=== PATIENT | male | born 1950 | race Caucasian/White ===

== ENCOUNTER → 2016-07-27 | Outpatient (CLI) | payer MEDICARE, OTHER ==
[~2016-07-27] MED LIST: ALLO300T74 PO; AMLO10TA57 PO; ASPI325T PO; CYAN500T2 PO; DOXY100T2 PO; FEXO-118 PO; HYDR-4072 PO; INSU100C11 SQ; INSU100V27 SQ; LABE100T19 PO; LEVO200T10 PO; OXYC1TAB8 PO; SERT-88 PO; VALS1TAB81 PO; [UNRECOGNIZED DRUG - CODE] PO
== END ==
LOC: NWCC 13:35
PROVIDERS: ATTEND Internal Medicine
DX: I87.2 Venous insufficiency (chronic) (peripheral) (principal); L97.812 Non-pressure chronic ulcer of other part of right lower leg with fat layer exposed; R60.0 Localized edema; B95.62 Methicillin resistant Staphylococcus aureus infection as the cause of diseases classified elsewhere
CPT/HCPCS: 11042; A6209; G0463

== ENCOUNTER → 2016-08-03 | Outpatient (CLI) | payer MEDICARE, OTHER | LOC: NWCC 13:38 | PROVIDERS: ATTEND Internal Medicine | DX: I87.2 Venous insufficiency (chronic) (peripheral) (principal); L97.812 Non-pressure chronic ulcer of other part of right lower leg with fat layer exposed; R60.0 Localized edema | CPT/HCPCS: 29581; A6209; G0463 ==

== ENCOUNTER → 2016-08-10 | Outpatient (CLI) | payer MEDICARE, OTHER ==
[~2016-08-10] MED LIST changes: +CALMOSEPTINE OINTMENT 3.5 G PACKET TOP ONE
== END ==
LOC: NWCC 13:30
PROVIDERS: ATTEND Internal Medicine
DX: I87.2 Venous insufficiency (chronic) (peripheral) (principal); L97.812 Non-pressure chronic ulcer of other part of right lower leg with fat layer exposed; R60.0 Localized edema; Z89.612 Acquired absence of left leg above knee; B95.62 Methicillin resistant Staphylococcus aureus infection as the cause of diseases classified elsewhere
CPT/HCPCS: 11042; 29581; 97597; A9270

== ENCOUNTER → 2016-08-17 | Outpatient (CLI) | payer MEDICARE, OTHER ==
[~2016-08-17] MED LIST changes: -CALMOSEPTINE OINTMENT 3.5 G PACKET TOP ONE
== END ==
LOC: NWCC 13:01
PROVIDERS: ATTEND Internal Medicine
DX: I87.2 Venous insufficiency (chronic) (peripheral) (principal); L97.812 Non-pressure chronic ulcer of other part of right lower leg with fat layer exposed; R60.0 Localized edema; L97.819 Non-pressure chronic ulcer of other part of right lower leg with unspecified severity; B95.62 Methicillin resistant Staphylococcus aureus infection as the cause of diseases classified elsewhere
CPT/HCPCS: 29581; A6209; G0463

== ENCOUNTER → 2016-08-24 | Outpatient (CLI) | payer MEDICARE, OTHER ==
[~2016-08-24] MED LIST changes: +CALMOSEPTINE OINTMENT 3.5 G PACKET TOP ONE; +SALINE FLUSH 10ml SYRINGE IVF ONE
== END ==
LOC: NWCC 13:49
PROVIDERS: ATTEND Internal Medicine
DX: I87.2 Venous insufficiency (chronic) (peripheral) (principal); L97.812 Non-pressure chronic ulcer of other part of right lower leg with fat layer exposed; R60.0 Localized edema; S81.001A Unspecified open wound, right knee, initial encounter; S81.801A Unspecified open wound, right lower leg, initial encounter
CPT/HCPCS: 11042; 29581; A6021; A6210; A9270; G0463

== ENCOUNTER → 2016-08-31 | Outpatient (CLI) | payer MEDICARE, OTHER ==
[~2016-08-31] MED LIST changes: +ASCO250T5 PO; -CALMOSEPTINE OINTMENT 3.5 G PACKET TOP ONE; +CIPR-280 PO; +CLIN300C86 PO; +CLOT15CR5 TOP; +CYCL-375 PO; +HYDR-347 PO; +HYDR-4246 PO; +IBUP-1724 PO; +INSU100I3 SQ; +IRON18TA PO; +LOSA100T44 PO; -SALINE FLUSH 10ml SYRINGE IVF ONE; +SILVER NITRATE APPLICATOR TOP ONE; +TRAM50TA4 PO
== END ==
LOC: NWCC 13:59
PROVIDERS: ATTEND Internal Medicine
DX: I87.2 Venous insufficiency (chronic) (peripheral) (principal); L97.812 Non-pressure chronic ulcer of other part of right lower leg with fat layer exposed; R60.0 Localized edema; S81.801A Unspecified open wound, right lower leg, initial encounter; S81.001A Unspecified open wound, right knee, initial encounter
CPT/HCPCS: 17250; 29581; A6021; G0463

== ENCOUNTER → 2016-09-07 | Outpatient (CLI) | payer MEDICARE, OTHER ==
[~2016-09-07] MED LIST changes: -SILVER NITRATE APPLICATOR TOP ONE
== END ==
LOC: NWCC 13:40
PROVIDERS: ATTEND Internal Medicine
DX: I87.2 Venous insufficiency (chronic) (peripheral) (principal); L97.812 Non-pressure chronic ulcer of other part of right lower leg with fat layer exposed; S81.001A Unspecified open wound, right knee, initial encounter; R60.0 Localized edema; M62.838 Other muscle spasm
CPT/HCPCS: 11042; 29581; A6021; G0463

== ENCOUNTER 2016-09-09 14:49 | Emergency (ER) | payer MEDICARE, OTHER ==
[~2016-09-09] VITALS: Ht 190.5 cm; Wt 137.7 kg
[2016-09-09 14:49] VITALS: Ht 190.5 cm; Wt 137.7 kg
[~2016-09-09 14:49] MED LIST changes: -ASCO250T5 PO; -CIPR-280 PO; -CLIN300C86 PO; -CLOT15CR5 TOP; -CYCL-375 PO; -HYDR-347 PO; -HYDR-4246 PO; -IBUP-1724 PO; -INSU100I3 SQ; -IRON18TA PO; -LOSA100T44 PO; -TRAM50TA4 PO
--- OUTSIDE RECORDS SUMMARY | 2016-09-09 14:57 | XMS REPORT | Continuity of Care Document ---
Author Author [facility] Organization [facility] Address Unknown Phone Unavailable Support Name Relationship Address Phone ANN-MARIEJOSEFINA GIOVANA Caregiver [address] [place] [address] Unavailable VIKAS PORTILLO MD Caregiver [address] [place] [address] [place] [address] Unavailable KIA LIPSCOMB Next Of Kin [address] [place], [place] [id number] Insurance Providers Guarantor Sherri Lipscomb Address [address] [address] Email DENIED/ NO PORTAL Payer Medicare Policy Number [id number] Subscriber's Name Sherri Lipscomb Relationship 18 Self Effective Date 11 Payer [employer] Medicare Supplement Policy Number [id number] Subscriber's Name Sherri Lipscomb Relationship 18 Self Group Number [id number] Advance Directives Directive Response Recorded Date/Time Advanced Directives Type None 06/06/16 1:05pm Chief Complaint and Reason for Visit Chief Complaint Lower Extremity Pain Reason for Visit Cellulitis [id number] Problems Active Problems Medical Problem Onset Date Status Chronic shoulder pain Unknown Acute Hyperglycemia Unknown Acute Past Problems Medical Problem Onset Date Cellulitis Unknown Hx MRSA infection Unknown Medications Current Home Medications Medication Dose Units Route Directions Days Qty Instructions Start Date Allopurinol 300 Mg Tablet 1 Tab Oral Twice A Day 12/11/09 Amlodipine Besylate (Norvasc) 10 Mg Tablet 1 Tab Oral Daily 12/11 Aspirin 325 Mg Tablet 1 Tab Oral Daily 12/11/14 Cyanocobalamin (Vitamin B-12) (Vitamin B-12) 500 Mcg Tablet 1 Tab Oral Daily 12/11/14 Doxycycline Hyclate 100 Mg Tablet 1 Tab Oral Twice Daily With Meals 14 Days 28 Tablet 06/06/16 Fexofenadine Hcl 180 Mg Tablet 1 Tab Oral Twice A Day 12/11/14 Hydrocodone/Acetaminophen (Hydrocodon-Acetaminoph 7.5-325) 1 Each Tablet 1 Tab Oral Four Times Daily 07/16/15 Insulin Glargine (Lantus) 100 U/Ml Cartridge 55 U Sub-Q Bedtime 12/11/09 Insulin Lispro (Humalog) 100 U/Ml Vial 12-15 Unit Sub-Q Three Times A Day 12/11/09 Labetalol Hcl 100 Mg Tablet 1 Tab Oral Twice A Day 12/11/09 Levothyroxine Sodium (Levoxyl) 200 Mcg Tablet 1 Tab Oral 4 Times A Week 1 TAB ON MON-12/11/09 Levothyroxine Sodium 200 Mcg Tablet 2 Tab Oral 3 Times A Week TAKE 2 TAB MON-Mon12/11/14 Oxycodone Hcl/Acetaminophen (Percocet 5-325 Mg Tablet) 1 Each Tablet 1 Tab Oral Every 4-6 Hours as needed for Pain 15 Tablet 12/11/14 Sertraline Hcl (Zoloft) 100 Mg Tablet 1 Tab Oral Twice A Day 13/03 Valsartan/Hydrochlorothiazide (Valsartan-Hctz 320-25 Mg Tab) 1 Each Tablet 1 Tab Oral Daily 12/11/14 Past Home Medications Medication Directions Ordered Status Allopurinol 300 Mg Tablet, 300 Mg Oral 11/29/08 Discontinued Aspirin 325 Mg Tablet, 325 Mg Oral Daily 12/11/09 Discontinued Cephalexin Monohydrate (Cephalexin) 500 Mg Capsule, 500 Mg Oral Twice A Day 12/11/09 Discontinued Fexofenadine Hcl 60 Mg Tablet, 60 Mg Oral Twice A Day 12/11/09 Discontinued Furosemide 40 Mg Tablet, 40 Mg Oral Daily 12/11/09 Discontinued Ibuprofen 200 Mg Capsule, 200 Mg Oral Tid/Prn 12/11/09 Discontinued Pravastatin Sodium 40 Mg Tablet, 40 Mg Oral Bedtime 12/11/09 Discontinued Rosiglitazone Maleate (Avandia) 8 Mg Tablet, 8 Mg Oral 11/29/08 Discontinued Valsartan/Hydrochlorothiazide (Diovan Hct 320/25 Mg Tab) 1 Tab Tablet, 1 Tab Oral Daily 12/11/09 Discontinued Social History Social History Problem Response Recorded Date/Time Onset Date Status Hx Substance Use No 06/06/2016 3:58pm Not Applicable Not Applicable Hx Alcohol Use Y RECOVERING ALCOHOLIC 06/06/2016 3:58pm Not Applicable Not Applicable Tobacco Usage none 12/11/2014 10:54pm Not Applicable Not Applicable Query Response Start Date Stop Date Smoking Status Former smoker Hospital Discharge Instructions No hospital discharge instructions. Plan of Care Discharge Date 06/06/16 4:37pm Disposition 01 DISCHARGED HOME, SELF-CARE Condition at Discharge Stable Instructions/Education Provided Cellulitis Prescriptions See Medication Section Referrals GIOVANA LEAL Address: [address] [place] [address] Additional Instructions/Education Stop clindamycin. Start doxycycline 100 mg twice daily for 14 days. Continue ciprofloxacin as previously ordered. Follow with wound care center as scheduled Monday with Dr. New. Discussed with Dr. New additional prescription for doxycycline as needed for length of time desired. Take your already prescribed [place] for pain as needed. Follow treatment plan. Care Plan and Goals Physician Care Plan Problem: Cellulitis Goal: Follow up with wound care as scheduled for Monday of this week Instructions: Take medications and follow care plan as discussed/written Functional Status No functional status results. Allergies, Adverse Reactions, Alerts Allergen Type Severity Reaction Status Last Updated Iodinated Contrast Media - IV Dye Allergy Unknown Active 06/06/16 Sulfa (Sulfonamide Antibiotics) Allergy Unknown Active 06/06/16 Immunizations Query Response on File Recorded Date/Time Hx Influenza Vaccination Y fall 201012/11/14 8:55pm Hx Pneumococcal Vaccination Y within the last 10 years 12/11/14 8:55pm Hx Tetanus, Diptheria, Pertussis NO BROKEN SKIN 12/11/14 8:55pm Hx Influenza Vaccination Y fall 201012/11/14 8:55pm Hx Tetanus, Diptheria, Pertussis NO BROKEN SKIN 12/11/14 8:55pm Influenza Vaccine Hx 201506/06/16 3:59pm Vital Signs Acute Vital Signs Vital Response Date/Time Temperature (Fahrenheit) 99.1 deg F (96.8 - 99.1) 06/06/2016 1:05pm Temperature (Calculated Celsius) 37.57864 degrees C (36.0 - 37.3) 06/06/2016 1:05pm Pulse Rate (adult) 78 bpm (60 - 100) 06/06/2016 5:46pm Respiratory Rate 16 breaths/min (10 - 20) 06/06/2016 5:46pm O2 Sat by Pulse Oximetry 95 % (90 - 100) 06/06/2016 5:46pm Blood Pressure 128/58 mm Hg 06/06/2016 5:46pm Height (Feet) 6 feet 06/06/2016 1:05pm Height (Inches) 0 inches 06/06/2016 1:05pm Weight (Kilograms) 0 kg 06/06/2016 1:05pm Body Mass Index (BMI) 0.0 06/06/2016 1:05pm Results Laboratory Results Test Name Result Units Flags Reference Collection Date/Time Result Date/ Time Comments White Blood Count 3.5 T/MM3 L 4.5-11.0 06/06/2016 2:05pm 06/06/2016 2: 41pm Red Blood Count 2.65 M/MM3 L 4.50-5.90 06/06/2016 2:05pm 06/06/2016 2: 41pm Hemoglobin 9.2 GM/DL L 13.5-17.5 06/06/2016 2:05pm 06/06/2016 2:41pm Hematocrit 27.5 % L 41-53 06/06/2016 2:05pm 06/06/2016 2:41pm Mean Corpuscular Volume 103.8 UM3 H 80-100 06/06/2016 2:05pm 06/06/2016 2:41pm Mean Corpuscular Hemoglobin 34.7 UUG H 26-34 06/06/2016 2:05pm 2016 2:41pm Mean Corpuscular Hemoglobin Concent 33.5 GM/DL 31-37 06/06/2016 2:05pm 06/06/2016 2:41pm RDW Standard Deviation 52.4 FL H 36.9-50.2 06/06/2016 2:05pm 06/06/2016 2:41pm Platelet Count 57 T/MM3 L 130-400 06/06/2016 2:05pm 06/06/2016 2:41pm Mean Platelet Volume 9.8 UM3 9.4-12.4 06/06/2016 2:05pm 06/06/2016 2: 41pm Neutrophils (%) (Auto) 73.3 % H 33-66 06/06/2016 2:05pm 06/06/2016 2: 41pm Lymphocytes (%) (Auto) 15.1 % L 23-45 06/06/2016 2:05pm 06/06/2016 2: 41pm Monocytes (%) (Auto) 8.5 % 0-9.0 06/06/2016 2:05pm 06/06/2016 2:41pm Eosinophils (%) (Auto) 2.8 % 0-4 06/06/2016 2:05pm 06/06/2016 2:41pm Basophils (%) (Auto) 0.3 % 0-2 06/06/2016 2:05pm 06/06/2016 2:41pm Immature Granulocyte % (Auto) 0.0 % 0.0-0.5 06/06/2016 2:05pm 2016 2:41pm Absolute Neutrophils (auto) 2.6 T/MM3 1.8-7.7 06/06/2016 2:05pm 2016 2:41pm Absolute Lymphocytes (auto) 0.5 T/MM3 L 1-4.8 06/06/2016 2:05pm 2016 2:41pm Absolute Monocytes (auto) 0.3 T/MM3 0-0.8 06/06/2016 2:05pm 06/06/2016 2:41pm Absolute Eosinophils (auto) 0.1 T/MM3 0-0.5 06/06/2016 2:05pm 2016 2:41pm Absolute Basophils (auto) 0.0 T/MM3 0-0.2 06/06/2016 2:05pm 06/06/2016 2:41pm Absolute Immature Granulocyte (auto 0.00 T/MM3 0.00-0.03 06/06/2016 2: 05pm 06/06/2016 2:41pm Icterus Index < 2 0-7 06/06/2016 2:05pm 06/06/2016 2:35pm Chemistry Specimen Hemolysis < 15 0-25 06/06/2016 2:05pm 06/06/2016 2 :35pm 0-25: Specimen Exhibited No Hemolysis. Turbidity < 20 0-20 06/06/2016 2:05pm 06/06/2016 2:35pm Sodium Level 136 MEQ/L 134-144 06/06/2016 2:05pm 06/06/2016 2:35pm Potassium Level 4.7 MEQ/L 3.6-5 06/06/2016 2:05pm 06/06/2016 2:35pm Chloride Level 108 MEQ/L H 98-107 06/06/2016 2:05pm 06/06/2016 2:35pm Carbon Dioxide Level 20 MEQ/L L 22-30 06/06/2016 2:05pm 06/06/2016 2: 35pm Anion Gap 8 MEQ/L 5-15 06/06/2016 2:05pm 06/06/2016 2:35pm Blood Urea Nitrogen 31.0 MG/DL H 9-20 06/06/2016 2:05pm 06/06/2016 2: 35pm Creatinine 1.2 MG/DL 0.8-1.5 06/06/2016 2:05pm 06/06/2016 2:35pm BUN/Creatinine Ratio 26 RATIO 6-26 06/06/2016 2:05pm 06/06/2016 2:35pm Glomerular Filtration Rate Calc 61 06/06/2016 2:05pm 06/06/2016 2: 35pm Glucose Level 149 MG/DL H 75-110 06/06/2016 2:05pm 06/06/2016 2:35pm Calculated Osmolality 272 MOSM/KG 261-280 06/06/2016 2:05pm 06/06/2016 2:35pm Calcium Level 9.8 MG/DL 8.4-10.2 06/06/2016 2:05pm 06/06/2016 2:35pm Total Bilirubin 1.20 MG/DL 0.20-1.30 06/06/2016 2:05pm 06/06/2016 2: 35pm Alkaline Phosphatase 162 U/L H 38-126 06/06/2016 2:05pm 06/06/2016 2: 35pm Total Protein 7.0 G/DL 6.3-8.2 06/06/2016 2:05pm 06/06/2016 2:35pm Albumin 3.1 G/DL L 3.5-5.0 06/06/2016 2:06/06/2016 2:35pm Globulin 3.9 G/DL H 2.4-3.6 06/06/2016 2:05pm 06/06/2016 2:35pm Albumin/Globulin Ratio 0.8 RATIO L 1.1-2.2 06/06/2016 2:05pm 06/06/2016 2:35pm Aspartate Amino Transf (AST/SGOT) 51 U/L 17-59 06/06/2016 2:05pm 2016 2:35pm Alanine Aminotransferase (ALT/SGPT) 37 U/L 21-72 06/06/2016 2:05pm 01/2017 2:35pm Plasma Lactate 0.8 MMOL/L 0.6-2.2 06/06/2016 2:05pm 06/06/2016 2:36pm Procalcitonin 0.44 NG/ML 06/06/2016 2:05pm 06/06/2016 2:44pm PCT </= 0.5 ng/mL - sepsis not likely; PCT >0.5 and </=2 ng/mL - sepsis possible; PCT >2 ng/mL - sepsis likely; PCT >/=10 ng/mL - systemic inflammatory response - sepsis or septic shock highly indicated. Microbiology Results Procedure Source Organism/Result Collection Date/Time Result Date/Time Result Status WOUND CULTURE DEEP TISS-AER/AN Knee, Non-Surgical Site, Right S. AUREUS, METH -RESISTANT 05/11/2016 12:19pm 05/15/2016 9:37am Final ENTEROCOC FAECALIS - (GROUP D) 05/11/2016 12:19pm 05/15/2016 9:37am Final Blood Culture Peripheral/Iv Start CULTURE INITIATED - RESULTS PENDING 06/06 2:05pm 06/06/2016 2:42pm Preliminary Procedures Procedure Status Date Provider(s) Leticia subq tissue 20 sq cm/< Completed 05/04/16 246881"BORDER, EACH DRESSING" Completed 05/04/16 [id number] ITEM OR SERVICE Completed 05/04/16 E&M LEVEL - FACILITY Completed 05/04/16 Encounters Encounter Location Arrival/Admit Date Discharge/Depart Date Attending Provider Departed Emergency Room [facility] 06/06/16 1:03pm 06/06/16 4: 37pm VIKAS PORTILLO MD [facility] 05/25/16 1:34pm JUAN NEW MD [facility] 05/11/16 11:02am JUAN NEW MD [facility] 05/04/16 9:35am JUAN NEW MD Recent Diagnosis
--- NOTE | 2016-09-09 15:18 | ERPDOC ---
Departure Disposition Decision Date: Sep 09, 2016 Disposition Decision Time: 17:25 (NAIDA VASQUEZ APRN) Disposition: 01 DISCHARGED HOME, SELF-CARE Impression Impression (NAIDA VASQUEZ APRN) Impression: Primary Impression: Right hip pain Additional Impression: Fall Encounter type: initial encounter Qualified Codes: W19.XXXA - Unspecified fall, initial encounter Severity: Moderate (NAIDA VASQUEZ APRN) Condition: Stable Seen By: Mid-level only (NAIDA VASQUEZ APRN) Referrals: GIOVANA LEAL (Family) Problems/Meds/Labs Reviewed?: Yes Medications reviewed and manag: Yes (NAIDA VASQUEZ APRN) Additional Instructions: Your x-rays today did not show a fracture. IRU and home health will call you for evaluation as discussed with Mila. You may take [place] 7.5mg every 6 hours as needed for pain. You may take cyclobenzaprine 10mg every 8 hours as needed for muscle spasms. Follow with your PCP for re-evaluation next week. Follow up care ordered?: Yes Mental Status: Alert, Oriented (NAIDA VASQUEZ APRN) Scripts Hydrocodone/Acetaminophen ([place] 7.5-325 Tablet) 7.5-325 Tablet 1 TAB PO Q6HPRN for PAIN, #20 TAB Prov: NAIDA VASQUEZ APRN 09/09/16 Cyclobenzaprine HCl (Cyclobenzaprine HCl) 10 Mg Tablet 1 TAB PO TID for MUSCLE PAIN, #30 TAB Prov: NAIDA VASQUEZ APRN 09/09/16 HPI - Lower Extremity General Chief Complaint: Lower Extremity Pain Stated Complaint: HIP PAIN X 1 WEEK Time Seen by Provider: 15:17 Source: patient (NAIDA VASQUEZ APRN) Time Seen by Provider: 15:17 (ANNMARIE STRINGER DO) HPI - Lower Extremity Initial Comments 66-year-old male presents to ER with complaint of right lateral hip pain. Patient states that he has had increasing right lateral hip pain over past few weeks. Has an appointment with Dr. Brown property specialist in Monday when transferring from his wheelchair to bed he fell on his buttock. Fall has exacerbated his lateral right hip pain. Patient says he is still able to transfer but his spouse must now help him. Patient has had no change in his normal ROM since fall, however it is more painful. Patient reports his pain has improved since he took his prescribed [place] before coming to ED. Pain/Severity Scale: Now: 2/10 (when still), Worst: 8/10 (with movement) Pain/Injury Location: right hip Method of Injury: fell Quality: aching (NAIDA VASQUEZ APRN) Allergies: Coded Allergies: Iodinated Contrast Media - Oral and (Verified Allergy, Unknown, 09/09/16) Sulfa (Sulfonamide Antibiotics) (Verified Allergy, Unknown, 09/09/16) Past History Past Medical History Metabolic: diabetes, hypercholesterolemia, hypertension, hypothyroidism Cardiac: DENIES: angina Respiratory: DENIES: COPD, asthma GI: DENIES: ulcers Male: DENIES: renal insufficiency Neurological: DENIES: seizures Musculoskeletal: osteoarthritis Integumentary: other Psychological: alcohol abuse, depression (NAIDA VASQUEZ APRN) Surgical History General: tonsils Reproductive/: other (vasectomy) Joint: hip, knee, other (left AKA) (NAIDA VASQUEZ APRN) Family History Family PMH: FOUND: other (noncontributory) (NAIDA VASQUEZ APRN) Vaccines Hx Influenza Vaccination: Yes (FALL 2010) Hx Pneumococcal Vaccination: Yes (within the last 10 years) (NAIDA VASQUEZ APRN) Social History Sexuality: female partner (NAIDA VASQUEZ APRN) Review of Systems Constitutional Constitutional: DENIES: chills, dizziness, fever (NAIDA VASQUEZ APRN) Eyes General: DENIES: erythema, exudate Lids/Accessories: DENIES: erythema, swelling (NAIDA VASQUEZ APRN) ENMT Ears: DENIES: pain Sinuses: DENIES: congestion, rhinorrhea Mouth/Throat: DENIES: sore throat (NAIDA VASQUEZ APRN) Cardiovascular Cardiac: DENIES: chest pain, murmur Rhythm/Rate: DENIES: palpitations (NAIDA VSAQUEZ APRN) Pulmonary Respiratory: DENIES: cough, dyspnea (NAIDA VASQUEZ APRN) GI Upper Abdomen: DENIES: nausea, pain, vomiting Lower Abdomen: DENIES: diarrhea, pain (NAIDA VASQUEZ APRN) General: DENIES: dysuria, pain (NAIDA VASQUEZ GRE[employer] END DEPARTMENT SUPERVISOR) Musculoskeletal General: joint pain, see HPI, tenderness (NAIDA VASQUEZ GRE[employer] DEPARTMENT SUPERVISOR) Integumentary Skin: DENIES: color change, itching, rash (ALEX VASQUEZS A [employer] DEPARTMENT SUPERVISOR) Neurological General: DENIES: ataxia, change in strength, numbness, weakness (ALEX VASQUEZS A GRE[employer] DEPARTMENT SUPERVISOR) Psychiatric Psychiatric: DENIES: anxiety, depression, nervousness (ALEX VASQUEZS A [employer] DEPARTMENT SUPERVISOR) Physical Exam General General Nourishment: well nourished, well developed, adult, obese General Body Habitus: well groomed (ALEX VASQUEZS Jan GRE[employer] DEPARTMENT SUPERVISOR) Vitals and Pain First Documented Vital Signs Date Time Temp Pulse Resp B/P Pulse Ox O2 Delivery O2 Flow Rate FiO2 09/09/16 14:49 97.7 62 16 136/61 98 Room Air (ANNMARIE STRINGER DO) Vitals and Pain Weight: Kilograms: 137.700 Height (feet): 6 Height (inches): 3.00 Triage Pain Scale: (ALEX VASQUEZS Jan NGUYENN) Eyes (brief) Eyes Brief: found: EOMI (ALEX VASQUEZS A GRE[employer] END DEPARTMENT SUPERVISOR) ENMT (brief) ENMT Brief: NOT FOUND: nasal exudate, nasal swelling (ALEX VASQUEZS A GRE[employer] DEPARTMENT SUPERVISOR) Neck (brief) Neck: FOUND: trachea midline (ALEX VASQUEZS A GRE[employer] DEPARTMENT SUPERVISOR) Respiratory (brief) Respiratory: FOUND: clear all wick, equal bilaterally, symmetrical (ALEX VASQUEZS A GRE[employer] DEPARTMENT SUPERVISOR) Cardiovascular (brief) Cardiac: FOUND: regular rate, regular rhythm (ALEX VASQUEZS A GRE[employer] DEPARTMENT SUPERVISOR) Musculoskeletal Joint #1: Side: Right Joint: hip Joint Findings: FOUND: ROM limited (due to pain), pain (mild TTP over lateral hip), NOT FOUND: deformity, discoloration, instability, swelling Comments Right foot is externally rotated which patient says has been that way since his right hip replacement 3 years ago. Joint #2: Side: Right Joint: knee Joint Findings: FOUND: no abnormalities (ALEX VASQUEZS A GRE[employer] END DEPARTMENT SUPERVISOR) Integumentary (brief) Integumentary Brief: FOUND: dry, pink, warm (ALEX VASQUEZS A GRE[employer] DEPARTMENT SUPERVISOR) Neurologic Mental Status: FOUND: alert, oriented Cranial Nerves: FOUND: extraocular movements, forehead movement, hearing, vision, NOT FOUND: facial asymmetry Sensation: FOUND: soft touch intact x4 ext (ALEX VASQUEZS A GRE[employer] DEPARTMENT SUPERVISOR) Psychiatric (brief) Psychiatric Brief: FOUND: alert, normal affect, oriented (VASQUEZ,NAIDA A GREEN [employer] DEPARTMENT SUPERVISOR ) Differential Diagnoses Considering: Contusion, Fracture, Sprain, Strain (NAIDA VASQUEZ APRN) Progress Results/Orders Orders Procedure Category Date Status Time Pelvis W/2 View Rt Hip RAD 09/09/16 Resulted (ANNMARIE STRINGER DO) Progress Progress I discussed x-ray results with patient and his . Patient states he is ready to go home, however patient's states that patient is in too much pain at home for him to care for himself. I discussed having Mila pediatric social worker to come to ED and discuss options. Patient will go home and patient will have home health and IRU evaluation. Patient and his verbalize understanding of treatment plan, follow up and return precautions. Patient request refills on [place] and cyclobenzaprine. (NAIDA VASQUEZ APRN) Xray Xray : Xray: Hip R (No acute fracture ) Interpretation: Reviewed Written Report (NAIDA VASQUEZ APRN) NAIDA VASQUEZ APRN Sep 09, 2016 15:18 ANNMARIE STRINGER DO Sep 12, 2016 22:42
--- NOTE | 2016-09-09 15:20 | NUR ---
PROVIDER Charli VASQUEZ CELLULAR TOWER CLIMBER IN TO SEE PATIENT.
[2016-09-09] MEDS ORDERED: CLIN300C86 PO (15:25)
[2016-09-09] MEDS ORDERED: CIPR-280 PO (15:25)
[2016-09-09] MEDS ORDERED: TRAM50TA4 PO (15:25)
[2016-09-09] MEDS ORDERED: INSU100I3 SQ (15:27)
[2016-09-09] MEDS ORDERED: LOSA100T44 PO (15:27)
[2016-09-09] MEDS ORDERED: CLOT15CR5 TOP (15:27)
[2016-09-09] MEDS ORDERED: IBUP-1724 PO (15:29)
[2016-09-09] MEDS ORDERED: ASCO250T5 PO (15:29)
[2016-09-09] MEDS ORDERED: IRON18TA PO (15:29)
[2016-09-09] MEDS ORDERED: LEVO200T10 PO (15:30)
--- NOTE | 2016-09-09 15:35 | NUR ---
TO XRAY PER CART.
--- NOTE | 2016-09-09 15:50 | NUR ---
BACK FROM XRAY
--- NOTE | 2016-09-09 16:04 | DI ---
Indication: ITS.REASON: pain over lateral hip PROCEDURE: PELVIS W/2 VIEW RT HIP: Encounter: Initial Comparison: Pelvis radiograph dated November 23, 2010 Findings: Bilateral hip replacements. No acute fracture or dislocation seen. Extensive heterotopic ossification surrounding the right hip joint. Degenerative change in the lower lumbar spine. Mild bony demineralization. Impression: No acute fracture. .
--- NOTE | 2016-09-09 16:10 | NUR ---
PROVIDER Charli VASQUEZ PACKAGE WINDER IN TO SEE PATIENT.
--- NOTE | 2016-09-09 17:28 | NUR ---
CM THIS WORKER MET WITH PT AND IN ROOM. INTRODUCED SELF AND ROLE OF CASE MANAGEMENT. COMMUNITY RESOURCES REVIEWED. PT AND IN AGREEMENT WITH HOME HEALTH SERVICES THEY HAVE USED [facility] IN THE PAST. THIS WORKER PROVIDED ADDITIONAL RESOURCES FOR DME AND IRU. AND PT THANKFUL AN IN AGREEMENT WITH CURRENT PLAN. PT WILL PLAN TO DISMISS TO HOME WITH [facility]. THIS WORKER PROVIDED CONTACT INFORMATION FOR THIS WORKER AND ENCOURAGED PT AND TO CONTACT THIS WORKER WITH ADDITIONAL NEEDS. Addendum: 09/09/16 at 1730 by JONATHON ANDERSON Amended: Links added.
[2016-09-09] MEDS ORDERED: CYCL-375 PO ×2 (17:35→17:45)
[2016-09-09] MEDS ORDERED: HYDR-347 PO (17:37)
[2016-09-09] MEDS ORDERED: HYDR-4246 PO (17:45)
--- NOTE | 2016-09-09 17:46 | NUR ---
HOME HEALTH ORDERS ORDERS FAXED TO [facility]. SPOKE TO LYNNE FROM [facility] TO NOTIFY OF NEED FOR OPENING OF SERVICES ON 09/10/16.
[2016-09-09 18:10] VITALS: BP 125/62; PULSE 65; RESP 16; TEMP 97.7; O2SAT 99
--- NOTE | 2016-09-09 18:10 | NUR ---
DISMISSAL PATIENT TRANSFERRED TO PERSONAL W/C PER FULL LIFT. PATIENT IS WHEELED OUT TO PO, A WHEELCHAIR ACCESSIBLE VAN.
== END 2016-09-09 18:10 | disposition home or self-care (01) ==
LOC: ED 15:25
DX: M25.551 Pain in right hip (principal); W18.39XA Other fall on same level, initial encounter; Y93.89 Activity, other specified; Y92.9 Unspecified place or not applicable; Y99.8 Other external cause status

== ENCOUNTER 2017-09-03 18:07 | Inpatient (IN) ==
[2017-09-03] MEDS ORDERED: NS 1,000 ML IV ONE (18:18)
[2017-09-03] MEDS ORDERED: NALOXONE 0.4 MG/ML INJECTION IVP ONE (18:24)
--- NOTE | 2017-09-03 18:26 | Emergency Department Report ---
Altered Mental Status HPI - General Chief Complaint: Weakness Stated Complaint: Unresponsive Time Seen by Provider: 09/03/17 18:13 Source: EMS, RN notes reviewed, old records reviewed Mode of arrival: EMS Limitations: altered mental status - History of Present Illness HPI narrative: 67yo man is presented to the ER by EMS for evaluation of AMS. Pt was found at home today (by spouse?) with AMS. This has happened previously, usually in conjunction with a low BG. Today, his BG was found to be 45mg/dL. Typically, after being given glucose, pt recovers. Today, however, he did not recover, so EMS was contacted to transport pt for further evaluation. Pt arrives by EMS breathing, but with SaO2 dipping into the high 80s (86-88%) on RA. Pt is maintaining his own airway without s/s of respiratory distress. Pt is somnolent (GCS 13). MD complaint: altered mental status Onset (ago): unknown Timing confirmed by: spouse Severity: similar to previous episodes Consistency of symptoms: constant Context: history of similar presentation, diabetes Treatments prior to arrival: glucose, IV fluid - Related Data Home Medications Medication Instructions Recorded Confirmed Cipro (ciprofloxacin) 500 mg tablet 500 mg PO BID tab 02/02/17 09/03/17 Lantus Solostar (insulin glargine) 38 unit SQ HS ml 02/02/17 09/03/17 100 unit/mL (3 mL) PEN Neurontin (gabapentin) 100 mg 100 mg PO BID 02/02/17 09/03/17 capsule aspirin 81 mg tablet,delayed 81 mg PO DAILY tab 02/02/17 09/03/17 release Allopurinol [Zyloprim] 300 mg PO DAILY 06/04/17 09/03/17 Amlodipine [Norvasc] 10 mg PO DAILY 06/04/17 09/03/17 Cholecalciferol (Vitamin D3) 2,000 unit PO DAILY 06/04/17 09/03/17 [Vitamin D3] Clindamycin [Cleocin] 300 mg PO BID 06/04/17 09/03/17 Cyclobenzaprine [Flexeril] 10 mg PO TID PRN 06/04/17 09/03/17 Dextrose [Glucose Gel] 4 oz BC PRN 06/04/17 09/03/17 Docusate Sodium 100 mg PO BID PRN 06/04/17 09/03/17 Fexofenadine [Yuridia] 180 mg PO DAILY PRN 06/04/17 09/03/17 Labetalol [Normodyne] 100 mg PO BID 06/04/17 09/03/17 Loperamide HCl [Imodium A-D] 2 mg PO Q4H PRN 06/04/17 09/03/17 Losartan [Cozaar] 100 mg PO DAILY 06/04/17 09/03/17 Ondansetron HCl 4 mg PO Q6H PRN 06/04/17 09/03/17 Sertraline [Zoloft] 100 mg PO BID 06/04/17 09/03/17 Protonix (Pantoprazole)40 mg 40 mg PO DAILY 07/11/17 09/03/17 tablet,delayed release Novolog FlexPen (insulin aspart) 17 unit SQ TIDWM ml 08/21/17 09/03/17 100 unit/mL PEN levothyroxine 50 mcg tablet 50 mcg PO DAILY 08/23/17 09/03/17 Hydrocodone/APAP 7.5/325 [[place] 1 tab PO Q6H PRN 09/03/17 09/03/17 7.5/325] Tramadol [Ultram] 50 mg PO TID PRN 09/03/17 09/03/17 Previous Rx's Medication Instructions Recorded levothyroxine 200 mcg tablet 200 mcg PO DAILY tab 08/23/17 Allergies Allergy/AdvReac Type Severity Reaction Status Date / Time Iodinated Contrast- Oral and Allergy Unknown Verified 09/03/17 18:31 IV Dye Sulfa (Sulfonamide Allergy Unknown Verified 09/03/17 18:31 Antibiotics) Review of Systems Limitations: ROS unobtainable due to patient's medical condition [facility] Patient Stated Medical History Hypertension Yes Other Cardiology Yes: venous insufficency Bronchitis Yes Other Respiratory Yes: allergies Diabetes Mellitus Type 2 Yes Hx Kidney Stones Yes Other Hematologic Yes: bruise easily Cellulitis Yes MRSA Yes Sepsis Yes Depression Yes Clinic Medical History (Last Updated 08/24/17 @ 08:05 by Kevin Le MD) Hyperparathyroidism, primary (Acute Medical ~08/24/17) Diabetes mellitus type 2, uncontrolled, without complications (Chronic Medical ~ 1994) Fair control without severe hypoglycemia. Diabetic peripheral neuropathy associated with type 2 diabetes mellitus ( Chronic Medical) Unable to fully assess today. Postablative hypothyroidism (Chronic Medical ~2003) Clinically and chemically euthyroid. Hypertension (Chronic Medical) Good control. Kidney stone (Acute Medical) Medical History Updates: Gout. HTN. CAD. PVD. Diabetic neuropathy. Gastroparesis. Allergic rhinitis. IDDM. Hypothyroid (s/p JET). GERD. Depression. KIZZY. Morbid obesity Surgical History: Left BKA Family History: Family History (Last Reviewed 08/23/17 @ 09:53 by Kevin Le MD) Brother Diabetes Sister Diabetes Mother Thyroid disease - Social History Smoking status: Never smoker Substance use type: does not use Alcohol intake frequency: does not drink Housing: assisted living facility Household members: spouse Current occupational status: disabled Physical Exam - Limitations Limitations: altered mental status - General General appearance: in no apparent distress, lethargic, obese - Head Head exam: atraumatic, normocephalic, normal inspection - Eye Eye exam: Present: normal appearance, PERRL, EOMI. Absent: scleral icterus - ENT ENT exam: Present: normal exam, normal oropharynx, mucous membranes moist, normal external ear exam - Neck Neck exam: Present: normal inspection, full ROM - Chest Chest inspection: Present: normal inspection, symmetric chest wall rise. Absent : tenderness, rash - Respiratory Respiratory exam: Present: normal lung sounds bilaterally. Absent: respiratory distress, wheezes, stridor, prolonged expiratory phase, crackles - Cardiovascular Cardiovascular exam: Present: regular rate, normal rhythm, normal heart sounds. Absent: rubs, gallop, clicks - Abdominal Exam Abdominal exam: Present: soft, normal bowel sounds. Absent: distention, tenderness, guarding, rebound, rigidity - Extremities Exam Extremities exam: Present: normal capillary refill, pedal edema (3+ edema to calf on right; left BKA). Absent: normal inspection - Skin Skin exam: Present: warm, dry, intact - Expanded Neurological Exam Coma scale eye opening: to voice Coma scale motor response: obeys commands Coma scale verbal response: confused Coma scale total: 13 - Psychiatric Psychiatric exam: Present: flat affect Course - Consultations Consultation #1: Karthik Telemed: Will admit to CCU for eval and further treatment of hypercalcemia , DM, anemia, and A/CRF. Time: 19:53 Altered Mental Status - MDM Narrative Medical decision making narrative: Pt with hypercalcemia, acute/chronic RF, acute/chronic anemia, and poorly controlled DM. Contacted hospitalist, who will place pt in CCU for acute treatment and further eval. - Differential Diagnosis Likely: alcoholic intoxication, altered mental status, delirium, dementia, hypoglycemia, hyponatremia, subarachnoid hemorrhage, sepsis (Opiate overdose) - Medical Records Attestation: I reviewed the patient's medical records. - Lab Data Attestation: I reviewed the patient's lab results. Result diagrams: 09/03/17 18:41 09/03/17 18:41 - Radiology Data Attestation: I reviewed the patient's radiology results. CXR: Diffuse intraparenchymal infiltrates throughout lung wick. CT Head: IMPRESSION: 1. There are senescent changes of the brain as described above. No evidence for large acute ischemic infarction or acute intracranial injury. 2. Paranasal sinusitis including acute left maxillary sinusitis. - EKG Data EKG #1 EKG attestation: Yes: I reviewed and interpreted this EKG. EKG shows normal: axis Rate: bradycardia Rhythm: other (Supraventricular) Mcclellan/QRS: IVCD Interpretation: unchanged when compared to prior tracing (date) (28 OCT 2016), nonspecific ST-T wave changes Disposition Clinical Impression: Hypoglycemia, Hypercalcemia, Anemia, Chronic renal failure Obesity Qualifiers: Obesity type: due to excess calories Obesity classification: adult class 2 ( BMI 35 - 39.9) Serious obesity comorbidity presence: with serious comorbidity Body mass index: BMI 38.0-38.9 Qualified Code(s): E66.01 - Morbid (severe) obesity due to excess calories; Z68.38 - Body mass index (BMI) 38.0-38.9, adult Disposition: 02 To [facility] [place] Acute Care Print Language: Yoruba Condition: Improved Prescriptions: No Action Docusate Sodium 100 mg PO BID PRN PRN Reason: Constipation Loperamide HCl [Imodium A-D] 2 mg PO Q4H PRN PRN Reason: Diarrhea Cyclobenzaprine [Flexeril] 10 mg PO TID PRN PRN Reason: Muscle Spasm Clindamycin [Cleocin] 300 mg PO BID Labetalol [Normodyne] 100 mg PO BID Cholecalciferol (Vitamin D3) [Vitamin D3] 2,000 unit PO DAILY Amlodipine [Norvasc] 10 mg PO DAILY Allopurinol [Zyloprim] 300 mg PO DAILY Losartan [Cozaar] 100 mg PO DAILY Dextrose [Glucose Gel] 4 oz BC PRN Hydrocodone/APAP 7.5/325 [[place] 7.5/325] 1 tab PO Q6H PRN PRN Reason: Pain Tramadol [Ultram] 50 mg PO TID PRN PRN Reason: Pain Ondansetron HCl 4 mg PO Q6H PRN PRN Reason: Nausea Fexofenadine [Yuridia] 180 mg PO DAILY PRN PRN Reason: Allergy Symptoms Sertraline [Zoloft] 100 mg PO BID Neurontin (gabapentin) 100 mg capsule 100 mg PO BID aspirin 81 mg tablet,delayed release 81 mg PO DAILY tab Cipro (ciprofloxacin) 500 mg tablet 500 mg PO BID tab levothyroxine 50 mcg tablet 50 mcg PO DAILY Lantus Solostar (insulin glargine) 100 unit/mL (3 mL) PEN 38 unit SQ HS ml Protonix (Pantoprazole)40 mg tablet,delayed release 40 mg PO DAILY Novolog FlexPen (insulin aspart) 100 unit/mL PEN 17 unit SQ TIDWM ml levothyroxine 200 mcg tablet 200 mcg PO DAILY tab Referrals: Vonda Carias MD [Primary Care Provider] - Time of Disposition: 20:11 - Seen By: physician
[2017-09-03] MEDS ORDERED: CALCITONIN 400 UNIT/2 ML INJECTION SQ ONE (19:51)
[2017-09-03] MEDS ORDERED: MORPHINE SULFATE 2mg INJ IVP PRN (20:33)
[2017-09-03] MEDS ORDERED: FUROSEMIDE 40 MG/4 ML INJECTION IVP ONE (20:33)
[2017-09-03] MEDS ORDERED: ONDANSETRON 4 MG/2 ML INJECTION IVP PRN (20:33)
[2017-09-03] MEDS ORDERED: METOCLOPRAMIDE 10mg/2ml INJECTION IVP PRN (20:33)
--- NOTE | 2017-09-03 21:26 | History & Physical Report ---
History of Present Illness Date: 09/04/17 Chief complaint: none, EMS transfer from SNF for altered mental status HPI: Please note that the patient was seen via telemedicine with nursing assistance on 09/03/2017 Mr. Gonzales is a 67yo man with h/o T2D, essential HTN, KIZZY, class 2 obesity, PAD s/p L BKA, and CKD3 presenting from [place] with altered mentation. Patient's is at the bedside and confirms more confused for a couple of days but obtunded at SNF with glucose 45 given dextrose and then additional by EMS with 1 L NS in route. Per ED staff GCS13 on arrival with patient still slow to answer questions, but more oriented. Patient denies pain, nausea, sob. Patient not on O2 per with SpO2 86% on ED arrival as well. Med change B12 started 1.5 weeks ago by endo with heme/onc also seeing the patient for progressive anemia and started on ?epo. No recent need for blood transfusion. No Abd pain or stool changes. Review of Systems ROS unobtainable: due to mental status All systems PM: 10-point ROS was reviewed, no additional remarkable complaints except Past Medical History Medical History: Medical History (Last Updated 08/24/17 @ 08:05 by Kevin Le MD) Hyperparathyroidism, primary (Acute) Onset Date: ~08/24/17 Diabetes mellitus type 2, uncontrolled, without complications (Chronic) Onset Date: ~1994 Fair control without severe hypoglycemia. Diabetic peripheral neuropathy associated with type 2 diabetes mellitus (Chronic ) Unable to fully assess today. Postablative hypothyroidism (Chronic) Onset Date: ~2003 Clinically and chemically euthyroid. Hypertension (Chronic) Good control. Kidney stone (Acute) Medical History Updates: Gout. HTN. CAD. PVD. Diabetic neuropathy. Gastroparesis. Allergic rhinitis. IDDM. Hypothyroid (s/p JET). GERD. Depression. KIZZY. Morbid obesity Surgical History: Left BKA Family History: Family History (Last Reviewed 08/23/17 @ 09:53 by Kevin Le MD) Brother Diabetes Sister Diabetes Mother Thyroid disease Family History Updates: as prior with no early cad, much T2D Family History: Unable to Obtain (altered mentation, see prior) - Social History Smoking status: Never smoker Substance use type: does not use Alcohol intake frequency: does not drink Housing: [facility]cf Medications Home Medications Medication Instructions Recorded Confirmed Type Cipro (ciprofloxacin) 500 mg tablet 500 mg PO BID tab 02/02/17 09/03/17 History Lantus Solostar (insulin glargine) 38 unit SQ HS ml 02/02/17 09/03/17 History 100 unit/mL (3 mL) PEN Neurontin (gabapentin) 100 mg 100 mg PO BID 02/02/17 09/03/17 History capsule aspirin 81 mg tablet,delayed 81 mg PO DAILY tab 02/02/17 09/03/17 History release Allopurinol [Zyloprim] 300 mg PO DAILY 06/04/17 09/03/17 History Amlodipine [Norvasc] 10 mg PO DAILY 06/04/17 09/03/17 History Cholecalciferol (Vitamin D3) 2,000 unit PO DAILY 06/04/17 09/03/17 History [Vitamin D3] Clindamycin [Cleocin] 300 mg PO BID 06/04/17 09/03/17 History Cyclobenzaprine [Flexeril] 10 mg PO TID PRN 06/04/17 09/03/17 History Dextrose [Glucose Gel] 4 oz BC PRN 06/04/17 09/03/17 History Docusate Sodium 100 mg PO BID PRN 06/04/17 09/03/17 History Fexofenadine [Yuridia] 180 mg PO DAILY PRN 06/04/17 09/03/17 History Labetalol [Normodyne] 100 mg PO BID 06/04/17 09/03/17 History Loperamide HCl [Imodium A-D] 2 mg PO Q4H PRN 06/04/17 09/03/17 History Losartan [Cozaar] 100 mg PO DAILY 06/04/17 09/03/17 History Ondansetron HCl 4 mg PO Q6H PRN 06/04/17 09/03/17 History Sertraline [Zoloft] 100 mg PO BID 06/04/17 09/03/17 History Protonix (Pantoprazole)40 mg 40 mg PO DAILY 07/11/17 09/03/17 History tablet,delayed release Novolog FlexPen (insulin aspart) 17 unit SQ TIDWM ml 08/21/17 09/03/17 History 100 unit/mL PEN levothyroxine 200 mcg tablet 200 mcg PO DAILY tab 08/23/17 09/03/17 Rx levothyroxine 50 mcg tablet 50 mcg PO DAILY 08/23/17 09/03/17 History Hydrocodone/APAP 7.5/325 [[place] 1 tab PO Q6H PRN 09/03/17 09/03/17 History 7.5/325] Tramadol [Ultram] 50 mg PO TID PRN 09/03/17 09/03/17 History Allergies Allergy/AdvReac Type Severity Reaction Status Date / Time Iodinated Contrast- Oral and Allergy Unknown Verified 09/03/17 18:31 IV Dye Sulfa (Sulfonamide Allergy Unknown Verified 09/03/17 18:31 Antibiotics) Exam Vital Signs: Temperature 96.7 F L 09/03/17 18:10 Pulse Rate 65 09/03/17 20:39 Respiratory Rate 20 09/03/17 20:39 Blood Pressure 118/74 09/03/17 20:39 Pulse Oximetry 100 09/03/17 20:39 Telemetry Rhythm: Sinus Rhythm - Constitutional Present: no acute distress - Routine HEENT Exam Head: Present: normocephalic, atraumatic Eye: Present: EOMI - Routine Respiratory Exam Absent: accessory muscle use Comments: poor effort with no wheezing or rales - Routine Cardiovascular Exam Present: RRR, no murmur - Routine Abdominal Exam Present: soft, normoactive bowel sounds, non tender - Routine Extremities Exam Absent: cyanosis - Routine Skin Exam Comments: buttock pressure ulcer per nurse - Routine Neurological Exam not fully alert, slow to answer questions. Is now oriented but slow per . No lateralizing signs Results - Labs CBC & Chem 7: 09/04/17 04:46 09/04/17 04:46 Assessment and Plan (1) Metabolic encephalopathy Current visit: Yes Status: Acute (2) Hypoxia Current visit: Yes Status: Acute (3) DM2 (diabetes mellitus, type 2) Current visit: Yes Status: Acute (4) Pancytopenia Current visit: Yes Status: Acute (5) Hypoglycemia Current visit: Yes Status: Acute (6) Hypercalcemia Problem details: Need to further assess. Current visit: Yes Status: Acute (7) Hypertension Problem details: Good control. Current visit: No Status: Chronic (8) Obesity (BMI 30-39.9) Current visit: No Status: Acute Assessment and Plan: 1. Acute metabolic encephalopathy due to hypercalcemia, hypoglycemia, HERNAN, hypoxia, other. See below with med minimalization. 2. Hypercalcemia likely due to 3. NS for 2 L then lasix and recheck. Tele with EKG no Qt change, thus must be acute on chronic with 4. 3. Pancytopenia--will need heme/onc consult and likely BMBx with ? myelofibrosis or other. Basic labs. 4. HERNAN with prerenal. IVF and recheck, monitor for GI bleed and continue PPI. 5. DM2 with insulin potentiated with 4. Hold and check CBGs 6. Essential HTN--hold losartan and amlodipine for now, continue lopressor 7. Class 2 obesity BMI 38 8. PAD s/p L BKA 9. Hypothyroidism--continue therapy 10. Pressure ulcer and ?tinea. Wound care and nystatin. 11. Hypoxia likely poor effort/debility, monitor. 12. KIZZY on CPAP DVT Prophylaxis: SCD's - Physician Narrative Narrative: Date: 09/03/17 Time: 2121 Hospital Course Summary Disclaimer: The visit summary below is not to be considered part of the above Progress Note. Hospital Course: 09/04/2017-9:25 AM-Dr. Lezama I have reviewed the H&P above and agree. Please see my additions below. Chief complaint is confusion History of present illness: The patient is a pleasant 67-year-old male who is in a [facility] for almost 1 year. He has a left [id number] amputation and has history of right knee fusion after removal of an infected joint. He is nonambulatory. He has a history of uncontrolled diabetes with resultant peripheral vascular disease, chronic, and also has peripheral polyneuropathy. He was recently found to have hypercalcemia with a calcium level of 13.2 on 08/23/2017 and a PTH of 300. The Patient was transferred by EMS to [facility] last evening. His glucose was noted to be 45 and was given dextrose by EMS. The patient had been eating and drinking poorly for a couple of days and has been more confused for a couple of days. On lab work here at [facility] his glucose was 152, BUN 59, creatinine 2.5. White count 2.5. Hemoglobin 6.6. Platelets 38. Calcium was 14.3. Lactate was 1.0. The patient was admitted for acute kidney injury, dehydration, hypoglycemia and hypercalcemia. He was given IV fluids overnight and this morning BUN is 59 and creatinine is 2.6. He has had good urine output at 2.4 L. Calcium has improved slightly to 13.3. Glucose is 225. The patient's is here and helps with history. She is DPOA. She states the patient is still confused but not as bad as yesterday. He has had some tactile hallucinations today. She states that he did not eat all day Monday or Monday. She has noticed that he's had some mild memory decline for the past 6 months but has been more confused since around August 15. Past medical history: Peripheral polyneuropathy with difficulty moving arms and legs. Osteoarthritis with bilateral shoulder pain. Chronic buttock wounds and diaper dermatitis for which she goes to the wound care clinic Type 2 diabetes for which she sees Dr. Le. Recent diagnosis of primary hyperparathyroidism for which she sees Dr. Le Post ablative hypothyroidism Hypertension Gout History of kidney stone requiring surgical removal Coronary artery disease Peripheral vascular disease Gastroparesis Allergic rhinitis Depression Obstructive sleep apnea for which he is on CPAP Morbid obesity History of joint infections for which the patient is chronically on Cipro and clindamycin with Dr. Gomez Pancytopenia for which the patient sees Dr. Mishra-he recently has started injections which sound like erythropoietin Past surgical history: Left BKA. Multiple surgeries on the right leg with history of right knee joint infection. Right knee is now fused. Bilateral total hip arthroplasty. Surgical removal of a kidney stone Comprehensive review of systems cannot be obtained because the patient is confused. Family history significant for diabetes Allergies and medications are reviewed Social history: The patient is a nonsmoker and nondrinker. He has been living in a ch[facility] for the past 1 year. His his DPOA. He is a full code per his . Physical exam: Afebrile, heart rate 68, blood pressure 130/60, O2 sat 99% on room air. GEN-alert, moderately confused, appears chronically ill, very weak HEENT-pupils are equal round and reactive, sclerae are anicteric, oropharynx is dry NECK-supple CV-regular rate and rhythm, 2/6 systolic murmur CHEST-clear to auscultation bilaterally ABD-soft, obese, nontender, nondistended with positive bowel sounds -Justin in place with good urine output EXT-left BKA, right leg is fused at the knee NEURO-bilateral upper extremity weakness, left more so than right. This is chronic. Cranial nerves II through XII grossly intact SKIN-warm and dry, thin with easy bruising. Reportedly has chronic buttock wounds for which she goes to wound care Laboratory Currently white count 4.1, hemoglobin 10.1 post 1 unit transfusion, platelets 65 , neutrophils 83 BUN this morning 59, creatinine 2.6, glucose 225, calcium 13.3, lactate was normal at 1.0 and on repeat 1.3. TSH 5.75 Iron studies essentially normal Impression Encephalopathy with hallucinations likely secondary to hypercalcemia Hypercalcemia secondary to hyperparathyroidism with PTH of 300-calcium has improved slightly with normal saline Hypoglycemia-resolved. Likely secondary to use of insulin with poor by mouth intake Acute kidney injury-likely in part secondary to dehydration. Urine output is good with IV fluids. Type 2 diabetes mellitus on insulin Pancytopenia Anemia requiring transfusion of 1 unit of blood with hemoglobin improved from 6.6-10.1 Thrombocytopenia With platelets of 38 improving to 65 Chronic joint infection for which the patient is on Cipro and clindamycin Chronic buttock wounds Hypothyroidism Possible supraventricular bradycardia, and on sinus rhythm Obstructive sleep apnea. Patient uses CPAP Obesity Hypertension-pressure medications currently on hold Peripheral polyneuropathy Plan Admit to CCU for close monitoring as an inpatient. Continue normal saline. Dr. Le was consulted regarding hypercalcemia. He will see the patient a little later today. He does recommend surgical consultation for possible parathyroidectomy. Regarding acute kidney injury will continue IV fluids, check renal sonogram, check urine sodium and creatinine and hold losartan Re: Pancytopenia, will recheck CBC. Regarding chronic wound infections, will continue clindamycin and Cipro. Will ask pharmacy to adjust Cipro for renal function. Continue on telemetry for possible arrhythmias Recheck CBC and basic metabolic profile today and again tomorrow. The patient is full code per his who his DPOA. Greater than 1 hour of critical care time spent seeing and evaluating the patient, determining care plan, talking with his /DPOA, and discussing with consultants.
[2017-09-03] MEDS ORDERED: FALL RISK - PHARMACY CONSULT MC ONE (21:43)
[2017-09-03] MEDS ORDERED: CEFTRIAXONE 1 G in NS 100 ML IV ONE (21:54)
[2017-09-04] MEDS: NS FLUSH BAG 500ml IV PRN ×2 (00:28→01:50)
[2017-09-04] MEDS ORDERED: NS FLUSH BAG 500ml IV PRN (01:49)
[2017-09-04] MEDS: NS 1,000 ML IV SCH ×3 (04:25→18:09)
[2017-09-04] MEDS: LEVOTHYROXINE 200 MCG TABLET PO SCH (06:31)
[2017-09-04] MEDS: PANTOPRAZOLE 40 MG TABLET PO SCH (06:31)
--- NOTE | 2017-09-04 07:25 | XRay Report ---
Indication: AMS PROCEDURE: XR chest 1V: Encounter: Initial Comparison: None Findings: Increased interstitial markings bilaterally with hazy airspace opacities. No definite effusion or pneumothorax. Cardiac silhouette is mildly enlarged. Mediastinal contours are normal. Pulmonary vascularity is indistinct. Impression: Diffuse interstitial prominence could represent pulmonary edema or atypical/viral pneumonia. .
--- NOTE | 2017-09-04 07:26 | CT Scan Report ---
Indication: AMS PROCEDURE: CT head/brain wo con: Encounter: Initial Comparison: None Technique: Axial CT images through the head were performed without contrast. Iterative Reconstruction dose reducing technique was utilized. FINDINGS: The ventricles are of normal size, shape, and contour for the patient's age. There are scattered areas of low attenuation in the white matter which most likely represent changes from chronic microvascular ischemia. The brainstem, cerebellum, and cerebral hemispheres otherwise have a normal morphology and CT attenuation. There is no evidence of midline displacement. No hemorrhage, signs of acute territorial stroke, mass effect, mass lesions, or edema is evident. The visualized portions of the skull base, midface, and calvarium demonstrate no abnormality. Opacification of the left maxillary sinus with bubbly secretions. The tympanic and mastoid cavities appear normal. IMPRESSION: No acute intracranial abnormality or hemorrhage. Acute left maxillary sinusitis. There is a preliminary report by [employer] [facility] radiologic. .
[2017-09-04] MEDS: SERTRALINE 100 MG TABLET PO SCH ×2 (09:07→20:18)
[2017-09-04] MEDS: LABETALOL 100 MG TABLET PO SCH ×2 (09:08→20:19)
[2017-09-04] MEDS ORDERED: RENAL DOSING - PHARMACY CONSULT MC ONE (09:14)
--- NOTE | 2017-09-04 10:19 | Pharmacy Consult- Renal Dosing ---
Fabiana Romero-Renal Dosing - Laboratory Information 09/04/17 04:46 BUN 59.0 H* Creatinine 2.6 H - Consult Information RENAL DOSING: Today's S Cr = 2.6 mg/dL. Calculated Cr Cl = 40 ml/min. 1) Allopurinol 100 mg p.o. daily - Renal impairment (Cr Cl 10 to 20 mL/min): 200 mg orally daily (FDA dosage) Renal impairment (Cr Cl 3 to 10 mL/min): Do not exceed 100 mg orally daily (FDA dosage) Dose okay. 2) Cipro 500 mg p.o. BID. - renal impairment (Cr Cl 30 to 50 mL/min): oral suspension; 250 to 500 mg every 12 hours. Cipro dosing is okay. 3) Clindamycin 300 mg p.o. twice a day. renal impairment, adult: minimal or no alteration in dosage is required. 4) Labetalol 100 mg p.o. twice a day. Renal impairment: Adjustment not required for any degree of renal failure. Geriatric: Initial, 100 mg orally twice daily; maintenance, 100 to 200 mg twice daily. Labetalol dosing okay. 5) Levothyroxine 200 mcg p.o. daily. Levothyroxine is not adjusted for renal function. 6) Metoclopramide 5 mg ivp every 6 hours as needed. Renal impairment (Cr Cl 60 mL/min or less) in diabetic gastroparesis: 5 mg orally 30 minutes before each meal and at bedtime; MAX, 20 mg/day (oral tablet). Dosing for metoclopramide is okay for p.o. ir i.v. 7) Morphine 1-2 mg ivp q2h as needed for pain. Renal impairment: Start with lower initial doses and titrate slowly. Dose okay. 8) Pantoprazole 40 mg tablet po daily. renal impairment; no adjustments needed. 9) Sertraline 100 mg p.p. daily. Renal impairment: No adjustment necessary. In reviewing meds as currently ordered, the dosing and frequencies are currently okay. Thanks for the Consult for Renal Dosing, Jigar Alvarado, Pharmacist.
[2017-09-04] MEDS ORDERED: DEXTROSE 50% SYRINGE 50ml (1 AMP) IVP PRN (10:21)
--- NOTE | 2017-09-04 10:47 | Ultrasound Report ---
Indication: acute kidney injury PROCEDURE: US renal BI: Encounter: Initial Comparison: None Technique: Grayscale and color Doppler sonographic imaging of both kidneys was performed. FINDINGS: Exam was technically challenging due to patient body habitus and poor acoustic windows. Both kidneys are present with normal cortical thickness and echogenicity. No gross renal masses or hydronephrosis. Possible left renal stones. The right kidney measures 12.1 cm in length, and the left kidney measures 10 cm in length. Benign-appearing 2.7 cm inferior pole right renal cyst. Incidental note is made of splenomegaly with the spleen measuring 18.9 cm in length. IMPRESSION: 1. No hydronephrosis. 2. Possible left nephrolithiasis. 3. Splenomegaly. .
[2017-09-04] MEDS: INSULIN ASPART 100unit/ml INJECTION SQ PRN ×2 (10:56→14:11)
--- NOTE | 2017-09-04 11:50 | General Surgery Consult Note ---
Consult date: 09/05/17 Attending Physician: Patti Lezama MD Reason for consult: other (primary hyperparathyroidism) [facility] Patient Stated Medical History Clinic Medical History (Last Updated 08/24/17 @ 08:05 by Kevin Le MD) Hyperparathyroidism, primary (Acute Medical ~08/24/17) Dr Le CAD PVD Non-Alcoholic Cirrhosis of liver Diabetes mellitus type 2, uncontrolled, without complications (Chronic Medical ~ 1994) Fair control without severe hypoglycemia. Diabetic peripheral neuropathy associated with type 2 diabetes mellitus ( Chronic Medical) Dr. Larose (neurologist in [place]) Dx Severe Polyneuropathy Postablative hypothyroidism (Chronic Medical ~2003) Clinically and chemically euthyroid. Hypertension (Chronic Medical) Good control. 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 Vences) Chronic pressure ulcers/wounds Obesity Depression Sleep Apnea History of MRSA Venous Insufficiency History of Sepsis Gout Renal insufficiency Surgical History: -Normal colonoscopy age 52. -Left total knee replacement 2004. -Left BKA 2010. -Right total knee replacement 2005. -Right knee revisions x2. -Right knee explantation of joint in insertion of krzysztof (right knee is permantly straight). -Bilateral Hip replacements. -Radio-ablation of thyroid 2003. - Open removal of large kidney stone 1994 (he was not a candidate for lithotripsy) Family History: Brother Diabetes Sister Diabetes Mother age 83 Heart Failure Father age 83 pneumonia - Social History Smoking status: Never smoker Substance use type: does not use Alcohol intake frequency: does not drink Housing: prison ([facility] for about 1 year) Household members: spouse Current occupational status: disabled Current residence: Assisted Social history: Dr. Carias is PCP Medications Home Medications Medication Instructions Recorded Confirmed Type Cipro (ciprofloxacin) 500 mg tablet 500 mg PO BID tab 02/02/17 09/03/17 History Lantus Solostar (insulin glargine) 38 unit SQ HS ml 02/02/17 09/03/17 History 100 unit/mL (3 mL) PEN Neurontin (gabapentin) 100 mg 100 mg PO BID 02/02/17 09/03/17 History capsule aspirin 81 mg tablet,delayed 81 mg PO DAILY tab 02/02/17 09/03/17 History release Allopurinol [Zyloprim] 300 mg PO DAILY 06/04/17 09/03/17 History Amlodipine [Norvasc] 10 mg PO DAILY 06/04/17 09/03/17 History Cholecalciferol (Vitamin D3) 2,000 unit PO DAILY 06/04/17 09/03/17 History [Vitamin D3] Clindamycin [Cleocin] 300 mg PO BID 06/04/17 09/03/17 History Cyclobenzaprine [Flexeril] 10 mg PO TID PRN 06/04/17 09/03/17 History Dextrose [Glucose Gel] 4 oz BC PRN 06/04/17 09/03/17 History Docusate Sodium 100 mg PO BID PRN 06/04/17 09/03/17 History Fexofenadine [Yuridia] 180 mg PO DAILY PRN 06/04/17 09/03/17 History Labetalol [Normodyne] 100 mg PO BID 06/04/17 09/03/17 History Loperamide HCl [Imodium A-D] 2 mg PO Q4H PRN 06/04/17 09/03/17 History Losartan [Cozaar] 100 mg PO DAILY 06/04/17 09/03/17 History Ondansetron HCl 4 mg PO Q6H PRN 06/04/17 09/03/17 History Sertraline [Zoloft] 100 mg PO BID 06/04/17 09/03/17 History Protonix (Pantoprazole)40 mg 40 mg PO DAILY 07/11/17 09/03/17 History tablet,delayed release Novolog FlexPen (insulin aspart) 17 unit SQ TIDWM ml 08/21/17 09/03/17 History 100 unit/mL PEN levothyroxine 200 mcg tablet 200 mcg PO DAILY tab 08/23/17 09/03/17 Rx levothyroxine 50 mcg tablet 50 mcg PO DAILY 08/23/17 09/03/17 History Hydrocodone/APAP 7.5/325 [[place] 1 tab PO Q6H PRN 09/03/17 09/03/17 History 7.5/325] Tramadol [Ultram] 50 mg PO TID PRN 09/03/17 09/03/17 History Allergies Allergy/AdvReac Type Severity Reaction Status Date / Time Iodinated Contrast- Oral and Allergy Unknown Verified 09/03/17 18:31 IV Dye Sulfa (Sulfonamide Allergy Unknown Verified 09/03/17 18:31 Antibiotics) Review of Systems 10-point ROS: negative except for HPI and the following: - Eyes/Ears/Nose/Throat Eyes: Present: vision problems (glasses and states vision is getting worse) Ear Nose Throat: Present: hearing problems (he state hard of hearing, but has not noticed any indication of difficulty hearing) - Respiratory Respiratory: Present: sleep apnea, use of CPAP - Gastrointestinal Gastrointestinal: Present: blood in stools (X1 in May 2017) - Genitourinary Additional comments: Incontinence, wears protective garments - Musculoskeletal Musculoskeletal: Present: joint pain - Neurological Neurological: Present: muscle weakness, numbness (poly-neuropathy), other ( slurred speach for the lat 3-5 days, confusion) - Psychiatric Psychiatric: Present: depression - Endocrine Endocrine: Present: diabetes, thyroid problems - Vital Signs Last Vital Signs Temp 98.3 F 09/04/17 08:00 Pulse 72 09/04/17 10:05 Resp 16 09/04/17 10:05 BP 130/60 09/04/17 08:00 Pulse Ox 100 09/04/17 10:05 - Laboratory Result Diagrams: 09/05/17 04:53 09/05/17 04:53 General Surgery Results - Results Labs: 09/04/17 10:05 09/04/17 10:05 Hospital Course Summary Disclaimer: The visit summary below is not to be considered part of the above Progress Note. Hospital Course: 09/04/2017-9:25 AM-Dr. Lezama I have reviewed the H&P above and agree. Please see my additions below. Chief complaint is confusion History of present illness: The patient is a pleasant 67-year-old male who is in a prison for almost 1 year. He has a left [id number] amputation and has history of right knee fusion after removal of an infected joint. He is nonambulatory. He has a history of uncontrolled diabetes with resultant peripheral vascular disease, chronic, and also has peripheral polyneuropathy. He was recently found to have hypercalcemia with a calcium level of 13.2 on 08/23/2017 and a PTH of 300. The Patient was transferred by EMS to [facility] last evening. His glucose was noted to be 45 and was given dextrose by EMS. The patient had been eating and drinking poorly for a couple of days and has been more confused for a couple of days. On lab work here at [facility] his glucose was 152, BUN 59, creatinine 2.5. White count 2.5. Hemoglobin 6.6. Platelets 38. Calcium was 14.3. Lactate was 1.0. The patient was admitted for acute kidney injury, dehydration, hypoglycemia and hypercalcemia. He was given IV fluids overnight and this morning BUN is 59 and creatinine is 2.6. He has had good urine output at 2.4 L. Calcium has improved slightly to 13.3. Glucose is 225. The patient's is here and helps with history. She is DPOA. She states the patient is still confused but not as bad as yesterday. He has had some tactile hallucinations today. She states that he did not eat all day Monday or Monday. She has noticed that he's had some mild memory decline for the past 6 months but has been more confused since around August 15. Past medical history: Peripheral polyneuropathy with difficulty moving arms and legs. Osteoarthritis with bilateral shoulder pain. Chronic buttock wounds and diaper dermatitis for which she goes to the wound care clinic Type 2 diabetes for which she sees Dr. Le. Recent diagnosis of primary hyperparathyroidism for which she sees Dr. Le Post ablative hypothyroidism Hypertension Gout History of kidney stone requiring surgical removal Coronary artery disease Peripheral vascular disease Gastroparesis Allergic rhinitis Depression Obstructive sleep apnea for which he is on CPAP Morbid obesity History of joint infections for which the patient is chronically on Cipro and clindamycin with Dr. Gomez Pancytopenia for which the patient sees Dr. Mishra-he recently has started injections which sound like erythropoietin Past surgical history: Left BKA. Multiple surgeries on the right leg with history of right knee joint infection. Right knee is now fused. Bilateral total hip arthroplasty. Surgical removal of a kidney stone Comprehensive review of systems cannot be obtained because the patient is confused. Family history significant for diabetes Allergies and medications are reviewed Social history: The patient is a nonsmoker and nondrinker. He has been living in a prison for the past 1 year. His his DPOA. He is a full code per his . Physical exam: Afebrile, heart rate 68, blood pressure 130/60, O2 sat 99% on room air. GEN-alert, moderately confused, appears chronically ill, very weak HEENT-pupils are equal round and reactive, sclerae are anicteric, oropharynx is dry NECK-supple CV-regular rate and rhythm, 2/6 systolic murmur CHEST-clear to auscultation bilaterally ABD-soft, obese, nontender, nondistended with positive bowel sounds -Justin in place with good urine output EXT-left BKA, right leg is fused at the knee NEURO-bilateral upper extremity weakness, left more so than right. This is chronic. Cranial nerves II through XII grossly intact SKIN-warm and dry, thin with easy bruising. Reportedly has chronic buttock wounds for which she goes to wound care Laboratory Currently white count 4.1, hemoglobin 10.1 post 1 unit transfusion, platelets 65 , neutrophils 83 BUN this morning 59, creatinine 2.6, glucose 225, calcium 13.3, lactate was normal at 1.0 and on repeat 1.3. TSH 5.75 Iron studies essentially normal Impression Encephalopathy with hallucinations likely secondary to hypercalcemia Hypercalcemia secondary to hyperparathyroidism with PTH of 300-calcium has improved slightly with normal saline Hypoglycemia-resolved. Likely secondary to use of insulin with poor by mouth intake Acute kidney injury-likely in part secondary to dehydration. Urine output is good with IV fluids. Type 2 diabetes mellitus on insulin Pancytopenia Anemia requiring transfusion of 1 unit of blood with hemoglobin improved from 6.6-10.1 Thrombocytopenia With platelets of 38 improving to 65 Chronic joint infection for which the patient is on Cipro and clindamycin Chronic buttock wounds Hypothyroidism Possible supraventricular bradycardia, and on sinus rhythm Obstructive sleep apnea. Patient uses CPAP Obesity Hypertension-pressure medications currently on hold Peripheral polyneuropathy Plan Admit to CCU for close monitoring as an inpatient. Continue normal saline. Dr. Le was consulted regarding hypercalcemia. He will see the patient a little later today. He does recommend surgical consultation for possible parathyroidectomy. Regarding acute kidney injury will continue IV fluids, check renal sonogram, check urine sodium and creatinine and hold losartan Re: Pancytopenia, will recheck CBC. Regarding chronic wound infections, will continue clindamycin and Cipro. Will ask pharmacy to adjust Cipro for renal function. Continue on telemetry for possible arrhythmias Recheck CBC and basic metabolic profile today and again tomorrow. The patient is full code per his who his DPOA. Greater than 1 hour of critical care time spent seeing and evaluating the patient, determining care plan, talking with his /DPOA, and discussing with consultants.
[2017-09-04] MEDS ORDERED: NS IV ONE (12:37)
[2017-09-04] MEDS ORDERED: PAMIDRONATE IV ONE (12:37)
--- NOTE | 2017-09-04 13:49 | Wound Care Progress Note ---
Wound Center Progress Note: Pt seen by wound clinic RN, pt is known to the clinic. At this time Pt is noted to have some Moisture associated contact dermitises in this gluteal clave, under his pannis and under scrotum. At this time all areas cleaned with cleanser and then Advanced 3 M protectant applied. After that is dried, Nystatin powder applied to scrotum area, and to bottom Barrier cream. Discussed with RN that Advanced 3 M protectant can be applied Q 3 days.
--- NOTE | 2017-09-04 16:09 | Ultrasound Report ---
EXAM: US thyroid HISTORY: hypercalcemia, probable parathyroid adenoma TECHNIQUE: Grayscale and color images of the thyroid gland was performed. COMPARISON: None FINDINGS: The right thyroid lobe measures 1.0 x 1.4 x 3.6 cm and the left thyroid lobe measures 1.0 x 0.8 x 2.2 cm. The isthmus measures 0.2 cm. A 1.5 x 1.8 x 2.1 cm exophytic hypoechoic nodule is present adjacent to the lower pole of the right thyroid lobe with no significant internal flow. The nodule is solid, hypoechoic, taller than wide, and demonstrates smooth margins. TI-RADS 4 IMPRESSION: Exophytic hypoechoic solid nodule adjacent to the lower pole of the right thyroid lobe which made on the basis of a exophytic thyroid nodule or parathyroid adenoma. A nuclear medicine parathyroid scan may be obtained for further evaluation. .
[2017-09-04 16:28] VITALS: BMI 34.3
--- NOTE | 2017-09-04 17:42 | Consultation ---
DATE OF SERVICE 09/05/3027 FINDINGS Mr. Gonzales is a 67-year-old gentleman whom I was asked to see today as a result of a hypercalcemic crisis secondary to primary hyperparathyroidism. The patient has multiple medical comorbidities. The majority of the information was obtained from the patient's chart as well as from his who was present. The patient's informs me that the patient does [facility] She informs me that his overall health has been declining over the last several months. She informs me that his mentation has significantly become worse over the course of the last week or more. The patient was recently seen in our emergency room facility as a result of changes within his mentation. Laboratory evaluation revealed a markedly elevated calcium. The patient was subsequently admitted for further care. Patient this afternoon was resting in the ICU bed. He was able at times to answer with one-word answers. The patient was not alert or oriented to person , place or time. The patient has seen Endocrinology recently as a result of his diabetes mellitus. He was in the process of undergoing evaluation for his primary hyperparathyroidism. In fact, the patient was found to have an elevated PTH and calcium level and had an apparent upcoming office visit with me in the future. PAST MEDICAL HISTORY, PAST SURGICAL HISTORY, MEDICATIONS, ALLERGIES, SOCIAL HISTORY, FAMILY HISTORY, REVIEW OF SYSTEMS Performed by my nurse practitioner, Kevin Mayes APRN. I did spend a fair amount of time reviewing the patient's chart electronically and have addressed his significant associated medical comorbidities which include cirrhosis of the liver. informs me that the etiology for his cirrhosis is that of a "fatty liver." informs me that the patient does not have a prior history for alcohol use. The patient also has a past medical history for diabetes mellitus, post ablative hypothyroidism, hypertension, nephrolithiasis, and recent discovery of primary hyperparathyroidism. PHYSICAL EXAMINATION GENERAL: Patient is a 67-year-old gentleman who does appear older than his stated age. The patient was confused this afternoon. He informs me that there were "things falling off the wall." At times he was able to answer questions although I do not feel that he was fully understanding questions when presented to him. VITAL SIGNS: Temperature 98.1, pulse 63, respirations 29, blood pressure 123/59 , SAO2 100% on room air. HEENT: Normocephalic. Pupils are equally round and react to accommodation. NECK: Supple. I was unable to appreciate any evidence for a palpable nodule within the anatomic location of the thyroid. I was unable to appreciate any evidence for cervical adenopathy. CHEST: Clear to auscultation bilaterally. HEART: Regular rate and rhythm. Normal S1 and S2 without gallops, murmurs or clicks. ABDOMEN: Palpation of the abdomen reveals it to be soft and nontender. I do not appreciate any evidence for hepatosplenomegaly nor abnormal masses. EXTREMITIES: Patient does have a prior left [id number] amputation. His left AKA stump was without visible abnormalities. Right lower extremity had a component of some pretibial edema. Skin was quite hemosiderin-laden, consistent with that of chronic insufficiency. NEURO: Cranial nerves II-XII grossly intact. Patient is without focal motor or sensory deficits. LABORATORY/RADIOGRAPHIC EVALUATION As stated above, I did review the patient's chart electronically. I was able to review his ambulatory records and found that recently he was found to have a calcium on an outpatient basis of 13.2. In conjunction with his elevated calcium of 13.2 his parathyroid hormone was markedly elevated at 300. I reviewed lab work upon admission and his hemoglobin was 6.6. The patient did receive one unit of blood and his hemoglobin is now 10.4. He does have a component of pancytopenia with a white count of 2.5 on admission and a platelet count of 38,000. Today his white count is 4.2 and platelet count is slightly improved at 59,000. The patient had a BMP today and his creatinine is elevated at 58.0. Creatinine is elevated at 2.6. Glucose was 219. Calcium was 14.3 upon admission. It is decreased today at 13.1. I did order a thyroid sonogram today after seeing the patient. This has already been completed and report reveals an exophytic hypoechoic solid nodule adjacent to the lower pole of the right thyroid lobe which could be exophytic thyroid nodule or that of a parathyroid adenoma. I have obtained a sestamibi scan which is pending at time of dictation. I have reviewed renal ultrasound performed on 09/04/2017 that revealed possible left nephrolithiasis as well as a component of splenomegaly, most likely a result of his known history for cirrhosis secondary to hepatic steatosis. I reviewed CT scan of head that was obtained secondary to his mental changes on . No acute intracranial abnormality or hemorrhage was noted. I have reviewed admission orders and care provided since his admission. ASSESSMENT 67-year-old gentleman with multiple medical comorbidities who presents with hypercalcemic crisis secondary to primary hyperparathyroidism. PLAN I agree with current care of this patient. His hypercalcemia has been managed medically with salt diuresis, use of calcitonin, and administration of bisphosphonate/Pamidronate. I would recommend that we continue to optimize the patient from a medical standpoint. As stated above, I have already ordered a sestamibi scan and a thyroid ultrasound in an attempt to localize his parathyroid adenoma. Once the patient has been optimized from a medical standpoint I would recommend that we proceed with neck exploration and excision of parathyroid adenoma. This afternoon I did spend some time with the patient' s discussing primary hyperparathyroidism, calcium homeostasis as an entity with the patient's . I informed the patient's that I would recommend that once he has been stabilized from a medical standpoint that we would then proceed with neck exploration and excision of parathyroid adenoma. I did discuss with the what this procedure would entail and its associated risks which included but were not inclusive of bleeding, infection, as well as potential injury to adjacent structures, especially the recurrent laryngeal nerve. Will also need to obtain PT and INR prior to surgery. I would like to see his platelet count above 60,000 before proceeding with surgery. Hopefully over the next couple of days his BUN and creatinine/acute kidney injury will improve. Will continue to follow along in the patient's care and hopefully on of this week, if the patient is medically stable, proceed with surgical intervention as stated above. MICHELLE
[2017-09-04] MEDS: 1/2 NS 1,000 ML IV SCH (19:50)
[2017-09-04] MEDS: CIPROFLOXACIN 500 MG TABLET PO SCH (20:18)
[2017-09-04] MEDS: CLINDAMYCIN 300 MG CAPSULE PO SCH (20:19)
[2017-09-05] MEDS: 1/2 NS 1,000 ML IV SCH ×5 (00:48→21:58)
[2017-09-05] MEDS: CIPROFLOXACIN 500 MG TABLET PO SCH ×2 (05:57→20:06)
[2017-09-05] MEDS: PANTOPRAZOLE 40 MG TABLET PO SCH (05:57)
[2017-09-05] MEDS: LEVOTHYROXINE 200 MCG TABLET PO SCH (05:57)
[2017-09-05] MEDS ORDERED: SALINE FLUSH 10ml SYRINGE ONE (07:47)
--- NOTE | 2017-09-05 08:14 | General Surgery Progress Note ---
Subjective Narrative: I visited mostly with the this morning. She states Gurdeep is now at least asking where he isn't how he got here. On questioning Gurdeep he answers slowly and still seems quite confused. On questioning him specifically about abdominal pain, headache, back pain he does not have much of a verbal response. Nuclear medicine arrived for transport to get the sestamibi scan. - Vital Signs Last Vital Signs Temp 98.2 F 09/04/17 19:00 Pulse 63 09/05/17 06:00 Resp 18 09/05/17 06:00 BP 136/60 09/05/17 06:00 Pulse Ox 98 09/05/17 06:00 - Laboratory Result Diagrams: 09/05/17 04:53 09/05/17 04:53 Laboratory Tests 09/03/17 09/04/17 09/05/17 18:41 04:46 04:53 Calcium 14.3 H* 13.3 H* Total Bilirubin 0.70 AST 39 ALT 19 Alkaline Phosphatase 100 Albumin 2.9 L PTH Intact Pending Laboratory Tests 09/04/17 09/05/17 04:46 04:53 Calcium 13.3 H* 12.1 H - Radiology Thyroid ultrasound FINDINGS: The right thyroid lobe measures 1.0 x 1.4 x 3.6 cm and the left thyroid lobe measures 1.0 x 0.8 x 2.2 cm. The isthmus measures 0.2 cm. A 1.5 x 1.8 x 2.1 cm exophytic hypoechoic nodule is present adjacent to the lower pole of the right thyroid lobe with no significant internal flow. The nodule is solid, hypoechoic, taller than wide, and demonstrates smooth margins. TI-RADS 4 IMPRESSION: Exophytic hypoechoic solid nodule adjacent to the lower pole of the right thyroid lobe which made on the basis of a exophytic thyroid nodule or parathyroid adenoma. A nuclear medicine parathyroid scan may be obtained for further evaluation. NM Parathyroid pending - Abnormal Exam General: confused Cardiovascular: pedal edema (right leg) Abdominal: obese Skin: Excoriated area noted on right buttock and groin crease. Wound clinic has been consulted and is managing this as well as other integumentary concerns. 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 (5) Diabetic peripheral neuropathy associated with type 2 diabetes mellitus Current Visit: No Status: Chronic Problem details: Unable to fully assess today. (6) Postablative hypothyroidism Current Visit: No Status: Chronic Problem details: Clinically and chemically euthyroid. Plan: Hypercalcemia is drifting down slowly, 12.1 today. Mentation only minimally better. PTH pending. thyroid sono indicates a large mass right lower pole. Sestamibi scan pending. Time has been reserved in the OR for Neck exploration parathyroidectomy for , although till this date is more certain I will wait to place orders for consent and NPO after midnight, etc. Hospital Course Summary Disclaimer: The visit summary below is not to be considered part of the above Progress Note. Hospital Course: 09/04/2017-9:25 AM-Dr. Lezama I have reviewed the H&P above and agree. Please see my additions below. Chief complaint is confusion History of present illness: The patient is a pleasant 67-year-old male who is in a [place] [facility] for almost 1 year. He has a left [id number] amputation and has history of right knee fusion after removal of an infected joint. He is nonambulatory. He has a history of uncontrolled diabetes with resultant peripheral vascular disease, chronic, and also has peripheral polyneuropathy. He was recently found to have hypercalcemia with a calcium level of 13.2 on 08/23/2017 and a PTH of 300. The Patient was transferred by EMS to [facility] last evening. His glucose was noted to be 45 and was given dextrose by EMS. The patient had been eating and drinking poorly for a couple of days and has been more confused for a couple of days. On lab work here at [facility] his glucose was 152, BUN 59, creatinine 2.5. White count 2.5. Hemoglobin 6.6. Platelets 38. Calcium was 14.3. Lactate was 1.0. The patient was admitted for acute kidney injury, dehydration, hypoglycemia and hypercalcemia. He was given IV fluids overnight and this morning BUN is 59 and creatinine is 2.6. He has had good urine output at 2.4 L. Calcium has improved slightly to 13.3. Glucose is 225. The patient's is here and helps with history. She is DPOA. She states the patient is still confused but not as bad as yesterday. He has had some tactile hallucinations today. She states that he did not eat all day Monday or Monday. She has noticed that he's had some mild memory decline for the past 6 months but has been more confused since around August 15. Past medical history: Peripheral polyneuropathy with difficulty moving arms and legs. Osteoarthritis with bilateral shoulder pain. Chronic buttock wounds and diaper dermatitis for which she goes to the wound care clinic Type 2 diabetes for which she sees Dr. Le. Recent diagnosis of primary hyperparathyroidism for which she sees Dr. Le Post ablative hypothyroidism Hypertension Gout History of kidney stone requiring surgical removal Coronary artery disease Peripheral vascular disease Gastroparesis Allergic rhinitis Depression Obstructive sleep apnea for which he is on CPAP Morbid obesity History of joint infections for which the patient is chronically on Cipro and clindamycin with Dr. Gomez Pancytopenia for which the patient sees Dr. Mishra-he recently has started injections which sound like erythropoietin Past surgical history: Left BKA. Multiple surgeries on the right leg with history of right knee joint infection. Right knee is now fused. Bilateral total hip arthroplasty. Surgical removal of a kidney stone Comprehensive review of systems cannot be obtained because the patient is confused. Family history significant for diabetes Allergies and medications are reviewed Social history: The patient is a nonsmoker and nondrinker. He has been living in a [place] [facility] [place] for the past 1 year. His his DPOA. He is a full code per his . Physical exam: Afebrile, heart rate 68, blood pressure 130/60, O2 sat 99% on room air. GEN-alert, moderately confused, appears chronically ill, very weak HEENT-pupils are equal round and reactive, sclerae are anicteric, oropharynx is dry NECK-supple CV-regular rate and rhythm, 2/6 systolic murmur CHEST-clear to auscultation bilaterally ABD-soft, obese, nontender, nondistended with positive bowel sounds -Justin in place with good urine output EXT-left BKA, right leg is fused at the knee NEURO-bilateral upper extremity weakness, left more so than right. This is chronic. Cranial nerves II through XII grossly intact SKIN-warm and dry, thin with easy bruising. Reportedly has chronic buttock wounds for which she goes to wound care Laboratory Currently white count 4.1, hemoglobin 10.1 post 1 unit transfusion, platelets 65 , neutrophils 83 BUN this morning 59, creatinine 2.6, glucose 225, calcium 13.3, lactate was normal at 1.0 and on repeat 1.3. TSH 5.75 Iron studies essentially normal Impression Encephalopathy with hallucinations likely secondary to hypercalcemia Hypercalcemia secondary to hyperparathyroidism with PTH of 300-calcium has improved slightly with normal saline Hypoglycemia-resolved. Likely secondary to use of insulin with poor by mouth intake Acute kidney injury-likely in part secondary to dehydration. Urine output is good with IV fluids. Type 2 diabetes mellitus on insulin Pancytopenia Anemia requiring transfusion of 1 unit of blood with hemoglobin improved from 6.6-10.1 Thrombocytopenia With platelets of 38 improving to 65 Chronic joint infection for which the patient is on Cipro and clindamycin Chronic buttock wounds Hypothyroidism Possible supraventricular bradycardia, and on sinus rhythm Obstructive sleep apnea. Patient uses CPAP Obesity Hypertension-pressure medications currently on hold Peripheral polyneuropathy Plan Admit to CCU for close monitoring as an inpatient. Continue normal saline. Dr. Le was consulted regarding hypercalcemia. He will see the patient a little later today. He does recommend surgical consultation for possible parathyroidectomy. Regarding acute kidney injury will continue IV fluids, check renal sonogram, check urine sodium and creatinine and hold losartan Re: Pancytopenia, will recheck CBC. Regarding chronic wound infections, will continue clindamycin and Cipro. Will ask pharmacy to adjust Cipro for renal function. Continue on telemetry for possible arrhythmias Recheck CBC and basic metabolic profile today and again tomorrow. The patient is full code per his who his DPOA. Greater than 1 hour of critical care time spent seeing and evaluating the patient, determining care plan, talking with his /DPOA, and discussing with consultants.
--- NOTE | 2017-09-05 08:28 | Endocrinology Progress Note ---
Subjective Principal diagnosis: Hypercalcemia Interval history: Still in confused mental state. Being wheeled out of CCU for parathyroid Sestamibi scan. No appetite yet. No complaints. Exam Vital signs: Temperature 98.2 F 09/04/17 19:00 Pulse Rate 63 09/05/17 08:11 Respiratory Rate 26 H 09/05/17 08:11 Blood Pressure 118/57 09/05/17 08:11 Pulse Oximetry 100 09/05/17 08:11 Inpatient Medications: Generic Name Dose Route Start Last Admin Trade Name Freq PRN Reason Stop Dose Admin Allopurinol 100 mg 09/05/17 09:00 Zyloprim PO DAILY DIDIER Ciprofloxacin 500 mg 09/04/17 21:00 09/05/17 05:57 Cipro 500 Mg PO 500 mg BID/E DIDIER Administration Clindamycin HCl 300 mg 09/04/17 21:00 09/04/17 20:19 Cleocin PO 300 mg BID DIDIER Administration Dextrose 20 ml 09/04/17 10:21 D50%W IVP PRN PRN Hypoglycemia Sodium Chloride 1,000 mls @ 200 mls/hr 09/04/17 19:45 09/05/17 07:00 1/2 Normal Saline IV 200 mls/hr .Q5H DIDIER Infusion Insulin Aspart 2 - 8 unit 09/04/17 10:21 09/04/17 14:11 Novolog SQ 2 unit SS PRN Administration Hyperglycemia Protocol Labetalol HCl 100 mg 09/04/17 09:00 09/04/17 20:19 Normodyne PO 100 mg BID DIDIER Administration Levothyroxine Sodium 200 mcg 09/04/17 06:30 09/05/17 05:57 Synthroid PO 200 mcg ACB DIDIER Administration Metoclopramide HCl 5 mg 09/03/17 20:33 Reglan IVP Q6H PRN Morphine Sulfate 1 - 2 mg 09/03/17 20:33 Morphine Sulfate Inj IVP Q2H PRN Pain Nystatin 1 applic 09/04/17 09:00 09/04/17 20:20 Mycostatin TP 1 applic TID DIDIER Administration Pantoprazole Sodium 40 mg 09/04/17 06:30 09/05/17 05:57 Protonix Tab PO 40 mg ACB DIDIER Administration Sertraline HCl 100 mg 09/04/17 09:00 09/04/17 20:18 Zoloft PO 100 mg BID DIDIER Administration Sodium Chloride 10 - 80 ml 09/03/17 18:18 Iv Flush IVF PRN PRN Flushing Sodium Chloride 500 ml 09/04/17 00:27 09/04/17 01:50 Normal Saline IV 500 ml PRN PRN Administration Discontinued Medications Generic Name Dose Route Start Last Admin Trade Name Freq PRN Reason Stop Dose Admin Calcitonin Cartwright 500 unit 09/03/17 19:51 09/03/17 20:18 Miacalcin SQ 09/03/17 19:52 500 unit O ONE Administration Furosemide 40 mg 09/03/17 20:33 09/04/17 00:35 Lasix 40 Mg/4 Ml IVP 09/03/17 20:34 40 mg O ONE Administration Sodium Chloride 1,000 mls @ 1,000 mls/hr 09/03/17 18:18 09/03/17 19:30 Normal Saline IV 09/03/17 19:17 Infused .Q1H ONE Infusion Sodium Chloride 1,000 mls @ 100 mls/hr 09/03/17 20:33 09/04/17 19:50 Normal Saline IV Infused .Q10H DIDIER Infusion 150 mls/hr Ceftriaxone Sodium 1 g/ Sodium 100 mls @ 200 mls/hr 09/03/17 21:54 09/04/17 01:20 Chloride IV 09/03/17 22:23 Infused O ONE Infusion Pamidronate Disodium 30 mg/ 260 mls @ 62.5 mls/hr 09/04/17 12:37 09/04/17 18: 00 Sodium Chloride IV 09/04/17 16:46 Infused O ONE Infusion Miscellaneous Medication 1 each 09/04/17 09:14 09/04/17 19:53 Pharmacy Consult - Renal Dosing 09/04/17 09:15 1 each O ONE Administration Naloxone HCl 0.4 mg 09/03/17 18:24 09/03/17 18:31 Narcan IVP 09/03/17 18:25 0.4 mg O ONE Administration Ondansetron HCl 4 mg 09/03/17 20:33 Zofran IVP Q6H PRN Nausea &/or vomiting Pharmacy Consult 1 each 09/03/17 21:43 Pharmacy Consult - Fall Risk 09/03/17 21:44 ONE TIME ONE - Constitutional no acute distress, well nourished, well developed - Routine HEENT Exam Head: Present: normocephalic, atraumatic - Routine Neck Exam Absent: thyromegaly - Routine Respiratory Exam Absent: dyspnea - Routine Cardiovascular Exam Present: RRR - Routine Abdominal Exam Present: soft, normoactive bowel sounds - Routine Extremities Exam Present: amputation (left BKA). Absent: cyanosis - Routine Skin Exam Present: dry, warm - Routine Neurological Exam Present: alert, moving all extremities. Absent: oriented X3 - Routine Psychiatric Exam Absent: normal thought process, good insight - Additional findings Additional findings: Laboratory Tests 09/03/17 09/05/17 09/05/17 18:41 04:53 04:53 WBC 2.9 L Hgb 9.6 L Hct 27.6 L Plt Count 51 L BUN 54.0 H* Creatinine 2.3 H D Glucose 167 H Calcium 12.1 H TSH 5.75 H - Urinary Catheter Management Urethral Cath placed during this visit: yes Insertion date: 09/03/17 Insertion time: 19:00 Assessment and Plan (1) Hypercalcemia Problem details: Need to further assess. Current visit: Yes Status: Acute Improving after pamidronate. Calcium now down to 12.1 and should improve further. May not need any more pamidronate. (2) Metabolic encephalopathy Current visit: Yes Status: Acute Not much change noticeable. (3) Primary hyperparathyroidism Current visit: Yes Status: Acute Evaluation for surgery in progress. (4) Diabetes mellitus type 2, uncontrolled, without complications Problem details: Fair control without severe hypoglycemia. Current visit: No Status: Chronic Loosely controlled. Continue current Rx. (5) Hypertension Problem details: Good control. Current visit: No Status: Chronic (6) detention current use of insulin Current visit: No Status: Chronic (7) Postablative hypothyroidism Problem details: Clinically and chemically euthyroid. Current visit: No Status: Chronic Need to verify prior dose of Synthroid and continue same.
--- NOTE | 2017-09-05 10:59 | Consultation ---
DATE OF CONSULT 09/04/2017 REASON FOR CONSULTATION Hypercalcemia. HISTORY Mr. Gonzales is a 67-year-old gentleman followed in my outpatient endocrine clinic for type 2 diabetes mellitus who recently developed hypercalcemia and on further investigation was found to have primary hyperparathyroidism. He was due to be seen back to plan management later this month but developed altered mental status at the [facility] where [facility]. He had become increasingly confused for a couple of days but then became obtunded. He was found to have a glucose level of 45 and was given dextrose. He received a liter of normal saline by EMS en route to the hospital. Upon arrival, he was still slow to answer questions but a little more oriented. He was started on additional saline and was found to have a serum calcium level of 14.3 with PTH of 300. His TSH was 5.75 (due to hypothyroidism following I-131 ablation). He had been taking insulin for his diabetes in the form of 38 units of Lantus q.h.s. and 17 units of NovoLog t.i.d. with meals. He was also on 250 mcg q.a.m. of Synthroid for his hypothyroidism. ALLERGIES SULFA and IODINATED CONTRAST. PAST MEDICAL HISTORY Remarkable for: 1. Type 2 diabetes mellitus. 2. Hypothyroidism. 3. Nephrolithiasis (urate stones?) 4. Hip fracture and subsequent arthroplasty. 5. Right leg surgery for krzysztof placement. 6. Anemia. 7. Hypertension. 8. Diabetic neuropathy. 9. Cardiovascular disease. 10. Status post left BKA. FAMILY HISTORY Remarkable for diabetes and thyroid disease. SOCIAL HISTORY The patient does not smoke nor drink alcohol. REVIEW OF SYSTEMS Otherwise noncontributory. PHYSICAL EXAMINATION VITAL SIGNS: Afebrile. Blood pressure 128/59, pulse 63, respirations 24. GENERAL: Well-developed, overweight male who is confused and only able to answer some questions, with meaningless answers to others. HEENT: Atraumatic, normocephalic. NECK: Without thyromegaly. LUNGS: Clear. HEART: Regular rate and rhythm. ABDOMEN: Normal bowel sounds. Soft and nontender. EXTREMITIES: Without cyanosis. There is slight right pedal edema. LABORATORY Labs remarkable for BUN 59, creatinine 2.6, calcium 13.1 at the time of my exam. ASSESSMENT 1. Hypercalcemia, previously determined to be due to primary hyperparathyroidism. 2. Metabolic encephalopathy secondary to severe hypercalcemia. He will need to be treated with pamidronate cautiously, owing to his questionable fluid status. It is noted that even though he has been receiving substantial IV fluids, he is actually in negative fluid balance with about 400 mL negative since the time of admission owing to high urine output. 3. Primary hyperparathyroidism. This will need to be treated surgically. 4. Post ablative hypothyroidism. 5. Type 2 diabetes mellitus, mildly out of control but doing remarkably well given that he is receiving much less insulin than he usually requires. RECOMMENDATIONS 1. Will give 30 mg of IV pamidronate now and continue the fluids at an increased IV rate. I have discussed this already with Dr. Lezama. 2. Continue Synthroid at home dose. 3. Continue current management of diabetes and titrate insulin as needed. 4. Surgical consultation with Dr. Gregory who has previously treated this patient, is advised. MICHELLE
--- NOTE | 2017-09-05 11:23 | Pharmacy Consult- Renal Dosing ---
Fabiana Romero-Renal Dosing - Laboratory Information 09/04/17 09/04/17 09/04/17 04:46 10:05 18:56 BUN 59.0 H* 58.0 H* 55.0 H* Creatinine 2.6 H 2.6 H 2.6 H 09/05/17 04:53 BUN 54.0 H* Creatinine 2.3 H D - Consult Information RENAL DOSING: Today's S Cr = 2.3 mg/dL. Calculated Cr Cl = 44 mL/min. Recommend continuing the medications as currently ordered. 1) Allopurinol 100 mg p.o. daily - Renal impairment (Cr Cl 10 to 20 mL/min): 200 mg orally daily (FDA dosage) Renal impairment (Cr Cl 3 to 10 mL/min): Do not exceed 100 mg orally daily (FDA dosage) Dose okay. 2) Cipro 500 mg p.o. BID. - renal impairment (Cr Cl 30 to 50 mL/min): oral suspension; 250 to 500 mg every 12 hours. Cipro dosing is okay. 3) Clindamycin 300 mg p.o. twice a day. renal impairment, adult: minimal or no alteration in dosage is required. 4) Labetalol 100 mg p.o. twice a day. Renal impairment: Adjustment not required for any degree of renal failure. Geriatric: Initial, 100 mg orally twice daily; maintenance, 100 to 200 mg twice daily. Labetalol dosing okay. 5) Levothyroxine 200 mcg p.o. daily. Levothyroxine is not adjusted for renal function. 6) Metoclopramide 5 mg ivp every 6 hours as needed. Renal impairment (Cr Cl 60 mL/min or less) in diabetic gastroparesis: 5 mg orally 30 minutes before each meal and at bedtime; MAX, 20 mg/day (oral tablet). Dosing for metoclopramide is okay for p.o. ir i.v. 7) Morphine 1-2 mg ivp q2h as needed for pain. Renal impairment: Start with lower initial doses and titrate slowly. Dose okay. 8) Pantoprazole 40 mg tablet po daily. renal impairment; no adjustments needed. 9) Sertraline 100 mg p.p. daily. Renal impairment: No adjustment necessary. In reviewing meds as currently ordered, the dosing and frequencies are currently okay. Thanks for the Consult for Renal Dosing, Jigar Alvarado, Pharmacist.
[2017-09-05] MEDS: ALLOPURINOL 100 MG TABLET PO SCH (12:09)
[2017-09-05] MEDS: SERTRALINE 100 MG TABLET PO SCH ×2 (12:10→20:06)
[2017-09-05] MEDS: LABETALOL 100 MG TABLET PO SCH ×2 (12:10→20:06)
[2017-09-05] MEDS: CLINDAMYCIN 300 MG CAPSULE PO SCH ×2 (12:10→20:06)
--- NOTE | 2017-09-05 15:05 | Nuclear Medicine Report ---
Indication: primary hyperparathyroidism PROCEDURE: NM parathyroid: Encounter: Initial Comparison: None. TECHNIQUE: The patient was administered 20.5 mCi of Tc 99 M sestamibi. The patient was then imaged at 20 minutes and 2 hours as well as three 4 hours. The SPECT was unable to be performed and the patient was somewhat combative which limited the study. FINDINGS: There is no definite detectable activity in the thyroid gland with normal salivary glands on the initial examination. The thyroid activity washes out is typically expected by 2 and 4 hours without a definite residual focal area of increased uptake to suggest a parathyroid adenoma. However, there is a focal area of retained contrast in the right lower thyroid region which suggests parathyroid adenoma. IMPRESSION: Persistent focus of asymmetric and increased activity in the region of the right lower thyroid suggesting parathyroid adenoma. Minimal if any thyroid activity. .
[2017-09-05] MEDS: INSULIN ASPART 100unit/ml INJECTION SQ PRN ×2 (15:08→20:07)
--- NOTE | 2017-09-05 16:56 | Progress Note ---
- Date 09/05/17 Subjective: Gurdeep was seen with his at bedside. He was groggy and speech was mumbled but he was able to provide some history. He indicated the pain in his mouth was better than yesterday. Reported some dyspnea earlier today that has improved and ongoing nausea. Patient does not recall when his last bowel movement was although one was reported yesterday. His reports patient is worn out after spending the morning in radiology; he ate lunch without difficulty and she is not aware of other concerns today. She feels like he's a little more alert today but not yet at baseline. Objective Vital signs: Temperature 97.7 F 09/05/17 12:24 Pulse Rate 65 09/05/17 16:00 Respiratory Rate 23 09/05/17 14:45 Blood Pressure 135/62 09/05/17 14:44 Pulse Oximetry 100 09/05/17 14:45 I/O 3923/3252 NAD, drowsy-falls asleep intermittently, mumbled speech with hoarse voice Conjunctiva clear, sclera anicteric, dry oral membranes Respirations nonlabored, decreased airflow throughout, anterior breath sounds clear Regular rhythm, S1-S2 Abdomen soft, obese, nontender, bowel sounds present but diminished Trace edema right lower extremity, skin on the right extremity is hyperpigmented and warm; left [id number] No movement LUE, increased motor tone RUE Rhythm: Normal Sinus Rhythm Height/Weight/BMI: Height 1.91 m Weight 117.4 kg Body Mass Index 34.3 Results - Labs CBC & Chem 7: 09/05/17 04:53 09/05/17 04:53 Labs: S63 B4 L26 M1 E5 Baso1 Reticulocytes-0.9% Calcium 12.1 with albumin 2.9, PTH 386 Urine sodium 96, urine creatinine 25.8, FeNa 6.7% Microbiology Results: Blood cultures negative after 1 day - Imaging and Cardiology parathyroid scan Status: image reviewed by me (focal uptake in the right lower neck consistent with parathyroid adenoma) Assessment and Plan (1) Metabolic encephalopathy Current visit: Yes Status: Acute (2) Hypercalcemia Problem details: Need to further assess. Current visit: Yes Status: Acute (3) Hypoglycemia Current visit: Yes Status: Acute Assessment and Plan: Encephalopathy with hallucinations Hypercalcemia secondary to hyperparathyroidism Parathyroid adenoma Hypoglycemia-resolved Acute kidney injury-FeNa 6.7% Type 2 diabetes mellitus on insulin Pancytopenia Anemia-1 unit of blood with hemoglobin improved from 6.6-->10.1 Thrombocytopenia Chronic joint infection, suppressive Cipro and clindamycin Chronic buttock wounds Hypothyroidism, post-ablative Possible supraventricular bradycardia, in sinus rhythm Obstructive sleep apnea-CPAP Obesity Hypertension-BP medications currently on hold Peripheral polyneuropathy Cirrhosis Plan: Calcium improving following pamidronate yesterday, continue IV fluids. Scan consistent with single parathyroid adenoma. Surgery tentatively scheduled for later in the week. reports minor improvement in mental status continue to monitor. Blood sugars stable overnight-no recurrent hypoglycemia. Renal function minimally improved, continue hydration; medications adjusted for renal function earlier today by Pharm.D. No reported hypotension. Fractional excretion suggests intrinsic renal dysfunction. Hemoglobin/platelet count stable today; white count 2.9. Pancytopenia chronic. Supplemental history provided by nursing and patient's . DVT Prophylaxis: SCD's Resuscitation Status: Full Code - Physician Narrative Narrative: Date: 09/05/17 Time: 1637 Hospital Course Summary Disclaimer: The visit summary below is not to be considered part of the above Progress Note. Hospital Course: 09/04/17 Admit to CCU for close monitoring as an inpatient. Continue normal saline. Dr. Le was consulted regarding hypercalcemia. He will see the patient a little later today. He does recommend surgical consultation for possible parathyroidectomy. Regarding acute kidney injury will continue IV fluids, check renal sonogram, check urine sodium and creatinine and hold losartan Re: Pancytopenia, will recheck CBC. Regarding chronic wound infections, will continue clindamycin and Cipro. Will ask pharmacy to adjust Cipro for renal function. Continue on telemetry for possible arrhythmias Recheck CBC and basic metabolic profile today and again tomorrow. The patient is full code per his who his DPOA. 09/05/17 Calcium improving following pamidronate yesterday, continue IV fluids. Scan consistent with single parathyroid adenoma. Surgery tentatively scheduled for later in the week. reports minor improvement in mental status continue to monitor. Blood sugars stable overnight-no recurrent hypoglycemia. Renal function minimally improved, continue hydration; medications adjusted for renal function earlier today by Pharm.D. No reported hypotension. Fractional excretion suggests intrinsic renal dysfunction. Hemoglobin/platelet count stable today; white count 2.9. Pancytopenia chronic.
--- NOTE | 2017-09-05 19:38 | Progress Note ---
DATE OF SERVICE 09/05/2017 FINDINGS Mr. Gonzales was seen this evening on rounds. He is significantly improved from yesterday. He was more alert and oriented. PHYSICAL EXAM VITAL SIGNS: Afebrile. Normotensive. Last recorded vitals include temperature 97.7, pulse 67, respirations 26, blood pressure 160/73, SAO2 100% on room air. HEENT: Normocephalic. Pupils are equally round and react to accommodation. NECK: Supple. I still was unable to appreciate any obvious palpable abnormality within the neck/anatomic location of the thyroid. CHEST: Clear to auscultation bilaterally. HEART: Regular rate and rhythm. Normal S1 and S2 without gallops, murmurs or clicks. LABORATORY/RADIOGRAPHIC EVALUATION The patient had a CBC today and he remains to have a component of pancytopenia. White count 2.9. Hemoglobin 9.6. Platelet count remains low at 51,000. BMP was obtained today. His creatinine is improving at 2.3. BUN is slightly improved at 54. Calcium is improved at 12.1. PTH was obtained and found to be elevated at 386. The patient did have a parathyroid scan today which did localize an area of increased activity in the region of the right lower thyroid suggesting that of a parathyroid adenoma. ASSESSMENT 67-year-old gentleman with multiple medical comorbidities who presented with marked hypercalcemia with associated mental changes/encephalopathy. Patient improving with current medical management. PLAN It would be my recommendation that on we proceed with neck exploration and excision of parathyroid adenoma. Tomorrow will go ahead and obtain ProTime and INR for further evaluation given his known history for cirrhosis. We will also plan on transfusing plateletpheresis pack upon initiation of surgery on , given his thrombocytopenia. The above plan was discussed with the patient and his this evening. They understood and agreed. MICHELLE
[2017-09-06] MEDS: 1/2 NS 1,000 ML IV SCH ×5 (02:05→23:20)
[2017-09-06] MEDS: PANTOPRAZOLE 40 MG TABLET PO SCH (05:50)
[2017-09-06] MEDS: LEVOTHYROXINE 50 MCG TABLET PO SCH (05:50)
[2017-09-06] MEDS: LEVOTHYROXINE 200 MCG TABLET PO SCH (05:51)
[2017-09-06] MEDS: CIPROFLOXACIN 500 MG TABLET PO SCH ×2 (05:51→20:35)
--- NOTE | 2017-09-06 07:48 | General Surgery Progress Note ---
Subjective Narrative: He is definitely more alert this morning, speech not slurred. He is able to carry on a conversation, although quite confused and disoriented, stating he went for a nice ride with his yesterday and moved tables for a wedding. He had no idea where he is currently. He denied pain when questioned. - Vital Signs Last Vital Signs Temp 97.7 F 09/05/17 12:24 Pulse 72 09/06/17 06:00 Resp 22 09/06/17 06:00 BP 151/68 H 09/06/17 06:00 Pulse Ox 100 09/06/17 06:00 - Laboratory Result Diagrams: 09/06/17 05:46 09/06/17 05:46 Laboratory Tests 09/04/17 09/05/17 09/06/17 18:56 04:53 05:46 INR APTT Calcium 12.8 H 12.1 H 12.3 H PTH Intact 386.0 H 09/06/17 09/06/17 05:46 05:46 INR 1.28 H APTT Pending Calcium PTH Intact - Radiology Sestamibi scan IMPRESSION: Persistent focus of asymmetric and increased activity in the region of the right lower thyroid suggesting parathyroid adenoma. Minimal if any thyroid activity. - Abnormal Exam General: confused Abdominal: obese - Normal Exam General: awake, alert Cardiovascular: regular rhythm, regular rate Respiratory: no labored breathing Abdominal: BS normo active x4, soft, non-tender Assessment and Plan (1) Primary hyperparathyroidism Current Visit: Yes Status: Acute (2) Metabolic encephalopathy Current Visit: Yes Status: Acute (3) Obesity (BMI 30-39.9) Current Visit: No Status: Chronic (4) Diabetes mellitus type 2, uncontrolled, without complications Current Visit: No Status: Chronic Qualifiers: Diabetes mellitus mcc insulin use: with mcc use Qualified Code( s): E11.65 - Type 2 diabetes mellitus with hyperglycemia; Z79.4 - [facility] ( current) use of insulin Problem details: Fair control without severe hypoglycemia. (5) Diabetic peripheral neuropathy associated with type 2 diabetes mellitus Current Visit: No Status: Chronic Problem details: Unable to fully assess today. (6) Postablative hypothyroidism Current Visit: No Status: Chronic Problem details: Clinically and chemically euthyroid. (7) Cirrhosis of liver Current Visit: Yes Status: Acute Plan: Patient more alert and speech clear today although thought process is very disjointed and disoriented. PTT INR today due to cirrhosis, INR 1.23 and PTT is pending. 2 units of platelets of been ordered to "on-call to the OR" for tomorrow, anticipate this to be sometime around noon. Consent for neck exploration parathyroidectomy placed. He has a midline in the right wrist and we will check this again on to be sure we can draw from it, as we will need to draw a rapid PTH during surgery. Nothing by mouth after midnight [facility] Hospital Course Summary Disclaimer: The visit summary below is not to be considered part of the above Progress Note. Hospital Course: 09/04/17 Admit to CCU for close monitoring as an inpatient. Continue normal saline. Dr. Le was consulted regarding hypercalcemia. He will see the patient a little later today. He does recommend surgical consultation for possible parathyroidectomy. Regarding acute kidney injury will continue IV fluids, check renal sonogram, check urine sodium and creatinine and hold losartan Re: Pancytopenia, will recheck CBC. Regarding chronic wound infections, will continue clindamycin and Cipro. Will ask pharmacy to adjust Cipro for renal function. Continue on telemetry for possible arrhythmias Recheck CBC and basic metabolic profile today and again tomorrow. The patient is full code per his who his DPOA. 09/05/17 Calcium improving following pamidronate yesterday, continue IV fluids. Scan consistent with single parathyroid adenoma. Surgery tentatively scheduled for later in the week. reports minor improvement in mental status continue to monitor. Blood sugars stable overnight-no recurrent hypoglycemia. Renal function minimally improved, continue hydration; medications adjusted for renal function earlier today by Pharm.D. No reported hypotension. Fractional excretion suggests intrinsic renal dysfunction. Hemoglobin/platelet count stable today; white count 2.9. Pancytopenia chronic.
--- NOTE | 2017-09-06 07:50 | Endocrinology Progress Note ---
Subjective Principal diagnosis: Hypercalcemia Interval history: More alert and oriented this morning. Knows he is in the hospital in [place]. Eating well. Complains of pain at old venipuncture sites. Exam Vital signs: Temperature 97.7 F 09/05/17 12:24 Pulse Rate 72 09/06/17 06:00 Respiratory Rate 22 09/06/17 06:00 Blood Pressure 151/68 H 09/06/17 06:00 Pulse Oximetry 100 09/06/17 06:00 Inpatient Medications: Generic Name Dose Route Start Last Admin Trade Name Freq PRN Reason Stop Dose Admin Allopurinol 100 mg 09/05/17 09:00 09/05/17 12:09 Zyloprim PO Not Given DAILY DIDIER Ciprofloxacin 500 mg 09/04/17 21:00 09/06/17 05:51 Cipro 500 Mg PO 500 mg BID/E DIDIER Administration Clindamycin HCl 300 mg 09/04/17 21:00 09/05/17 20:06 Cleocin PO 300 mg BID DIDIER Administration Dextrose 20 ml 09/04/17 10:21 D50%W IVP PRN PRN Hypoglycemia Sodium Chloride 1,000 mls @ 200 mls/hr 09/04/17 19:45 09/06/17 07:12 1/2 Normal Saline IV 200 mls/hr .Q5H DIDIER Administration Insulin Aspart 2 - 8 unit 09/04/17 10:21 09/05/17 20:07 Novolog SQ 2 unit SS PRN Administration Hyperglycemia Protocol Labetalol HCl 100 mg 09/04/17 09:00 09/05/17 20:06 Normodyne PO 100 mg BID DIDIER Administration Levothyroxine Sodium 200 mcg 09/04/17 06:30 09/06/17 05:51 Synthroid PO 200 mcg ACB DIDIER Administration Levothyroxine Sodium 50 mcg 09/06/17 06:30 09/06/17 05:50 Synthroid PO 50 mcg ACB DIDIER Administration Metoclopramide HCl 5 mg 09/03/17 20:33 Reglan IVP Q6H PRN Morphine Sulfate 1 - 2 mg 09/03/17 20:33 Morphine Sulfate Inj IVP Q2H PRN Pain Nystatin 1 applic 09/04/17 09:00 09/05/17 20:07 Mycostatin TP 1 applic TID DIDIER Administration Pantoprazole Sodium 40 mg 09/04/17 06:30 09/06/17 05:50 Protonix Tab PO 40 mg ACB DIDIER Administration Sertraline HCl 100 mg 09/04/17 09:00 09/05/17 20:06 Zoloft PO 100 mg BID DIDIER Administration Sodium Chloride 10 - 80 ml 09/03/17 18:18 Iv Flush IVF PRN PRN [place] Sodium Chloride 500 ml 09/04/17 00:27 09/04/17 01:50 Normal Saline IV 500 ml PRN PRN Administration Discontinued Medications Generic Name Dose Route Start Last Admin Trade Name Freq PRN Reason Stop Dose Admin Calcitonin [place] 500 unit 09/03/17 19:51 09/03/17 20:18 Miacalcin SQ 09/03/17 19:52 500 unit O ONE Administration Furosemide 40 mg 09/03/17 20:33 09/04/17 00:35 Lasix 40 Mg/4 Ml IVP 09/03/17 20:34 40 mg O ONE Administration Sodium Chloride 1,000 mls @ 1,000 mls/hr 09/03/17 18:18 09/03/17 19:30 Normal Saline IV 09/03/17 19:17 Infused .Q1H ONE Infusion Sodium Chloride 1,000 mls @ 100 mls/hr 09/03/17 20:33 09/04/17 19:50 Normal Saline IV Infused .Q10H DIDIER Infusion 150 mls/hr Ceftriaxone Sodium 1 g/ Sodium 100 mls @ 200 mls/hr 09/03/17 21:54 09/04/17 01:20 Chloride IV 09/03/17 22:23 Infused O ONE Infusion Pamidronate Disodium 30 mg/ 260 mls @ 62.5 mls/hr 09/04/17 12:37 09/04/17 18: 00 Sodium Chloride IV 09/04/17 16:46 Infused O ONE Infusion Miscellaneous Medication 1 each 09/04/17 09:14 09/04/17 19:53 Pharmacy Consult - Renal Dosing 09/04/17 09:15 1 each O ONE Administration Naloxone HCl 0.4 mg 09/03/17 18:24 09/03/17 18:31 Narcan IVP 09/03/17 18:25 0.4 mg O ONE Administration Ondansetron HCl 4 mg 09/03/17 20:33 Zofran IVP Q6H PRN Nausea &/or vomiting Pharmacy Consult 1 each 09/03/17 21:43 Pharmacy Consult - Fall Risk 09/03/17 21:44 ONE TIME ONE - Constitutional no acute distress - Routine HEENT Exam Head: Present: normocephalic, atraumatic Eye: Present: EOMI, PERRL ENT: Present: mucous membranes moist - Routine Neck Exam Absent: thyromegaly - Routine Respiratory Exam Absent: dyspnea - Routine Cardiovascular Exam Present: RRR - Routine Abdominal Exam Present: soft, normoactive bowel sounds - Routine Extremities Exam Present: amputation (left BKA). Absent: cyanosis, edema - Routine Skin Exam Present: dry, warm - Routine Neurological Exam Present: alert, altered mental status (mild) - Routine Psychiatric Exam Absent: normal thought process (still not thinking entirely clearly) - Additional findings Additional findings: Laboratory Tests 09/05/17 09/06/17 09/06/17 04:53 05:46 05:46 WBC 2.3 L Hgb 9.5 L Hct 27.6 L Plt Count 50 L BUN 41.0 H Creatinine 2.0 H D Glucometer Calcium 12.3 H PTH Intact 386.0 H 09/06/17 05:55 WBC Hgb Hct Plt Count BUN Creatinine Glucometer 147 Calcium PTH Intact - Urinary Catheter Management Urethral Cath placed during this visit: yes Insertion date: 09/03/17 Insertion time: 19:00 Assessment and Plan (1) Hypercalcemia Problem details: Need to further assess. Current visit: Yes Status: Acute Little worse today. Will not be able to repeat dose of pamidronate, as I have just been informed by Pharmacy there is none available due to a nationwide shortage. Zoledronic acid is an alternative, but requires a GFR of >35 and his is only 34. With a little more hydration this should become possible. Continue IV hydration. (2) Metabolic encephalopathy Current visit: Yes Status: Acute Improved, nearly at baseline. (3) Primary hyperparathyroidism Current visit: Yes Status: Acute Awaiting right inferior parathyroidectomy. (4) Diabetes mellitus type 2, uncontrolled, without complications Problem details: Fair control without severe hypoglycemia. Current visit: No Status: Chronic Continue current regimen. (5) Hypertension Problem details: Fair control. Current visit: No Status: Chronic (6) custodial current use of insulin Current visit: No Status: Chronic (7) Postablative hypothyroidism Problem details: Clinically and chemically euthyroid. Current visit: No Status: Chronic Now back up to 250 mcg Synthroid daily.
[2017-09-06] MEDS ORDERED: PAMIDRONATE IV ONE (08:00)
[2017-09-06] MEDS ORDERED: NS IV ONE (08:00)
[2017-09-06] MEDS: SERTRALINE 100 MG TABLET PO SCH ×2 (08:38→20:34)
[2017-09-06] MEDS: ALLOPURINOL 100 MG TABLET PO SCH (08:38)
[2017-09-06] MEDS: CLINDAMYCIN 300 MG CAPSULE PO SCH ×2 (08:38→20:35)
[2017-09-06] MEDS: LABETALOL 100 MG TABLET PO SCH ×2 (08:38→20:34)
[2017-09-06] MEDS: INSULIN ASPART 100unit/ml INJECTION SQ PRN ×2 (11:05→20:56)
--- NOTE | 2017-09-06 11:22 | Pharmacy Consult- Renal Dosing ---
[facility] Consul-Renal Dosing - Laboratory Information 09/04/17 09/04/17 09/04/17 04:46 10:05 18:56 BUN 59.0 H* 58.0 H* 55.0 H* Creatinine 2.6 H 2.6 H 2.6 H 09/05/17 09/06/17 04:53 05:46 BUN 54.0 H* 41.0 H Creatinine 2.3 H D 2.0 H D - Consult Information RENAL DOSING: Today's S Cr = 2.0 mg/dL. Calculated Cr Cl = 53 mL/min. Recommend continuing the medications as currently ordered. 1) Allopurinol 100 mg p.o. daily - Renal impairment (Cr Cl 10 to 20 mL/min): 200 mg orally daily (FDA dosage) Renal impairment (Cr Cl 3 to 10 mL/min): Do not exceed 100 mg orally daily (FDA dosage) Dose okay. 2) Cipro 500 mg p.o. BID. - renal impairment (Cr Cl 30 to 50 mL/min): oral suspension; 250 to 500 mg every 12 hours. Cipro dosing is okay. 3) Clindamycin 300 mg p.o. twice a day. renal impairment, adult: minimal or no alteration in dosage is required. 4) Labetalol 100 mg p.o. twice a day. Renal impairment: Adjustment not required for any degree of renal failure. Geriatric: Initial, 100 mg orally twice daily; maintenance, 100 to 200 mg twice daily. Labetalol dosing okay. 5) Levothyroxine 200 mcg p.o. daily. Levothyroxine is not adjusted for renal function. 6) Metoclopramide 5 mg ivp every 6 hours as needed. Renal impairment (Cr Cl 60 mL/min or less) in diabetic gastroparesis: 5 mg orally 30 minutes before each meal and at bedtime; MAX, 20 mg/day (oral tablet). Dosing for metoclopramide is okay for p.o. ir i.v. 7) Morphine 1-2 mg ivp q2h as needed for pain. Renal impairment: Start with lower initial doses and titrate slowly. Dose okay. 8) Pantoprazole 40 mg tablet po daily. renal impairment; no adjustments needed. 9) Sertraline 100 mg p.p. daily. Renal impairment: No adjustment necessary. In reviewing medications as currently ordered, the dosing and frequencies are currently okay. Thanks for the Consult for Renal Dosing, Jigar Alvarado, Pharmacist.
[2017-09-06] MEDS: CYCLOBENZAPRINE 10 MG TABLET PO PRN (15:45)
[2017-09-06] MEDS: TRAMADOL 50 MG TABLET PO PRN (15:45)
--- NOTE | 2017-09-06 15:52 | Progress Note ---
- Date 09/06/17 Subjective: Mr. Gonzales reports he is tired. He has not slept well in several days and has no appetite. He describes minor nausea and constipation. Last reported bowel movement was 3 days ago. He denies dyspnea or cough and is having no chest pain or palpitations. He is having discomfort on his back and bottom which he attributes to sores present prior to admission. Typically he would take Flexeril and tramadol or [place] at home to help with pain control. Objective Vital signs: Temperature 97.5 F 09/06/17 11:00 Pulse Rate 65 09/06/17 15:00 Respiratory Rate 23 09/06/17 15:00 Blood Pressure 161/108 H 09/06/17 14:00 Pulse Oximetry 98 -RA 09/06/17 15:00 I/O 4627/3050 NAD, awake, slow verbal responses Oriented to [employer], date uncertain, unsure why hospitalized although eventually referred to pneumonia Conjugate gaze, conjunctiva clear, sclera anicteric, oral membranes moist and clear Respirations nonlabored, decreased airflow throughout, breath sounds clear Regular rhythm, distant heart tones Abdomen soft, obese, nontender, bowel sounds present/diminished +1 edema RLE Midline catheter left upper extremity-insertion site clean and dry Rhythm: Normal Sinus Rhythm Height/Weight/BMI: Height 1.91 m Weight 128.3 kg Body Mass Index 34.3 Results - Labs CBC & Chem 7: 09/06/17 05:46 09/06/17 05:46 Labs: INR 1.28 Calcium 12.3, magnesium 1.8, phosphorus 3.1, albumin 2.9 Assessment and Plan (1) Metabolic encephalopathy Current visit: Yes Status: Acute (2) Hypercalcemia Problem details: Hyperparathyroidism/solitary parathyroid adenoma Current visit: Yes Status: Acute (3) Hypoglycemia Current visit: Yes Status: Acute Assessment and Plan: Encephalopathy with hallucinations Hypercalcemia secondary to hyperparathyroidism Parathyroid adenoma Hypoglycemia-resolved Acute kidney injury-FeNa 6.7% Type 2 diabetes mellitus on insulin Pancytopenia Anemia-1 unit of blood with hemoglobin improved from 6.6-->10.1 Thrombocytopenia Chronic joint infection, suppressive Cipro and clindamycin Chronic buttock wounds Hypothyroidism, post-ablative Possible supraventricular bradycardia, in sinus rhythm Obstructive sleep apnea-CPAP Obesity Hypertension-BP medications currently on hold Peripheral polyneuropathy Cirrhosis Generalized pain Insomnia Plan: Calcium improved/stable following pamidronate 4/9, continue IV fluids. Scan consistent with single parathyroid adenoma. Surgery tentatively scheduled for tomorrow-discussed with Dr. Gregory. Also discussed plans with Dr. Le, if GFR permits will receive a single dose of Zoledronic acid later today to further improve calcium preoperatively. reports minor improvement in mental status continue to monitor. Blood sugars stable today ranging from 147-155. Renal function slowly improving with creatinine 2.0 today-well above baseline of 1.2-1.4 and baseline GFR of about 60, continue hydration. Pancytopenia chronic; anticipate platelet packs with surgery to minimize risk of neck hematoma. Home pain medications resumed. Low-dose Seroquel added for sleep. Supplemental history provided by nursing and patient's . Stable to transfer out of ICU today. Telemetry reviewed-sinus rhythm. - Physician Narrative Narrative: Date: 09/06/17 Time: 1540 Hospital Course Summary Disclaimer: The visit summary below is not to be considered part of the above Progress Note. Hospital Course: 09/04/17 Admit to CCU for close monitoring as an inpatient. Continue normal saline. Dr. Le was consulted regarding hypercalcemia. He will see the patient a little later today. He does recommend surgical consultation for possible parathyroidectomy. Regarding acute kidney injury will continue IV fluids, check renal sonogram, check urine sodium and creatinine and hold losartan Re: Pancytopenia, will recheck CBC. Regarding chronic wound infections, will continue clindamycin and Cipro. Will ask pharmacy to adjust Cipro for renal function. Continue on telemetry for possible arrhythmias Recheck CBC and basic metabolic profile today and again tomorrow. The patient is full code per his who his DPOA. 09/05/17 Calcium improving following pamidronate yesterday, continue IV fluids. Scan consistent with single parathyroid adenoma. Surgery tentatively scheduled for later in the week. reports minor improvement in mental status continue to monitor. Blood sugars stable overnight-no recurrent hypoglycemia. Renal function minimally improved, continue hydration; medications adjusted for renal function earlier today by Pharm.D. No reported hypotension. Fractional excretion suggests intrinsic renal dysfunction. Hemoglobin/platelet count stable today; white count 2.9. Pancytopenia chronic. 09/06/17 Calcium improved/stable following pamidronate 09/04, continue IV fluids. Scan consistent with single parathyroid adenoma. Surgery tentatively scheduled for tomorrow-discussed with Dr. Gregory. Also discussed plans with Dr. Le, if GFR permits will receive a single dose of Zoledronic acid later today to further improve calcium preoperatively. reports minor improvement in mental status continue to monitor. Blood sugars stable today ranging from 147-155. Renal function slowly improving with creatinine 2.0 today-well above baseline of 1.2-1.4 and baseline GFR of about 60, continue hydration. Chronic pancytopenia (due to cirrhosis/chronic inflammation); anticipate platelet packs with surgery to minimize risk of neck hematoma. Home pain medications resumed. Low-dose Seroquel added for sleep. Supplemental history provided by nursing and patient's . Stable to transfer out of ICU today.
[2017-09-06] MEDS: POLYETHYL GLYCOL 3350 17gm PACKET PO SCH (17:47)
--- NOTE | 2017-09-06 18:54 | Progress Note ---
DATE OF SERVICE 09/06/2017 FINDINGS Gurdeep was more confused this evening than yesterday. He was unable to tell me where he was at this evening. He denied any pain or discomfort. is at bedside this evening. EXAM VITAL SIGNS: Afebrile, normotensive. Current vitals include temperature 97.5, pulse 65, respirations 23, blood pressure 161/108, SAO2 98% on room air. HEENT: Normocephalic. Pupils are equally round and react to light and accommodation. CHEST: Clear to auscultation bilaterally. HEART: Regular rate and rhythm. Normal S1 and S2 without gallops, murmurs or clicks. LABORATORY/RADIOGRAPHIC EVALUATION The patient had a CBC today and his platelet count remains low at 50,000. Remains to be pancytopenic with a white count of 2.3. Hemoglobin 9.5. BMP was obtained today and his creatinine continues to improve at 1.9. BUN is improved to 40.0. Given his history for cirrhosis of the liver, INR was obtained today. INR was only minimally elevated at 1.28. PTT was normal at 27.5. ASSESSMENT 67-year-old gentleman with multiple medical comorbidities who presented with marked hypercalcemia secondary primary hyperparathyroidism. PLAN Will plan on proceeding with surgical intervention in regards to his hypercalcemia/primary hyperparathyroidism tomorrow. Platelets have been ordered today and will be given web application developer to the OR and upon making incision. 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 He did answer additional questions this evening presented by his . Patient and understand and agree with the proposed plan at this time. MICHELLE
[2017-09-06] MEDS: SENNA + DOCUSATE TABLET PO SCH (20:34)
[2017-09-06] MEDS: QUETIAPINE 25 MG TABLET PO SCH (20:34)
[2017-09-07] MEDS: 1/2 NS 1,000 ML IV SCH ×2 (04:30→09:53)
[2017-09-07] MEDS: LEVOTHYROXINE 200 MCG TABLET PO SCH (05:57)
[2017-09-07] MEDS: LEVOTHYROXINE 50 MCG TABLET PO SCH (05:57)
[2017-09-07] MEDS: PANTOPRAZOLE 40 MG TABLET PO SCH ×2 (05:58→06:22)
[2017-09-07] MEDS: CIPROFLOXACIN 500 MG TABLET PO SCH ×3 (06:00→20:38)
--- NOTE | 2017-09-07 07:47 | Endocrinology Progress Note ---
Subjective Principal diagnosis: Hypercalcemia Interval history: He is alert but less oriented this morning. Nurse reports he was better oriented a little while ago; he drifts in and out. NPO for surgery Exam Vital signs: Temperature 99.0 F 09/07/17 03:45 Pulse Rate 68 09/07/17 03:45 Respiratory Rate 16 09/07/17 03:45 Blood Pressure 128/66 09/07/17 03:45 Pulse Oximetry 100 09/07/17 03:45 Inpatient Medications: Generic Name Dose Route Start Last Admin Trade Name Freq PRN Reason Stop Dose Admin Hydrocodone Bitart/Acetaminophen 1 tab 09/06/17 14:48 [place] 7.5/325 PO Q6H PRN Pain Allopurinol 100 mg 09/05/17 09:00 09/06/17 08:38 Zyloprim PO 100 mg DAILY DIDIER Administration Ciprofloxacin 500 mg 09/04/17 21:00 09/07/17 06:22 Cipro 500 Mg PO 500 mg BID/E DIDIER Administration Clindamycin HCl 300 mg 09/04/17 21:00 09/06/17 20:35 Cleocin PO 300 mg BID DIDIER Administration Cyclobenzaprine HCl 10 mg 09/06/17 14:48 09/06/17 15:45 Flexeril PO 10 mg TID PRN Administration Muscle spasm Dextrose 20 ml 09/04/17 10:21 D50%W IVP PRN PRN Hypoglycemia Sodium Chloride 1,000 mls @ 200 mls/hr 09/04/17 19:45 09/07/17 04:30 1/2 Normal Saline IV 200 mls/hr .Q5H DIDIER Administration Insulin Aspart 2 - 8 unit 09/04/17 10:21 09/06/17 20:56 Novolog SQ 3 unit SS PRN Administration Hyperglycemia Protocol Labetalol HCl 100 mg 09/04/17 09:00 09/06/17 20:34 Normodyne PO 100 mg BID DIDIER Administration Levothyroxine Sodium 200 mcg 09/04/17 06:30 09/07/17 05:57 Synthroid PO Not Given ACB DIDIER Levothyroxine Sodium 50 mcg 09/06/17 06:30 09/07/17 05:57 Synthroid PO Not Given ACB DIDIER Metoclopramide HCl 5 mg 09/03/17 20:33 Reglan IVP Q6H PRN Morphine Sulfate 1 - 2 mg 09/03/17 20:33 Morphine Sulfate Inj IVP Q2H PRN Pain Nystatin 1 applic 09/04/17 09:00 09/06/17 20:35 Mycostatin TP 1 applic TID DIDIER Administration Pantoprazole Sodium 40 mg 09/04/17 06:30 09/07/17 06:22 Protonix Tab PO 40 mg ACB DIDIER Administration Polyethylene Glycol 17 gm 09/06/17 16:00 09/06/17 17:47 Miralax PO Not Given DAILY DIDIER Quetiapine Fumarate 25 mg 09/06/17 21:00 09/06/17 20:34 Seroquel PO 25 mg HS DIDIER Administration Senna/Docusate Sodium 2 tab 09/06/17 21:00 09/06/17 20:34 Senna Plus Tablet PO 2 tab BID DIDIER Administration Sertraline HCl 100 mg 09/04/17 09:00 09/06/17 20:34 Zoloft PO 100 mg BID DIDIER Administration Sodium Chloride 10 - 80 ml 09/03/17 18:18 Iv Flush IVF PRN PRN [place] Sodium Chloride 500 ml 09/04/17 00:27 09/04/17 01:50 Normal Saline IV 500 ml PRN PRN Administration Tramadol HCl 50 mg 09/06/17 14:49 09/06/17 15:45 Ultram PO 50 mg TID PRN Administration Pain Discontinued Medications Generic Name Dose Route Start Last Admin Trade Name Freq PRN Reason Stop Dose Admin Calcitonin [place] 500 unit 09/03/17 19:51 09/03/17 20:18 Miacalcin SQ 09/03/17 19:52 500 unit O ONE Administration Furosemide 40 mg 09/03/17 20:33 09/04/17 00:35 Lasix 40 Mg/4 Ml IVP 09/03/17 20:34 40 mg O ONE Administration Sodium Chloride 1,000 mls @ 1,000 mls/hr 09/03/17 18:18 09/03/17 19:30 Normal Saline IV 09/03/17 19:17 Infused .Q1H ONE Infusion Sodium Chloride 1,000 mls @ 100 mls/hr 09/03/17 20:33 09/04/17 19:50 Normal Saline IV Infused .Q10H DIDIER Infusion 150 mls/hr Ceftriaxone Sodium 1 g/ Sodium 100 mls @ 200 mls/hr 09/03/17 21:54 04/09/18 01:20 Chloride IV 09/03/17 22:23 Infused O ONE Infusion Pamidronate Disodium 30 mg/ 260 mls @ 62.5 mls/hr 09/04/17 12:37 09/04/17 18: 00 Sodium Chloride IV 09/04/17 16:46 Infused O ONE Infusion Miscellaneous Medication 1 each 09/04/17 09:14 09/04/17 19:53 Pharmacy Consult - Renal Dosing 09/04/17 09:15 1 each O ONE Administration Naloxone HCl 0.4 mg 09/03/17 18:24 09/03/17 18:31 Narcan IVP 09/03/17 18:25 0.4 mg O ONE Administration Ondansetron HCl 4 mg 09/03/17 20:33 Zofran IVP Q6H PRN Nausea &/or vomiting Pharmacy Consult 1 each 09/03/17 21:43 Pharmacy Consult - Fall Risk 09/03/17 21:44 ONE TIME ONE - Constitutional no acute distress - Routine HEENT Exam Head: Present: normocephalic, atraumatic Eye: Present: EOMI, PERRL ENT: Present: mucous membranes moist - Routine Neck Exam Absent: thyromegaly - Routine Respiratory Exam Absent: dyspnea - Routine Cardiovascular Exam Present: RRR - Routine Abdominal Exam Present: soft, normoactive bowel sounds - Routine Extremities Exam Present: amputation (left BKA). Absent: cyanosis, edema - Routine Neurological Exam Present: alert, altered mental status. Absent: oriented X3 - Routine Psychiatric Exam Absent: normal thought process - Additional findings Additional findings: Laboratory Tests 09/07/17 03:55 BUN 36.0 H Creatinine 1.9 H Glucose 95 Calcium 11.6 H - Urinary Catheter Management Urethral Cath placed during this visit: yes Insertion date: 09/03/17 Insertion time: 19:00 Assessment and Plan (1) Hypercalcemia Problem details: Hyperparathyroidism/solitary parathyroid adenoma Current visit: Yes Status: Acute Continues to improve slowly after initial dose of pamidronate. Should resolve after parathyroid adenoma is removed today. (2) Metabolic encephalopathy Current visit: Yes Status: Acute Still present, off and on. (3) Primary hyperparathyroidism Current visit: Yes Status: Acute Right inferior parathyroidectomy planned for today. (4) Diabetes mellitus type 2, uncontrolled, without complications Problem details: Fair control without severe hypoglycemia. Current visit: No Status: Chronic Good control. (5) Hypertension Problem details: Good control, improved. 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 Current visit: No Status: Chronic Continue current Synthroid.
[2017-09-07] MEDS: ALLOPURINOL 100 MG TABLET PO SCH (08:22)
[2017-09-07] MEDS: POLYETHYL GLYCOL 3350 17gm PACKET PO SCH (08:23)
[2017-09-07] MEDS: SERTRALINE 100 MG TABLET PO SCH ×2 (08:23→20:38)
[2017-09-07] MEDS: SENNA + DOCUSATE TABLET PO SCH ×2 (08:23→20:38)
[2017-09-07] MEDS: LABETALOL 100 MG TABLET PO SCH ×2 (08:34→20:38)
[2017-09-07] MEDS: CLINDAMYCIN 300 MG CAPSULE PO SCH ×2 (08:34→20:38)
[2017-09-07] MEDS: SALINE FLUSH 10ml SYRINGE IVF PRN (08:35)
--- NOTE | 2017-09-07 10:43 | Progress Note ---
- Date 09/07/17 Subjective: F/U: encephalopathy, hypercalcemia secondary to hyperparathyroidism and parathyroid adenoma. Gurdeep is seen this morning in conjunction with Dr. Saldaña. He is resting in bed with his at the bedside. He appears very drowsy and has difficulty maintaining focus and staying awake. His speech is difficult to understand limiting exam. He is alert to person and recalls that he is in [place] but is unable to remain alert enough to identify that he is at the hospital. Due to his previous insomnia, he was given Seroquel last night which may explain some of his increased somnolence. He is scheduled to undergo parathyroidectomy today , 09/07/17, with Dr. Gregory. In anticipation of surgery, he remains NPO. Labs revealed slight improvement in hypercalcemia (decreased from 14.3 to 11.6) . Mild hypokalemia noted today (K 3.5) with adjustments made to IV fluids. Pancytopenia persists with WBC decreased to 1.8, Hemoglobin 8.7 and platelets 48. Surgery anticipates giving platelets during surgery today. Renal function remains stable with SCr 1.9 (baseline 1.2-1.4). He has been seen by Dr. Le ([facility]) and was given pamidronate 30mg on 09/06/17. Vital signs stable. Objective Vital signs: Temperature 97.6 F 09/07/17 08:10 Pulse Rate 69 09/07/17 08:10 Respiratory Rate 20 09/07/17 08:10 Blood Pressure 156/64 H 09/07/17 08:10 Pulse Oximetry 98 09/07/17 08:10 Rhythm: Normal Sinus Rhythm Height/Weight/BMI: Height 6 ft 3 in Weight 282 lb 3.067 oz Body Mass Index 34.3 Comments: Patient resting in bed with at the bedside; increased somnolence with difficulty focusing and speech difficult to understand; quickly drifts back to sleep. - Constitutional Present: no acute distress, well nourished, well developed, obese, cooperative - Routine HEENT Exam Head: Present: normocephalic, atraumatic Eye: Present: PERRL. Absent: conjunctival icterus ENT: Present: mucous membranes dry, oropharynx clear - Routine Respiratory Exam Present: decreased breath sounds. Absent: accessory muscle use, dyspnea, wheezes - Routine Cardiovascular Exam Present: RRR, S1, S2 - Routine Abdominal Exam Present: soft, non tender Comments: Hypoactive bowel sounds. - Routine Exam Comments: Justin catheter present and actively draining yellow urine. - Routine Extremities Exam Present: edema, pulses intact Comments: Darkening, bluish discoloration to right lower extremity - chronic. Left above the knee amputation. - Routine Back/Spine/Pelvis Exam Comments: Unable to assess due to patients increased somnolence. - Routine Skin Exam Present: dry, warm Comments: Low grade temperature this morning (99.0). - Routine Neurological Exam Present: altered mental status, hearing grossly intact Patient orientated to self and recalled he was in [place], but unable to maintain alertness long enough to determine he was at the hospital; decreased ability to focus; increased somnolence; speech difficult to understand and unintelligible at times. - Routine Psychiatric Exam Present: cooperative Comments: Somnolent. Results - Labs CBC & Chem 7: 09/07/17 03:55 09/07/17 03:55 Assessment and Plan (1) Hypercalcemia Problem details: Hyperparathyroidism/solitary parathyroid adenoma Current visit: Yes Status: Acute (2) Metabolic encephalopathy Current visit: Yes Status: Acute (3) Hypoglycemia Current visit: Yes Status: Resolved Assessment and Plan: Encephalopathy with hallucinations Hypercalcemia secondary to hyperparathyroidism Parathyroid adenoma Hypoglycemia-resolved Acute kidney injury-FeNa 6.7% Type 2 diabetes mellitus on insulin Pancytopenia Anemia-1 unit of blood with hemoglobin improved from 6.6-->10.1 Thrombocytopenia Chronic joint infection, suppressive Cipro and clindamycin Chronic buttock wounds Hypothyroidism, post-ablative Possible supraventricular bradycardia, in sinus rhythm Obstructive sleep apnea-CPAP Obesity Hypertension-BP medications currently on hold Peripheral polyneuropathy Cirrhosis Generalized pain Insomnia Plan - 09/07/17 Patient moved to medical floor on 09/06/17. Calcium improved/stable (decreased from 14.3 on 09/03/17 to 11.6 today, 09/07/17). Parathyroidectomy scheduled for today with Dr. Gregory. Maintain NPO status due to anticipated surgery. Will continue IVF and add KCl 20 mEQ to IVF given hypokalemia. Weight trending up. Decrease rate to 150cc/hr and continue to monitor closely for signs of fluid overload. Dr. Le continues to follow patient. Appreciate his time and expertise. Discussed giving Zoledronic acid on 09/06/17, but decided against it. Anticipates improvement in calcium following surgery. Increased somnolence today - suspect secondary to receiving Seroquel 25mg at bedtime last night to assist with insomnia. Continue to monitor mental status closely. Blood sugars stable and trending up since admission (range 147-233). Continue to monitor closely. Renal function slowly improving with creatinine 1.9 today-well above baseline of 1.2-1.4 and baseline GFR of about 60. Continue hydration and continue to monitor. Pancytopenia chronic - anticipate platelet packs with surgery to minimize risk of neck hematoma. WBC 1.8, Hgb 8.7, Plt 48. Supplemental history provided by nursing and patient's . Telemetry reviewed-sinus rhythm. Will recheck labs in AM to monitor blood counts, electrolytes and renal function. Monitor serial calcium levels post operatively. DVT Prophylaxis: SCD's Resuscitation Status: Full Code - Time spent with patient Time with patient PN: 30 minutes - Physician Narrative Physician: Darlene Saldaña MD Narrative: Date: 09/07/17 Time: 1340 I have independently evaluated and examined this patient. I reviewed the chart, the patient's history, and the JUMBO OPERATOR/PA's documented findings as above. We discussed and formulated the assessment and plan as above with additions as below: Gurdeep was seen this morning with his at the bedside. He was drowsy but denied nausea, dyspnea, chest pain/palpitations but reports ongoing back pain. Respirations were nonlabored and airflow was better today than prior days, anterior/lateral breath sounds are clear. Somnolence slightly worse today; confusion persists. Counts reviewed with the patient's ; no change in renal function, calcium minimally improved from yesterday. For parathyroidectomy today. Continue supportive care. ANC less than 1000-neutropenic precautions initiated. Hospital Course Summary Disclaimer: The visit summary below is not to be considered part of the above Progress Note. Hospital Course: 09/04/17 Admit to CCU for close monitoring as an inpatient. Continue normal saline. Dr. Le was consulted regarding hypercalcemia. He will see the patient a little later today. He does recommend surgical consultation for possible parathyroidectomy. Regarding acute kidney injury will continue IV fluids, check renal sonogram, check urine sodium and creatinine and hold losartan Re: Pancytopenia, will recheck CBC. Regarding chronic wound infections, will continue clindamycin and Cipro. Will ask pharmacy to adjust Cipro for renal function. Continue on telemetry for possible arrhythmias Recheck CBC and basic metabolic profile today and again tomorrow. The patient is full code per his who his DPOA. 09/05/17 Calcium improving following pamidronate yesterday, continue IV fluids. Scan consistent with single parathyroid adenoma. Surgery tentatively scheduled for later in the week. reports minor improvement in mental status continue to monitor. Blood sugars stable overnight-no recurrent hypoglycemia. Renal function minimally improved, continue hydration; medications adjusted for renal function earlier today by Pharm.D. No reported hypotension. Fractional excretion suggests intrinsic renal dysfunction. Hemoglobin/platelet count stable today; white count 2.9. Pancytopenia chronic. 09/06/17 Calcium improved/stable following pamidronate 09/04, continue IV fluids. Scan consistent with single parathyroid adenoma. Surgery tentatively scheduled for tomorrow-discussed with Dr. Gregory. Also discussed plans with Dr. Le, if GFR permits will receive a single dose of Zoledronic acid later today to further improve calcium preoperatively. reports minor improvement in mental status continue to monitor. Blood sugars stable today ranging from 147-155. Renal function slowly improving with creatinine 2.0 today-well above baseline of 1.2-1.4 and baseline GFR of about 60, continue hydration. Chronic pancytopenia (due to cirrhosis/chronic inflammation); anticipate platelet packs with surgery to minimize risk of neck hematoma. Home pain medications resumed. Low-dose Seroquel added for sleep. Supplemental history provided by nursing and patient's . Stable to transfer out of ICU today. Plan - 09/07/17 Patient moved to medical floor on 09/06/17. Calcium improved/stable (decreased from 14.3 on 09/03/17 to 11.6 today, 09/07/17). Parathyroidectomy scheduled for today with Dr. Gregory. Maintain NPO status due to anticipated surgery. Will continue IVF and add KCl 20 mEQ to IVF given hypokalemia. Weight trending up. Decrease rate to 150cc/hr and continue to monitor closely for signs of fluid overload. Dr. Le continues to follow patient. Appreciate his time and expertise. Discussed giving Zoledronic acid on 09/06/17, but decided against it. Anticipates improvement in calcium following surgery. Increased somnolence today - suspect secondary to receiving Seroquel 25mg at bedtime last night to assist with insomnia. Continue to monitor mental status closely. Blood sugars stable and trending up since admission (range 147-233). Continue to monitor closely. Renal function slowly improving with creatinine 1.9 today-well above baseline of 1.2-1.4 and baseline GFR of about 60. Continue hydration and continue to monitor. Pancytopenia chronic - anticipate platelet packs with surgery to minimize risk of neck hematoma. WBC 1.8, Hgb 8.7, Plt 48. Supplemental history provided by nursing and patient's . Telemetry reviewed-sinus rhythm. Will recheck labs in AM to monitor blood counts, electrolytes and renal function. Monitor serial calcium levels post operatively.
[2017-09-07] MEDS ORDERED: 1/2 NS IV SCH (11:05)
[2017-09-07] MEDS ORDERED: POTASSIUM CHLORIDE IV SCH (11:05)
--- NOTE | 2017-09-07 11:08 | General Surgery Progress Note ---
Subjective Narrative: I saw Gurdeep earlier this morning, he was in bed, speech more slurred than yesterday's visit. Not tracking with questions or the conversation. When asked if he knew what we sere going to do today, he indicated "Thanksgiving." Denied pain. present, she had no new information. - Vital Signs Last Vital Signs Temp 97.6 F 09/07/17 08:10 Pulse 69 09/07/17 08:10 Resp 20 09/07/17 08:10 BP 156/64 H 09/07/17 08:10 Pulse Ox 98 09/07/17 08:10 - Laboratory Result Diagrams: 09/07/17 03:55 09/07/17 03:55 Laboratory Tests 09/05/17 09/06/17 09/06/17 04:53 05:46 16:20 Calcium 12.1 H 12.3 H 11.8 H PTH Intact 386.0 H 09/07/17 03:55 Calcium 11.6 H PTH Intact - Abnormal Exam General: confused - Normal Exam General: awake (but drowsy) Respiratory: no labored breathing Abdominal: soft, non-tender Assessment and Plan (1) Primary hyperparathyroidism Current Visit: Yes Status: Acute (2) Metabolic encephalopathy Current Visit: Yes Status: Acute (3) Obesity (BMI 30-39.9) Current Visit: No Status: Chronic (4) Diabetes mellitus type 2, uncontrolled, without complications Current Visit: No Status: Chronic Qualifiers: Diabetes mellitus prison insulin use: with prison use Qualified Code( s): E11.65 - Type 2 diabetes mellitus with hyperglycemia; Z79.4 - emt intermediate ( current) use of insulin Problem details: Fair control without severe hypoglycemia. (5) Diabetic peripheral neuropathy associated with type 2 diabetes mellitus Current Visit: No Status: Chronic Problem details: Unable to fully assess today. (6) Postablative hypothyroidism Current Visit: No Status: Chronic Problem details: Clinically and chemically euthyroid. (7) Cirrhosis of liver Current Visit: Yes Status: Acute Plan: plan neck exploration with parathyroidectomy today. Called blood bank this morning for final arrangements for Platelets. Platelets still only 48, 1 unit platelets ordered to be given as we go back for surgery. Floor nurse and pre-opaware. New midline has been placed left upper arm, this should be easy access for rapid PTH during surgery. Hospital Course Summary Disclaimer: The visit summary below is not to be considered part of the above Progress Note. Hospital Course: 09/04/17 Admit to CCU for close monitoring as an inpatient. Continue normal saline. Dr. Le was consulted regarding hypercalcemia. He will see the patient a little later today. He does recommend surgical consultation for possible parathyroidectomy. Regarding acute kidney injury will continue IV fluids, check renal sonogram, check urine sodium and creatinine and hold losartan Re: Pancytopenia, will recheck CBC. Regarding chronic wound infections, will continue clindamycin and Cipro. Will ask pharmacy to adjust Cipro for renal function. Continue on telemetry for possible arrhythmias Recheck CBC and basic metabolic profile today and again tomorrow. The patient is full code per his who his DPOA. 09/05/17 Calcium improving following pamidronate yesterday, continue IV fluids. Scan consistent with single parathyroid adenoma. Surgery tentatively scheduled for later in the week. reports minor improvement in mental status continue to monitor. Blood sugars stable overnight-no recurrent hypoglycemia. Renal function minimally improved, continue hydration; medications adjusted for renal function earlier today by Pharm.D. No reported hypotension. Fractional excretion suggests intrinsic renal dysfunction. Hemoglobin/platelet count stable today; white count 2.9. Pancytopenia chronic. 09/06/17 Calcium improved/stable following pamidronate 09/04, continue IV fluids. Scan consistent with single parathyroid adenoma. Surgery tentatively scheduled for tomorrow-discussed with Dr. Gregory. Also discussed plans with Dr. Le, if GFR permits will receive a single dose of Zoledronic acid later today to further improve calcium preoperatively. reports minor improvement in mental status continue to monitor. Blood sugars stable today ranging from 147-155. Renal function slowly improving with creatinine 2.0 today-well above baseline of 1.2-1.4 and baseline GFR of about 60, continue hydration. Chronic pancytopenia (due to cirrhosis/chronic inflammation); anticipate platelet packs with surgery to minimize risk of neck hematoma. Home pain medications resumed. Low-dose Seroquel added for sleep. Supplemental history provided by nursing and patient's . Stable to transfer out of ICU today. Plan - 09/07/17 Patient moved to medical floor on 09/06/17. Calcium improved/stable (decreased from 14.3 on 09/03/17 to 11.6 today, 09/07/17). Parathyroidectomy scheduled for today with Dr. Gregory. Maintain NPO status due to anticipated surgery. Will continue IVF and add KCl 20 mEQ to IVF given hypokalemia. Weight trending up. Decrease rate to 150cc/hr and continue to monitor closely for signs of fluid overload. Dr. Le continues to follow patient. Appreciate his time and expertise. Discussed giving Zoledronic acid on 09/06/17, but decided against it. Anticipates improvement in calcium following surgery. Increased somnolence today - suspect secondary to receiving Seroquel 25mg at bedtime last night to assist with insomnia. Continue to monitor mental status closely. Blood sugars stable and trending up since admission (range 147-233). Continue to monitor closely. Renal function slowly improving with creatinine 1.9 today-well above baseline of 1.2-1.4 and baseline GFR of about 60. Continue hydration and continue to monitor. Pancytopenia chronic - anticipate platelet packs with surgery to minimize risk of neck hematoma. WBC 1.8, Hgb 8.7, Plt 48. Supplemental history provided by nursing and patient's . Telemetry reviewed-sinus rhythm. Will recheck labs in AM to monitor blood counts, electrolytes and renal function. Monitor serial calcium levels post operatively.
[2017-09-07] MEDS: NS 1,000 ML IV SCH ×2 (12:06→14:53)
[2017-09-07] MEDS: NS FLUSH BAG 500ml IV PRN (12:23)
[2017-09-07] MEDS ORDERED: BUPIVACAINE 0.25%/EPI 1:200,000 30ml SDV ONE (12:32)
[2017-09-07] MEDS ORDERED: PROPOFOL 20 ML ONE ×2 (12:51)
[2017-09-07] MEDS ORDERED: SUCCINYLCHOLINE 20mg/mL 10mL INJECTION ONE (12:53)
[2017-09-07] MEDS ORDERED: KETAMINE 500 MG/10 ML INJECTION ONE (12:59)
--- NOTE | 2017-09-07 13:22 | Anesthesia Preoperative Report ---
Anesthesia Preoperative Record - Date and Time Date: 09/07/17 Preoperative Diagnosis: Metabolic encephalopathy/hypercalcemia NPO Since Date: 09/06/17 NPO Since Time: 23:00 Allergies/Adverse Reactions: Allergies Allergy/AdvReac Type Severity Reaction Status Date / Time Iodinated Contrast- Oral and Allergy Unknown Verified 09/03/17 18:31 IV Dye Sulfa (Sulfonamide Allergy Unknown Verified 09/03/17 18:31 Antibiotics) - Vital Signs Vital Signs: Temperature 98.1 F 09/07/17 12:10 Pulse Rate 65 09/07/17 12:10 Respiratory Rate 15 09/07/17 12:10 Blood Pressure 135/66 09/07/17 12:10 Pulse Oximetry 100 09/07/17 12:10 Height and Weight: Height 6 ft 3 in Weight 128 kg Body Mass Index 34.3 - Medications Inpatient Medications: Current Medications Hydrocodone Bitart/Acetaminophen ([place] 7.5/325) 1 tab PO Q6H PRN PRN Reason: Pain Allopurinol (Zyloprim) 100 mg PO DAILY [facility] Last Admin: 09/07/17 08:22 Dose: Not Given Ciprofloxacin (Cipro 500 Mg) 500 mg PO BID/E [facility] Last Admin: 09/07/17 06:22 Dose: 500 mg Clindamycin HCl (Cleocin) 300 mg PO BID [facility] Last Admin: 09/07/17 08:34 Dose: 300 mg Cyclobenzaprine HCl (Flexeril) 10 mg PO TID PRN PRN Reason: Muscle spasm Last Admin: 09/06/17 15:45 Dose: 10 mg Dextrose (D50%W) 20 ml IVP PRN PRN PRN Reason: Hypoglycemia Sodium Chloride (Normal Saline) 1,000 mls @ 50 mls/hr IV .Q20H [facility] Last Admin: 09/07/17 12:06 Dose: 50 mls/hr Potassium Chloride 20 meq/ (Sodium Chloride) 1,010 mls @ 150 mls/hr IV .Q6H44M [facility] Insulin Aspart (Novolog) 2 - 8 unit SQ SS PRN; Protocol PRN Reason: Hyperglycemia Last Admin: 09/06/17 20:56 Dose: 3 unit Labetalol HCl (Normodyne) 100 mg PO BID [facility] Last Admin: 09/07/17 08:34 Dose: 100 mg Levothyroxine Sodium (Synthroid) 200 mcg PO ACB [facility] Last Admin: 09/07/17 05:57 Dose: Not Given Levothyroxine Sodium (Synthroid) 50 mcg PO B [facility] Last Admin: 09/07/17 05:57 Dose: Not Given Metoclopramide HCl (Reglan) 5 mg IVP Q6H PRN Morphine Sulfate (Morphine Sulfate Inj) 1 - 2 mg IVP Q2H PRN PRN Reason: Pain Nystatin (Mycostatin) 1 applic TP TID [facility] Last Admin: 09/07/17 08:34 Dose: 1 applic Pantoprazole Sodium (Protonix Tab) 40 mg PO ACB [facility] Last Admin: 09/07/17 06:22 Dose: 40 mg Polyethylene Glycol (Miralax) 17 gm PO DAILY [facility] Last Admin: 09/07/17 08:23 Dose: Not Given Quetiapine Fumarate (Seroquel) 25 mg PO [facility] Last Admin: 09/06/17 20:34 Dose: 25 mg Senna/Docusate Sodium (Senna Plus Tablet) 2 tab PO BID [facility] Last Admin: 09/07/17 08:23 Dose: Not Given Sertraline HCl (Zoloft) 100 mg PO BID [facility] Last Admin: 09/07/17 08:23 Dose: Not Given Sodium Chloride (Iv Flush) 10 - 80 ml IVF PRN PRN PRN Reason: Flushing Last Admin: 09/07/17 08:35 Dose: 30 ml Sodium Chloride (Normal Saline) 500 ml IV PRN PRN Last Admin: 09/07/17 12:23 Dose: 500 ml Tramadol HCl (Ultram) 50 mg PO TID PRN PRN Reason: Pain Last Admin: 09/06/17 15:45 Dose: 50 mg Home Medications: Home Medications Medication Instructions Recorded Confirmed Type Cipro (ciprofloxacin) 500 mg tablet 500 mg PO BID tab 02/02/17 09/03/17 History Lantus Solostar (insulin glargine) 38 unit SQ HS ml 02/02/17 09/03/17 History 100 unit/mL (3 mL) PEN Neurontin (gabapentin) 100 mg 100 mg PO BID 02/02/17 09/03/17 History capsule aspirin 81 mg tablet,delayed 81 mg PO DAILY tab 02/02/17 09/03/17 History release Allopurinol [Zyloprim] 300 mg PO DAILY 06/04/17 09/03/17 History Amlodipine [Norvasc] 10 mg PO DAILY 06/04/17 09/03/17 History Cholecalciferol (Vitamin D3) 2,000 unit PO DAILY 06/04/17 09/03/17 History [Vitamin D3] Clindamycin [Cleocin] 300 mg PO BID 06/04/17 09/03/17 History Cyclobenzaprine [Flexeril] 10 mg PO TID PRN 06/04/17 09/03/17 History Dextrose [Glucose Gel] 4 oz BC PRN 06/04/17 09/03/17 History Docusate Sodium 100 mg PO BID PRN 06/04/17 09/03/17 History Fexofenadine [Yuridia] 180 mg PO DAILY PRN 06/04/17 09/03/17 History Labetalol [Normodyne] 100 mg PO BID 06/04/17 09/03/17 History Loperamide HCl [Imodium A-D] 2 mg PO Q4H PRN 06/04/17 09/03/17 History Losartan [Cozaar] 100 mg PO DAILY 06/04/17 09/03/17 History Ondansetron HCl 4 mg PO Q6H PRN 06/04/17 09/03/17 History Sertraline [Zoloft] 100 mg PO BID 06/04/17 09/03/17 History Protonix (Pantoprazole)40 mg 40 mg PO DAILY 07/11/17 09/03/17 History tablet,delayed release Novolog FlexPen (insulin aspart) 17 unit SQ TIDWM ml 08/21/17 09/03/17 History 100 unit/mL PEN levothyroxine 200 mcg tablet 200 mcg PO DAILY tab 08/23/17 09/03/17 Rx levothyroxine 50 mcg tablet 50 mcg PO DAILY 08/23/17 09/03/17 History Hydrocodone/APAP 7.5/325 [[place] 1 tab PO Q6H PRN 09/03/17 09/03/17 History 7.5/325] Tramadol [Ultram] 50 mg PO TID PRN 09/03/17 09/03/17 History Is Patient on Beta Bruno?: Yes - Medical History Respiratory: Reports: Bronchitis, Sleep Apnea, Other (allergies) Cardiovascular: Reports: Hypertension, Other (venous insufficency) Neuro/Musculoskeletal: Reports: Depression, Muscle Weakness, Other (confusion) Renal/Endocrine: Reports: Diabetes Mellitus Type 2 Other History: DENIES: Anesthesia Reactions - Surgical History Cardiac Surgeries/Treatments: DENIES: Pacemaker Endocrine Surgery/Treatments: Reports: Thyroidectomy Musculoskeletal Surgery/Tx: Reports: Other (L [place] amputation) Reproductive Surgery/Treatment: DENIES: Mastectomy Anesthesia Reactions: None Hx Family Anesthesia Reaction: No History of Motion Sickness: No - Social History Smoking Status: Never smoker Hx Chewing Tobacco Use: No Second Hand Exposure: No Substance Use Type: does not use Alcohol Intake Frequency: does not drink - Pertinent Findings Laboratory: CBC and BMP 09/07/17 03:55 09/07/17 03:55 BMP 09/06/17 09/07/17 16:20 03:55 Sodium 136 137 Potassium 3.8 3.5 L Chloride 111 H 110 H Carbon Dioxide 16 L 19 L BUN 40.0 H 36.0 H Creatinine 1.9 H 1.9 H Glucose 144 H 95 Calcium 11.8 H 11.6 H Liver Function 09/07/17 Range/Units 03:55 Albumin 2.5 L (3.5-5.0) g/dL EKG: Sinus Rhythm, First Degree AV Block - Physical Exam Respiratory Exam: Present: bilateral breath sounds equal (slightly coarse) Cardiovascular Exam: Present: regular rate and rhythm - Airway Assessment Mallampati Score: II TMD: 3 Fingerbreadths Neck Extension: good - ASA ASA Score: 4 - Plan Anesthesia: General Inhalation Gases - Discussion Discussion: Discussed risks/options/alternatives of anesthesia and questions answered. Patient consents. Nursing pain assessment noted. Present for Discussion: spouse Attestation Statement: Prior to the delivery of any anesthetic medication, I examined the patient, developed the plan, obtained the patient's consent and discussed the risk and benefits of the procedure with the patient/guardian. - Additional Information Seen by Anesthesia: Yes
[2017-09-07] MEDS ORDERED: FentaNYL 250 MCG/5 ML INJECTION ONE (13:34)
[2017-09-07] MEDS ORDERED: BUPIVACAINE 0.25%/EPI 1:200,000 30ml SDV ID ONE (14:54)
[2017-09-07] MEDS ORDERED: THROMBIN 5000 UNIT OPSITE ONE (14:56)
--- NOTE | 2017-09-07 15:25 | General Surgery Procedure Note ---
Date of Procedure: 09/07/17 Surgeon: Bri Shingle Shearing Machine Operator: Kevin Mayes APRN Postoperative Diagnosis: Primary hyperparathyroidism Procedure: Neck exploration with parathyroidectomy Estimated Blood Loss: See Anesthesia Record.
[2017-09-07] MEDS: MORPHINE SULFATE 10 MG/ML VIAL IVP PRN ×3 (15:39→16:08)
[2017-09-07] MEDS ORDERED: ONDANSETRON 4 MG/2 ML INJECTION IVP PRN (16:20)
[2017-09-07] MEDS: 1/2 NS with KCL 20mEq 1,000 ML IV SCH ×2 (16:41→22:52)
[2017-09-07] MEDS: QUETIAPINE 25 MG TABLET PO SCH (20:38)
[2017-09-07] MEDS: HYDROCODONE/APAP 7.5 MG/325 MG TABLET PO PRN (22:55)
[2017-09-08] MEDS: LEVOTHYROXINE 50 MCG TABLET PO SCH (05:31)
[2017-09-08] MEDS: 1/2 NS with KCL 20mEq 1,000 ML IV SCH ×3 (05:31→19:12)
[2017-09-08] MEDS: LEVOTHYROXINE 200 MCG TABLET PO SCH (05:31)
[2017-09-08] MEDS: PANTOPRAZOLE 40 MG TABLET PO SCH (05:31)
[2017-09-08] MEDS: CIPROFLOXACIN 500 MG TABLET PO SCH ×2 (05:33→21:03)
[2017-09-08] MEDS: TRAMADOL 50 MG TABLET PO PRN (06:03)
--- NOTE | 2017-09-08 07:50 | General Surgery Progress Note ---
Subjective Narrative: He is quite confused again this morning, adverse stating his birthdate was 1949 and then changing to 1950, states he is not sure where he is. He knows is First Name but did not know his Last Name without prompting. Denies pain. States he would like some breakfast, he is back on a consistent carb diet. - Vital Signs Last Vital Signs Temp 96.7 F L 09/08/17 07:33 Pulse 68 09/08/17 07:33 Resp 16 09/08/17 07:33 BP 143/64 H 09/08/17 07:33 Pulse Ox 100 09/08/17 07:33 - Laboratory Result Diagrams: 09/08/17 04:18 09/08/17 04:18 Laboratory Tests 09/06/17 09/07/17 09/07/17 16:20 03:55 14:40 Calcium 11.8 H 11.6 H 11.0 H 09/07/17 09/07/17 09/08/17 15:33 21:45 04:18 Calcium 11.0 H 10.7 H 10.6 H - Abnormal Exam General: confused Cardiovascular: pedal edema (right leg, unchanged) Abdominal: obese Skin: Unchanged skin tears, the hemosiderin laden and bruised skin. - Normal Exam General: awake, alert (although confused) Neck: other (incision intact with Dermabond glue. Ecchymosis noted along the incision as well as inferior on thr right one fourth under the incision. LULU drain was serosanguineous fluid) Cardiovascular: regular rate Respiratory: no labored breathing Abdominal: soft, non-tender Assessment and Plan (1) Primary hyperparathyroidism Current Visit: Yes Status: Acute (2) Metabolic encephalopathy Current Visit: Yes Status: Acute (3) Obesity (BMI 30-39.9) Current Visit: No Status: Chronic (4) Diabetes mellitus type 2, uncontrolled, without complications Current Visit: No Status: Chronic Qualifiers: Diabetes mellitus shelter insulin use: with termite treater helper use Qualified Code( s): E11.65 - Type 2 diabetes mellitus with hyperglycemia; Z79.4 - ad terminal makeup operator ( current) use of insulin Problem details: Fair control without severe hypoglycemia. (5) Diabetic peripheral neuropathy associated with type 2 diabetes mellitus Current Visit: No Status: Chronic Problem details: Unable to fully assess today. (6) Postablative hypothyroidism Current Visit: No Status: Chronic Problem details: Clinically and chemically euthyroid. (7) Cirrhosis of liver Current Visit: Yes Status: Acute Plan: Serum calciums are slowly drifting down as would expect. Still quite confused. Ecchymosis/bruising of the neck will eventually resolved, LULU drainage serosanguineous. Continue to monitor calcium levels. Continue medical management of other comorbidities. Hospital Course Summary Disclaimer: The visit summary below is not to be considered part of the above Progress Note. Hospital Course: 09/04/17 Admit to CCU for close monitoring as an inpatient. Continue normal saline. Dr. Le was consulted regarding hypercalcemia. He will see the patient a little later today. He does recommend surgical consultation for possible parathyroidectomy. Regarding acute kidney injury will continue IV fluids, check renal sonogram, check urine sodium and creatinine and hold losartan Re: Pancytopenia, will recheck CBC. Regarding chronic wound infections, will continue clindamycin and Cipro. Will ask pharmacy to adjust Cipro for renal function. Continue on telemetry for possible arrhythmias Recheck CBC and basic metabolic profile today and again tomorrow. The patient is full code per his who his DPOA. 09/05/17 Calcium improving following pamidronate yesterday, continue IV fluids. Scan consistent with single parathyroid adenoma. Surgery tentatively scheduled for later in the week. reports minor improvement in mental status continue to monitor. Blood sugars stable overnight-no recurrent hypoglycemia. Renal function minimally improved, continue hydration; medications adjusted for renal function earlier today by Pharm.D. No reported hypotension. Fractional excretion suggests intrinsic renal dysfunction. Hemoglobin/platelet count stable today; white count 2.9. Pancytopenia chronic. 09/06/17 Calcium improved/stable following pamidronate 09/04, continue IV fluids. Scan consistent with single parathyroid adenoma. Surgery tentatively scheduled for tomorrow-discussed with Dr. Gregory. Also discussed plans with Dr. Le, if GFR permits will receive a single dose of Zoledronic acid later today to further improve calcium preoperatively. reports minor improvement in mental status continue to monitor. Blood sugars stable today ranging from 147-155. Renal function slowly improving with creatinine 2.0 today-well above baseline of 1.2-1.4 and baseline GFR of about 60, continue hydration. Chronic pancytopenia (due to cirrhosis/chronic inflammation); anticipate platelet packs with surgery to minimize risk of neck hematoma. Home pain medications resumed. Low-dose Seroquel added for sleep. Supplemental history provided by nursing and patient's . Stable to transfer out of ICU today. Plan - 09/07/17 Patient moved to medical floor on 09/06/17. Calcium improved/stable (decreased from 14.3 on 09/03/17 to 11.6 today, 09/07/17). Parathyroidectomy scheduled for today with Dr. Gregory. Maintain NPO status due to anticipated surgery. Will continue IVF and add KCl 20 mEQ to IVF given hypokalemia. Weight trending up. Decrease rate to 150cc/hr and continue to monitor closely for signs of fluid overload. Dr. Le continues to follow patient. Appreciate his time and expertise. Discussed giving Zoledronic acid on 09/06/17, but decided against it. Anticipates improvement in calcium following surgery. Increased somnolence today - suspect secondary to receiving Seroquel 25mg at bedtime last night to assist with insomnia. Continue to monitor mental status closely. Blood sugars stable and trending up since admission (range 147-233). Continue to monitor closely. Renal function slowly improving with creatinine 1.9 today-well above baseline of 1.2-1.4 and baseline GFR of about 60. Continue hydration and continue to monitor. Pancytopenia chronic - anticipate platelet packs with surgery to minimize risk of neck hematoma. WBC 1.8, Hgb 8.7, Plt 48. Supplemental history provided by nursing and patient's . Telemetry reviewed-sinus rhythm. Will recheck labs in AM to monitor blood counts, electrolytes and renal function. Monitor serial calcium levels post operatively.
--- NOTE | 2017-09-08 07:51 | Endocrinology Progress Note ---
Subjective Principal diagnosis: Hypercalcemia Interval history: He is alert but still disoriented this morning. Had parathyroidectomy yesterday without complication. PTH fell dramatically postoperatively, and calcium dropped further although it is still elevated. Voices desire to go home. Exam Vital signs: Temperature 96.7 F L 09/08/17 07:33 Pulse Rate 68 09/08/17 07:33 Respiratory Rate 16 09/08/17 07:33 Blood Pressure 143/64 H 09/08/17 07:33 Pulse Oximetry 100 09/08/17 07:33 Inpatient Medications: Generic Name Dose Route Start Last Admin Trade Name Freq PRN Reason Stop Dose Admin Hydrocodone Bitart/Acetaminophen 1 tab 09/06/17 14:48 09/07/17 22:55 [place] 7.5/325 PO 1 tab Q6H PRN Administration Pain Allopurinol 100 mg 09/05/17 09:00 09/07/17 08:22 Zyloprim PO Not Given DAILY DIDIER Ciprofloxacin 500 mg 09/04/17 21:00 09/08/17 05:33 Cipro 500 Mg PO 500 mg BID/E DIDIER Administration Clindamycin HCl 300 mg 09/04/17 21:00 09/07/17 20:38 Cleocin PO 300 mg BID DIDIER Administration Cyclobenzaprine HCl 10 mg 09/06/17 14:48 09/06/17 15:45 Flexeril PO 10 mg TID PRN Administration Muscle spasm Dextrose 20 ml 09/04/17 10:21 D50%W IVP PRN PRN Hypoglycemia Potassium Chloride/Sodium Chloride 1,000 mls @ 150 mls/hr 09/07/17 16:45 05:31 1/2 Ns With Kcl 20meq Premix IV 150 mls/hr .Q6H40M [facility]IER Administration Insulin Aspart 2 - 8 unit 09/04/17 10:21 09/06/17 20:56 Novolog SQ 3 unit SS PRN Administration Hyperglycemia Protocol Labetalol HCl 100 mg 09/04/17 09:00 09/07/17 20:38 Normodyne PO 100 mg BID DIDIER Administration Levothyroxine Sodium 200 mcg 09/04/17 06:30 09/08/17 05:31 Synthroid PO 200 mcg ACB DIDIER Administration Levothyroxine Sodium 50 mcg 09/06/17 06:30 09/08/17 05:31 Synthroid PO 50 mcg ACB DIDIER Administration Metoclopramide HCl 5 mg 09/03/17 20:33 Reglan IVP Q6H PRN Nystatin 1 applic 09/04/17 09:00 09/07/17 20:39 Mycostatin TP 1 applic TID [facility]IER Administration Ondansetron HCl 4 mg 09/07/17 16:20 Zofran IVP Q6H PRN Nausea &/or vomiting Pantoprazole Sodium 40 mg 09/04/17 06:30 09/08/17 05:31 Protonix Tab PO 40 mg ACB DIDIER Administration Polyethylene Glycol 17 gm 09/06/17 16:00 09/07/17 08:23 Miralax PO Not Given DAILY [facility] Quetiapine Fumarate 25 mg 09/06/17 21:00 09/07/17 20:38 Seroquel PO 25 mg HS DIDIER Administration Senna/Docusate Sodium 2 tab 09/06/17 21:00 09/07/17 20:38 Senna Plus Tablet PO 2 tab BID [facility] Administration Sertraline HCl 100 mg 09/04/17 09:00 09/07/17 20:38 Zoloft PO 100 mg BID DIDIER Administration Sodium Chloride 10 - 80 ml 09/03/17 18:18 09/07/17 08:35 Iv Flush IVF 30 ml PRN PRN Administration [place] Sodium Chloride 500 ml 09/04/17 00:27 09/07/17 12:23 Normal Saline IV 500 ml PRN PRN Administration Tramadol HCl 50 mg 09/06/17 14:49 09/08/17 06:03 Ultram PO 50 mg TID PRN Administration Pain Discontinued Medications Generic Name Dose Route Start Last Admin Trade Name Freq PRN Reason Stop Dose Admin Bupivacaine HCl/Epinephrine Bitart 30 ml 09/07/17 14:54 09/07/17 14:55 Marcaine/Epi 0.25%/1:200,000 ID 09/07/17 14:55 4 ml O ONE Administration Calcitonin [place] 500 unit 09/03/17 19:51 09/03/17 20:18 Miacalcin SQ 09/03/17 19:52 500 unit O ONE Administration Furosemide 40 mg 09/03/17 20:33 09/04/17 00:35 Lasix 40 Mg/4 Ml IVP 09/03/17 20:34 40 mg O ONE Administration Sodium Chloride 1,000 mls @ 1,000 mls/hr 09/03/17 18:18 09/03/17 19:30 Normal Saline IV 09/03/17 19:17 Infused .Q1H ONE Infusion Sodium Chloride 1,000 mls @ 100 mls/hr 09/03/17 20:33 09/04/17 19:50 Normal Saline IV Infused .Q10H DIDIER Infusion 150 mls/hr Ceftriaxone Sodium 1 g/ Sodium 100 mls @ 200 mls/hr 09/03/17 21:54 09/04/17 01:20 Chloride IV 09/03/17 22:23 Infused O ONE Infusion Pamidronate Disodium 30 mg/ 260 mls @ 62.5 mls/hr 09/04/17 12:37 09/04/17 18: 00 Sodium Chloride IV 09/04/17 16:46 Infused O ONE Infusion Sodium Chloride 1,000 mls @ 200 mls/hr 09/04/17 19:45 09/07/17 11:18 1/2 Normal Saline IV Infused .Q5H DIDIER Infusion Sodium Chloride 1,000 mls @ 50 mls/hr 09/07/17 11:30 09/07/17 16:26 Normal Saline IV Infused .Q20H DIDIER Infusion Potassium Chloride 20 meq/ 1,010 mls @ 150 mls/hr 09/07/17 11:05 09/07/17 16: 40 Sodium Chloride IV Not Given .Q6H44M [facility] Miscellaneous Medication 1 each 09/04/17 09:14 09/04/17 19:53 Pharmacy Consult - Renal Dosing 09/04/17 09:15 1 each O ONE Administration Morphine Sulfate 1 - 2 mg 09/03/17 20:33 Morphine Sulfate Inj IVP Q2H PRN Pain Morphine Sulfate 0 mg 09/07/17 15:35 09/07/17 16:08 Morphine Sulfate Vial IVP 2 mg Q10M PRN Administration Naloxone HCl 0.4 mg 09/03/17 18:24 09/03/17 18:31 Narcan IVP 09/03/17 18:25 0.4 mg O ONE Administration Ondansetron HCl 4 mg 09/03/17 20:33 Zofran IVP Q6H PRN Nausea &/or vomiting Pharmacy Consult 1 each 09/03/17 21:43 Pharmacy Consult - Fall Risk 09/03/17 21:44 ONE TIME ONE Thrombin 5,000 unit 09/07/17 14:56 09/07/17 14:56 Thrombin-Jmi OPSITE 09/07/17 14:57 5,000 unit O ONE Administration - Constitutional no acute distress - Routine HEENT Exam Head: Present: normocephalic, atraumatic Eye: Present: EOMI, PERRL ENT: Present: mucous membranes moist - Routine Neck Exam Comments: Clean neck incision without swelling; drain in place. - Routine Respiratory Exam Absent: dyspnea - Routine Cardiovascular Exam Present: RRR. Absent: murmur - Routine Abdominal Exam Present: soft, normoactive bowel sounds. Absent: tenderness - Routine Extremities Exam Present: amputation Comments: left BKA - Routine Skin Exam Present: dry, warm - Routine Neurological Exam Present: alert. Absent: oriented X3 - Routine Psychiatric Exam Present: normal affect. Absent: normal thought process - Additional findings Additional findings: Laboratory Tests 09/07/17 09/08/17 14:40 04:18 BUN 33.0 H Creatinine 1.9 H Glucose 89 Calcium 10.6 H PTH Intact 37.9 L - Urinary Catheter Management Urethral Cath placed during this visit: yes Insertion date: 09/03/17 Insertion time: 19:00 2-way Urethral Cath placed during this visit: no Assessment and Plan (1) Hypercalcemia Problem details: Hyperparathyroidism/solitary parathyroid adenoma Current visit: Yes Status: Acute Continues to improve. No longer at critical level. Expect it to normalize within another 24 hours. Continue to follow and recheck 1 week postoperatively to ensure it does not drop too low from "hungry bone syndrome." (2) Metabolic encephalopathy Current visit: Yes Status: Acute Still disoriented, but fully alert. (3) Primary hyperparathyroidism Current visit: Yes Status: Resolved PTH is now appropriately low for his elevated calcium level. (4) Diabetes mellitus type 2, uncontrolled, without complications Problem details: Controlled. Current visit: Yes Status: Chronic Normal FBS today. Follow sugars qid. (5) Hypertension Problem details: Controlled. Current visit: No Status: Chronic Fair control. No changes needed. (6) assisted current use of insulin Current visit: No Status: Chronic (7) Postablative hypothyroidism Problem details: Clinically and chemically euthyroid. Current visit: No Status: Chronic Stable on Synthroid. No changes needed.
[2017-09-08] MEDS ORDERED: PROPOFOL 500 MG/50 ML VIAL ONE (08:46)
[2017-09-08] MEDS: POLYETHYL GLYCOL 3350 17gm PACKET PO SCH (09:35)
[2017-09-08] MEDS: CLINDAMYCIN 300 MG CAPSULE PO SCH ×2 (09:37→21:03)
[2017-09-08] MEDS: SERTRALINE 100 MG TABLET PO SCH ×2 (09:37→21:03)
[2017-09-08] MEDS: ALLOPURINOL 100 MG TABLET PO SCH (09:37)
[2017-09-08] MEDS: LABETALOL 100 MG TABLET PO SCH ×2 (09:38→21:03)
[2017-09-08] MEDS: SENNA + DOCUSATE TABLET PO SCH ×2 (09:39→21:03)
[2017-09-08] MEDS: HYDROCODONE/APAP 7.5 MG/325 MG TABLET PO PRN (09:40)
--- NOTE | 2017-09-08 11:37 | Operative Note ---
DATE OF SERVICE 09/07/2017 SURGEON Alphonso Gregory MD [employer]ION ENGINEER Kevin Mayes APRN PREOPERATIVE DIAGNOSIS Symptomatic primary hyperparathyroidism. POSTOPERATIVE DIAGNOSIS Symptomatic primary hyperparathyroidism. PROCEDURE Neck exploration with excision of right inferior parathyroid adenoma. ANESTHESIA General endotracheal BRIEF HISTORY/INDICATIONS Mr. Gonzales is a 67-year-old gentleman who recently had presented to our facility as a result of increasing confusion. The patient had been recently diagnosed with primary hyperparathyroidism and apparently had an appointment to see me in the near future. While in the emergency room, he was found to have a markedly elevated calcium level of 14.3. The patient was subsequently admitted to our facility for further care. He does have numerous associated medical comorbidities. He did undergo salt diuresis in conjunction with administration of bisphosphonates to decrease his calcium level. The patient did have a component of acute kidney injury upon admission with a creatinine of 2.5 and a BUN of 59.0. Today his renal function has improved and his creatinine is 1.8 and BUN is 35.0. Calcium has improved to 11.0. Parathyroid hormone level has been obtained since admission and was found to be markedly elevated at 386. The patient did undergo a sestamibi scan as well as a thyroid ultrasound that revealed probable right inferior parathyroid adenoma. It was recommended to the patient that he undergo surgical intervention as a result of the above indications. For completeness please refer to notes included in the patient's chart. DESCRIPTION OF PROCEDURE After informed consent was obtained, patient was brought to the operative suite , placed on the table in a supine fashion. The neck was then prepped and draped in sterile fashion. Formal time-out was then completed. Initially a 4 cm incision was made about one fingerbreadth above the clavicle along the natural lines of Langerhans. Dissection was then carried down to the deep subcuticular tissues and through the underlying platysma. Subplatysmal flap was then created in a cephalad fashion up to the cricoid cartilage. Subplatysmal flap was then created caudally down to the sternal notch. Strap muscles were then opened along the midline location. Attention was then focused first to the area of concern involving the right inferior parathyroid anatomic location. Patient had underwent prior ablation of his thyroid with radioactive iodine. The thyroid therefore, was quite small and was perhaps only on the order of about 2 cm in dimension. There were a few small nodules on the order of about 5-8 mm upon the surface of the inferior lobe of the right thyroid. Attention was focused to just beneath the thyroid adjacent to the trachea. No evidence for a parathyroid adenoma was identified at this location. Attention was then focused more posteriorly into the tracheoesophageal groove region. One could then see deep within the incision what appeared to be that of a parathyroid adenoma. Given the deeper nature of the apparent location of the adenoma, the incision was extended out laterally to the right an additional 2 cm. Better visualization was now able to be accomplished. To further mobilize the right thyroid lobe, the medial thyroidal vein was sequentially divided between right angle clamps and ligated with 3-0 Vicryl ties. This did allow the thyroid itself to be rotated further medially. One could then see the parathyroid adenoma deep posterior to the trachea and along the esophagus itself. Parathyroid adenoma was grasped and retracted anteriorly and the loose areolar tissue around the parathyroid adenoma was dissected away with right angle clamp and peanut dissector. As the tissue surrounding the capsule was being divided and the parathyroid adenoma was being lifted anteriorly, a small rent was created within the capsule of the parathyroid adenoma. This would be considered to be inherent to the procedure. A small portion of the parathyroid tissue was then expressed from this small opening. This was then submitted for pathologic evaluation. Next, the remaining parathyroid adenoma was then completely dissected away from the surrounding tissues and submitted for pathologic evaluation. During the process of dissection, one could see the recurrent laryngeal nerve just cephalad to the parathyroid adenoma as it coursed up to and into the trachea. Recurrent laryngeal nerve was preserved in its entirety. Next, prior areas of dissection were inspected. There was one small area of bleeding near the location where the nerve coursed up into the trachea. Thrombinized Gelfoam was placed at this location and several minutes were allowed to elapse. Pathology then returned to the operative suite stating that the tissue submitted was that of parathyroid tissue. The parathyroid adenoma weighed 2.3 grams. Approximately 10 minutes were allowed to elapse and a parathyroid hormone was then redrawn. Thrombinized Gelfoam was then removed. Prior areas of dissection were now inspected and found to be completely hemostatic in nature. Small Yao drain was allowed to exit inferiorly and to the left of the cervical incision. Drain was then placed within the area of dissection to the right of the trachea. Strap muscles were then closed in a running fashion with 3-0 Vicryl. Platysma was then closed in a running fashion with 3-0 Vicryl. Skin itself was then closed in a running subcuticular fashion withy 4-0 Monocryl. Dermabond was then placed overlying the incision. Drain was secured to the left lateral neck with 2-0 Prolene. The PTH level then returned at 37.9 indicating surgical cure of his primary hyperparathyroidism. Patient is in the process of awakening from his anesthetic and will be sent back to the recovery room once deemed in stable condition. Additionally, it should be noted that Kevin Mayes APRN, was present throughout the entire case and played a pivotal role in providing assistance and exposure during the course of the procedure. MICHELLE
--- NOTE | 2017-09-08 15:31 | Progress Note ---
- Date 09/08/17 Subjective: Mr. Gonzales reports no dyspnea or nausea today. He is having some sore throat following surgery and discomfort in his neck. He was able to tell me he was in a hospital but thinks he is in [place]. His appetite is poor; he denied having fever. Patient's was not present at the time of my evaluation. Nursing reported no concerns. Objective Vital signs: Temperature 97.1 F 09/08/17 12:23 Pulse Rate 67 09/08/17 12:23 Respiratory Rate 12 09/08/17 15:15 Blood Pressure 140/57 H 09/08/17 12:23 Pulse Oximetry 100 -RA 09/08/17 15:15 NAD, drowsy Minor bruising right aspect of neck but no evidence of hematoma Conjugate gaze, dry oral membranes Respirations nonlabored, fair airflow, anterior lung wick clear Regular rhythm, diminished heart tones Abdomen soft, obese, nontender, diminished bowel sounds +1-2 RLE edema; hyperpigmentation below the knee on the right leg and some hyperpigmentation on the forearms; moderate bruising on the upper extremities Rhythm: Normal Sinus Rhythm Height/Weight/BMI: Height 1.91 m Weight 131.8 kg Body Mass Index 34.3 Results - Labs CBC & Chem 7: 09/08/17 04:18 09/08/17 04:18 Labs: Calcium 10.6 early this morning-10.1 mid-morning Postop PTH 37.9 Assessment and Plan (1) Hypercalcemia Problem details: Hyperparathyroidism/solitary parathyroid adenoma Current visit: Yes Status: Acute (2) Metabolic encephalopathy Current visit: Yes Status: Acute (3) Hypoglycemia Current visit: Yes Status: Resolved Assessment and Plan: Encephalopathy with hallucinations Hypercalcemia secondary to hyperparathyroidism Parathyroid adenoma-s/p parathyroidectomy 09/07/17 Hypoglycemia-resolved Acute kidney injury-FeNa 6.7% Metabolic acidosis Type 2 diabetes mellitus on insulin Pancytopenia Anemia-1 unit of blood with hemoglobin improved from 6.6-->10.1 Thrombocytopenia Chronic joint infection, suppressive Cipro and clindamycin Chronic buttock wounds Hypothyroidism, post-ablative Possible supraventricular bradycardia, in sinus rhythm Obstructive sleep apnea-CPAP Obesity Hypertension-BP medications currently on hold Peripheral polyneuropathy Cirrhosis Generalized pain Insomnia Plan Calcium continues to improve progressively; PTH down immediately after surgery. Limited oral intake, continue IV fluids pending improvement. Weight trending up. He was dehydrated on admission, minor edema present right lower extremity; not hypoxic. Continue to monitor Dr. Le continues to follow patient for diabetes and hyperparathyroidism. Blood glucose is stable. Sleep improved with Seroquel the past 2 nights, speech mumbled but was prior to initiation of medication. We'll readdress with when available anticipate discontinuing medication in the next day or 2. Renal function slowly improving with creatinine 1.9 remains above baseline of 1.2-1.4 and baseline GFR of about 60. Chronic pancytopenia, counts stable- 1 unit of platelets and packed cells with surgery yesterday. ANC just above 1000 today. Telemetry reviewed by myself-sinus rhythm. DVT Prophylaxis: SCD's GI Prophylaxis: Protonix Resuscitation Status: Full Code - Physician Narrative Narrative: Date: 09/08/17 Time: 1527 Hospital Course Summary Disclaimer: The visit summary below is not to be considered part of the above Progress Note. Hospital Course: 09/04/17 Admit to CCU for close monitoring as an inpatient. Continue normal saline. Dr. Le was consulted regarding hypercalcemia. He will see the patient a little later today. He does recommend surgical consultation for possible parathyroidectomy. Regarding acute kidney injury will continue IV fluids, check renal sonogram, check urine sodium and creatinine and hold losartan Re: Pancytopenia, will recheck CBC. Regarding chronic wound infections, will continue clindamycin and Cipro. Will ask pharmacy to adjust Cipro for renal function. Continue on telemetry for possible arrhythmias Recheck CBC and basic metabolic profile today and again tomorrow. The patient is full code per his who his DPOA. 09/05/17 Calcium improving following pamidronate yesterday, continue IV fluids. Scan consistent with single parathyroid adenoma. Surgery tentatively scheduled for later in the week. reports minor improvement in mental status continue to monitor. Blood sugars stable overnight-no recurrent hypoglycemia. Renal function minimally improved, continue hydration; medications adjusted for renal function earlier today by Pharm.D. No reported hypotension. Fractional excretion suggests intrinsic renal dysfunction. Hemoglobin/platelet count stable today; white count 2.9. Pancytopenia chronic. 09/06/17 Calcium improved/stable following pamidronate 09/04, continue IV fluids. Scan consistent with single parathyroid adenoma. Surgery tentatively scheduled for tomorrow-discussed with Dr. Gregory. Also discussed plans with Dr. Le, if GFR permits will receive a single dose of Zoledronic acid later today to further improve calcium preoperatively. reports minor improvement in mental status continue to monitor. Blood sugars stable today ranging from 147-155. Renal function slowly improving with creatinine 2.0 today-well above baseline of 1.2-1.4 and baseline GFR of about 60, continue hydration. Chronic pancytopenia (due to cirrhosis/chronic inflammation); anticipate platelet packs with surgery to minimize risk of neck hematoma. Home pain medications resumed. Low-dose Seroquel added for sleep. Supplemental history provided by nursing and patient's . Stable to transfer out of ICU today. 09/07/17 Patient moved to medical floor on 09/06/17. Calcium improved/stable (decreased from 14.3 on 09/03/17 to 11.6 today, 09/07/17). Parathyroidectomy scheduled for today with Dr. Gregory. Maintain NPO status due to anticipated surgery. Will continue IVF and add KCl 20 mEQ to IVF given hypokalemia. Weight trending up. Decrease rate to 150cc/hr and continue to monitor closely for signs of fluid overload. Dr. Le continues to follow patient. Appreciate his time and expertise. Discussed giving Zoledronic acid on 09/06/17, but decided against it. Anticipates improvement in calcium following surgery. Increased somnolence today - suspect secondary to receiving Seroquel 25mg at bedtime last night to assist with insomnia. Continue to monitor mental status closely. Blood sugars stable and trending up since admission (range 147-233). Continue to monitor closely. Renal function slowly improving with creatinine 1.9 today-well above baseline of 1.2-1.4 and baseline GFR of about 60. Continue hydration and continue to monitor. Pancytopenia chronic - anticipate platelet packs with surgery to minimize risk of neck hematoma. WBC 1.8, Hgb 8.7, Plt 48. Supplemental history provided by nursing and patient's . Telemetry reviewed-sinus rhythm. Will recheck labs in AM to monitor blood counts, electrolytes and renal function. Monitor serial calcium levels post operatively. 09/08/17 Calcium continues to improve progressively; PTH down immediately after surgery. Limited oral intake, continue IV fluids pending improvement. Weight trending up. He was dehydrated on admission, minor edema present right lower extremity; not hypoxic. Continue to monitor Dr. Le continues to follow patient for diabetes and hyperparathyroidism. Blood glucose is stable. Sleep improved with Seroquel the past 2 nights, speech mumbled but was prior to initiation of medication. We'll readdress with when available anticipate discontinuing medication in the next day or 2. Renal function slowly improving with creatinine 1.9 remains above baseline of 1.2-1.4 and baseline GFR of about 60. Chronic pancytopenia, count stable- 1 unit of platelets and packed cells with surgery yesterday.
--- NOTE | 2017-09-08 17:51 | Progress Note ---
DATE OF SERVICE 09/08/2017 FINDINGS Mr. Gonzales was seen this evening on rounds. He was without complaints. Voice is strong. EXAM VITAL SIGNS: Afebrile, normotensive. Please refer to EMR. NECK: Surgical incision is clean, dry and intact. Minimal output within LULU drain. LULU drain was discontinued without difficulty. LABORATORY/RADIOGRAPHIC EVALUATION Calcium levels have been fairly stable postoperatively and have drifted down to normal limits. Last calcium this evening was 9.8. ASSESSMENT 67-year-old gentleman status post neck exploration with excision of right inferior parathyroid adenoma. Patient doing well from surgical standpoint. PLAN Continue to monitor calcium levels. Once stable from a medical standpoint the patient can be discharged to home. I do see that Endocrinology is planning on seeing the patient and rechecking calcium level next week. I will also plan on seeing the patient next week in the office postoperatively for recheck at that time. MICHELLE
[2017-09-08] MEDS: INSULIN ASPART 100unit/ml INJECTION SQ PRN (21:02)
[2017-09-09] MEDS: 1/2 NS with KCL 20mEq 1,000 ML IV SCH ×2 (01:35→09:58)
[2017-09-09] MEDS: PANTOPRAZOLE 40 MG TABLET PO SCH (05:54)
[2017-09-09] MEDS: LEVOTHYROXINE 50 MCG TABLET PO SCH (05:54)
[2017-09-09] MEDS: CIPROFLOXACIN 500 MG TABLET PO SCH ×2 (05:54→20:35)
[2017-09-09] MEDS: LEVOTHYROXINE 200 MCG TABLET PO SCH (05:54)
[2017-09-09] MEDS: SERTRALINE 100 MG TABLET PO SCH ×2 (09:01→20:35)
[2017-09-09] MEDS: LABETALOL 100 MG TABLET PO SCH ×2 (09:01→20:59)
[2017-09-09] MEDS: POLYETHYL GLYCOL 3350 17gm PACKET PO SCH (09:02)
[2017-09-09] MEDS: SENNA + DOCUSATE TABLET PO SCH ×2 (09:02→21:02)
[2017-09-09] MEDS: ALLOPURINOL 100 MG TABLET PO SCH (09:02)
[2017-09-09] MEDS: CLINDAMYCIN 300 MG CAPSULE PO SCH ×2 (09:02→20:59)
[2017-09-09] MEDS: SODIUM BICARBONATE 50 MEQ in 1/2 NS 1,000 ML IV SCH ×2 (09:36→23:41)
[2017-09-09] MEDS: INSULIN ASPART 100unit/ml INJECTION SQ PRN ×2 (12:12→20:14)
--- NOTE | 2017-09-09 12:40 | Progress Note ---
DATE OF VISIT 09/09/2017 REASON FOR VISIT Covering surgical care for Dr. Gregory. SUBJECTIVE Gurdeep is doing very well but complains of some confusion this morning. He had no significant complaints. OBJECTIVE VITAL SIGNS: Afebrile with stable vitals on room air. NECK: His neck incision shows no evidence of infection or hematoma. The bandage over his drain exit site shows no bleeding. LABORATORY DATA Calcium is stable at 9.4 this morning. IMPRESSION Status post parathyroidectomy on 09/07/2017 for a parathyroid adenoma with hypercalcemia - doing well from a surgical standpoint with normalization of his calcium. PLAN Continue current care per the medical team. Dismiss when stable from a medical standpoint. MICHELLE
--- NOTE | 2017-09-09 13:37 | Progress Note ---
- Date 09/09/17 Subjective: Patient seen resting in bed. He reports he is frustrated he is still here. He is difficult for me to understand, but I think he is frustrated that he isn't feeling better. Says he is still having problems such as trouble sleeping and other problems which he doesn't identify. His is not present at time of visit. Nurse reports no concerns. States he has only been oriented to self. He knows he had surgery. He tells me he lives in [place]. Objective Vital signs: Temperature 96.2 F L 09/09/17 12:03 Pulse Rate 69 09/09/17 12:03 Respiratory Rate 18 09/09/17 12:03 Blood Pressure 132/67 09/09/17 12:03 Pulse Oximetry 100 09/09/17 12:03 Rhythm: Normal Sinus Rhythm Height/Weight/BMI: Height 1.91 m Weight 129.4 kg Body Mass Index 34.3 - Constitutional Present: no acute distress, well nourished, well developed - Routine HEENT Exam Head: Present: normocephalic, atraumatic Comments: neck with healing surgical incision. No sign of infection. - Routine Respiratory Exam Present: CTA bilaterally (anteriorly). Absent: wheezes - Routine Cardiovascular Exam Present: RRR, no murmur - Routine Abdominal Exam Present: soft, tenderness (mild - diffuse. Pt grimaces when palpating abdomen, but doesn't answer when asked if he is having pain or where the pain is.), non distended - Routine Extremities Exam Present: edema, normal capillary refill Comments: LAKA. R lower leg with pigmentation changes. - Routine Skin Exam Present: dry, warm - Routine Neurological Exam Present: alert, altered mental status. Absent: oriented X3, normal speech has periodic jerking type movements of the arms and head and facial grimacing - Routine Lymphatic Exam Lymphatic: Absent: adenopathy - Routine Psychiatric Exam Present: cooperative Results - Labs CBC & Chem 7: 09/08/17 04:18 09/09/17 03:53 Assessment and Plan (1) Hypercalcemia Problem details: Hyperparathyroidism/solitary parathyroid adenoma Current visit: Yes Status: Acute (2) Hypoglycemia Current visit: Yes Status: Resolved (3) Metabolic encephalopathy Current visit: Yes Status: Acute Assessment and Plan: Encephalopathy with hallucinations Hypercalcemia secondary to hyperparathyroidism Parathyroid adenoma-s/p parathyroidectomy 09/07/17 Hypoglycemia-resolved Acute kidney injury-FeNa 6.7% Metabolic acidosis Type 2 diabetes mellitus on insulin Chronic Pancytopenia Anemia-1 unit of blood with hemoglobin improved from 6.6-->10.1 Thrombocytopenia Chronic joint infection, suppressive Cipro and clindamycin Chronic buttock wounds Hypothyroidism, post-ablative Possible supraventricular bradycardia, in sinus rhythm Obstructive sleep apnea-CPAP Obesity Hypertension-BP medications currently on hold Peripheral polyneuropathy Cirrhosis Generalized pain Insomnia Plan Calcium has stabilized at 9.4 yesterday and today. Continue to monitor. Fluids switched from NS to 1/2NS with sodium bicarb. Dr. Le continues to follow patient for diabetes and hyperparathyroidism. Blood glucose is stable. (developer relations manager for Dr. Gregory) evaluated pt today. No changes. Renal function plateaued with creatinine 1.9 yesterday and today. Remains above baseline of 1.2-1.4 and baseline GFR of about 60. Resume home levothyroxine and gabapentin. BP's stable - amlodipine and Cozaar remain on hold. DVT Prophylaxis: SCD's GI Prophylaxis: Protonix Resuscitation Status: Full Code - Physician Narrative Physician: Darlene Saldaña MD Narrative: Date: 09/09/17 Time: 1510 I have independently evaluated and examined this patient. I reviewed the chart, the patient's history, and the AUTOMOTIVE AIRCONDITIONING MECHANIC/PA's documented findings as above. We discussed and formulated the assessment and plan as above with additions as below: Mr. Gonzales complained of spasms in his arms when seen in addition to nausea but denied dyspnea, constipation, or palpitations. Poor oral intake reported by nursing Patient appeared uncomfortable with persistent confusion; abdomen is benign, flexion contracture at the elbow left upper extremity which can be partially reduced with gentle pressure. Calcium 9.4, bicarbonate 16 IV fluids changed as noted with discontinuation of potassium supplementation and addition of low-volume bicarbonate for metabolic acidosis. Creatinine remains elevated with minimal change number operator the past 4 days; FeNa c/w ATN-may have prolonged recovery or this may represent new baseline. Discussed with nursing, dose of Flexeril to be given for muscle spasms. Discussed with Dr. Fried. Hospital Course Summary Disclaimer: The visit summary below is not to be considered part of the above Progress Note. Hospital Course: 09/04/17 Admit to CCU for close monitoring as an inpatient. Continue normal saline. Dr. Le was consulted regarding hypercalcemia. He will see the patient a little later today. He does recommend surgical consultation for possible parathyroidectomy. Regarding acute kidney injury will continue IV fluids, check renal sonogram, check urine sodium and creatinine and hold losartan Re: Pancytopenia, will recheck CBC. Regarding chronic wound infections, will continue clindamycin and Cipro. Will ask pharmacy to adjust Cipro for renal function. Continue on telemetry for possible arrhythmias Recheck CBC and basic metabolic profile today and again tomorrow. The patient is full code per his who his DPOA. 09/05/17 Calcium improving following pamidronate yesterday, continue IV fluids. Scan consistent with single parathyroid adenoma. Surgery tentatively scheduled for later in the week. reports minor improvement in mental status continue to monitor. Blood sugars stable overnight-no recurrent hypoglycemia. Renal function minimally improved, continue hydration; medications adjusted for renal function earlier today by Pharm.D. No reported hypotension. Fractional excretion suggests intrinsic renal dysfunction. Hemoglobin/platelet count stable today; white count 2.9. Pancytopenia chronic. 09/06/17 Calcium improved/stable following pamidronate 09/04, continue IV fluids. Scan consistent with single parathyroid adenoma. Surgery tentatively scheduled for tomorrow-discussed with Dr. Gregory. Also discussed plans with Dr. Le, if GFR permits will receive a single dose of Zoledronic acid later today to further improve calcium preoperatively. reports minor improvement in mental status continue to monitor. Blood sugars stable today ranging from 147-155. Renal function slowly improving with creatinine 2.0 today-well above baseline of 1.2-1.4 and baseline GFR of about 60, continue hydration. Chronic pancytopenia (due to cirrhosis/chronic inflammation); anticipate platelet packs with surgery to minimize risk of neck hematoma. Home pain medications resumed. Low-dose Seroquel added for sleep. Supplemental history provided by nursing and patient's . Stable to transfer out of ICU today. 09/07/17 Patient moved to medical floor on 09/06/17. Calcium improved/stable (decreased from 14.3 on 09/03/17 to 11.6 today, 09/07/17). Parathyroidectomy scheduled for today with Dr. Gregory. Maintain NPO status due to anticipated surgery. Will continue IVF and add KCl 20 mEQ to IVF given hypokalemia. Weight trending up. Decrease rate to 150cc/hr and continue to monitor closely for signs of fluid overload. Dr. Le continues to follow patient. Appreciate his time and expertise. Discussed giving Zoledronic acid on 09/06/17, but decided against it. Anticipates improvement in calcium following surgery. Increased somnolence today - suspect secondary to receiving Seroquel 25mg at bedtime last night to assist with insomnia. Continue to monitor mental status closely. Blood sugars stable and trending up since admission (range 147-233). Continue to monitor closely. Renal function slowly improving with creatinine 1.9 today-well above baseline of 1.2-1.4 and baseline GFR of about 60. Continue hydration and continue to monitor. Pancytopenia chronic - anticipate platelet packs with surgery to minimize risk of neck hematoma. WBC 1.8, Hgb 8.7, Plt 48. Supplemental history provided by nursing and patient's . Telemetry reviewed-sinus rhythm. Will recheck labs in AM to monitor blood counts, electrolytes and renal function. Monitor serial calcium levels post operatively. 09/08/17 Calcium continues to improve progressively; PTH down immediately after surgery. Limited oral intake, continue IV fluids pending improvement. Weight trending up. He was dehydrated on admission, minor edema present right lower extremity; not hypoxic. Continue to monitor Dr. Le continues to follow patient for diabetes and hyperparathyroidism. Blood glucose is stable. Sleep improved with Seroquel the past 2 nights, speech mumbled but was prior to initiation of medication. We'll readdress with when available anticipate discontinuing medication in the next day or 2. Renal function slowly improving with creatinine 1.9 remains above baseline of 1.2-1.4 and baseline GFR of about 60. Chronic pancytopenia, count stable- 1 unit of platelets and packed cells with surgery yesterday. 09/09/17 Calcium has stabilized at 9.4 yesterday and today. Continue to monitor. Fluids switched from NS to 1/2NS with sodium bicarb. Dr. Le continues to follow patient for diabetes and hyperparathyroidism. Blood glucose is stable. (developer relations manager for Dr. Gregory) evaluated pt today. No changes. Renal function plateaued with creatinine 1.9 yesterday and today. Remains above baseline of 1.2-1.4 and baseline GFR of about 60. Resume home levothyroxine and gabapentin. BP's stable - amlodipine and Cozaar remain on hold.
[2017-09-09] MEDS: CYCLOBENZAPRINE 10 MG TABLET PO PRN ×2 (15:34→20:34)
[2017-09-09] MEDS: GABAPENTIN 100 MG CAPSULE PO SCH (21:02)
[2017-09-09] MEDS: SALINE FLUSH 10ml SYRINGE IVF PRN (21:07)
[2017-09-09] MEDS: TRAMADOL 50 MG TABLET PO PRN (21:12)
[2017-09-10] MEDS: TRAMADOL 50 MG TABLET PO PRN (02:14)
[2017-09-10] MEDS: LEVOTHYROXINE 50 MCG TABLET PO SCH (06:10)
[2017-09-10] MEDS: LEVOTHYROXINE 200 MCG TABLET PO SCH (06:10)
[2017-09-10] MEDS: CIPROFLOXACIN 500 MG TABLET PO SCH (06:11)
[2017-09-10] MEDS: CYCLOBENZAPRINE 10 MG TABLET PO PRN ×2 (06:11→11:48)
[2017-09-10] MEDS: PANTOPRAZOLE 40 MG TABLET PO SCH (06:11)
[2017-09-10] MEDS ORDERED: LEVOTHYROXINE 50 MCG TABLET PO SCH (06:30)
[2017-09-10] MEDS: POLYETHYL GLYCOL 3350 17gm PACKET PO SCH (09:17)
[2017-09-10] MEDS: LABETALOL 100 MG TABLET PO SCH ×2 (09:18→21:01)
[2017-09-10] MEDS: SENNA + DOCUSATE TABLET PO SCH ×2 (09:18→21:01)
[2017-09-10] MEDS: ALLOPURINOL 100 MG TABLET PO SCH (09:18)
[2017-09-10] MEDS: SERTRALINE 100 MG TABLET PO SCH (09:18)
[2017-09-10] MEDS: CLINDAMYCIN 300 MG CAPSULE PO SCH ×2 (09:18→21:01)
[2017-09-10] MEDS: GABAPENTIN 100 MG CAPSULE PO SCH ×2 (09:18→21:01)
[2017-09-10] MEDS: SALINE FLUSH 10ml SYRINGE IVF PRN (09:23)
--- NOTE | 2017-09-10 09:55 | Progress Note ---
- Date 09/10/17 Subjective: Gurdeep is seen today in follow up. He is awake and alert, but is very confused. He is talking about (I believe) the number of children he has. He cannot tell me where he is or what year it is. It appears that he was oriented to self only yesterday. Nursing staff reports this has been consistent throughout the day today. No family present. Chart is reviewed for collateral information. Objective Vital signs: Temperature 97.1 F 09/10/17 07:44 Pulse Rate 68 09/10/17 08:57 Respiratory Rate 12 09/10/17 07:44 Blood Pressure 139/58 09/10/17 07:44 Pulse Oximetry 98 09/10/17 07:44 Rhythm: Normal Sinus Rhythm Height/Weight/BMI: Height 1.91 m Weight 131.7 kg Body Mass Index 34.3 - Constitutional Present: no acute distress, average body habitus, cooperative - Routine HEENT Exam Head: Present: normocephalic, atraumatic Eye: Present: EOMI, PERRL ENT: Present: mucous membranes moist - Routine Respiratory Exam Present: CTA bilaterally, diminished air movement. Absent: rales, rhonchi, wheezes - Routine Cardiovascular Exam Present: RRR, S1, S2 - Routine Abdominal Exam Present: soft, normoactive bowel sounds, non distended, non tender - Routine Extremities Exam Present: edema (Trace LE edema right ankle- appears chronic. ) - Routine Musculoskeletal Exam Musculoskeletal: Present: limited range of motion, other (Left leg amputation). Absent: normal strength, moving extremities well - Routine Skin Exam Present: intact, dry, warm - Routine Neurological Exam Present: alert, altered mental status. Absent: oriented X3, normal speech - Routine Psychiatric Exam Present: cooperative. Absent: normal affect, normal thought process, good insight, good judgment Results - Labs CBC & Chem 7: 09/10/17 04:16 09/10/17 04:16 Assessment and Plan (1) Hypercalcemia Problem details: Hyperparathyroidism/solitary parathyroid adenoma Current visit: Yes Status: Acute (2) Hypoglycemia Current visit: Yes Status: Resolved (3) Metabolic encephalopathy Current visit: Yes Status: Acute Assessment and Plan: Encephalopathy with hallucinations Hypercalcemia secondary to hyperparathyroidism Parathyroid adenoma-s/p parathyroidectomy 09/07/17 Hypoglycemia-resolved Acute kidney injury-FeNa 6.7% Metabolic acidosis Type 2 diabetes mellitus on insulin Chronic Pancytopenia Anemia-1 unit of blood with hemoglobin improved from 6.6-->10.1 Thrombocytopenia Chronic joint infection, suppressive Cipro and clindamycin Chronic buttock wounds Hypothyroidism, post-ablative Possible supraventricular bradycardia, in sinus rhythm Obstructive sleep apnea-CPAP Obesity Hypertension-BP medications currently on hold Peripheral polyneuropathy Cirrhosis Generalized pain Insomnia Plan 09/10/17 Patient remains very confused. Medications reviewed- Hold Tramadol. DC Reglan. Decrease Zoloft to 100mg Q Day for now. Decrease flexeril to 5mg dosing. Check venous ammonia. Serum calcium is trending down. Remains acidotic- continue NaHCO2 in IVF for now. Continue to monitor renal function, as it remains elevated. Baseline 1.2-1.4. Chronic joint infection with suppressive therapy- Cipro/Clinda. Will request pharmacy consult for renal dosing. Pancytopenia appears stable, continue neutropenic precautions. Repeat labs in AM. DVT Prophylaxis: SCD's Resuscitation Status: Full Code - Physician Narrative Physician: Darlene Saldaña MD Narrative: Date: 09/10/17 Time: 1240 I have independently evaluated and examined this patient. I reviewed the chart, the patient's history, and the WEIGHT CALCULATOR/PA's documented findings as above. We discussed and formulated the assessment and plan as above with additions as below: Gurdeep was seen earlier today, was not at bedside. The patient seemed more confused than he has been recent days telling me that his grandchildren "lived in a [place] far faraway" he was able to tell me that he has 3 grandchildren and that he is in [place] today but usually lives in [place]. He complained of generalized pain. Speech remains very mumbled and content often cannot be understood. Neck incision with minimal bruising, no evidence of hematoma Obviously uncomfortable when right arm is flexed/extended at the elbow Multiple superficial abrasions and small skin tears along the right guerrero, possible flaccid vesicles also present Blood gas obtained-patient is not hypercarbic, serum ammonia level 20. Have asked nursing contact me with the patient's is available to better define patient baseline. May need repeat imaging of head. Hospital Course Summary Disclaimer: The visit summary below is not to be considered part of the above Progress Note. Hospital Course: 09/04/17 Admit to CCU for close monitoring as an inpatient. Continue normal saline. Dr. Le was consulted regarding hypercalcemia. He will see the patient a little later today. He does recommend surgical consultation for possible parathyroidectomy. Regarding acute kidney injury will continue IV fluids, check renal sonogram, check urine sodium and creatinine and hold losartan Re: Pancytopenia, will recheck CBC. Regarding chronic wound infections, will continue clindamycin and Cipro. Will ask pharmacy to adjust Cipro for renal function. Continue on telemetry for possible arrhythmias Recheck CBC and basic metabolic profile today and again tomorrow. The patient is full code per his who his DPOA. 09/05/17 Calcium improving following pamidronate yesterday, continue IV fluids. Scan consistent with single parathyroid adenoma. Surgery tentatively scheduled for later in the week. reports minor improvement in mental status continue to monitor. Blood sugars stable overnight-no recurrent hypoglycemia. Renal function minimally improved, continue hydration; medications adjusted for renal function earlier today by Pharm.D. No reported hypotension. Fractional excretion suggests intrinsic renal dysfunction. Hemoglobin/platelet count stable today; white count 2.9. Pancytopenia chronic. 09/06/17 Calcium improved/stable following pamidronate 09/04, continue IV fluids. Scan consistent with single parathyroid adenoma. Surgery tentatively scheduled for tomorrow-discussed with Dr. Gregory. Also discussed plans with Dr. Le, if GFR permits will receive a single dose of Zoledronic acid later today to further improve calcium preoperatively. reports minor improvement in mental status continue to monitor. Blood sugars stable today ranging from 147-155. Renal function slowly improving with creatinine 2.0 today-well above baseline of 1.2-1.4 and baseline GFR of about 60, continue hydration. Chronic pancytopenia (due to cirrhosis/chronic inflammation); anticipate platelet packs with surgery to minimize risk of neck hematoma. Home pain medications resumed. Low-dose Seroquel added for sleep. Supplemental history provided by nursing and patient's . Stable to transfer out of ICU today. 09/07/17 Patient moved to medical floor on 09/06/17. Calcium improved/stable (decreased from 14.3 on 09/03/17 to 11.6 today, 09/07/17). Parathyroidectomy scheduled for today with Dr. Gregory. Maintain NPO status due to anticipated surgery. Will continue IVF and add KCl 20 mEQ to IVF given hypokalemia. Weight trending up. Decrease rate to 150cc/hr and continue to monitor closely for signs of fluid overload. Dr. Le continues to follow patient. Appreciate his time and expertise. Discussed giving Zoledronic acid on 09/06/17, but decided against it. Anticipates improvement in calcium following surgery. Increased somnolence today - suspect secondary to receiving Seroquel 25mg at bedtime last night to assist with insomnia. Continue to monitor mental status closely. Blood sugars stable and trending up since admission (range 147-233). Continue to monitor closely. Renal function slowly improving with creatinine 1.9 today-well above baseline of 1.2-1.4 and baseline GFR of about 60. Continue hydration and continue to monitor. Pancytopenia chronic - anticipate platelet packs with surgery to minimize risk of neck hematoma. WBC 1.8, Hgb 8.7, Plt 48. Supplemental history provided by nursing and patient's . Telemetry reviewed-sinus rhythm. Will recheck labs in AM to monitor blood counts, electrolytes and renal function. Monitor serial calcium levels post operatively. 09/08/17 Calcium continues to improve progressively; PTH down immediately after surgery. Limited oral intake, continue IV fluids pending improvement. Weight trending up. He was dehydrated on admission, minor edema present right lower extremity; not hypoxic. Continue to monitor Dr. Le continues to follow patient for diabetes and hyperparathyroidism. Blood glucose is stable. Sleep improved with Seroquel the past 2 nights, speech mumbled but was prior to initiation of medication. We'll readdress with when available anticipate discontinuing medication in the next day or 2. Renal function slowly improving with creatinine 1.9 remains above baseline of 1.2-1.4 and baseline GFR of about 60. Chronic pancytopenia, count stable- 1 unit of platelets and packed cells with surgery yesterday. 09/09/17 Calcium has stabilized at 9.4 yesterday and today. Continue to monitor. Fluids switched from NS to 1/2NS with sodium bicarb. Dr. Le continues to follow patient for diabetes and hyperparathyroidism. Blood glucose is stable. (monitoring specialist for Dr. Gregory) evaluated pt today. No changes. Renal function plateaued with creatinine 1.9 yesterday and today. Remains above baseline of 1.2-1.4 and baseline GFR of about 60. Resume home levothyroxine and gabapentin. BP's stable - amlodipine and Cozaar remain on hold. 09/10/17 Patient remains very confused. Medications reviewed- Hold Tramadol. DC Reglan. Decrease Zoloft to 100mg Q Day for now. Decrease flexeril to 5mg dosing. Check venous ammonia. Serum calcium is trending down. Remains acidotic- continue NaHCO2 in IVF for now. Continue to monitor renal function, as it remains elevated. Baseline 1.2-1.4. Chronic joint infection with suppressive therapy- Cipro/Clinda. Will request pharmacy consult for renal dosing. Pancytopenia appears stable, continue neutropenic precautions. Repeat labs in AM.
[2017-09-10] MEDS ORDERED: RENAL DOSING - PHARMACY CONSULT MC ONE (10:03)
[2017-09-10] MEDS: INSULIN ASPART 100unit/ml INJECTION SQ PRN ×3 (11:48→21:03)
--- NOTE | 2017-09-10 12:58 | Pharmacy Consult- Renal Dosing ---
[facility] Consul-Renal Dosing - Laboratory Information 09/04/17 09/04/17 09/04/17 04:46 10:05 18:56 BUN 59.0 H* 58.0 H* 55.0 H* Creatinine 2.6 H 2.6 H 2.6 H 09/05/17 09/06/17 09/06/17 04:53 05:46 16:20 BUN 54.0 H* 41.0 H 40.0 H Creatinine 2.3 H D 2.0 H D 1.9 H 09/07/17 09/07/17 09/07/17 03:55 14:40 21:45 BUN 36.0 H 35.0 H 36.0 H Creatinine 1.9 H 1.8 H 1.8 H 09/08/17 09/09/17 09/10/17 04:18 03:53 04:16 BUN 33.0 H 33.0 H 34.0 H Creatinine 1.9 H 1.9 H 1.9 H - Consult Information RENAL DOSING: Ciprofloxacin Today's SCr = 1.9 mg/dl. Ciprofloxacin dose adjusted to Cipro 250 mg po BID based on current renal function. Thank you, Radha Solares [facility]
[2017-09-10] MEDS: SODIUM BICARBONATE 50 MEQ in 1/2 NS 1,000 ML IV SCH (15:20)
[2017-09-10] MEDS: CIPROFLOXACIN 250 MG TABLET PO SCH (21:01)
[2017-09-11] MEDS: LEVOTHYROXINE 200 MCG TABLET PO SCH (05:35)
[2017-09-11] MEDS: LEVOTHYROXINE 50 MCG TABLET PO SCH (05:35)
[2017-09-11] MEDS: PANTOPRAZOLE 40 MG TABLET PO SCH (05:35)
[2017-09-11] MEDS: CIPROFLOXACIN 250 MG TABLET PO SCH ×2 (05:35→21:10)
[2017-09-11] MEDS: SODIUM BICARBONATE 50 MEQ in 1/2 NS 1,000 ML IV SCH ×2 (05:59→20:13)
--- NOTE | 2017-09-11 07:53 | Endocrinology Progress Note ---
Subjective Principal diagnosis: Hypercalcemia Interval history: Much improved today. Still has little appetite. No complaints. Exam Vital signs: Temperature 98.1 F 09/11/17 04:00 Pulse Rate 72 09/11/17 04:00 Respiratory Rate 16 09/11/17 04:00 Blood Pressure 131/60 09/11/17 04:00 Pulse Oximetry 100 09/11/17 04:00 Inpatient Medications: Generic Name Dose Route Start Last Admin Trade Name Freq PRN Reason Stop Dose Admin Acetaminophen 650 mg 09/10/17 14:31 Tylenol PO QID PRN Discomfort Hydrocodone Bitart/Acetaminophen 1 tab 09/06/17 14:48 09/08/17 09:40 Rocky 7.5/325 PO 1 tab Q6H PRN Administration Pain Allopurinol 100 mg 09/05/17 09:00 09/10/17 09:18 Zyloprim PO 100 mg DAILY DIDIER Administration Ciprofloxacin 250 mg 09/10/17 20:00 09/11/17 05:35 Cipro 250 Mg PO 250 mg BID/E DIDIER Administration Clindamycin HCl 300 mg 09/04/17 21:00 09/10/17 21:01 Cleocin PO 300 mg BID DIDIER Administration Cyclobenzaprine HCl 5 mg 09/10/17 10:07 09/10/17 11:48 Flexeril PO 5 mg TID PRN Administration Muscle spasm Dextrose 20 ml 09/04/17 10:21 D50%W IVP PRN PRN Hypoglycemia Gabapentin 100 mg 09/09/17 21:00 09/10/17 21:01 Neurontin PO 100 mg BID DIDIER Administration Sodium Bicarbonate 50 meq/ 1,050 mls @ 75 mls/hr 09/09/17 09:00 09/11/17 05: 59 Sodium Chloride IV 75 mls/hr .Q14H DIDIER Administration Insulin Aspart 1 - 5 unit 09/09/17 13:43 09/10/17 21:03 Novolog SQ 1 unit SS PRN Administration Hyperglycemia Protocol Labetalol HCl 100 mg 09/04/17 09:00 09/10/17 21:01 Normodyne PO 100 mg BID DIDIER Administration Levothyroxine Sodium 200 mcg 09/04/17 06:30 09/11/17 05:35 Synthroid PO 200 mcg ACB DIDIER Administration Levothyroxine Sodium 50 mcg 09/06/17 06:30 09/11/17 05:35 Synthroid PO 50 mcg ACB DIDIER Administration Nystatin 1 applic 09/04/17 09:00 09/10/17 21:01 Mycostatin TP 1 applic TID DIDIER Administration Ondansetron HCl 4 mg 09/07/17 16:20 Zofran IVP Q6H PRN Nausea &/or vomiting Pantoprazole Sodium 40 mg 09/04/17 06:30 09/11/17 05:35 Protonix Tab PO 40 mg ACB DIDIER Administration Polyethylene Glycol 17 gm 09/06/17 16:00 09/10/17 09:17 Miralax PO 17 gm DAILY DIDIER Administration Quetiapine Fumarate 25 mg 09/08/17 15:42 Seroquel PO HS PRN Insomnia Senna/Docusate Sodium 2 tab 09/06/17 21:00 09/10/17 21:01 Senna Plus Tablet PO 2 tab BID DIDIER Administration Sertraline HCl 100 mg 09/11/17 09:00 Zoloft PO DAILY DIDIER Sodium Chloride 10 - 80 ml 09/03/17 18:18 09/10/17 09:23 Iv Flush IVF 10 ml PRN PRN Administration Flushing Sodium Chloride 500 ml 09/04/17 00:27 09/07/17 12:23 Normal Saline IV 500 ml PRN PRN Administration Tramadol HCl 50 mg 09/06/17 14:49 09/10/17 02:14 Ultram PO 50 mg TID PRN Administration Pain Discontinued Medications Generic Name Dose Route Start Last Admin Trade Name Freq PRN Reason Stop Dose Admin Bupivacaine HCl/Epinephrine Bitart 30 ml 09/07/17 14:54 09/07/17 14:55 Marcaine/Epi 0.25%/1:200,000 ID 09/07/17 14:55 4 ml O ONE Administration Calcitonin [place] 500 unit 09/03/17 19:51 09/03/17 20:18 Miacalcin SQ 09/03/17 19:52 500 unit O ONE Administration Ciprofloxacin 500 mg 09/04/17 21:00 09/10/17 06:11 Cipro 500 Mg PO 500 mg BID/E DIDIER Administration Cyclobenzaprine HCl 10 mg 09/06/17 14:48 09/10/17 06:11 Flexeril PO 10 mg TID PRN Administration Muscle spasm Furosemide 40 mg 09/03/17 20:33 09/04/17 00:35 Lasix 40 Mg/4 Ml IVP 09/03/17 20:34 40 mg O ONE Administration Sodium Chloride 1,000 mls @ 1,000 mls/hr 09/03/17 18:18 09/03/17 19:30 Normal Saline IV 09/03/17 19:17 Infused .Q1H ONE Infusion Sodium Chloride 1,000 mls @ 100 mls/hr 09/03/17 20:33 09/04/17 19:50 Normal Saline IV Infused .Q10H DIDIER Infusion 150 mls/hr Ceftriaxone Sodium 1 g/ Sodium 100 mls @ 200 mls/hr 09/03/17 21:54 09/04/17 01:20 Chloride IV 09/03/17 22:23 Infused O ONE Infusion Pamidronate Disodium 30 mg/ 260 mls @ 62.5 mls/hr 09/04/17 12:37 09/04/17 18: 00 Sodium Chloride IV 09/04/17 16:46 Infused O ONE Infusion Sodium Chloride 1,000 mls @ 200 mls/hr 09/04/17 19:45 09/07/17 11:18 1/2 Normal Saline IV Infused .Q5H DIDIER Infusion Sodium Chloride 1,000 mls @ 50 mls/hr 09/07/17 11:30 09/07/17 16:26 Normal Saline IV Infused .Q20H DIDIER Infusion Potassium Chloride 20 meq/ 1,010 mls @ 150 mls/hr 09/07/17 11:05 09/07/17 16: 40 Sodium Chloride IV Not Given .Q6H44M DIDIER Potassium Chloride/Sodium Chloride 1,000 mls @ 150 mls/hr 09/07/17 16:45 09:58 1/2 Ns With Kcl 20meq Premix IV Not Given .Q6H40M DIDIER Insulin Aspart 2 - 8 unit 09/04/17 10:21 09/09/17 12:12 Novolog SQ 2 unit SS PRN Administration Hyperglycemia Protocol Levothyroxine Sodium 50 mcg 09/10/17 06:30 Synthroid PO ACB DIDIER Metoclopramide HCl 5 mg 09/03/17 20:33 Reglan IVP Q6H PRN Miscellaneous Medication 1 each 09/04/17 09:14 09/04/17 19:53 Pharmacy Consult - Renal Dosing 09/04/17 09:15 1 each O ONE Administration Miscellaneous Medication 1 each 09/10/17 10:03 Pharmacy Consult - Renal Dosing 09/10/17 10:04 O ONE Morphine Sulfate 1 - 2 mg 09/03/17 20:33 Morphine Sulfate Inj IVP Q2H PRN Pain Morphine Sulfate 0 mg 09/07/17 15:35 09/07/17 16:08 Morphine Sulfate Vial IVP 2 mg Q10M PRN Administration Naloxone HCl 0.4 mg 09/03/17 18:24 09/03/17 18:31 Narcan IVP 09/03/17 18:25 0.4 mg O ONE Administration Ondansetron HCl 4 mg 09/03/17 20:33 Zofran IVP Q6H PRN Nausea &/or vomiting Pharmacy Consult 1 each 09/03/17 21:43 Pharmacy Consult - Fall Risk 09/03/17 21:44 ONE TIME ONE Quetiapine Fumarate 25 mg 09/06/17 21:00 09/07/17 20:38 Seroquel PO 25 mg HS DIDIER Administration Sertraline HCl 100 mg 09/04/17 09:00 09/10/17 09:18 Zoloft PO 100 mg BID DIDIER Administration Thrombin 5,000 unit 09/07/17 14:56 09/07/17 14:56 Thrombin-Jmi OPSITE 09/07/17 14:57 5,000 unit O ONE Administration - Constitutional no acute distress - Routine HEENT Exam Head: Present: normocephalic, atraumatic Eye: Present: EOMI, PERRL ENT: Present: mucous membranes moist - Routine Neck Exam Absent: thyromegaly - Routine Respiratory Exam Absent: dyspnea - Routine Cardiovascular Exam Present: RRR - Routine Abdominal Exam Present: soft, normoactive bowel sounds. Absent: tenderness - Routine Extremities Exam Present: amputation (left BKA). Absent: cyanosis - Routine Skin Exam Present: dry, warm, ecchymosis - Routine Neurological Exam Present: alert, oriented X3 (fully oriented this morning), moving all extremities - Routine Psychiatric Exam Present: normal affect - Additional findings Additional findings: Laboratory Tests 09/10/17 09/10/17 09/10/17 11:41 14:01 20:16 BUN Creatinine Glucometer 218 162 181 Calcium 09/11/17 09/11/17 04:08 05:34 BUN 30.0 H Creatinine 2.0 H Glucometer 125 Calcium 8.4 - Urinary Catheter Management Urethral Cath placed during this visit: yes Insertion date: 09/03/17 Insertion time: 19:00 2-way Urethral Cath placed during this visit: no Assessment and Plan (1) Hypercalcemia Problem details: Hyperparathyroidism/solitary parathyroid adenoma Current visit: Yes Status: Resolved Fully resolved. (2) Metabolic encephalopathy Current visit: Yes Status: Acute Better, at baseline now. (3) Primary hyperparathyroidism Current visit: Yes Status: Resolved Resolved. (4) Diabetes mellitus type 2, uncontrolled, without complications Problem details: Controlled. Current visit: Yes Status: Chronic Fair control. (5) Hypertension Problem details: Controlled. Current visit: No Status: Chronic (6) long-term current use of insulin Current visit: No Status: Chronic (7) Postablative hypothyroidism Problem details: Clinically and chemically euthyroid. Current visit: No Status: Chronic Continue 250 mcg Synthroid daily.
--- NOTE | 2017-09-11 08:19 | Progress Note ---
DATE OF VISIT 09/10/2017 REASON FOR VISIT Covering postoperative care for Dr. Gregory. SUBJECTIVE Gurdeep has continued to have confusion. When questioned about his neck, he reports some pain but feels it is fairly well controlled. OBJECTIVE VITAL SIGNS: Afebrile with stable vitals on room air. NECK: There is some ecchymosis of the neck but no evidence of hematoma. His voice is normal. LABORATORY DATA Calcium has decreased to 8.6 today. IMPRESSION Status post parathyroidectomy on 09/07/2017 for a parathyroid adenoma with hypercalcemia - continued appropriate progress from a surgical standpoint. He does have some decrease in his calcium. PLAN 1. Follow calcium trend to assure stability. I doubt the change has to do with his parathyroidectomy at this point in time. 2. Continue other care per the medical team. MICHELLE
[2017-09-11] MEDS: ACETAMINOPHEN 325 MG TABLET PO PRN ×3 (09:11→20:15)
[2017-09-11] MEDS: GABAPENTIN 100 MG CAPSULE PO SCH ×2 (09:12→22:34)
[2017-09-11] MEDS: CLINDAMYCIN 300 MG CAPSULE PO SCH ×2 (09:12→22:34)
[2017-09-11] MEDS: SENNA + DOCUSATE TABLET PO SCH ×2 (09:13→21:12)
[2017-09-11] MEDS: LABETALOL 100 MG TABLET PO SCH ×2 (09:13→20:16)
[2017-09-11] MEDS: ALLOPURINOL 100 MG TABLET PO SCH (09:14)
[2017-09-11] MEDS: POLYETHYL GLYCOL 3350 17gm PACKET PO SCH (09:15)
[2017-09-11] MEDS: SERTRALINE 100 MG TABLET PO SCH (09:15)
--- NOTE | 2017-09-11 09:39 | General Surgery Progress Note ---
Subjective Narrative: Resting with eyes closed, awakens easily but does not keep eyes open. When asked to open his eyes, he states "I'm trying", speech is slurred. Oriented to self. Does not know place, time of day. LULU drain in neck has been removed. - Vital Signs Last Vital Signs Temp 98.5 F 09/11/17 08:05 Pulse 71 09/11/17 08:05 Resp 22 09/11/17 08:05 BP 132/66 09/11/17 08:05 Pulse Ox 100 09/11/17 08:05 - Laboratory Result Diagrams: 09/11/17 04:08 09/11/17 04:08 Laboratory Tests 09/07/17 09/07/17 09/08/17 15:33 21:45 04:18 Calcium 11.0 H 10.7 H 10.6 H 09/08/17 09/08/17 09/08/17 09:43 16:02 21:39 Calcium 10.1 9.8 9.4 09/09/17 09/10/17 09/11/17 03:53 04:16 04:08 Calcium 9.4 8.6 D 8.4 - Pathology Right parathyroid adenoma - Abnormal Exam General: confused Cardiovascular: pedal edema (right) - Normal Exam Neck: other (Incision CDI, ecchymosis above and below the incision, stable. LULU has been removed.) Cardiovascular: regular rate Respiratory: no labored breathing Abdominal: BS normo active x4, soft, non-tender Assessment and Plan (1) Primary hyperparathyroidism Current Visit: Yes Status: Resolved (2) Metabolic encephalopathy Current Visit: Yes Status: Acute (3) Obesity (BMI 30-39.9) Current Visit: No Status: Chronic (4) Diabetes mellitus type 2, uncontrolled, without complications Current Visit: Yes Status: Chronic Qualifiers: Diabetes mellitus long term care administrator insulin use: with long term care administrator use Qualified Code( s): E11.65 - Type 2 diabetes mellitus with hyperglycemia; 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 (5) Diabetic peripheral neuropathy associated with type 2 diabetes mellitus Current Visit: No Status: Chronic Problem details: Unable to fully assess today. (6) Postablative hypothyroidism Current Visit: No Status: Chronic Problem details: Clinically and chemically euthyroid. (7) Cirrhosis of liver Current Visit: Yes Status: Acute Plan: Serum Calcium continues slow drift downward, is in normal range at 8.4, Dr. Le following. Ecchymosis of neck incision will fade over time. Hospital Course Summary Disclaimer: The visit summary below is not to be considered part of the above Progress Note. Hospital Course: 09/04/17 Admit to CCU for close monitoring as an inpatient. Continue normal saline. Dr. Le was consulted regarding hypercalcemia. He will see the patient a little later today. He does recommend surgical consultation for possible parathyroidectomy. Regarding acute kidney injury will continue IV fluids, check renal sonogram, check urine sodium and creatinine and hold losartan Re: Pancytopenia, will recheck CBC. Regarding chronic wound infections, will continue clindamycin and Cipro. Will ask pharmacy to adjust Cipro for renal function. Continue on telemetry for possible arrhythmias Recheck CBC and basic metabolic profile today and again tomorrow. The patient is full code per his who his DPOA. 09/05/17 Calcium improving following pamidronate yesterday, continue IV fluids. Scan consistent with single parathyroid adenoma. Surgery tentatively scheduled for later in the week. reports minor improvement in mental status continue to monitor. Blood sugars stable overnight-no recurrent hypoglycemia. Renal function minimally improved, continue hydration; medications adjusted for renal function earlier today by Pharm.D. No reported hypotension. Fractional excretion suggests intrinsic renal dysfunction. Hemoglobin/platelet count stable today; white count 2.9. Pancytopenia chronic. 09/06/17 Calcium improved/stable following pamidronate 09/04, continue IV fluids. Scan consistent with single parathyroid adenoma. Surgery tentatively scheduled for tomorrow-discussed with Dr. Gregory. Also discussed plans with Dr. Le, if GFR permits will receive a single dose of Zoledronic acid later today to further improve calcium preoperatively. reports minor improvement in mental status continue to monitor. Blood sugars stable today ranging from 147-155. Renal function slowly improving with creatinine 2.0 today-well above baseline of 1.2-1.4 and baseline GFR of about 60, continue hydration. Chronic pancytopenia (due to cirrhosis/chronic inflammation); anticipate platelet packs with surgery to minimize risk of neck hematoma. Home pain medications resumed. Low-dose Seroquel added for sleep. Supplemental history provided by nursing and patient's . Stable to transfer out of ICU today. 09/07/17 Patient moved to medical floor on 09/06/17. Calcium improved/stable (decreased from 14.3 on 09/03/17 to 11.6 today, 09/07/17). Parathyroidectomy scheduled for today with Dr. Gregory. Maintain NPO status due to anticipated surgery. Will continue IVF and add KCl 20 mEQ to IVF given hypokalemia. Weight trending up. Decrease rate to 150cc/hr and continue to monitor closely for signs of fluid overload. Dr. Le continues to follow patient. Appreciate his time and expertise. Discussed giving Zoledronic acid on 09/06/17, but decided against it. Anticipates improvement in calcium following surgery. Increased somnolence today - suspect secondary to receiving Seroquel 25mg at bedtime last night to assist with insomnia. Continue to monitor mental status closely. Blood sugars stable and trending up since admission (range 147-233). Continue to monitor closely. Renal function slowly improving with creatinine 1.9 today-well above baseline of 1.2-1.4 and baseline GFR of about 60. Continue hydration and continue to monitor. Pancytopenia chronic - anticipate platelet packs with surgery to minimize risk of neck hematoma. WBC 1.8, Hgb 8.7, Plt 48. Supplemental history provided by nursing and patient's . Telemetry reviewed-sinus rhythm. Will recheck labs in AM to monitor blood counts, electrolytes and renal function. Monitor serial calcium levels post operatively. 09/08/17 Calcium continues to improve progressively; PTH down immediately after surgery. Limited oral intake, continue IV fluids pending improvement. Weight trending up. He was dehydrated on admission, minor edema present right lower extremity; not hypoxic. Continue to monitor Dr. Le continues to follow patient for diabetes and hyperparathyroidism. Blood glucose is stable. Sleep improved with Seroquel the past 2 nights, speech mumbled but was prior to initiation of medication. We'll readdress with when available anticipate discontinuing medication in the next day or 2. Renal function slowly improving with creatinine 1.9 remains above baseline of 1.2-1.4 and baseline GFR of about 60. Chronic pancytopenia, count stable- 1 unit of platelets and packed cells with surgery yesterday. 09/09/17 Calcium has stabilized at 9.4 yesterday and today. Continue to monitor. Fluids switched from NS to 1/2NS with sodium bicarb. Dr. Le continues to follow patient for diabetes and hyperparathyroidism. Blood glucose is stable. (concession manager for Dr. Gregory) evaluated pt today. No changes. Renal function plateaued with creatinine 1.9 yesterday and today. Remains above baseline of 1.2-1.4 and baseline GFR of about 60. Resume home levothyroxine and gabapentin. BP's stable - amlodipine and Cozaar remain on hold. 09/10/17 Patient remains very confused. Medications reviewed- Hold Tramadol. DC Reglan. Decrease Zoloft to 100mg Q Day for now. Decrease flexeril to 5mg dosing. Check venous ammonia. Serum calcium is trending down. Remains acidotic- continue NaHCO2 in IVF for now. Continue to monitor renal function, as it remains elevated. Baseline 1.2-1.4. Chronic joint infection with suppressive therapy- Cipro/Clinda. Will request pharmacy consult for renal dosing. Pancytopenia appears stable, continue neutropenic precautions. Repeat labs in AM.
--- NOTE | 2017-09-11 10:12 | Progress Note ---
- Date 09/11/17 Subjective: Gurdeep was working with PT. He was sitting up in bed, but does not have enough strength to hold himself up and was fully supported by the therapist. He c/o pain in his hips and hands - they are working on straightening out his hands/ fingers which is painful. He denies SOA or chest pain. He denies abdominal pain or nausea. Nursing staff reports he's communicating better today. Objective Vital signs: Temperature 98.5 F 09/11/17 08:05 Pulse Rate 71 09/11/17 08:05 Respiratory Rate 22 09/11/17 08:05 Blood Pressure 132/66 09/11/17 08:05 Pulse Oximetry 100 09/11/17 08:05 Rhythm: Normal Sinus Rhythm Height/Weight/BMI: Height 1.91 m Weight 130 kg Body Mass Index 34.3 - Constitutional Present: no acute distress, well nourished, well developed, obese - Routine HEENT Exam Head: Present: normocephalic Comments: neck healing well - Routine Respiratory Exam Present: CTA bilaterally - Routine Cardiovascular Exam Present: RRR, S1, S2 Comments: distant heart tones - Routine Abdominal Exam Present: soft, normoactive bowel sounds, non distended, non tender - Routine Extremities Exam Present: edema (trace right foot), pulses intact Comments: left BKA - Routine Skin Exam Present: dry, warm - Routine Neurological Exam Present: alert - Routine Psychiatric Exam Present: cooperative Results - Labs CBC & Chem 7: 09/11/17 04:08 09/11/17 04:08 - ABG Interpretation ABG results: 09/10/17 11:33 ABG pH 7.413 ABG pCO2 29 L ABG pO2 92.4 ABG HCO3 18.2 L ABG Total CO2 19.1 L ABG O2 Saturation 97.4 ABG Base Excess -5.7 L Assessment and Plan (1) Hypercalcemia Problem details: Hyperparathyroidism/solitary parathyroid adenoma; s/p parathyoidectomy 09/07/17 Current visit: Yes Status: Resolved (2) Hypoglycemia Current visit: Yes Status: Resolved (3) Metabolic encephalopathy Current visit: Yes Status: Acute Assessment and Plan: Assessment Encephalopathy with hallucinations Hypercalcemia secondary to hyperparathyroidism Parathyroid adenoma-s/p parathyroidectomy 09/07/17 Hypoglycemia-resolved Acute kidney injury-FeNa 6.7% Metabolic acidosis Type 2 diabetes mellitus on insulin Chronic Pancytopenia Anemia-1 unit of blood with hemoglobin improved from 6.6-->10.1 Thrombocytopenia Chronic joint infection, suppressive Cipro and clindamycin Chronic buttock wounds Hypothyroidism, post-ablative Possible supraventricular bradycardia, in sinus rhythm Obstructive sleep apnea-CPAP Obesity Hypertension-BP medications currently on hold Peripheral polyneuropathy Cirrhosis Generalized pain Insomnia Plan 09/11/17 Continue sodium bicarb; CO2 improving. Creatinine increased slightly from 1.9 to 2.0. Cipro dose adjusted yesterday based on renal function. Phosphorus low at 2.0 -- start replacement PO. Ca remains stable at 8.4. ANC 1440 - continue neutropenic precautions. Encephalopathy seems to be improving Continue therapies. Appreciate consultants' recommendations. GI Prophylaxis: Protonix Resuscitation Status: Full Code - Physician Narrative Physician: Darlene Saldaña MD Narrative: Date: 09/11/17 Time: 1630 I have independently evaluated and examined this patient. I reviewed the chart, the patient's history, and the ASSIGNMENT DESK ASSISTANT/PA's documented findings as above. We discussed and formulated the assessment and plan as above with additions as below: Mr. Gonzales was seen this morning at which time he was drowsy and required repetitive stimulation to awaken. He responded to questions poorly; nursing indicated he was much more alert couple hours earlier when he ate 75% of breakfast and responded to questions appropriately. Voice was very mumbled and he could not identify location. Minor bruising right lateral aspect of neck incision, no hematoma or soft tissue swelling Poor inspiratory effort but anterior breath sounds are clear. Spoke with the patient's who indicated extensive somnolence/confusion is atypical of patient; based on my assessment yesterday patient has fairly significant swings in level of consciousness during the day currently. May benefit from return to nursing facility/usual environment with increased activities that are typical for him and increased stimulation to help clear residual encephalopathy. Renal function improved from admission but has plateaued; FeNa 4.68 yesterday not indicative of developing dehydration. May require prolonged recovery. Discussed with case management and surgery. Hospital Course Summary Disclaimer: The visit summary below is not to be considered part of the above Progress Note. Hospital Course: 09/04/17 Admit to CCU for close monitoring as an inpatient. Continue normal saline. Dr. Le was consulted regarding hypercalcemia. He will see the patient a little later today. He does recommend surgical consultation for possible parathyroidectomy. Regarding acute kidney injury will continue IV fluids, check renal sonogram, check urine sodium and creatinine and hold losartan Re: Pancytopenia, will recheck CBC. Regarding chronic wound infections, will continue clindamycin and Cipro. Will ask pharmacy to adjust Cipro for renal function. Continue on telemetry for possible arrhythmias Recheck CBC and basic metabolic profile today and again tomorrow. The patient is full code per his who his DPOA. 09/05/17 Calcium improving following pamidronate yesterday, continue IV fluids. Scan consistent with single parathyroid adenoma. Surgery tentatively scheduled for later in the week. reports minor improvement in mental status continue to monitor. Blood sugars stable overnight-no recurrent hypoglycemia. Renal function minimally improved, continue hydration; medications adjusted for renal function earlier today by Pharm.D. No reported hypotension. Fractional excretion suggests intrinsic renal dysfunction. Hemoglobin/platelet count stable today; white count 2.9. Pancytopenia chronic. 09/06/17 Calcium improved/stable following pamidronate 09/04, continue IV fluids. Scan consistent with single parathyroid adenoma. Surgery tentatively scheduled for tomorrow-discussed with Dr. Gregory. Also discussed plans with Dr. Le, if GFR permits will receive a single dose of Zoledronic acid later today to further improve calcium preoperatively. reports minor improvement in mental status continue to monitor. Blood sugars stable today ranging from 147-155. Renal function slowly improving with creatinine 2.0 today-well above baseline of 1.2-1.4 and baseline GFR of about 60, continue hydration. Chronic pancytopenia (due to cirrhosis/chronic inflammation); anticipate platelet packs with surgery to minimize risk of neck hematoma. Home pain medications resumed. Low-dose Seroquel added for sleep. Supplemental history provided by nursing and patient's . Stable to transfer out of ICU today. 09/07/17 Patient moved to medical floor on 09/06/17. Calcium improved/stable (decreased from 14.3 on 09/03/17 to 11.6 today, 09/07/17). Parathyroidectomy scheduled for today with Dr. Gregory. Maintain NPO status due to anticipated surgery. Will continue IVF and add KCl 20 mEQ to IVF given hypokalemia. Weight trending up. Decrease rate to 150cc/hr and continue to monitor closely for signs of fluid overload. Dr. Le continues to follow patient. Appreciate his time and expertise. Discussed giving Zoledronic acid on 09/06/17, but decided against it. Anticipates improvement in calcium following surgery. Increased somnolence today - suspect secondary to receiving Seroquel 25mg at bedtime last night to assist with insomnia. Continue to monitor mental status closely. Blood sugars stable and trending up since admission (range 147-233). Continue to monitor closely. Renal function slowly improving with creatinine 1.9 today-well above baseline of 1.2-1.4 and baseline GFR of about 60. Continue hydration and continue to monitor. Pancytopenia chronic - anticipate platelet packs with surgery to minimize risk of neck hematoma. WBC 1.8, Hgb 8.7, Plt 48. Supplemental history provided by nursing and patient's . Telemetry reviewed-sinus rhythm. Will recheck labs in AM to monitor blood counts, electrolytes and renal function. Monitor serial calcium levels post operatively. 09/08/17 Calcium continues to improve progressively; PTH down immediately after surgery. Limited oral intake, continue IV fluids pending improvement. Weight trending up. He was dehydrated on admission, minor edema present right lower extremity; not hypoxic. Continue to monitor Dr. Le continues to follow patient for diabetes and hyperparathyroidism. Blood glucose is stable. Sleep improved with Seroquel the past 2 nights, speech mumbled but was prior to initiation of medication. We'll readdress with when available anticipate discontinuing medication in the next day or 2. Renal function slowly improving with creatinine 1.9 remains above baseline of 1.2-1.4 and baseline GFR of about 60. Chronic pancytopenia, count stable- 1 unit of platelets and packed cells with surgery yesterday. 09/09/17 Calcium has stabilized at 9.4 yesterday and today. Continue to monitor. Fluids switched from NS to 1/2NS with sodium bicarb. Dr. Le continues to follow patient for diabetes and hyperparathyroidism. Blood glucose is stable. (superintendent transportation for Dr. Gregory) evaluated pt today. No changes. Renal function plateaued with creatinine 1.9 yesterday and today. Remains above baseline of 1.2-1.4 and baseline GFR of about 60. Resume home levothyroxine and gabapentin. BP's stable - amlodipine and Cozaar remain on hold. 09/10/17 Patient remains very confused. Medications reviewed- Hold Tramadol. DC Reglan. Decrease Zoloft to 100mg Q Day for now. Decrease flexeril to 5mg dosing. Check venous ammonia. Serum calcium is trending down. Remains acidotic- continue NaHCO2 in IVF for now. Renal function remains elevated. Baseline 1.2-1.4. Chronic joint infection with suppressive therapy- Cipro/Clinda. Will request pharmacy consult for renal dosing. Pancytopenia appears stable, continue neutropenic precautions. 09/11/17 Continue sodium bicarb; CO2 improving. Creatinine increased slightly from 1.9 to 2.0. Cipro dose adjusted yesterday based on renal function. Phosphorus low at 2.0 -- start replacement PO. Ca remains stable at 8.4. ANC 1440 - continue neutropenic precautions. Encephalopathy seems to be improving
[2017-09-11] MEDS: INSULIN ASPART 100unit/ml INJECTION SQ PRN ×3 (11:59→20:44)
[2017-09-11] MEDS: POTASSIUM ACID PHOSPHATE 500 MG TABLET (URINARY ACIDIFIER) PO SCH ×3 (14:14→21:13)
[2017-09-11] MEDS: CYCLOBENZAPRINE 10 MG TABLET PO PRN (14:15)
[2017-09-11] MEDS ORDERED: VANCOMYCIN - PHARMACY CONSULT MC ONE (19:25)
[2017-09-11] MEDS ORDERED: ACETAMINOPHEN 650 MG SUPPOSITORY PR PRN (20:01)
[2017-09-11] MEDS: CEFEPIME 1 GM in NS 100 ML IV SCH (20:13)
--- NOTE | 2017-09-11 20:45 | XRay Report ---
Indication: fever PROCEDURE: XR chest 1V: Encounter: Initial Comparison: September 03, 2017 Findings: Diffuse interstitial prominence has improved from the prior study. No new areas of consolidation. No pneumothorax or significant pleural effusion. Cardiac silhouette remains enlarged. Mediastinal contours are stable with prominence of the central pulmonary arteries. Impression: No focal pneumonia or overt congestive failure. .
--- NOTE | 2017-09-12 06:38 | Pharmacy Consult-Antibiotics ---
Pharmacy Consult-Vancomycin - Laboratory Information WBC 3.1 T/MM3 (4.5-11.0) L 09/12/17 04:12 BUN 30.0 MG/DL (9-20) H 09/11/17 04:08 Creatinine 2.0 mg/dL (0.8-1.5) H 09/11/17 04:08 Procalcitonin 0.25 NG/ML 09/11/17 18:30 - Consult Information VANCOMYCIN CONSULT: Dx: CHRONIC JOINT INFECTION Current Renal Fx: SCr = 2.0mg/dl. Will give Vancomycin 2000mg IV q24hrs. Will continue to monitor and adjust regimen to maintain therapeutic levels. Thank you.
[2017-09-12] MEDS: LEVOTHYROXINE 200 MCG TABLET PO SCH (06:39)
[2017-09-12] MEDS: CIPROFLOXACIN 250 MG TABLET PO SCH ×2 (06:39→20:58)
[2017-09-12] MEDS: LEVOTHYROXINE 50 MCG TABLET PO SCH (06:39)
[2017-09-12] MEDS: PANTOPRAZOLE 40 MG TABLET PO SCH (06:39)
[2017-09-12] MEDS: SODIUM BICARBONATE 50 MEQ in 1/2 NS 1,000 ML IV SCH ×3 (07:00→22:35)
--- NOTE | 2017-09-12 07:52 | Endocrinology Progress Note ---
Subjective Principal diagnosis: Hypercalcemia Interval history: Alert but disoriented today. Still has little appetite. Holds right shoulder stiffly; winces in pain if it is moved. Note fever spike overnight. Exam Vital signs: Temperature 100.2 F 09/12/17 04:00 Pulse Rate 82 09/12/17 04:00 Respiratory Rate 16 09/12/17 04:00 Blood Pressure 147/67 H 09/12/17 04:00 Pulse Oximetry 94 09/12/17 04:00 Inpatient Medications: Generic Name Dose Route Start Last Admin Trade Name Freq PRN Reason Stop Dose Admin Acetaminophen 650 mg 09/10/17 14:31 09/11/17 20:15 Tylenol PO 650 mg QID PRN Administration Discomfort Acetaminophen 650 mg 09/11/17 20:01 09/12/17 00:35 Tylenol Supp [place] 650 mg Q5H PRN Administration Pain Hydrocodone Bitart/Acetaminophen 1 tab 09/06/17 14:48 09/08/17 09:40 [place] 7.5/325 PO 1 tab Q6H PRN Administration Pain Allopurinol 100 mg 09/05/17 09:00 09/11/17 09:14 Zyloprim PO 100 mg DAILY DIDIER Administration Ciprofloxacin 250 mg 09/10/17 20:00 09/12/17 06:39 Cipro 250 Mg PO 250 mg BID/E DIDIER Administration Clindamycin HCl 300 mg 09/04/17 21:00 09/11/17 22:34 Cleocin PO 300 mg BID DIDIER Administration Cyclobenzaprine HCl 5 mg 09/10/17 10:07 09/11/17 14:15 Flexeril PO 5 mg TID PRN Administration Muscle spasm Dextrose 20 ml 09/04/17 10:21 D50%W IVP PRN PRN Hypoglycemia Gabapentin 100 mg 09/09/17 21:00 09/11/17 22:34 Neurontin PO 100 mg BID DIDIER Administration Sodium Bicarbonate 50 meq/ 1,050 mls @ 75 mls/hr 09/09/17 09:00 09/11/17 22: 47 Sodium Chloride IV 75 mls/hr .Q14H DIDIER Infusion Cefepime HCl 1 gm/ Sodium 100 mls @ 200 mls/hr 09/11/17 19:30 09/11/17 20:43 Chloride IV Infused Q12H DIDIER Infusion Vancomycin HCl 2,000 mg/ 500 mls @ 250 mls/hr 09/12/17 08:00 Sodium Chloride IV 0800 DIDIER Insulin Aspart 1 - 5 unit 09/09/17 13:43 09/11/17 20:44 Novolog SQ 1 unit SS PRN Administration Hyperglycemia Protocol Labetalol HCl 100 mg 09/04/17 09:00 09/11/17 20:16 Normodyne PO 100 mg BID DIDIER Administration Levothyroxine Sodium 200 mcg 09/04/17 06:30 09/12/17 06:39 Synthroid PO 200 mcg ACB DIDIER Administration Levothyroxine Sodium 50 mcg 09/06/17 06:30 09/12/17 06:39 Synthroid PO 50 mcg ACB DIDIER Administration Nystatin 1 applic 09/04/17 09:00 09/11/17 21:13 Mycostatin TP 1 applic TID DIDIER Administration Ondansetron HCl 4 mg 09/07/17 16:20 Zofran IVP Q6H PRN Nausea &/or vomiting Pantoprazole Sodium 40 mg 09/04/17 06:30 09/12/17 06:39 Protonix Tab PO 40 mg ACB DIDIER Administration Polyethylene Glycol 17 gm 09/06/17 16:00 09/11/17 09:15 Miralax PO 17 gm DAILY DIDIER Administration Potassium Phosphate 1,000 mg 09/11/17 12:00 09/11/17 21:13 K-Phos Original PO Not Given WMHS DIDIER Quetiapine Fumarate 25 mg 09/08/17 15:42 Seroquel PO HS PRN Insomnia Senna/Docusate Sodium 2 tab 09/06/17 21:00 09/11/17 21:12 Senna Plus Tablet PO Not Given BID DIDIER Sertraline HCl 100 mg 09/11/17 09:00 09/11/17 09:15 Zoloft PO 100 mg DAILY DIDIER Administration Sodium Chloride 10 - 80 ml 09/03/17 18:18 09/10/17 09:23 Iv Flush IVF 10 ml PRN PRN Administration Flushing Sodium Chloride 500 ml 09/04/17 00:27 09/07/17 12:23 Normal Saline IV 500 ml PRN PRN Administration Tramadol HCl 50 mg 09/06/17 14:49 09/10/17 02:14 Ultram PO 50 mg TID PRN Administration Pain Discontinued Medications Generic Name Dose Route Start Last Admin Trade Name Freq PRN Reason Stop Dose Admin Bupivacaine HCl/Epinephrine Bitart 30 ml 09/07/17 14:54 09/07/17 14:55 Marcaine/Epi 0.25%/1:200,000 ID 09/07/17 14:55 4 ml O ONE Administration Calcitonin [place] 500 unit 09/03/17 19:51 09/03/17 20:18 Miacalcin SQ 09/03/17 19:52 500 unit O ONE Administration Ciprofloxacin 500 mg 09/04/17 21:00 09/10/17 06:11 Cipro 500 Mg PO 500 mg BID/E DIDIER Administration Cyclobenzaprine HCl 10 mg 09/06/17 14:48 09/10/17 06:11 Flexeril PO 10 mg TID PRN Administration Muscle spasm Furosemide 40 mg 09/03/17 20:33 09/04/17 00:35 Lasix 40 Mg/4 Ml IVP 09/03/17 20:34 40 mg O ONE Administration Sodium Chloride 1,000 mls @ 1,000 mls/hr 09/03/17 18:18 09/03/17 19:30 Normal Saline IV 09/03/17 19:17 Infused .Q1H ONE Infusion Sodium Chloride 1,000 mls @ 100 mls/hr 09/03/17 20:33 09/04/17 19:50 Normal Saline IV Infused .Q10H DIDIER Infusion 150 mls/hr Ceftriaxone Sodium 1 g/ Sodium 100 mls @ 200 mls/hr 09/03/17 21:54 09/04/17 01:20 Chloride IV 09/03/17 22:23 Infused O ONE Infusion Pamidronate Disodium 30 mg/ 260 mls @ 62.5 mls/hr 09/04/17 12:37 09/04/17 18: 00 Sodium Chloride IV 09/04/17 16:46 Infused O ONE Infusion Sodium Chloride 1,000 mls @ 200 mls/hr 09/04/17 19:45 09/07/17 11:18 1/2 Normal Saline IV Infused .Q5H DIDIER Infusion Sodium Chloride 1,000 mls @ 50 mls/hr 09/07/17 11:30 09/07/17 16:26 Normal Saline IV Infused .Q20H DIDIER Infusion Potassium Chloride 20 meq/ 1,010 mls @ 150 mls/hr 09/07/17 11:05 09/07/17 16: 40 Sodium Chloride IV Not Given .Q6H44M DIDIER Potassium Chloride/Sodium Chloride 1,000 mls @ 150 mls/hr 09/07/17 16:45 09:58 1/2 Ns With Kcl 20meq Premix IV Not Given .Q6H40M DIDIER Vancomycin HCl 2,000 mg/ 500 mls @ 250 mls/hr 09/11/17 19:35 09/11/17 22:47 Sodium Chloride IV 09/11/17 19:36 Infused O ONE Infusion Insulin Aspart 2 - 8 unit 09/04/17 10:21 09/09/17 12:12 Novolog SQ 2 unit SS PRN Administration Hyperglycemia Protocol Levothyroxine Sodium 50 mcg 09/10/17 06:30 Synthroid PO ACB DIDIER Lorazepam 1 mg 09/11/17 17:39 09/11/17 18:06 Ativan Inj IVP 09/11/17 17:40 1 mg ONCE ONE Administration Metoclopramide HCl 5 mg 09/03/17 20:33 Reglan IVP Q6H PRN Miscellaneous Medication 1 each 09/04/17 09:14 09/04/17 19:53 Pharmacy Consult - Renal Dosing 09/04/17 09:15 1 each O ONE Administration Miscellaneous Medication 1 each 09/10/17 10:03 09/11/17 09:01 Pharmacy Consult - Renal Dosing 09/10/17 10:04 Not Given O ONE Morphine Sulfate 1 - 2 mg 09/03/17 20:33 Morphine Sulfate Inj IVP Q2H PRN Pain Morphine Sulfate 0 mg 09/07/17 15:35 09/07/17 16:08 Morphine Sulfate Vial IVP 2 mg Q10M PRN Administration Naloxone HCl 0.4 mg 09/03/17 18:24 09/03/17 18:31 Narcan IVP 09/03/17 18:25 0.4 mg O ONE Administration Ondansetron HCl 4 mg 09/03/17 20:33 Zofran IVP Q6H PRN Nausea &/or vomiting Pharmacy Consult 1 each 09/03/17 21:43 Pharmacy Consult - Fall Risk 09/03/17 21:44 ONE TIME ONE Quetiapine Fumarate 25 mg 09/06/17 21:00 09/07/17 20:38 Seroquel PO 25 mg HS DIDIER Administration Sertraline HCl 100 mg 09/04/17 09:00 09/10/17 09:18 Zoloft PO 100 mg BID DIDIER Administration Thrombin 5,000 unit 09/07/17 14:56 09/07/17 14:56 Thrombin-Jmi OPSITE 09/07/17 14:57 5,000 unit O ONE Administration Vancomycin HCl 1 each 09/11/17 19:25 09/11/17 19:51 Pharmacy Consult - Vancomycin 09/11/17 19:26 1 each O ONE Administration - Constitutional mild distress (with right arm movement) - Routine HEENT Exam Head: Present: normocephalic, atraumatic Eye: Present: EOMI, PERRL ENT: Present: mucous membranes moist - Routine Neck Exam Absent: thyromegaly - Routine Respiratory Exam Absent: dyspnea - Routine Cardiovascular Exam Present: RRR - Routine Abdominal Exam Present: soft, normoactive bowel sounds - Routine Extremities Exam Present: amputation (left BKA). Absent: full ROM (right shoulder ROM limited by pain) - Routine Skin Exam Present: dry, warm, ecchymosis - Routine Neurological Exam Present: alert. Absent: oriented X3 - Routine Psychiatric Exam Present: normal affect. Absent: normal thought process - Additional findings Additional findings: Laboratory Tests 09/11/17 09/11/17 09/11/17 11:25 15:21 20:32 BUN Creatinine Glucose Glucometer 200 182 168 Calcium 09/12/17 06:33 BUN 29.0 H Creatinine 2.1 H Glucose 130 H Glucometer Calcium 8.1 L - Urinary Catheter Management Urethral Cath placed during this visit: yes Insertion date: 09/03/17 Insertion time: 19:00 2-way Urethral Cath placed during this visit: no Assessment and Plan (1) Hypercalcemia Problem details: Hyperparathyroidism/solitary parathyroid adenoma; s/p parathyoidectomy 09/07/17 Current visit: Yes Status: Resolved (2) Metabolic encephalopathy Current visit: Yes Status: Acute Waxes and wanes. Seems worse today. (3) Primary hyperparathyroidism Current visit: Yes Status: Resolved (4) Diabetes mellitus type 2, uncontrolled, without complications Problem details: Controlled. Current visit: Yes Status: Chronic Has been doing remarkably well with tiny amounts of prn insulin. Very unusual considering his previous total daily dose was 89 units. (5) Hypertension Problem details: Controlled. Current visit: No Status: Chronic Higher BP this morning. 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 Current visit: No Status: Chronic Stable on Synthroid. (8) Hypocalcemia Current visit: Yes Status: Acute Calcium level has dropped below normal. Will need to start supplement if it drops any further.
--- NOTE | 2017-09-12 08:27 | General Surgery Progress Note ---
Subjective Narrative: Again quite confused, speech not as slurred. When asked to open his eyes, he holds them shut even tighter. Complains of arm pain when staff moves him for bath and repositioning. T-Max last evening 104.1, currently reported at 101.5 Serum Ca down to 8.1, this has cris a gradual downward drift since parathyroidectomy. - Vital Signs Last Vital Signs Temp 101.5 F H 09/12/17 07:53 Pulse 83 09/12/17 07:53 Resp 20 09/12/17 07:53 BP 151/54 H 09/12/17 07:53 Pulse Ox 100 09/12/17 07:53 - Laboratory Result Diagrams: 09/12/17 04:12 09/12/17 06:33 - Microbiogy Microbiology 09/11/17 19:25 Peripheral/Iv Start Gram Stain - Final 09/11/17 19:25 Peripheral/Iv Start Blood Culture - Preliminary Gram Positive Cocci 09/11/17 18:29 Peripheral/Iv Start Gram Stain - Final 09/11/17 18:29 Peripheral/Iv Start Blood Culture - Preliminary Staphylococcus aureus Enterococcus species - Abnormal Exam General: confused - Normal Exam General: awake Neck: other (incision CDI, ecchymosis stable, no spreading. No erythema.) Cardiovascular: regular rate Respiratory: equal bilaterally (anterior), no labored breathing Abdominal: BS normo active x4, soft, non-tender Assessment and Plan (1) Primary hyperparathyroidism Current Visit: Yes Status: Resolved (2) Metabolic encephalopathy Current Visit: Yes Status: Acute (3) Obesity (BMI 30-39.9) Current Visit: No Status: Chronic (4) Diabetes mellitus type 2, uncontrolled, without complications Current Visit: Yes Status: Chronic Qualifiers: Qualified Code(s): E11.65 - Type 2 diabetes mellitus with hyperglycemia; Z79.4 - terminal superintendent (current) use of insulin Problem details: Controlled. (5) Diabetic peripheral neuropathy associated with type 2 diabetes mellitus Current Visit: No Status: Chronic Problem details: Unable to fully assess today. (6) Postablative hypothyroidism Current Visit: No Status: Chronic Problem details: Clinically and chemically euthyroid. (7) Cirrhosis of liver Current Visit: Yes Status: Acute Plan: Surgically he is doing well. The ecchymosis will gradually fade. Calcium is declining, Dr. Le is following, thank you. Fever 104.1 last evening and 101.5 this am, unsure of origin. Surgically, it is ok for him to shower, although this would be a major task to accomplish. Hospital Course Summary Disclaimer: The visit summary below is not to be considered part of the above Progress Note. Hospital Course: 09/04/17 Admit to CCU for close monitoring as an inpatient. Continue normal saline. Dr. Le was consulted regarding hypercalcemia. He will see the patient a little later today. He does recommend surgical consultation for possible parathyroidectomy. Regarding acute kidney injury will continue IV fluids, check renal sonogram, check urine sodium and creatinine and hold losartan Re: Pancytopenia, will recheck CBC. Regarding chronic wound infections, will continue clindamycin and Cipro. Will ask pharmacy to adjust Cipro for renal function. Continue on telemetry for possible arrhythmias Recheck CBC and basic metabolic profile today and again tomorrow. The patient is full code per his who his DPOA. 09/05/17 Calcium improving following pamidronate yesterday, continue IV fluids. Scan consistent with single parathyroid adenoma. Surgery tentatively scheduled for later in the week. reports minor improvement in mental status continue to monitor. Blood sugars stable overnight-no recurrent hypoglycemia. Renal function minimally improved, continue hydration; medications adjusted for renal function earlier today by Pharm.D. No reported hypotension. Fractional excretion suggests intrinsic renal dysfunction. Hemoglobin/platelet count stable today; white count 2.9. Pancytopenia chronic. 09/06/17 Calcium improved/stable following pamidronate 09/04, continue IV fluids. Scan consistent with single parathyroid adenoma. Surgery tentatively scheduled for tomorrow-discussed with Dr. Gregory. Also discussed plans with Dr. Le, if GFR permits will receive a single dose of Zoledronic acid later today to further improve calcium preoperatively. reports minor improvement in mental status continue to monitor. Blood sugars stable today ranging from 147-155. Renal function slowly improving with creatinine 2.0 today-well above baseline of 1.2-1.4 and baseline GFR of about 60, continue hydration. Chronic pancytopenia (due to cirrhosis/chronic inflammation); anticipate platelet packs with surgery to minimize risk of neck hematoma. Home pain medications resumed. Low-dose Seroquel added for sleep. Supplemental history provided by nursing and patient's . Stable to transfer out of ICU today. 09/07/17 Patient moved to medical floor on 09/06/17. Calcium improved/stable (decreased from 14.3 on 09/03/17 to 11.6 today, 09/07/17). Parathyroidectomy scheduled for today with Dr. Gregory. Maintain NPO status due to anticipated surgery. Will continue IVF and add KCl 20 mEQ to IVF given hypokalemia. Weight trending up. Decrease rate to 150cc/hr and continue to monitor closely for signs of fluid overload. Dr. Le continues to follow patient. Appreciate his time and expertise. Discussed giving Zoledronic acid on 09/06/17, but decided against it. Anticipates improvement in calcium following surgery. Increased somnolence today - suspect secondary to receiving Seroquel 25mg at bedtime last night to assist with insomnia. Continue to monitor mental status closely. Blood sugars stable and trending up since admission (range 147-233). Continue to monitor closely. Renal function slowly improving with creatinine 1.9 today-well above baseline of 1.2-1.4 and baseline GFR of about 60. Continue hydration and continue to monitor. Pancytopenia chronic - anticipate platelet packs with surgery to minimize risk of neck hematoma. WBC 1.8, Hgb 8.7, Plt 48. Supplemental history provided by nursing and patient's . Telemetry reviewed-sinus rhythm. Will recheck labs in AM to monitor blood counts, electrolytes and renal function. Monitor serial calcium levels post operatively. 09/08/17 Calcium continues to improve progressively; PTH down immediately after surgery. Limited oral intake, continue IV fluids pending improvement. Weight trending up. He was dehydrated on admission, minor edema present right lower extremity; not hypoxic. Continue to monitor Dr. Le continues to follow patient for diabetes and hyperparathyroidism. Blood glucose is stable. Sleep improved with Seroquel the past 2 nights, speech mumbled but was prior to initiation of medication. We'll readdress with when available anticipate discontinuing medication in the next day or 2. Renal function slowly improving with creatinine 1.9 remains above baseline of 1.2-1.4 and baseline GFR of about 60. Chronic pancytopenia, count stable- 1 unit of platelets and packed cells with surgery yesterday. 09/09/17 Calcium has stabilized at 9.4 yesterday and today. Continue to monitor. Fluids switched from NS to 1/2NS with sodium bicarb. Dr. Le continues to follow patient for diabetes and hyperparathyroidism. Blood glucose is stable. (secondary set up man for Dr. Gregory) evaluated pt today. No changes. Renal function plateaued with creatinine 1.9 yesterday and today. Remains above baseline of 1.2-1.4 and baseline GFR of about 60. Resume home levothyroxine and gabapentin. BP's stable - amlodipine and Cozaar remain on hold. 09/10/17 Patient remains very confused. Medications reviewed- Hold Tramadol. DC Reglan. Decrease Zoloft to 100mg Q Day for now. Decrease flexeril to 5mg dosing. Check venous ammonia. Serum calcium is trending down. Remains acidotic- continue NaHCO2 in IVF for now. Renal function remains elevated. Baseline 1.2-1.4. Chronic joint infection with suppressive therapy- Cipro/Clinda. Will request pharmacy consult for renal dosing. Pancytopenia appears stable, continue neutropenic precautions. 09/11/17 Continue sodium bicarb; CO2 improving. Creatinine increased slightly from 1.9 to 2.0. Cipro dose adjusted yesterday based on renal function. Phosphorus low at 2.0 -- start replacement PO. Ca remains stable at 8.4. ANC 1440 - continue neutropenic precautions. Encephalopathy seems to be improving
[2017-09-12] MEDS ORDERED: VANCOMYCIN - PHARMACY CONSULT MC ONE (09:21)
[2017-09-12] MEDS: CLINDAMYCIN 300 MG CAPSULE PO SCH ×2 (09:26→20:58)
[2017-09-12] MEDS: SERTRALINE 100 MG TABLET PO SCH (09:26)
[2017-09-12] MEDS: SENNA + DOCUSATE TABLET PO SCH ×2 (09:26→20:57)
[2017-09-12] MEDS: LABETALOL 100 MG TABLET PO SCH ×2 (09:27→20:57)
[2017-09-12] MEDS: ALLOPURINOL 100 MG TABLET PO SCH (09:27)
[2017-09-12] MEDS: GABAPENTIN 100 MG CAPSULE PO SCH ×2 (09:27→20:57)
[2017-09-12] MEDS: CEFEPIME 1 GM in NS 100 ML IV SCH ×2 (09:28→19:20)
[2017-09-12] MEDS ORDERED: CEFEPIME 1 GM in NS 100 ML IV SCH (09:30)
[2017-09-12] MEDS: PHOSPHORUS 250 MG TABLET PO SCH ×4 (09:31→20:57)
--- NOTE | 2017-09-12 11:57 | Progress Note ---
- Date 09/12/17 Subjective: Mr. Gonzales's was visiting. He is much more talkative today, but he is still not at his baseline. At his baseline, he is able to complete thoughts, but is occasionally confused. Currently, his thoughts are tangential and he cannot complete a thought. Earlier he was complaining of right shoulder discomfort, now this isn't bothering him so much. His at that he frequently complains of shoulder pain because of arthritis. We reviewed his lab and blood culture results. She states that he had a bloodstream infection coming from his right knee back in 2014 or 2015 when he was hospitalized at [place]. He saw Dr. Gomez at that time. He denies SOA. Objective Vital signs: Temperature 100.7 F H 09/12/17 11:48 Pulse Rate 83 09/12/17 11:48 Respiratory Rate 20 09/12/17 11:48 Blood Pressure 145/89 H 09/12/17 11:48 Pulse Oximetry 83 L 09/12/17 11:48 Rhythm: Normal Sinus Rhythm Height/Weight/BMI: Height 1.91 m Weight 129.9 kg Body Mass Index 34.3 - Constitutional Present: no acute distress, well nourished, well developed, obese - Routine HEENT Exam Head: Present: normocephalic Eye: Present: PERRL. Absent: conjunctival icterus, scleral injection - Routine Respiratory Exam Present: CTA bilaterally (anteriorly) - Routine Cardiovascular Exam Present: RRR, S1, S2 - Routine Abdominal Exam Present: soft, normoactive bowel sounds, non distended, non tender - Routine Extremities Exam Present: edema (RLE 1+), amputation (left BKA) - Routine Skin Exam Present: intact, dry, warm Comments: neck incision healing well. Ecchymosis to neck without significant swelling and no hematoma. - Routine Neurological Exam Present: alert - Routine Psychiatric Exam Absent: normal affect, normal thought process Results - Labs CBC & Chem 7: 09/12/17 04:12 09/12/17 06:33 Microbiology Results: Microbiology 09/11/17 19:25 Peripheral/Iv Start Gram Stain - Final 09/11/17 19:25 Peripheral/Iv Start Blood Culture - Preliminary Gram Positive Cocci 09/11/17 18:29 Peripheral/Iv Start Gram Stain - Final 09/11/17 18:29 Peripheral/Iv Start Blood Culture - Preliminary Staphylococcus aureus Enterococcus species Assessment and Plan (1) Hypercalcemia Problem details: Hyperparathyroidism/solitary parathyroid adenoma; s/p parathyoidectomy 09/07/17 Current visit: Yes Status: Resolved (2) Hypoglycemia Current visit: Yes Status: Resolved (3) Metabolic encephalopathy Current visit: Yes Status: Acute Assessment and Plan: Assessment Severe sepsis with MRSA and enterococcus bacteremia (dx 09/11/17) Encephalopathy with hallucinations Hypercalcemia secondary to hyperparathyroidism - resolved - hypocalcemia () Parathyroid adenoma - s/p parathyroidectomy 09/07/17 Hypoglycemia - resolved Acute kidney injury - FeNa 6.7% Metabolic acidosis Type 2 diabetes mellitus on insulin Chronic Pancytopenia Anemia -1 unit of blood with hemoglobin improved from 6.6 --> 10.1 Thrombocytopenia Chronic joint infection, on suppressive Cipro and clindamycin Chronic buttock wounds Hypothyroidism, post-ablative Possible supraventricular bradycardia, in sinus rhythm Obstructive sleep apnea - CPAP Obesity Hypertension-BP medications currently on hold Peripheral polyneuropathy Cirrhosis Generalized pain Insomnia Plan 09/12/17 Severe sepsis with MRSA and enterococcus bacteremia ? Source - possible joint vs chronic wounds. Neck incision healing well. Continue Vanco and cefepime for positive blood cultures - started 09/11. suppressive Cipro and clindamycin for chronic joint infections (Dr. Gomez) Consulted Dr. Apple - she will evaluate tomorrow. Lactate decreased from 2.2 to 0.9 WBC 3.1. T max 104.1 last evening. He is not hypotensive. Hypoxia with 83% on room air CXR yesterday was negative for pneumonia or CHF. O2 PRN CPAP HS DuoNeb PRN Metabolic acidosis/HERNAN CO2 improved to 20. Renal function elevated but about the same with BUN of 29 and creatinine of 2.1. Continue sodium bicarb. Continue Justin; good UO (1650/2210 on 09/12) Electrolyte abnormalities Phos still low at 2.3; mg low-normal at 1.6. Continue KPhos and give one- time dose of MagOx 800 mg. Ca decreased to 8.1 - Dr. Le recommends to start Ca if it decreases further. Encephalopathy Multifactorial - no recent [place]; last Tramadol was on 09/10 Ammonia level was 20 on 09/10 DM2; hypocalcemia Per Dr. Le S/P parathyroidectomy Per Dr. Gregory DVT Prophylaxis: SCD's GI Prophylaxis: Protonix Resuscitation Status: Full Code - Physician Narrative Physician: Caty Lerma MD Narrative: - Physician Narrative Narrative: Date: 09/12/17 Time: 1250 Mr. Gonzales was interviewed and examined by me. He is only oriented to person. I do not know his baseline. He does follow commands appropriately. He denied fever or chills to me. He is running temp of Tmax 104.1 current of 101.5. He denies feeling short of breath. He denied chest pressure, pain or tightness. He denied palpitations. He denied abdominal pain, nausea or vomiting to me. He was eating breakfast at the time of my visit with no problems. He is having soft liquid stool at present. He has a Justin in place with good urine output. PE: Gen: alert, only oriented to person, no time, place, situation, No family in room when seen by me. Skin: warm and dry, Neck incision healing well. No evidence of infection. Some ecchymosis HEENT: NC/AT PERRL, EOMI, Sclera, lids and conjunctiva wnl. MMM. OP clear. Neck: No JVD, Carotids 2+ without bruits Lungs: clear. diminished. No rales, rhonchi or wheezes CV: regular. Soft murmur LSB. Abd: soft. +BS. NT/ND MS: No edema of right LE. Left AKA. Neuro: No focal deficits Psy: Good mood. A/P: Severe sepsis with MRSA and enterococcus bacteremia Source unknown - possible joint vs chronic wounds. Neck incision healing well. Continue Vanco and cefepime for positive blood cultures - started 09/11. suppressive Cipro and clindamycin for chronic joint infections (Dr. Gomez) Consulted Dr. Apple - she will evaluate tomorrow. Lactate decreased from 2.2 to 0.9 WBC 3.1. T max 104.1 last evening. He is not hypotensive. Pt with watery stools this am. Will check C diff toxin and pcr. Repeat UA Repeat BLood cultures Hypoxia with 83% on room air CXR yesterday was negative for pneumonia or CHF. O2 PRN CPAP HS DuoNeb PRN Metabolic acidosis/HERNAN CO2 improved to 20. Renal function elevated but about the same with BUN of 29 and creatinine of 2.1. Continue sodium bicarb/IVF Continue Justin; good UO (1650/2210 on 09/12) Electrolyte abnormalities Phos still low at 2.3; mg low-normal at 1.6. Continue KPhos and give one- time dose of MagOx 800 mg. Ca decreased to 8.1 - Dr. Le recommends to start Ca if it decreases further. Encephalopathy Multifactorial - no recent [place]; last Tramadol was on 09/10 Ammonia level was 20 on 09/10, repeat in am. CT done 09/03/17 unremarkable except maxillary sinusitis Maxillary sinusitis Start flonase DM2; hypocalcemia Per Dr. Le S/P parathyroidectomy Per Dr. Gregory Prophylaxis PPI and SCDs, start SQ heparin when okay with surgery patient was discussed with Diana Powell APRN. I agree with her assessment and plan Hospital Course Summary Disclaimer: The visit summary below is not to be considered part of the above Progress Note. Hospital Course: 09/04/17 Admit to CCU for close monitoring as an inpatient. Continue normal saline. Dr. Le was consulted regarding hypercalcemia. He will see the patient a little later today. He does recommend surgical consultation for possible parathyroidectomy. Regarding acute kidney injury will continue IV fluids, check renal sonogram, check urine sodium and creatinine and hold losartan Re: Pancytopenia, will recheck CBC. Regarding chronic wound infections, will continue clindamycin and Cipro. Will ask pharmacy to adjust Cipro for renal function. Continue on telemetry for possible arrhythmias Recheck CBC and basic metabolic profile today and again tomorrow. The patient is full code per his who his DPOA. 09/05/17 Calcium improving following pamidronate yesterday, continue IV fluids. Scan consistent with single parathyroid adenoma. Surgery tentatively scheduled for later in the week. reports minor improvement in mental status continue to monitor. Blood sugars stable overnight-no recurrent hypoglycemia. Renal function minimally improved, continue hydration; medications adjusted for renal function earlier today by Pharm.D. No reported hypotension. Fractional excretion suggests intrinsic renal dysfunction. Hemoglobin/platelet count stable today; white count 2.9. Pancytopenia chronic. 09/06/17 Calcium improved/stable following pamidronate 09/04, continue IV fluids. Scan consistent with single parathyroid adenoma. Surgery tentatively scheduled for tomorrow-discussed with Dr. Gregory. Also discussed plans with Dr. Le, if GFR permits will receive a single dose of Zoledronic acid later today to further improve calcium preoperatively. reports minor improvement in mental status continue to monitor. Blood sugars stable today ranging from 147-155. Renal function slowly improving with creatinine 2.0 today-well above baseline of 1.2-1.4 and baseline GFR of about 60, continue hydration. Chronic pancytopenia (due to cirrhosis/chronic inflammation); anticipate platelet packs with surgery to minimize risk of neck hematoma. Home pain medications resumed. Low-dose Seroquel added for sleep. Supplemental history provided by nursing and patient's . Stable to transfer out of ICU today. 09/07/17 Patient moved to medical floor on 09/06/17. Calcium improved/stable (decreased from 14.3 on 09/03/17 to 11.6 today, 09/07/17). Parathyroidectomy scheduled for today with Dr. Gregory. Maintain NPO status due to anticipated surgery. Will continue IVF and add KCl 20 mEQ to IVF given hypokalemia. Weight trending up. Decrease rate to 150cc/hr and continue to monitor closely for signs of fluid overload. Dr. Le continues to follow patient. Appreciate his time and expertise. Discussed giving Zoledronic acid on 09/06/17, but decided against it. Anticipates improvement in calcium following surgery. Increased somnolence today - suspect secondary to receiving Seroquel 25mg at bedtime last night to assist with insomnia. Continue to monitor mental status closely. Blood sugars stable and trending up since admission (range 147-233). Continue to monitor closely. Renal function slowly improving with creatinine 1.9 today-well above baseline of 1.2-1.4 and baseline GFR of about 60. Continue hydration and continue to monitor. Pancytopenia chronic - anticipate platelet packs with surgery to minimize risk of neck hematoma. WBC 1.8, Hgb 8.7, Plt 48. Supplemental history provided by nursing and patient's . Telemetry reviewed-sinus rhythm. Will recheck labs in AM to monitor blood counts, electrolytes and renal function. Monitor serial calcium levels post operatively. 09/08/17 Calcium continues to improve progressively; PTH down immediately after surgery. Limited oral intake, continue IV fluids pending improvement. Weight trending up. He was dehydrated on admission, minor edema present right lower extremity; not hypoxic. Continue to monitor Dr. Le continues to follow patient for diabetes and hyperparathyroidism. Blood glucose is stable. Sleep improved with Seroquel the past 2 nights, speech mumbled but was prior to initiation of medication. We'll readdress with when available anticipate discontinuing medication in the next day or 2. Renal function slowly improving with creatinine 1.9 remains above baseline of 1.2-1.4 and baseline GFR of about 60. Chronic pancytopenia, count stable- 1 unit of platelets and packed cells with surgery yesterday. 09/09/17 Calcium has stabilized at 9.4 yesterday and today. Continue to monitor. Fluids switched from NS to 1/2NS with sodium bicarb. Dr. Le continues to follow patient for diabetes and hyperparathyroidism. Blood glucose is stable. (assistant manager of operations for Dr. Gregory) evaluated pt today. No changes. Renal function plateaued with creatinine 1.9 yesterday and today. Remains above baseline of 1.2-1.4 and baseline GFR of about 60. Resume home levothyroxine and gabapentin. BP's stable - amlodipine and Cozaar remain on hold. 09/10/17 Patient remains very confused. Medications reviewed- Hold Tramadol. DC Reglan. Decrease Zoloft to 100mg Q Day for now. Decrease flexeril to 5mg dosing. Check venous ammonia. Serum calcium is trending down. Remains acidotic- continue NaHCO2 in IVF for now. Renal function remains elevated. Baseline 1.2-1.4. Chronic joint infection with suppressive therapy- Cipro/Clinda. Will request pharmacy consult for renal dosing. Pancytopenia appears stable, continue neutropenic precautions. 09/11/17 Continue sodium bicarb; CO2 improving. Creatinine increased slightly from 1.9 to 2.0. Cipro dose adjusted yesterday based on renal function. Phosphorus low at 2.0 -- start replacement PO. Ca 8.4. ANC 1440 - continue neutropenic precautions. Spiked fever of 102.5 in the evening. Sepsis workup ensued. Lactate 2.2. Started Vanco and cefepime. 09/12/17 Severe sepsis with MRSA and enterococcus bacteremia ? Source - possible joint vs chronic wounds. Neck incision healing well. Continue Vanco and cefepime for positive blood cultures - started 09/11. suppressive Cipro and clindamycin for chronic joint infections (Dr. Gomez) Consulted Dr. Apple - she will evaluate tomorrow. Lactate decreased from 2.2 to 0.9 WBC 3.1. T max 104.1 last evening. He is not hypotensive. Hypoxia with 83% on room air CXR yesterday was negative for pneumonia or CHF. O2 PRN CPAP HS DuoNeb PRN Metabolic acidosis/HERNAN CO2 improved to 20. Renal function elevated but about the same with BUN of 29 and creatinine of 2.1. Continue sodium bicarb. Continue Justin; good UO (1650/2210 on 09/12) Electrolyte abnormalities Phos still low at 2.3; mg low-normal at 1.6. Continue KPhos and give one- time dose of MagOx 800 mg. Ca decreased to 8.1 - Dr. Le recommends to start Ca if it decreases further. Encephalopathy Multifactorial - no recent [place]; last Tramadol was on 09/10 Ammonia level was 20 on 09/10
[2017-09-12] MEDS: INSULIN ASPART 100unit/ml INJECTION SQ PRN ×2 (12:04→20:56)
[2017-09-12] MEDS ORDERED: MAGNESIUM OXIDE 400 MG TABLET PO ONE (12:08)
[2017-09-12] MEDS ORDERED: ALBUTEROL/IPRATROPIUM 2.5mg-0.5mg/3ml NEB IPPB PRN (12:15)
[2017-09-12] MEDS: POLYETHYL GLYCOL 3350 17gm PACKET PO SCH (12:55)
--- NOTE | 2017-09-12 16:25 | Progress Note ---
DATE 09/12/2017 FINDINGS Mr. Gonzales was seen earlier today on rounds. He remained confused. I do see that he has had intermittent fever. OBJECTIVE VITALS: T-max was 102.4 last evening. He remains normotensive. HEENT: Attention was focused to his cervical incision. There is some ecchymosis around the incision which is stable. There is however no evidence for erythema or induration to suggest postop infection. Dressing overlying the drain site was removed. No signs of infection noted at prior drain site. LABORATORY/RADIOGRAPHIC EVALUATION Patient had a CBC today that was unremarkable. White count is 3.1. Hemoglobin is stable at 10.2. Calcium remains stable at 8.1. ASSESSMENT 67-year-old gentleman with multiple medical comorbidities, status post parathyroidectomy secondary to symptomatic primary hyperparathyroidism. Patient with postop fever which I believe is not surgical in nature. PLAN The patient is stable from a general surgical standpoint. I appreciate the care of hospitalists. Will continue to follow along with patient's care. MICHELLE
[2017-09-12] MEDS: ACETAMINOPHEN 325 MG TABLET PO PRN (17:07)
[2017-09-12] MEDS ORDERED: FALL RISK - PHARMACY CONSULT MC ONE (21:22)
[2017-09-13] MEDS: CIPROFLOXACIN 250 MG TABLET PO SCH ×2 (05:35→20:36)
[2017-09-13] MEDS: LEVOTHYROXINE 50 MCG TABLET PO SCH (05:35)
[2017-09-13] MEDS: LEVOTHYROXINE 200 MCG TABLET PO SCH (05:36)
[2017-09-13] MEDS: PANTOPRAZOLE 40 MG TABLET PO SCH (05:36)
[2017-09-13] MEDS: INSULIN ASPART 100unit/ml INJECTION SQ PRN ×4 (06:37→21:28)
[2017-09-13] MEDS: CEFEPIME 1 GM in NS 100 ML IV SCH (06:38)
--- NOTE | 2017-09-13 07:46 | Endocrinology Progress Note ---
Subjective Principal diagnosis: Hypocalcemia Interval history: Alert and more oriented this morning. Better appetite, eating more. Little less right shoulder pain. Exam Vital signs: Temperature 97.6 F 09/13/17 04:00 Pulse Rate 76 09/13/17 04:00 Respiratory Rate 18 09/13/17 04:00 Blood Pressure 138/65 09/13/17 04:00 Pulse Oximetry 100 09/13/17 04:00 Inpatient Medications: Generic Name Dose Route Start Last Admin Trade Name Freq PRN Reason Stop Dose Admin Acetaminophen 650 mg 09/10/17 14:31 09/12/17 17:07 Tylenol PO 650 mg QID PRN Administration Discomfort Acetaminophen 650 mg 09/11/17 20:01 09/12/17 00:35 Tylenol Supp [place] 650 mg Q5H PRN Administration Pain Hydrocodone Bitart/Acetaminophen 1 tab 09/06/17 14:48 09/08/17 09:40 [place] 7.5/325 PO 1 tab Q6H PRN Administration Pain Albuterol/Ipratropium 3 ml 09/12/17 12:15 Duoneb IPPB RTQID PRN Allopurinol 100 mg 09/05/17 09:00 09/12/17 09:27 Zyloprim PO 100 mg DAILY DIDIER Administration Ciprofloxacin 250 mg 09/10/17 20:00 09/13/17 05:35 Cipro 250 Mg PO 250 mg BID/E DIDIER Administration Clindamycin HCl 300 mg 09/04/17 21:00 09/12/17 20:58 Cleocin PO 300 mg BID DIDIER Administration Cyclobenzaprine HCl 5 mg 09/10/17 10:07 09/11/17 14:15 Flexeril PO 5 mg TID PRN Administration Muscle spasm Dextrose 20 ml 09/04/17 10:21 D50%W IVP PRN PRN Hypoglycemia Gabapentin 100 mg 09/09/17 21:00 09/12/17 20:57 Neurontin PO 100 mg BID DIDIER Administration Sodium Bicarbonate 50 meq/ 1,050 mls @ 75 mls/hr 09/09/17 09:00 09/13/17 07: 08 Sodium Chloride IV 75 mls/hr .Q14H DIDIER Infusion Cefepime HCl 1 gm/ Sodium 100 mls @ 200 mls/hr 09/11/17 19:30 09/13/17 07:08 Chloride IV Infused Q12H DIDIER Infusion Vancomycin HCl 2,000 mg/ 500 mls @ 250 mls/hr 09/12/17 08:00 09/12/17 12:36 Sodium Chloride IV Infused 0800 DIDIER Infusion Insulin Aspart 1 - 5 unit 09/09/17 13:43 09/13/17 06:37 Novolog SQ 1 unit SS PRN Administration Hyperglycemia Protocol Labetalol HCl 100 mg 09/04/17 09:00 09/12/17 20:57 Normodyne PO 100 mg BID DIDIER Administration Levothyroxine Sodium 200 mcg 09/04/17 06:30 09/13/17 05:36 Synthroid PO 200 mcg ACB DIDIER Administration Levothyroxine Sodium 50 mcg 09/06/17 06:30 09/13/17 05:35 Synthroid PO 50 mcg ACB DIDIER Administration Nystatin 1 applic 09/04/17 09:00 09/12/17 20:58 Mycostatin TP 1 applic TID DIDIER Administration Ondansetron HCl 4 mg 09/07/17 16:20 Zofran IVP Q6H PRN Nausea &/or vomiting Pantoprazole Sodium 40 mg 09/04/17 06:30 09/13/17 05:36 Protonix Tab PO 40 mg ACB DIDIER Administration Polyethylene Glycol 17 gm 09/06/17 16:00 09/12/17 12:55 Miralax PO Not Given DAILY DIDIER Quetiapine Fumarate 25 mg 09/08/17 15:42 Seroquel PO HS PRN Insomnia Senna/Docusate Sodium 2 tab 09/06/17 21:00 09/12/17 20:57 Senna Plus Tablet PO 2 tab BID DIDIER Administration Sertraline HCl 100 mg 09/11/17 09:00 09/12/17 09:26 Zoloft PO 100 mg DAILY DIDIER Administration Sodium Chloride 10 - 80 ml 09/03/17 18:18 09/10/17 09:23 Iv Flush IVF 10 ml PRN PRN Administration Flushing Sodium Chloride 500 ml 09/04/17 00:27 09/07/17 12:23 Normal Saline IV 500 ml PRN PRN Administration Sodium Phosphate 500 mg 09/12/17 17:30 09/12/17 20:57 K-Phos *Neutral* Tablet PO 500 mg WMHS DIDIER Administration Tramadol HCl 50 mg 09/06/17 14:49 04/15/18 02:14 Ultram PO 50 mg TID PRN Administration Pain Discontinued Medications Generic Name Dose Route Start Last Admin Trade Name Freq PRN Reason Stop Dose Admin Bupivacaine HCl/Epinephrine Bitart 30 ml 09/07/17 14:54 09/07/17 14:55 Marcaine/Epi 0.25%/1:200,000 ID 09/07/17 14:55 4 ml O ONE Administration Calcitonin Mcfarlan 500 unit 09/03/17 19:51 09/03/17 20:18 Miacalcin SQ 09/03/17 19:52 500 unit O ONE Administration Ciprofloxacin 500 mg 09/04/17 21:00 09/10/17 06:11 Cipro 500 Mg PO 500 mg BID/E DIDIER Administration Cyclobenzaprine HCl 10 mg 09/06/17 14:48 09/10/17 06:11 Flexeril PO 10 mg TID PRN Administration Muscle spasm Furosemide 40 mg 09/03/17 20:33 09/04/17 00:35 Lasix 40 Mg/4 Ml IVP 09/03/17 20:34 40 mg O ONE Administration Sodium Chloride 1,000 mls @ 1,000 mls/hr 09/03/17 18:18 09/03/17 19:30 Normal Saline IV 09/03/17 19:17 Infused .Q1H ONE Infusion Sodium Chloride 1,000 mls @ 100 mls/hr 09/03/17 20:33 09/04/17 19:50 Normal Saline IV Infused .Q10H DIDIER Infusion 150 mls/hr Ceftriaxone Sodium 1 g/ Sodium 100 mls @ 200 mls/hr 09/03/17 21:54 09/04/17 01:20 Chloride IV 09/03/17 22:23 Infused O ONE Infusion Pamidronate Disodium 30 mg/ 260 mls @ 62.5 mls/hr 09/04/17 12:37 09/04/17 18: 00 Sodium Chloride IV 09/04/17 16:46 Infused O ONE Infusion Sodium Chloride 1,000 mls @ 200 mls/hr 09/04/17 19:45 09/07/17 11:18 1/2 Normal Saline IV Infused .Q5H DIDIER Infusion Sodium Chloride 1,000 mls @ 50 mls/hr 09/07/17 11:30 09/07/17 16:26 Normal Saline IV Infused .Q20H DIDIER Infusion Potassium Chloride 20 meq/ 1,010 mls @ 150 mls/hr 09/07/17 11:05 09/07/17 16: 40 Sodium Chloride IV Not Given .Q6H44M DIDIER Potassium Chloride/Sodium Chloride 1,000 mls @ 150 mls/hr 09/07/17 16:45 09:58 1/2 Ns With Kcl 20meq Premix IV Not Given .Q6H40M DIDIER Vancomycin HCl 2,000 mg/ 500 mls @ 250 mls/hr 09/11/17 19:35 09/11/17 22:47 Sodium Chloride IV 09/11/17 19:36 Infused O ONE Infusion Insulin Aspart 2 - 8 unit 09/04/17 10:21 09/09/17 12:12 Novolog SQ 2 unit SS PRN Administration Hyperglycemia Protocol Levothyroxine Sodium 50 mcg 09/10/17 06:30 Synthroid PO ACB DIDIER Lorazepam 1 mg 09/11/17 17:39 09/11/17 18:06 Ativan Inj IVP 09/11/17 17:40 1 mg ONCE ONE Administration Magnesium Oxide 800 mg 09/12/17 12:08 09/12/17 13:56 Magox PO 09/12/17 12:09 800 mg DAILY ONE Administration Metoclopramide HCl 5 mg 09/03/17 20:33 Reglan IVP Q6H PRN Miscellaneous Medication 1 each 09/04/17 09:14 09/04/17 19:53 Pharmacy Consult - Renal Dosing 09/04/17 09:15 1 each O ONE Administration Miscellaneous Medication 1 each 09/10/17 10:03 09/11/17 09:01 Pharmacy Consult - Renal Dosing 09/10/17 10:04 Not Given O ONE Morphine Sulfate 1 - 2 mg 09/03/17 20:33 Morphine Sulfate Inj IVP Q2H PRN Pain Morphine Sulfate 0 mg 09/07/17 15:35 09/07/17 16:08 Morphine Sulfate Vial IVP 2 mg Q10M PRN Administration Naloxone HCl 0.4 mg 09/03/17 18:24 09/03/17 18:31 Narcan IVP 09/03/17 18:25 0.4 mg O ONE Administration Ondansetron HCl 4 mg 09/03/17 20:33 Zofran IVP Q6H PRN Nausea &/or vomiting Pharmacy Consult 1 each 09/03/17 21:43 Pharmacy Consult - Fall Risk 09/03/17 21:44 ONE TIME ONE Pharmacy Consult each 09/12/17 21:22 Pharmacy Consult - Fall Risk 09/12/17 21:23 ONE TIME ONE Potassium Phosphate 1,000 mg 09/11/17 12:00 09/11/17 21:13 K-Phos Original (Urinary Acidifier) PO Not Given [facility] Quetiapine Fumarate 25 mg 09/06/17 21:00 09/07/17 20:38 Seroquel PO 25 mg HS DIDIER Administration Sertraline HCl 100 mg 09/04/17 09:00 09/10/17 09:18 Zoloft PO 100 mg BID DIDIER Administration Sodium Phosphate 1,000 mg 09/12/17 08:00 09/12/17 16:37 K-Phos *Neutral* Tablet PO Not Given [facility] DIDIER Thrombin 5,000 unit 09/07/17 14:56 09/07/17 14:56 Thrombin-Jmi OPSITE 09/07/17 14:57 5,000 unit O ONE Administration Vancomycin HCl 1 each 09/11/17 19:25 09/11/17 19:51 Pharmacy Consult - Vancomycin 09/11/17 19:26 1 each O ONE Administration - Constitutional mild distress - Routine HEENT Exam Head: Present: normocephalic, atraumatic Eye: Present: EOMI, PERRL ENT: Present: mucous membranes moist - Routine Neck Exam Absent: thyromegaly - Routine Respiratory Exam Absent: dyspnea - Routine Cardiovascular Exam Present: RRR - Routine Abdominal Exam Present: soft, normoactive bowel sounds. Absent: tenderness - Routine Skin Exam Present: dry, warm - Routine Neurological Exam Present: alert, oriented X3, moving all extremities - Routine Psychiatric Exam Present: normal affect, normal thought process (seems to be at his baseline this morning), good insight - Additional findings Additional findings: Laboratory Tests 09/12/17 09/12/17 09/12/17 11:44 14:57 19:24 BUN Creatinine Glucometer 232 215 259 Calcium Phosphorus 09/13/17 09/13/17 04:40 05:38 BUN 29.0 H Creatinine 2.0 H Glucometer 163 Calcium 7.0 L D Phosphorus 2.0 L - Urinary Catheter Management Urethral Cath placed during this visit: yes Insertion date: 09/03/17 Insertion time: 19:00 2-way Urethral Cath placed during this visit: no Assessment and Plan (1) Hypercalcemia Problem details: Hyperparathyroidism/solitary parathyroid adenoma; s/p parathyoidectomy 09/07/17 Current visit: Yes Status: Resolved (2) Metabolic encephalopathy Current visit: Yes Status: Acute Better today. (3) Primary hyperparathyroidism Current visit: Yes Status: Resolved (4) Diabetes mellitus type 2, uncontrolled, without complications Problem details: Controlled. Current visit: Yes Status: Chronic Glucose levels have been a little higher with sepiticemia and better food intake. If he remains hyperglycemic throughout today, basal insulin will be restarted this evening. (5) Hypertension Problem details: Controlled. Current visit: No Status: Chronic Better control today. (6) terminal carman current use of insulin Current visit: No Status: Chronic (7) Postablative hypothyroidism Problem details: Clinically euthyroid. Current visit: No Status: Chronic (8) Hypocalcemia Current visit: Yes Status: Acute Worse. Will start on calcitriol. Cannot use calcium supplement while he is receiving [facility].
--- NOTE | 2017-09-13 08:43 | Wound Care Progress Note ---
Wound Center Progress Note: In to see pt this morning, reassess all wounds at this time no acute changes in his "sitter butt" open area has no change. Left pannis area has open spots. Again moisture associated contact dermatitis. 3M Advanced skin protectant applied, encouraged staff to gently look under pannis, no pull to hard.
--- NOTE | 2017-09-13 08:43 | Infectious Disease Consult ---
Infectious Disease Consult Date of Consultation: 09/13/17 Requesting Physician: Darlene Saldaña Reason for Consultation: antibiotic recs History of Present Illness: Mr. Gonzales is a 67 y/o man with a h/o R knee PJI with Pseudomonas, Group B Strep and MRSA, on chronic suppression with clinda and cipro, followed by Dr. Gomez. He was admitted here on 09/03/17 for AMS. Blood cultures 09/03 were negative. He was afebrile on admission. He developed fever on 09/11 up to 104, and on 09/12 his temp was 105. He had confusion around that time also. Blood cultures drawn on 09/11 were both positive for S. aureus and Enterococcus (by the time I am finishing this note, this report has been changed to only S. aureus). He was started on Cefepime and Vancomycin. He has also been treated for hypercalcemia during this admission, and found to have a parathyroid adenoma. He underwent neck exploration with excision of right inferior parathyroid adenoma by Dr. Gregory on 09/07. He has chronic pancytopenia, suspected to cirrhosis and chronic inflammation, but today his WBC was lower at 1.6. He also has HERNAN. When I saw him this morning, he appeared encephalopathic and was not able to give a good history. His has been noted to have some wounds on his bottom and in the inguinal area. Medications Home Medications Medication Instructions Recorded Confirmed Type Cipro (ciprofloxacin) 500 mg tablet 500 mg PO BID tab 02/02/17 09/03/17 History Lantus Solostar (insulin glargine) 38 unit SQ HS ml 02/02/17 09/03/17 History 100 unit/mL (3 mL) PEN Neurontin (gabapentin) 100 mg 100 mg PO BID 02/02/17 09/03/17 History capsule aspirin 81 mg tablet,delayed 81 mg PO DAILY tab 02/02/17 09/03/17 History release Allopurinol [Zyloprim] 300 mg PO DAILY 06/04/17 09/03/17 History Amlodipine [Norvasc] 10 mg PO DAILY 06/04/17 09/03/17 History Cholecalciferol (Vitamin D3) 2,000 unit PO DAILY 06/04/17 09/03/17 History [Vitamin D3] Clindamycin [Cleocin] 300 mg PO BID 06/04/17 09/03/17 History Cyclobenzaprine [Flexeril] 10 mg PO TID PRN 06/04/17 09/03/17 History Dextrose [Glucose Gel] 4 oz BC PRN 06/04/17 09/03/17 History Docusate Sodium 100 mg PO BID PRN 06/04/17 09/03/17 History Fexofenadine [Yuridia] 180 mg PO DAILY PRN 06/04/17 09/03/17 History Labetalol [Normodyne] 100 mg PO BID 06/04/17 09/03/17 History Loperamide HCl [Imodium A-D] 2 mg PO Q4H PRN 06/04/17 09/03/17 History Losartan [Cozaar] 100 mg PO DAILY 06/04/17 09/03/17 History Ondansetron HCl 4 mg PO Q6H PRN 06/04/17 09/03/17 History Sertraline [Zoloft] 100 mg PO BID 06/04/17 09/03/17 History Protonix (Pantoprazole)40 mg 40 mg PO DAILY 07/11/17 09/03/17 History tablet,delayed release Novolog FlexPen (insulin aspart) 17 unit SQ TIDWM ml 08/21/17 09/03/17 History 100 unit/mL PEN levothyroxine 200 mcg tablet 200 mcg PO DAILY tab 08/23/17 09/03/17 Rx levothyroxine 50 mcg tablet 50 mcg PO DAILY 08/23/17 09/03/17 History Hydrocodone/APAP 7.5/325 [[place] 1 tab PO Q6H PRN 09/03/17 09/03/17 History 7.5/325] Tramadol [Ultram] 50 mg PO TID PRN 09/03/17 09/03/17 History Allergies Allergy/AdvReac Type Severity Reaction Status Date / Time Iodinated Contrast- Oral and Allergy Unknown Verified 09/03/17 18:31 IV Dye Sulfa (Sulfonamide Allergy Unknown Verified 09/03/17 18:31 Antibiotics) [facility] Patient Stated Medical History Hypertension Yes Other Cardiology Yes: venous insufficency Bronchitis Yes Sleep Apnea Yes Other Respiratory Yes: allergies Diabetes Mellitus Type 2 Yes Hx Kidney Stones Yes Hx Renal Disease Yes Blood Disorders Yes: blood counts off for 8 years Other Hematologic Yes: bruise easily Other Musculoskeletal Yes: confusion Cellulitis Yes MRSA Yes Sepsis Yes Anesthesia Reactions No Depression Yes Clinic Medical History (Last Updated 08/24/17 @ 08:05 by Kevin Le MD) Hyperparathyroidism, primary (Acute Medical ~08/24/17) Diabetes mellitus type 2, uncontrolled, without complications (Chronic Medical ~ 1994) Controlled. Diabetic peripheral neuropathy associated with type 2 diabetes mellitus ( Chronic Medical) Unable to fully assess today. Postablative hypothyroidism (Chronic Medical ~2003) Clinically euthyroid. Hypertension (Chronic Medical) Controlled. 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 HTN. CAD. PVD. Diabetic neuropathy. Gastroparesis. Allergic rhinitis. IDDM. Hypothyroid (s/p JET). GERD. Depression. KIZZY. Morbid obesity Surgical History: -Normal colonoscopy age 52. -Left total knee replacement 2004. -Left BKA 2010. -Right total knee replacement 2005. -Right knee revisions x2. -Right knee explantation of joint in insertion of krzysztof (right knee is permantly straight). -Bilateral Hip replacements. -Radio-ablation of thyroid 2003. - Open removal of large kidney stone 1994 (he was not a candidate for lithotripsy) Family History: Family History (Last Reviewed 08/23/17 @ 09:53 by Kevin Le MD) Brother Diabetes Sister Diabetes Mother Thyroid disease Family History Updates: as prior with no early cad, much T2D - Social History Smoking status: Never smoker second hand exposure: No Substance use type: does not use Alcohol intake frequency: does not drink Housing: senior care ([facility] for about 1 year) Household members: spouse Current occupational status: disabled Does patient use chewing tobacco?: No Current residence: [place] Review of Systems ROS unobtainable: due to mental status Exam Vital Signs: Temperature 97.6 F 09/13/17 04:00 Pulse Rate 76 09/13/17 04:00 Respiratory Rate 18 09/13/17 04:00 Blood Pressure 138/65 09/13/17 04:00 Pulse Oximetry 100 09/13/17 04:00 Height/Weight/BMI: Height 1.91 m Weight 131.7 kg Body Mass Index 34.3 - Constitutional Present: obese - Routine HEENT Exam Head: Present: normocephalic, atraumatic Eye: Present: EOMI, PERRL ENT: Present: mucous membranes dry Comments: poor dentition - Routine Neck Exam Comments: mild edema, ecchymosis noted around incision, but it appears to be healing well - Routine Respiratory Exam Present: CTA bilaterally (anteriorly) - Routine Cardiovascular Exam Present: RRR - Routine Abdominal Exam Present: soft, non tender, distended (mildly). Absent: rebound, guarding Comments: decreased bowel sounds - Routine Exam Comments: magallanes in place - Routine Extremities Exam Present: edema (trace LE). Absent: cyanosis, clubbing Comments: s/p L BKA - Routine Skin Exam Absent: rash Comments: some skin breakdown noted L inguinal area. Some skin tears noted on arms and RLE , covered. - Routine Neurological Exam Present: alert, CN II-XII intact, altered mental status - Routine Psychiatric Exam Present: unable to assess Results - Labs CBC & Chem 7: 09/13/17 04:40 09/13/17 04:40 Microbiology Results: Microbiology 09/11/17 19:25 Peripheral/Iv Start Gram Stain - Final 09/11/17 19:25 Peripheral/Iv Start Blood Culture - Preliminary Gram Positive Cocci 09/11/17 18:29 Peripheral/Iv Start Gram Stain - Final 09/11/17 18:29 Peripheral/Iv Start Blood Culture - Preliminary Staphylococcus aureus Enterococcus species Impression: Severe sepsis, MRSA, 09/11/17 Neutropenia Encephalopathy with hallucinations Hypercalcemia secondary to hyperparathyroidism Parathyroid adenoma - s/p parathyroidectomy 09/07/17 Acute kidney injury Metabolic acidosis Type 2 diabetes mellitus on insulin, with peripheral neuropathy Chronic Pancytopenia, possibly due to underlying cirrhosis 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 I would continue the oral ciprofloxacin for chronic suppression for the Pseudomonas. He doesn't need clindamycin while he is on the vancomycin. Also don't see much added benefit with cefepime currently so I will stop that. Will follow up on blood culture results. He will need repeat blood cultures. I suspect he will need a transesophageal echocardiogram to evaluate for vegetations. I will check an x- ray of his right knee. He might need an MRI of the right knee. I am suspicious that his right knee is the source of his infection and he may ultimately require an above knee amputation.
[2017-09-13] MEDS: POLYETHYL GLYCOL 3350 17gm PACKET PO SCH (09:56)
[2017-09-13] MEDS: SENNA + DOCUSATE TABLET PO SCH ×2 (09:57→21:31)
[2017-09-13] MEDS: PHOSPHORUS 250 MG TABLET PO SCH (09:57)
[2017-09-13] MEDS: ALLOPURINOL 100 MG TABLET PO SCH (09:57)
[2017-09-13] MEDS: GABAPENTIN 100 MG CAPSULE PO SCH ×2 (09:58→21:31)
[2017-09-13] MEDS: SERTRALINE 100 MG TABLET PO SCH (09:58)
[2017-09-13] MEDS: LABETALOL 100 MG TABLET PO SCH ×2 (09:58→21:31)
[2017-09-13] MEDS: CALCITRIOL 0.25 MCG CAPSULE PO SCH (10:01)
--- NOTE | 2017-09-13 10:02 | Progress Note ---
- Date 09/13/17 Subjective: Gurdeep is seen this morning following bath with nursing staff. He is relaxing in bed. He will answer some questions with yes/no responses however, other answers are not appropriate. He is on room air during examination, mouth noted to be dry. He denies having pain on palpation, however me moans frequently. Afebrile, Vitals normal. WBC count decreased to 1.6. Objective Vital signs: Temperature 99.3 F 09/13/17 08:00 Pulse Rate 72 09/13/17 08:00 Respiratory Rate 18 09/13/17 08:00 Blood Pressure 136/68 09/13/17 08:00 Pulse Oximetry 96 09/13/17 08:00 Rhythm: Normal Sinus Rhythm Height/Weight/BMI: Height 1.91 m Weight 131.7 kg Body Mass Index 34.3 - Constitutional Present: no acute distress, well nourished, well developed - Routine HEENT Exam Eye: Present: EOMI ENT: Present: mucous membranes moist, dentition normal - Routine Respiratory Exam Present: CTA bilaterally. Absent: wheezes - Routine Cardiovascular Exam Present: RRR, S1, S2. Absent: murmur - Routine Abdominal Exam Present: soft, normoactive bowel sounds, non distended. Absent: tenderness - Routine Skin Exam Present: intact, dry, warm - Routine Neurological Exam Present: alert, CN II-XII intact, altered mental status - Routine Lymphatic Exam Lymphatic: Absent: adenopathy - Routine Psychiatric Exam Present: cooperative, unable to assess Results - Labs CBC & Chem 7: 09/13/17 04:40 09/13/17 04:40 Microbiology Results: Microbiology 09/11/17 19:25 Peripheral/Iv Start Gram Stain - Final 09/11/17 19:25 Peripheral/Iv Start Blood Culture - Preliminary Gram Positive Cocci 09/11/17 18:29 Peripheral/Iv Start Gram Stain - Final 09/11/17 18:29 Peripheral/Iv Start Blood Culture - Preliminary Staphylococcus aureus Enterococcus species Assessment and Plan (1) Hypercalcemia Problem details: Hyperparathyroidism/solitary parathyroid adenoma; s/p parathyoidectomy 09/07/17 Current visit: Yes Status: Resolved (2) Hypoglycemia Current visit: Yes Status: Resolved (3) Metabolic encephalopathy Current visit: Yes Status: Acute Assessment and Plan: Assessment Severe sepsis with MRSA and enterococcus bacteremia (dx 09/11/17) Encephalopathy with hallucinations Hypercalcemia secondary to hyperparathyroidism - resolved - hypocalcemia () Parathyroid adenoma - s/p parathyroidectomy 09/07/17 Hypoglycemia - resolved Hypoxia- Resolved Acute kidney injury - FeNa 6.7% Metabolic acidosis Type 2 diabetes mellitus on insulin Chronic Pancytopenia Anemia -1 unit of blood with hemoglobin improved from 6.6 --> 10.1 Thrombocytopenia Chronic joint infection, on suppressive Cipro and clindamycin Chronic buttock wounds Hypothyroidism, post-ablative Possible supraventricular bradycardia, in sinus rhythm Obstructive sleep apnea - CPAP Obesity Hypertension-BP medications currently on hold Peripheral polyneuropathy Cirrhosis Generalized pain Insomnia Plan Appreciate consultation by Dr Apple. She is concerned about possible right knee source infection. Right knee Xray ordered Cefepime discontinued. Continue with Vancomycin for positive blood cultures - started 09/11. Added PO Cipro for chronic suppression Will repeat Blood cultures today ANC count is 928- reveling Neutropenia. Placed on precautions All wounds evaluated this morning by Wound team Nurse- No evidence of acute infection or worsening wounds. Will likely require a ISHMAEL to evaluate for vegetations- discuss with attending. Case discussed with attending, Dr Lerma - Physician Narrative Physician: Cayt Lerma MD Narrative: Date: 09/13/17 Time: 1100 Mr. Gonzales was interviewed and examined by me. He is resting fairly comfortably. He does complain of pain in his knees. He denies feeling short of breath. He denies chest pain. Denies abdominal pain. He denies nausea. He states he is not hungry but will try to eat breakfast. PE: Gen: alert, only oriented to person, no time, place, situation, No family in room. Skin: warm and dry, Neck incision healing well. No evidence of infection. Some ecchymosis. Venous stasis discoloration of bilateral lower ext. (stump of right LE) HEENT: NC/AT PERRL, EOMI, Sclera, lids and conjunctiva wnl. DryMM. OP clear. Neck: No JVD, Carotids 2+ without bruits Lungs: clear. diminished. No rales, rhonchi or wheezes CV: regular. 2/6 murmur. Abd: soft. +BS. NT/ND MS: Trace edema of right LE. Left AKA. Right pedal pulse palp but weak. Neuro: No focal deficits Psy: Cooperative, pleasant A/P: Severe sepsis with MRSA and enterococcus bacteremia Source unknown - possible joint vs chronic wounds. Neck incision healing well. Dr. Apple consulted. appreciate her assistance. Cefepime and clinda dc'd. Continue Vanco (started 09/11) and chronic cipro (for suppression of pseudomonas) Lactate decreased from 2.2 to 0.9 Procalcitonin elevated 3.09-repeat in am. WBC 1.6, neutropenic, precautions initiated. Tmax 105.4 at 1652 yesterday, this am 99.3. , BP ok good and stable Pt with watery stools yesterday, C diff toxin and pcr pending. Repeat UA-unremarkable Blood cultures repeated today XRAY of right knee done this am. May need to get an MRI TTE done this am. Not revealing. Will get ISHMAEL by Dr. Wilkins in am. Hypoxia with 83% on room air CXR 09/11/17 negative for pneumonia or CHF. O2 PRN CPAP HS DuoNeb PRN Metabolic acidosis/HERNAN CO2 stable at 20. Renal function elevated but about the same with BUN of 29 and creatinine of 2.0. Continue sodium bicarb/IVF Continue Justin; good UO Electrolyte abnormalities Phos still low at 2.0; mg low-normal at 1.6. Stop KPhos, give skim milk TID with meals and give IV mag today Ca decreased to 7.0 Dr. Le recommended Calcitriol since he was on KPhos. We will stop KPhos today and he can start calcium supplement if he wants to. Encephalopathy Multifactorial - no recent [place]; last Tramadol was on 09/10 Ammonia level was 20 on 09/10, repeat in am. CT done 09/03/17 unremarkable except maxillary sinusitis Maxillary sinusitis Start flonase DM2; hypocalcemia Per Dr. Le S/P parathyroidectomy Per Dr. Gregory Prophylaxis PPI and SCDs, start SQ heparin I have discussed pt with Migdalia Monsalve APRN. I have reviewed his labs, notes and imaging. I have independently interviewed and examined the pt. Agree with assessment and plan with above changes. Hospital Course Summary Disclaimer: The visit summary below is not to be considered part of the above Progress Note. Hospital Course: 09/04/17 Admit to CCU for close monitoring as an inpatient. Continue normal saline. Dr. Le was consulted regarding hypercalcemia. He will see the patient a little later today. He does recommend surgical consultation for possible parathyroidectomy. Regarding acute kidney injury will continue IV fluids, check renal sonogram, check urine sodium and creatinine and hold losartan Re: Pancytopenia, will recheck CBC. Regarding chronic wound infections, will continue clindamycin and Cipro. Will ask pharmacy to adjust Cipro for renal function. Continue on telemetry for possible arrhythmias Recheck CBC and basic metabolic profile today and again tomorrow. The patient is full code per his who his DPOA. 09/05/17 Calcium improving following pamidronate yesterday, continue IV fluids. Scan consistent with single parathyroid adenoma. Surgery tentatively scheduled for later in the week. reports minor improvement in mental status continue to monitor. Blood sugars stable overnight-no recurrent hypoglycemia. Renal function minimally improved, continue hydration; medications adjusted for renal function earlier today by Pharm.D. No reported hypotension. Fractional excretion suggests intrinsic renal dysfunction. Hemoglobin/platelet count stable today; white count 2.9. Pancytopenia chronic. 09/06/17 Calcium improved/stable following pamidronate 09/04, continue IV fluids. Scan consistent with single parathyroid adenoma. Surgery tentatively scheduled for tomorrow-discussed with Dr. Gregory. Also discussed plans with Dr. Le, if GFR permits will receive a single dose of Zoledronic acid later today to further improve calcium preoperatively. reports minor improvement in mental status continue to monitor. Blood sugars stable today ranging from 147-155. Renal function slowly improving with creatinine 2.0 today-well above baseline of 1.2-1.4 and baseline GFR of about 60, continue hydration. Chronic pancytopenia (due to cirrhosis/chronic inflammation); anticipate platelet packs with surgery to minimize risk of neck hematoma. Home pain medications resumed. Low-dose Seroquel added for sleep. Supplemental history provided by nursing and patient's . Stable to transfer out of ICU today. 09/07/17 Patient moved to medical floor on 09/06/17. Calcium improved/stable (decreased from 14.3 on 09/03/17 to 11.6 today, 09/07/17). Parathyroidectomy scheduled for today with Dr. Gregory. Maintain NPO status due to anticipated surgery. Will continue IVF and add KCl 20 mEQ to IVF given hypokalemia. Weight trending up. Decrease rate to 150cc/hr and continue to monitor closely for signs of fluid overload. Dr. Le continues to follow patient. Appreciate his time and expertise. Discussed giving Zoledronic acid on 09/06/17, but decided against it. Anticipates improvement in calcium following surgery. Increased somnolence today - suspect secondary to receiving Seroquel 25mg at bedtime last night to assist with insomnia. Continue to monitor mental status closely. Blood sugars stable and trending up since admission (range 147-233). Continue to monitor closely. Renal function slowly improving with creatinine 1.9 today-well above baseline of 1.2-1.4 and baseline GFR of about 60. Continue hydration and continue to monitor. Pancytopenia chronic - anticipate platelet packs with surgery to minimize risk of neck hematoma. WBC 1.8, Hgb 8.7, Plt 48. Supplemental history provided by nursing and patient's . Telemetry reviewed-sinus rhythm. Will recheck labs in AM to monitor blood counts, electrolytes and renal function. Monitor serial calcium levels post operatively. 09/08/17 Calcium continues to improve progressively; PTH down immediately after surgery. Limited oral intake, continue IV fluids pending improvement. Weight trending up. He was dehydrated on admission, minor edema present right lower extremity; not hypoxic. Continue to monitor Dr. Le continues to follow patient for diabetes and hyperparathyroidism. Blood glucose is stable. Sleep improved with Seroquel the past 2 nights, speech mumbled but was prior to initiation of medication. We'll readdress with when available anticipate discontinuing medication in the next day or 2. Renal function slowly improving with creatinine 1.9 remains above baseline of 1.2-1.4 and baseline GFR of about 60. Chronic pancytopenia, count stable- 1 unit of platelets and packed cells with surgery yesterday. 09/09/17 Calcium has stabilized at 9.4 yesterday and today. Continue to monitor. Fluids switched from NS to 1/2NS with sodium bicarb. Dr. Le continues to follow patient for diabetes and hyperparathyroidism. Blood glucose is stable. (instructional materials director for Dr. Gregory) evaluated pt today. No changes. Renal function plateaued with creatinine 1.9 yesterday and today. Remains above baseline of 1.2-1.4 and baseline GFR of about 60. Resume home levothyroxine and gabapentin. BP's stable - amlodipine and Cozaar remain on hold. 09/10/17 Patient remains very confused. Medications reviewed- Hold Tramadol. DC Reglan. Decrease Zoloft to 100mg Q Day for now. Decrease flexeril to 5mg dosing. Check venous ammonia. Serum calcium is trending down. Remains acidotic- continue NaHCO2 in IVF for now. Renal function remains elevated. Baseline 1.2-1.4. Chronic joint infection with suppressive therapy- Cipro/Clinda. Will request pharmacy consult for renal dosing. Pancytopenia appears stable, continue neutropenic precautions. 09/11/17 Continue sodium bicarb; CO2 improving. Creatinine increased slightly from 1.9 to 2.0. Cipro dose adjusted yesterday based on renal function. Phosphorus low at 2.0 -- start replacement PO. Ca 8.4. ANC 1440 - continue neutropenic precautions. Spiked fever of 102.5 in the evening. Sepsis workup ensued. Lactate 2.2. Started Vanco and cefepime. 09/12/17 Severe sepsis with MRSA and enterococcus bacteremia ? Source - possible joint vs chronic wounds. Neck incision healing well. Continue Vanco and cefepime for positive blood cultures - started 09/11. suppressive Cipro and clindamycin for chronic joint infections (Dr. Gomez) Consulted Dr. Apple - she will evaluate tomorrow. Lactate decreased from 2.2 to 0.9 WBC 3.1. T max 104.1 last evening. He is not hypotensive. Hypoxia with 83% on room air CXR yesterday was negative for pneumonia or CHF. O2 PRN CPAP HS DuoNeb PRN Metabolic acidosis/HERNAN CO2 improved to 20. Renal function elevated but about the same with BUN of 29 and creatinine of 2.1. Continue sodium bicarb. Continue Justin; good UO (1650/2210 on 09/12) Electrolyte abnormalities Phos still low at 2.3; mg low-normal at 1.6. Continue KPhos and give one- time dose of MagOx 800 mg. Ca decreased to 8.1 - Dr. Le recommends to start Ca if it decreases further. Encephalopathy Multifactorial - no recent [place]; last Tramadol was on 09/10 Ammonia level was 20 on 09/1009/13/[address] consultation by Dr Apple. She is concerned about possible right knee source infection. Right knee Xray ordered Cefepime discontinued. Continue with Vancomycin for positive blood cultures - started 09/11. Added PO Cipro for chronic suppression Will repeat Blood cultures today ANC count is 928- reveling Neutropenia. Placed on precautions All wounds evaluated this morning by Wound team Nurse- No evidence of acute infection or worsening wounds. Will likely require a ISHMAEL to evaluate for vegetations- discuss with attending. Case discussed with attending, Dr Lerma
[2017-09-13] MEDS: CLINDAMYCIN 300 MG CAPSULE PO SCH (10:32)
--- NOTE | 2017-09-13 10:43 | XRay Report ---
Indication: osteomyelitis PROCEDURE: XR knee RT 2V: Encounter: Initial Comparison: None Findings: No acute fracture identified. Evidence of old trauma and infection with methyl methacrylate filling the knee joint space and arthrodesis of the knee joint with a fixation on. No evidence of hardware loosening or failure. No acute periosteal reaction or osteolytic process identified. Impression: Findings of prior or chronic infection. No radiographic evidence to suggest acute osteomyelitis. .
[2017-09-13] MEDS: HYDROCODONE/APAP 7.5 MG/325 MG TABLET PO PRN (11:32)
[2017-09-13] MEDS: HEPARIN SUB-Q 5,000units/0.5ml INJECTION SQ SCH ×2 (12:13→16:39)
[2017-09-13] MEDS: SODIUM BICARBONATE 50 MEQ in 1/2 NS 1,000 ML IV SCH (12:14)
[2017-09-13] MEDS: FLUTICASONE NASAL SPRAY 50mcg EA NOSTRIL SCH (12:20)
[2017-09-13] MEDS: MAGNESIUM SULFATE 1gm PREMIX 1 GM/100 ML BAG IV SCH ×2 (12:22→13:28)
--- NOTE | 2017-09-13 19:03 | Echocardiogram ---
DATE OF PROCEDURE September 13, 2017 This is a two-dimensional echo with spectral Doppler, color-flow and M-mode. It was obtained in a patient with leukocytosis and bacteremia. Left atrium is dilated. Left ventricular end-diastolic dimension is normal. Left ventricular wall thickness is normal. LV systolic function is normal with ejection fraction of 55%. Right atrium is normal. Right ventricle is normal. Aortic root dimension is normal. Mitral valve is normal. Aortic valve appears to be normal. Tricuspid valve shows mild tricuspid regurgitation with mild pulmonary hypertension with estimated pulmonary artery systolic pressure of 40. Pulmonary valve shows mild pulmonary insufficiency. There is no pericardial effusion. IMPRESSION 1. Normal LV systolic function with ejection fraction of 55%. 2. Left atrial dilation. 3. Mild tricuspid regurgitation with mild pulmonary hypertension with estimated pulmonary artery systolic pressure of 40. 4. Mild pulmonary insufficiency. MTDD
[2017-09-14] MEDS: HYDROCODONE/APAP 7.5 MG/325 MG TABLET PO PRN ×2 (00:04→23:13)
[2017-09-14] MEDS: HEPARIN SUB-Q 5,000units/0.5ml INJECTION SQ SCH ×3 (00:04→17:47)
[2017-09-14] MEDS: INSULIN ASPART 100unit/ml INJECTION SQ PRN (05:58)
[2017-09-14] MEDS: SODIUM BICARBONATE 50 MEQ in 1/2 NS 1,000 ML IV SCH ×2 (05:59→23:13)
[2017-09-14] MEDS: CIPROFLOXACIN 250 MG TABLET PO SCH ×2 (07:33→20:51)
[2017-09-14] MEDS: LEVOTHYROXINE 200 MCG TABLET PO SCH (07:33)
[2017-09-14] MEDS: PANTOPRAZOLE 40 MG TABLET PO SCH (07:34)
[2017-09-14] MEDS: LEVOTHYROXINE 50 MCG TABLET PO SCH (07:34)
--- NOTE | 2017-09-14 07:46 | Endocrinology Progress Note ---
Subjective Principal diagnosis: Hypocalcemia Interval history: Alert and oriented this morning. Coherent and conversational. NPO for ISHMAEL this morning. Exam Vital signs: Temperature 98.4 F 09/14/17 04:27 Pulse Rate 76 09/14/17 04:27 Respiratory Rate 24 09/14/17 04:27 Blood Pressure 138/66 09/14/17 04:27 Pulse Oximetry 98 09/14/17 04:27 Inpatient Medications: Generic Name Dose Route Start Last Admin Trade Name Freq PRN Reason Stop Dose Admin Acetaminophen 650 mg 09/10/17 14:31 09/12/17 17:07 Tylenol PO 650 mg QID PRN Administration Discomfort Acetaminophen 650 mg 09/11/17 20:01 09/12/17 00:35 Tylenol Supp [place] 650 mg Q5H PRN Administration Pain Hydrocodone Bitart/Acetaminophen 1 tab 09/06/17 14:48 09/14/17 00:04 Grannis 7.5/325 PO 1 tab Q6H PRN Administration Pain Albuterol/Ipratropium 3 ml 09/12/17 12:15 Duoneb IPPB RTQID PRN Allopurinol 100 mg 09/05/17 09:00 09/13/17 09:57 Zyloprim PO 100 mg DAILY DIDIER Administration Calcitriol 0.5 mcg 09/13/17 09:00 09/13/17 10:01 Rocaltrol PO 0.5 mcg DAILY DIDIER Administration Ciprofloxacin 250 mg 09/10/17 20:00 09/14/17 07:33 Cipro 250 Mg PO Not Given BID/E DIDIER Cyclobenzaprine HCl 5 mg 09/10/17 10:07 09/11/17 14:15 Flexeril PO 5 mg TID PRN Administration Muscle spasm Dextrose 20 ml 09/04/17 10:21 D50%W IVP PRN PRN Hypoglycemia Fluticasone Propionate 2 spray 09/13/17 11:30 09/13/17 12:20 Flonase EA NOSTRIL 2 spray DAILY DIDIER Administration Gabapentin 100 mg 09/09/17 21:00 09/13/17 21:31 Neurontin PO 100 mg BID DIDIER Administration Heparin Sodium (Porcine) 5,000 units 09/13/17 11:30 09/14/17 00:04 Heparin Sq SQ 5,000 units Q8HR DIDIER Administration Sodium Bicarbonate 50 meq/ 1,050 mls @ 75 mls/hr 09/09/17 09:00 09/14/17 05: 59 Sodium Chloride IV 75 mls/hr .Q14H DIDIER Administration Vancomycin HCl 2,000 mg/ 500 mls @ 250 mls/hr 09/12/17 08:00 09/13/17 12:13 Sodium Chloride IV Infused 0800 DIDIER Infusion Insulin Aspart 1 - 5 unit 09/09/17 13:43 09/14/17 05:58 Novolog SQ 1 unit SS PRN Administration Hyperglycemia Protocol Labetalol HCl 100 mg 09/04/17 09:00 09/13/17 21:31 Normodyne PO 100 mg BID DIDIER Administration Levothyroxine Sodium 200 mcg 09/04/17 06:30 09/14/17 07:33 Synthroid PO Not Given ACB DIDIER Levothyroxine Sodium 50 mcg 09/06/17 06:30 09/14/17 07:34 Synthroid PO Not Given ACB DIDIER Nystatin 1 applic 09/04/17 09:00 09/13/17 21:30 Mycostatin TP 1 applic TID DIDIER Administration Ondansetron HCl 4 mg 09/07/17 16:20 Zofran IVP Q6H PRN Nausea &/or vomiting Pantoprazole Sodium 40 mg 09/04/17 06:30 09/14/17 07:34 Protonix Tab PO Not Given ACB DIDIER Polyethylene Glycol 17 gm 09/06/17 16:00 09/13/17 09:56 Miralax PO 17 gm DAILY DIDIER Administration Quetiapine Fumarate 25 mg 09/08/17 15:42 Seroquel PO HS PRN Insomnia Senna/Docusate Sodium 2 tab 09/06/17 21:00 09/13/17 21:31 Senna Plus Tablet PO Not Given BID DIDIER Sertraline HCl 100 mg 09/11/17 09:00 09/13/17 09:58 Zoloft PO 100 mg DAILY DIDIER Administration Sodium Chloride 10 - 80 ml 09/03/17 18:18 09/10/17 09:23 Iv Flush IVF 10 ml PRN PRN Administration [place] Sodium Chloride 500 ml 09/04/17 00:27 09/07/17 12:23 Normal Saline IV 500 ml PRN PRN Administration Tramadol HCl 50 mg 09/06/17 14:49 09/10/17 02:14 Ultram PO 50 mg TID PRN Administration Pain Discontinued Medications Generic Name Dose Route Start Last Admin Trade Name Freq PRN Reason Stop Dose Admin Bupivacaine HCl/Epinephrine Bitart 30 ml 09/07/17 14:54 09/07/17 14:55 Marcaine/Epi 0.25%/1:200,000 ID 09/07/17 14:55 4 ml O ONE Administration Calcitonin [place] 500 unit 09/03/17 19:51 09/03/17 20:18 Miacalcin SQ 09/03/17 19:52 500 unit O ONE Administration Ciprofloxacin 500 mg 09/04/17 21:00 09/10/17 06:11 Cipro 500 Mg PO 500 mg BID/E DIDIER Administration Clindamycin HCl 300 mg 09/04/17 21:00 09/13/17 10:32 Cleocin PO Not Given BID DIDIER Cyclobenzaprine HCl 10 mg 09/06/17 14:48 09/10/17 06:11 Flexeril PO 10 mg TID PRN Administration Muscle spasm Furosemide 40 mg 09/03/17 20:33 09/04/17 00:35 Lasix 40 Mg/4 Ml IVP 09/03/17 20:34 40 mg O ONE Administration Sodium Chloride 1,000 mls @ 1,000 mls/hr 09/03/17 18:18 09/03/17 19:30 Normal Saline IV 09/03/17 19:17 Infused .Q1H ONE Infusion Sodium Chloride 1,000 mls @ 100 mls/hr 09/03/17 20:33 09/04/17 19:50 Normal Saline IV Infused .Q10H DIDIER Infusion 150 mls/hr Ceftriaxone Sodium 1 g/ Sodium 100 mls @ 200 mls/hr 09/03/17 21:54 09/04/17 01:20 Chloride IV 09/03/17 22:23 Infused O ONE Infusion Pamidronate Disodium 30 mg/ 260 mls @ 62.5 mls/hr 09/04/17 12:37 09/04/17 18: 00 Sodium Chloride IV 09/04/17 16:46 Infused O ONE Infusion Sodium Chloride 1,000 mls @ 200 mls/hr 09/04/17 19:45 09/07/17 11:18 1/2 Normal Saline IV Infused .Q5H DIDIER Infusion Sodium Chloride 1,000 mls @ 50 mls/hr 09/07/17 11:30 09/07/17 16:26 Normal Saline IV Infused .Q20H DIDIER Infusion Potassium Chloride 20 meq/ 1,010 mls @ 150 mls/hr 09/07/17 11:05 09/07/17 16: 40 Sodium Chloride IV Not Given .Q6H44M DIDIER Potassium Chloride/Sodium Chloride 1,000 mls @ 150 mls/hr 09/07/17 16:45 09:58 1/2 Ns With Kcl 20meq Premix IV Not Given .Q6H40M DIDIER Cefepime HCl 1 gm/ Sodium 100 mls @ 200 mls/hr 09/11/17 19:30 09/13/17 07:08 Chloride IV Infused Q12H DIDIER Infusion Vancomycin HCl 2,000 mg/ 500 mls @ 250 mls/hr 09/11/17 19:35 09/11/17 22:47 Sodium Chloride IV 09/11/17 19:36 Infused O ONE Infusion Magnesium Sulfate/Dextrose 1 gm in 100 mls @ 100 mls/hr 09/13/17 11:30 14:37 Mag Sulf 1gm Premix IV 09/13/17 13:29 Infused Q1H DIDIER Infusion Insulin Aspart 2 - 8 unit 09/04/17 10:21 09/09/17 12:12 Novolog SQ 2 unit SS PRN Administration Hyperglycemia Protocol Levothyroxine Sodium 50 mcg 09/10/17 06:30 Synthroid PO ACB DIDIER Lorazepam 1 mg 09/11/17 17:39 09/11/17 18:06 Ativan Inj IVP 09/11/17 17:40 1 mg ONCE ONE Administration Magnesium Oxide 800 mg 09/12/17 12:08 09/12/17 13:56 Magox PO 09/12/17 12:09 800 mg DAILY ONE Administration Metoclopramide HCl 5 mg 09/03/17 20:33 Reglan IVP Q6H PRN Miscellaneous Medication 1 each 09/04/17 09:14 09/04/17 19:53 Pharmacy Consult - Renal Dosing 09/04/17 09:15 1 each O ONE Administration Miscellaneous Medication 1 each 09/10/17 10:03 09/11/17 09:01 Pharmacy Consult - Renal Dosing 09/10/17 10:04 Not Given O ONE Morphine Sulfate 1 - 2 mg 09/03/17 20:33 Morphine Sulfate Inj IVP Q2H PRN Pain Morphine Sulfate 0 mg 09/07/17 15:35 09/07/17 16:08 Morphine Sulfate Vial IVP 2 mg Q10M PRN Administration Naloxone HCl 0.4 mg 09/03/17 18:24 09/03/17 18:31 Narcan IVP 09/03/17 18:25 0.4 mg O ONE Administration Ondansetron HCl 4 mg 09/03/17 20:33 Zofran IVP Q6H PRN Nausea &/or vomiting Pharmacy Consult 1 each 09/03/17 21:43 Pharmacy Consult - Fall Risk 09/03/17 21:44 ONE TIME ONE Pharmacy Consult each 09/12/17 21:22 Pharmacy Consult - Fall Risk 09/12/17 21:23 ONE TIME ONE Potassium Phosphate 1,000 mg 09/11/17 12:00 09/11/17 21:13 K-Phos Original (Urinary Acidifier) PO Not Given [facility] Quetiapine Fumarate 25 mg 09/06/17 21:00 09/07/17 20:38 Seroquel PO 25 mg HS DIDIER Administration Sertraline HCl 100 mg 09/04/17 09:00 09/10/17 09:18 Zoloft PO 100 mg BID DIDIER Administration Sodium Phosphate 1,000 mg 09/12/17 08:00 09/12/17 16:37 K-Phos *Neutral* Tablet PO Not Given [facility] DIDIER Sodium Phosphate 500 mg 09/12/17 17:30 09/13/17 09:57 K-Phos *Neutral* Tablet PO 500 mg [facility] DIDIER Administration Thrombin 5,000 unit 09/07/17 14:56 09/07/17 14:56 Thrombin-Jmi OPSITE 09/07/17 14:57 5,000 unit O ONE Administration Vancomycin HCl 1 each 09/11/17 19:25 09/11/17 19:51 Pharmacy Consult - Vancomycin 09/11/17 19:26 1 each O ONE Administration - Constitutional no acute distress - Routine HEENT Exam Head: Present: normocephalic, atraumatic Eye: Present: EOMI, PERRL - Routine Neck Exam Absent: thyromegaly - Routine Respiratory Exam Absent: dyspnea - Routine Cardiovascular Exam Present: RRR - Routine Abdominal Exam Present: soft, normoactive bowel sounds - Routine Extremities Exam Present: amputation (left BKA) - Routine Skin Exam Present: dry, warm - Routine Neurological Exam Present: alert, oriented X3, moving all extremities - Routine Psychiatric Exam Present: normal affect, normal thought process, good insight - Additional findings Additional findings: Laboratory Tests 09/13/17 09/13/17 09/13/17 11:06 14:47 20:45 BUN Creatinine GFR Calculation Glucometer 192 273 251 Calcium Phosphorus 09/14/17 09/14/17 04:47 05:54 BUN 28.0 H Creatinine 1.7 H D GFR Calculation 41 Glucometer 154 Calcium 6.7 L Phosphorus 2.0 L - Urinary Catheter Management Urethral Cath placed during this visit: yes Insertion date: 09/03/17 Insertion time: 19:00 2-way Urethral Cath placed during this visit: no Assessment and Plan (1) Hypercalcemia Problem details: Hyperparathyroidism/solitary parathyroid adenoma; s/p parathyoidectomy 09/07/17 Current visit: Yes Status: Resolved (2) Metabolic encephalopathy Current visit: Yes Status: Acute (3) Primary hyperparathyroidism Current visit: Yes Status: Resolved (4) Diabetes mellitus type 2, uncontrolled, without complications Problem details: Controlled. Current visit: Yes Status: Chronic Will need prandial insulin to control hyperglycemia. Will start small doses before meals today, once he is no longer NPO. (5) Hypertension Problem details: Controlled. Current visit: No Status: Chronic No changes needed. 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 Current visit: No Status: Chronic No changes needed. (8) Hypocalcemia Current visit: Yes Status: Acute Worse. Will add calcium citrate today to the calcitriol. Follow level until stabilized.
[2017-09-14] MEDS: POLYETHYL GLYCOL 3350 17gm PACKET PO SCH (08:46)
[2017-09-14] MEDS: SENNA + DOCUSATE TABLET PO SCH ×2 (08:47→20:51)
[2017-09-14] MEDS: LABETALOL 100 MG TABLET PO SCH ×2 (08:50→20:51)
[2017-09-14] MEDS: CALCITRIOL 0.25 MCG CAPSULE PO SCH ×2 (08:50→19:05)
[2017-09-14] MEDS: GABAPENTIN 100 MG CAPSULE PO SCH ×2 (08:50→20:52)
[2017-09-14] MEDS: CALCIUM CITRATE 950 MG TABLET PO SCH ×2 (08:50→20:51)
[2017-09-14] MEDS: SERTRALINE 100 MG TABLET PO SCH (08:51)
[2017-09-14] MEDS: ALLOPURINOL 100 MG TABLET PO SCH (08:51)
[2017-09-14] MEDS: FLUTICASONE NASAL SPRAY 50mcg EA NOSTRIL SCH (09:19)
[2017-09-14] MEDS ORDERED: SALINE FLUSH 10ml SYRINGE ONE (10:27)
--- NOTE | 2017-09-14 10:44 | General Surgery Progress Note ---
Subjective Narrative: He is much more alert and oriented this morning. He is NPO for a ISHMAEL, states he would like breakfast. Also asked me to close the door on my way out, this is a big improvement in awareness. - Vital Signs Last Vital Signs Temp 98.3 F 09/14/17 08:00 Pulse 74 09/14/17 08:00 Resp 17 09/14/17 08:00 BP 133/59 09/14/17 08:00 Pulse Ox 99 09/14/17 08:00 - Laboratory Result Diagrams: 09/14/17 04:47 09/14/17 04:47 Laboratory Tests 09/13/17 09/14/17 04:40 04:47 Calcium 7.0 L D 6.7 L - Microbiogy Microbiology 09/11/17 18:29 Peripheral/Iv Start Gram Stain - Final 09/11/17 18:29 Peripheral/Iv Start Blood Culture - Preliminary Staphylococcus aureus, MRSA 09/11/17 19:25 Peripheral/Iv Start Gram Stain - Final 09/11/17 19:25 Peripheral/Iv Start Blood Culture - Preliminary Staphylococcus aureus 09/13/17 10:59 Peripheral/Iv Start Blood Culture - Preliminary Culture Initiated - Results Pending 09/13/17 10:45 Peripheral/Iv Start Blood Culture - Preliminary Culture Initiated - Results Pending - Abnormal Exam General: confused (but not as bad as yesterday) Skin: Neck incision with dark ecchymosis, not spreading, and may be starting to fade slightly. No fluctuance. - Normal Exam General: awake, alert Respiratory: no labored breathing Assessment and Plan (1) Primary hyperparathyroidism Current Visit: Yes Status: Resolved (2) Metabolic encephalopathy Current Visit: Yes Status: Acute (3) Obesity (BMI 30-39.9) Current Visit: No Status: Chronic (4) Diabetes mellitus type 2, uncontrolled, without complications Current Visit: Yes Status: Chronic Qualifiers: Diabetes mellitus fdc insulin use: with fdc use Qualified Code( s): E11.65 - Type 2 diabetes mellitus with hyperglycemia; Z79.4 - halfway ( current) use of insulin Problem details: Controlled. (5) Diabetic peripheral neuropathy associated with type 2 diabetes mellitus Current Visit: No Status: Chronic Problem details: Unable to fully assess today. (6) Postablative hypothyroidism Current Visit: No Status: Chronic Problem details: Clinically euthyroid. (7) Cirrhosis of liver Current Visit: Yes Status: Acute Plan: Surgically the neck incision is stable, with ecchymosis that will resolve over time. Dr. Le managing hypocalcemia. Will see him intermittently during his stay, please call if surgical concerns arise. Depending on how long he is here, we might not need an office post op appointment. Hospital Course Summary Disclaimer: The visit summary below is not to be considered part of the above Progress Note. Hospital Course: 09/04/17 Admit to CCU for close monitoring as an inpatient. Continue normal saline. Dr. Le was consulted regarding hypercalcemia. He will see the patient a little later today. He does recommend surgical consultation for possible parathyroidectomy. Regarding acute kidney injury will continue IV fluids, check renal sonogram, check urine sodium and creatinine and hold losartan Re: Pancytopenia, will recheck CBC. Regarding chronic wound infections, will continue clindamycin and Cipro. Will ask pharmacy to adjust Cipro for renal function. Continue on telemetry for possible arrhythmias Recheck CBC and basic metabolic profile today and again tomorrow. The patient is full code per his who his DPOA. 09/05/17 Calcium improving following pamidronate yesterday, continue IV fluids. Scan consistent with single parathyroid adenoma. Surgery tentatively scheduled for later in the week. reports minor improvement in mental status continue to monitor. Blood sugars stable overnight-no recurrent hypoglycemia. Renal function minimally improved, continue hydration; medications adjusted for renal function earlier today by Pharm.D. No reported hypotension. Fractional excretion suggests intrinsic renal dysfunction. Hemoglobin/platelet count stable today; white count 2.9. Pancytopenia chronic. 09/06/17 Calcium improved/stable following pamidronate 09/04, continue IV fluids. Scan consistent with single parathyroid adenoma. Surgery tentatively scheduled for tomorrow-discussed with Dr. Gregory. Also discussed plans with Dr. Le, if GFR permits will receive a single dose of Zoledronic acid later today to further improve calcium preoperatively. reports minor improvement in mental status continue to monitor. Blood sugars stable today ranging from 147-155. Renal function slowly improving with creatinine 2.0 today-well above baseline of 1.2-1.4 and baseline GFR of about 60, continue hydration. Chronic pancytopenia (due to cirrhosis/chronic inflammation); anticipate platelet packs with surgery to minimize risk of neck hematoma. Home pain medications resumed. Low-dose Seroquel added for sleep. Supplemental history provided by nursing and patient's . Stable to transfer out of ICU today. 09/07/17 Patient moved to medical floor on 09/06/17. Calcium improved/stable (decreased from 14.3 on 09/03/17 to 11.6 today, 09/07/17). Parathyroidectomy scheduled for today with Dr. Gregory. Maintain NPO status due to anticipated surgery. Will continue IVF and add KCl 20 mEQ to IVF given hypokalemia. Weight trending up. Decrease rate to 150cc/hr and continue to monitor closely for signs of fluid overload. Dr. Le continues to follow patient. Appreciate his time and expertise. Discussed giving Zoledronic acid on 09/06/17, but decided against it. Anticipates improvement in calcium following surgery. Increased somnolence today - suspect secondary to receiving Seroquel 25mg at bedtime last night to assist with insomnia. Continue to monitor mental status closely. Blood sugars stable and trending up since admission (range 147-233). Continue to monitor closely. Renal function slowly improving with creatinine 1.9 today-well above baseline of 1.2-1.4 and baseline GFR of about 60. Continue hydration and continue to monitor. Pancytopenia chronic - anticipate platelet packs with surgery to minimize risk of neck hematoma. WBC 1.8, Hgb 8.7, Plt 48. Supplemental history provided by nursing and patient's . Telemetry reviewed-sinus rhythm. Will recheck labs in AM to monitor blood counts, electrolytes and renal function. Monitor serial calcium levels post operatively. 09/08/17 Calcium continues to improve progressively; PTH down immediately after surgery. Limited oral intake, continue IV fluids pending improvement. Weight trending up. He was dehydrated on admission, minor edema present right lower extremity; not hypoxic. Continue to monitor Dr. Le continues to follow patient for diabetes and hyperparathyroidism. Blood glucose is stable. Sleep improved with Seroquel the past 2 nights, speech mumbled but was prior to initiation of medication. We'll readdress with when available anticipate discontinuing medication in the next day or 2. Renal function slowly improving with creatinine 1.9 remains above baseline of 1.2-1.4 and baseline GFR of about 60. Chronic pancytopenia, count stable- 1 unit of platelets and packed cells with surgery yesterday. 09/09/17 Calcium has stabilized at 9.4 yesterday and today. Continue to monitor. Fluids switched from NS to 1/2NS with sodium bicarb. Dr. Le continues to follow patient for diabetes and hyperparathyroidism. Blood glucose is stable. 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 No changes. Renal function plateaued with creatinine 1.9 yesterday and today. Remains above baseline of 1.2-1.4 and baseline GFR of about 60. Resume home levothyroxine and gabapentin. BP's stable - amlodipine and Cozaar remain on hold. 09/10/17 Patient remains very confused. Medications reviewed- Hold Tramadol. DC Reglan. Decrease Zoloft to 100mg Q Day for now. Decrease flexeril to 5mg dosing. Check venous ammonia. Serum calcium is trending down. Remains acidotic- continue NaHCO2 in IVF for now. Renal function remains elevated. Baseline 1.2-1.4. Chronic joint infection with suppressive therapy- Cipro/Clinda. Will request pharmacy consult for renal dosing. Pancytopenia appears stable, continue neutropenic precautions. 09/11/17 Continue sodium bicarb; CO2 improving. Creatinine increased slightly from 1.9 to 2.0. Cipro dose adjusted yesterday based on renal function. Phosphorus low at 2.0 -- start replacement PO. Ca 8.4. ANC 1440 - continue neutropenic precautions. Spiked fever of 102.5 in the evening. Sepsis workup ensued. Lactate 2.2. Started Vanco and cefepime. 09/12/17 Severe sepsis with MRSA and enterococcus bacteremia ? Source - possible joint vs chronic wounds. Neck incision healing well. Continue Vanco and cefepime for positive blood cultures - started 09/11. suppressive Cipro and clindamycin for chronic joint infections (Dr. Gomez) Consulted Dr. Apple - she will evaluate tomorrow. Lactate decreased from 2.2 to 0.9 WBC 3.1. T max 104.1 last evening. He is not hypotensive. Hypoxia with 83% on room air CXR yesterday was negative for pneumonia or CHF. O2 PRN CPAP HS DuoNeb PRN Metabolic acidosis/HERNAN CO2 improved to 20. Renal function elevated but about the same with BUN of 29 and creatinine of 2.1. Continue sodium bicarb. Continue Justin; good UO (1650/2210 on 09/12) Electrolyte abnormalities Phos still low at 2.3; mg low-normal at 1.6. Continue KPhos and give one- time dose of MagOx 800 mg. Ca decreased to 8.1 - Dr. Le recommends to start Ca if it decreases further. Encephalopathy Multifactorial - no recent Meraux; last Tramadol was on 09/10 Ammonia level was 20 on 09/1009/13/[address] consultation by Dr Apple. She is concerned about possible right knee source infection. Right knee Xray ordered Cefepime discontinued. Continue with Vancomycin for positive blood cultures - started 09/11. Added PO Cipro for chronic suppression Will repeat Blood cultures today ANC count is 928- reveling Neutropenia. Placed on precautions All wounds evaluated this morning by Wound team Nurse- No evidence of acute infection or worsening wounds. Will likely require a ISHMAEL to evaluate for vegetations- discuss with attending. Case discussed with attending, Dr Lerma
--- NOTE | 2017-09-14 10:59 | Progress Note ---
- Date 09/14/17 Subjective: The patient is a pleasant 67-year-old male who lives in a custodial for almost 1 year. He has a left [id number] amputation and has history of right knee fusion after removal of an infected joint. He is nonambulatory. He has a history of uncontrolled diabetes with resultant peripheral vascular disease, chronic, and also has peripheral polyneuropathy. He was recently found to have hypercalcemia with a calcium level of 13.2 on 08/23/2017 and a PTH of 300. The Patient was transferred by EMS to [facility] on 09/03/17. His glucose was noted to be 45 and was given dextrose by EMS. The patient had been eating and drinking poorly for a couple of days and has been more confused for a couple of days. On lab work here at [facility] his glucose was 152, BUN 59, creatinine 2.5. White count 2.5. Hemoglobin 6.6. Platelets 38. Calcium was 14.3. Lactate was 1.0. The patient was admitted for acute kidney injury, dehydration, hypoglycemia and hypercalcemia. He was given IV fluids overnight and by the next morning BUN is 59 and creatinine is 2.6. He has had good urine output at 2.4 L. Calcium had improved slightly to 13.3. Glucose 225. The patient's helped with history. She is DPOA. She states the patient is still confused but not as bad as day prior. He had some tactile hallucinations . She has noticed that he's had some mild memory decline for the past 6 months but has been more confused since around August 15. The patient was found to have primary hyperparathyroidism. He underwent a nuclear scan which showed a persistent focus of asymmetric increase activity in the region of the right lower thyroid suggesting a parathyroid adenoma. Surgery was consultation as was endocrinology. On 09/03/17 the patient underwent neck exploration with excision of the right inferior parathyroid adenoma. His calcium has been trending down. Patient developed fevers and was found to have positive blood cultures which were positive for MRSA. At least for now we do not have source. There is some thought to his right knee being a possible source versus his chronic wounds. I am getting a IHSMAEL today. He has been afebrile since 1135 yesterday. Today he is much better cognitively and is actually alert and oriented times 3. He continues to hurt everywhere from his arthritis. He denies any chilling. He denies feeling short of breath, denies orthopnea. He denies chest pain, pressure or tightness. He denies any palpitations. He denies any nausea, vomiting. He reports his bowels are moving. He has a Justin in place. Objective Vital signs: Temperature 98.3 F 09/14/17 08:00 Pulse Rate 74 09/14/17 08:00 Respiratory Rate 17 09/14/17 08:00 Blood Pressure 133/59 09/14/17 08:00 Pulse Oximetry 99 09/14/17 08:00 Rhythm: Normal Sinus Rhythm Height/Weight/BMI: Height 1.91 m Weight 133.1 kg Body Mass Index 34.3 Comments: Gen: alert and oriented times 3 today. Skin: warm and dry, Neck incision healing well. No evidence of infection. Some ecchymosis. Venous stasis discoloration of bilateral lower ext. (stump of right LE) HEENT: NC/AT PERRL, EOMI, Sclera, lids and conjunctiva wnl. DryMM. OP clear. Neck: Short and thick. No JVD, Carotids 2+ without bruits Lungs: clear. diminished. No rales, rhonchi or wheezes CV: regular. 2/6 murmur. Abd: soft. +BS. NT/ND MS: Trace edema of right LE. Left AKA. Right pedal pulse palp but weak. Neuro: No focal deficits Psy: Cooperative, pleasant Results - Labs CBC & Chem 7: 09/14/17 04:47 09/14/17 04:47 Microbiology Results: Microbiology 09/11/17 18:29 Peripheral/Iv Start Gram Stain - Final 09/11/17 18:29 Peripheral/Iv Start Blood Culture - Preliminary Staphylococcus aureus, MRSA 09/11/17 19:25 Peripheral/Iv Start Gram Stain - Final 09/11/17 19:25 Peripheral/Iv Start Blood Culture - Preliminary Staphylococcus aureus 09/13/17 10:59 Peripheral/Iv Start Blood Culture - Preliminary Culture Initiated - Results Pending 09/13/17 10:45 Peripheral/Iv Start Blood Culture - Preliminary Culture Initiated - Results Pending Assessment and Plan Assessment and Plan: Severe sepsis with MRSA and enterococcus bacteremia Source unknown - possible joint vs chronic wounds. Neck incision healing well. Dr. Apple consulted. appreciate her assistance. Cefepime and clinda dc'd. Continue Vanco (started 09/11) and chronic cipro (for suppression of pseudomonas) Lactate decreased from 2.2 to 0.9 and continues to be normal. Procalcitonin elevated peaked at 3.09-today down to 2.26, will repeat in am. Afebrile since 1135 on 09/13/17 Pt with watery stools yesterday, C diff negative. Repeat UA-unremarkable Repeat Blood cultures NGTD (1 day) XRAY of right knee done this am. May need to get an MRI TTE done this am. Not revealing. Will get ISHMAEL by Dr. Wilkins in am. Neutropenic WBC 1.4, neutropenic precautions initiated. . Hypoxia with 83% on room air on admission CXR 09/11/17 negative for pneumonia or CHF. O2 PRN, on RA since 09/14/47 at 8am CPAP HS DuoNeb PRN Metabolic acidosis/HERNAN CO2 stable at 20. Renal function elevated but slight improvement today with BUN of 28 and creatinine of 1.7. Continue sodium bicarb/IVF Continue Justin; good UO Electrolyte abnormalities Phos stable at 2.0; Mg up to 1.8. Ca decreased to 6.7, Dr. Le started calcium citrate today in addition to the Calcitriol Encephalopathy Multifactorial - no recent [place]; last Tramadol was on 09/10 Ammonia level was 20 on 09/10, repeat ok at 18 CT done 09/03/17 unremarkable except maxillary sinusitis Much improved this am. Maxillary sinusitis Flonase DM2; hypocalcemia Per Dr. Rey Le started calcium citrate today in addition to the Calcitriol S/P parathyroidectomy Per Dr. Gregory Prophylaxis PPI and SCDs, start SQ heparin - Physician Narrative Narrative: Date: 09/14/17 Time: 1044 Hospital Course Summary Disclaimer: The visit summary below is not to be considered part of the above Progress Note. Hospital Course: 09/04/17 Admit to CCU for close monitoring as an inpatient. Continue normal saline. Dr. Le was consulted regarding hypercalcemia. He will see the patient a little later today. He does recommend surgical consultation for possible parathyroidectomy. Regarding acute kidney injury will continue IV fluids, check renal sonogram, check urine sodium and creatinine and hold losartan Re: Pancytopenia, will recheck CBC. Regarding chronic wound infections, will continue clindamycin and Cipro. Will ask pharmacy to adjust Cipro for renal function. Continue on telemetry for possible arrhythmias Recheck CBC and basic metabolic profile today and again tomorrow. The patient is full code per his who his DPOA. 09/05/17 Calcium improving following pamidronate yesterday, continue IV fluids. Scan consistent with single parathyroid adenoma. Surgery tentatively scheduled for later in the week. reports minor improvement in mental status continue to monitor. Blood sugars stable overnight-no recurrent hypoglycemia. Renal function minimally improved, continue hydration; medications adjusted for renal function earlier today by Pharm.D. No reported hypotension. Fractional excretion suggests intrinsic renal dysfunction. Hemoglobin/platelet count stable today; white count 2.9. Pancytopenia chronic. 09/06/17 Calcium improved/stable following pamidronate 09/04, continue IV fluids. Scan consistent with single parathyroid adenoma. Surgery tentatively scheduled for tomorrow-discussed with Dr. Gregory. Also discussed plans with Dr. Le, if GFR permits will receive a single dose of Zoledronic acid later today to further improve calcium preoperatively. reports minor improvement in mental status continue to monitor. Blood sugars stable today ranging from 147-155. Renal function slowly improving with creatinine 2.0 today-well above baseline of 1.2-1.4 and baseline GFR of about 60, continue hydration. Chronic pancytopenia (due to cirrhosis/chronic inflammation); anticipate platelet packs with surgery to minimize risk of neck hematoma. Home pain medications resumed. Low-dose Seroquel added for sleep. Supplemental history provided by nursing and patient's . Stable to transfer out of ICU today. 09/07/17 Patient moved to medical floor on 09/06/17. Calcium improved/stable (decreased from 14.3 on 09/03/17 to 11.6 today, 09/07/17). Parathyroidectomy scheduled for today with Dr. Gregory. Maintain NPO status due to anticipated surgery. Will continue IVF and add KCl 20 mEQ to IVF given hypokalemia. Weight trending up. Decrease rate to 150cc/hr and continue to monitor closely for signs of fluid overload. Dr. Le continues to follow patient. Appreciate his time and expertise. Discussed giving Zoledronic acid on 09/06/17, but decided against it. Anticipates improvement in calcium following surgery. Increased somnolence today - suspect secondary to receiving Seroquel 25mg at bedtime last night to assist with insomnia. Continue to monitor mental status closely. Blood sugars stable and trending up since admission (range 147-233). Continue to monitor closely. Renal function slowly improving with creatinine 1.9 today-well above baseline of 1.2-1.4 and baseline GFR of about 60. Continue hydration and continue to monitor. Pancytopenia chronic - anticipate platelet packs with surgery to minimize risk of neck hematoma. WBC 1.8, Hgb 8.7, Plt 48. Supplemental history provided by nursing and patient's . Telemetry reviewed-sinus rhythm. Will recheck labs in AM to monitor blood counts, electrolytes and renal function. Monitor serial calcium levels post operatively. 09/08/17 Calcium continues to improve progressively; PTH down immediately after surgery. Limited oral intake, continue IV fluids pending improvement. Weight trending up. He was dehydrated on admission, minor edema present right lower extremity; not hypoxic. Continue to monitor Dr. Le continues to follow patient for diabetes and hyperparathyroidism. Blood glucose is stable. Sleep improved with Seroquel the past 2 nights, speech mumbled but was prior to initiation of medication. We'll readdress with when available anticipate discontinuing medication in the next day or 2. Renal function slowly improving with creatinine 1.9 remains above baseline of 1.2-1.4 and baseline GFR of about 60. Chronic pancytopenia, count stable- 1 unit of platelets and packed cells with surgery yesterday. 09/09/17 Calcium has stabilized at 9.4 yesterday and today. Continue to monitor. Fluids switched from NS to 1/2NS with sodium bicarb. Dr. Le continues to follow patient for diabetes and hyperparathyroidism. Blood glucose is stable. (simulation technician for Dr. Gregory) evaluated pt today. No changes. Renal function plateaued with creatinine 1.9 yesterday and today. Remains above baseline of 1.2-1.4 and baseline GFR of about 60. Resume home levothyroxine and gabapentin. BP's stable - amlodipine and Cozaar remain on hold. 09/10/17 Patient remains very confused. Medications reviewed- Hold Tramadol. DC Reglan. Decrease Zoloft to 100mg Q Day for now. Decrease flexeril to 5mg dosing. Check venous ammonia. Serum calcium is trending down. Remains acidotic- continue NaHCO2 in IVF for now. Renal function remains elevated. Baseline 1.2-1.4. Chronic joint infection with suppressive therapy- Cipro/Clinda. Will request pharmacy consult for renal dosing. Pancytopenia appears stable, continue neutropenic precautions. 09/11/17 Continue sodium bicarb; CO2 improving. Creatinine increased slightly from 1.9 to 2.0. Cipro dose adjusted yesterday based on renal function. Phosphorus low at 2.0 -- start replacement PO. Ca 8.4. ANC 1440 - continue neutropenic precautions. Spiked fever of 102.5 in the evening. Sepsis workup ensued. Lactate 2.2. Started Vanco and cefepime. 09/12/17 Severe sepsis with MRSA and enterococcus bacteremia ? Source - possible joint vs chronic wounds. Neck incision healing well. Continue Vanco and cefepime for positive blood cultures - started 09/11. suppressive Cipro and clindamycin for chronic joint infections (Dr. Gomez) Consulted Dr. Apple - she will evaluate tomorrow. Lactate decreased from 2.2 to 0.9 WBC 3.1. T max 104.1 last evening. He is not hypotensive. Hypoxia with 83% on room air CXR yesterday was negative for pneumonia or CHF. O2 PRN CPAP HS DuoNeb PRN Metabolic acidosis/HERNAN CO2 improved to 20. Renal function elevated but about the same with BUN of 29 and creatinine of 2.1. Continue sodium bicarb. Continue Justin; good UO (1650/2210 on 09/12) Electrolyte abnormalities Phos still low at 2.3; mg low-normal at 1.6. Continue KPhos and give one- time dose of MagOx 800 mg. Ca decreased to 8.1 - Dr. Le recommends to start Ca if it decreases further. Encephalopathy Multifactorial - no recent [place]; last Tramadol was on 09/10 Ammonia level was 20 on 09/1009/13/[address] consultation by Dr Apple. She is concerned about possible right knee source infection. Right knee Xray ordered Cefepime discontinued. Continue with Vancomycin for positive blood cultures - started 09/11. Added PO Cipro for chronic suppression Will repeat Blood cultures today ANC count is 928- reveling Neutropenia. Placed on precautions All wounds evaluated this morning by Wound team Nurse- No evidence of acute infection or worsening wounds. Will likely require a ISHMAEL to evaluate for vegetations- discuss with attending. Case discussed with attending, Dr Lerma
--- NOTE | 2017-09-14 11:10 | Pharmacy Consult-Antibiotics ---
Pharmacy Consult-Vancomycin - Laboratory Information WBC 1.4 T/MM3 (4.5-11.0) L* 09/14/17 04:47 BUN 28.0 MG/DL (9-20) H 09/14/17 04:47 Creatinine 1.7 mg/dL (0.8-1.5) H D 09/14/17 04:47 Procalcitonin 2.26 NG/ML H* 09/14/17 04:47 Vancomycin Trough 28.00 ug/mL (15-20) H* 09/14/17 07:18 - Consult Information VANCOMYCIN CONSULT: Vancomycin Trough = 28 mcg/ml. Today's SCr = 1.7 mg/dl. Will reduce Vancomycin to 1,250 mg IV q24hrs. Will continue to monitor and make adjustments accordingly. Thank you.
[2017-09-14] MEDS: INSULIN ASPART 100unit/ml INJECTION SQ SCH ×2 (12:16→19:06)
[2017-09-14] MEDS ORDERED: ALBUTEROL/IPRATROPIUM 2.5mg-0.5mg/3ml NEB IPPB SCH (15:00)
[2017-09-14] MEDS: ALBUTEROL/IPRATROPIUM 2.5mg-0.5mg/3ml NEB AEROSOL SCH ×2 (16:00→20:06)
[2017-09-14] MEDS ORDERED: FentaNYL 100 MCG/2 ML INJECTION IVP ONE (16:18)
[2017-09-14] MEDS ORDERED: FentaNYL 250 MCG/5 ML INJECTION IVP ONE (16:34)
[2017-09-14] MEDS ORDERED: MIDAZOLAM 2mg/2ml INJECTION IVP ONE (16:35)
[2017-09-14] MEDS: SALINE FLUSH 10ml SYRINGE IVF PRN (16:39)
[2017-09-15] MEDS: HEPARIN SUB-Q 5,000units/0.5ml INJECTION SQ SCH ×3 (00:11→16:08)
[2017-09-15] MEDS: CIPROFLOXACIN 250 MG TABLET PO SCH ×2 (05:42→20:25)
[2017-09-15] MEDS: LEVOTHYROXINE 200 MCG TABLET PO SCH (05:42)
[2017-09-15] MEDS: LEVOTHYROXINE 50 MCG TABLET PO SCH (05:43)
[2017-09-15] MEDS: PANTOPRAZOLE 40 MG TABLET PO SCH (05:43)
[2017-09-15] MEDS: ALBUTEROL/IPRATROPIUM 2.5mg-0.5mg/3ml NEB AEROSOL SCH ×4 (07:17→21:01)
--- NOTE | 2017-09-15 07:54 | Endocrinology Progress Note ---
Subjective Principal diagnosis: Hypocalcemia Interval history: Alert and oriented this morning. Today he is even more coherent and conversational. Has noted muscle cramps. Exam Vital signs: Temperature 97.2 F 09/15/17 05:40 Pulse Rate 69 09/15/17 05:40 Respiratory Rate 18 09/15/17 07:17 Blood Pressure 112/57 09/15/17 05:40 Pulse Oximetry 100 09/15/17 07:17 Inpatient Medications: Generic Name Dose Route Start Last Admin Trade Name Freq PRN Reason Stop Dose Admin Acetaminophen 650 mg 09/10/17 14:31 09/12/17 17:07 Tylenol PO 650 mg QID PRN Administration Discomfort Acetaminophen 650 mg 09/11/17 20:01 09/12/17 00:35 Tylenol Supp [place] 650 mg Q5H PRN Administration Pain Hydrocodone Bitart/Acetaminophen 1 tab 09/06/17 14:48 09/14/17 23:13 [place] 7.5/325 PO 1 tab Q6H PRN Administration Pain Albuterol/Ipratropium 3 ml 09/14/17 15:00 09/15/17 07:17 Duoneb AEROSOL 3 ml RTQID [facility] Administration Allopurinol 100 mg 09/05/17 09:00 09/14/17 08:51 Zyloprim PO Not Given DAILY [facility] Calcitriol 0.5 mcg 09/15/17 09:00 Rocaltrol PO BID [facility] Calcium Citrate 950 mg 09/15/17 09:00 Calcitrate PO TID [facility] Ciprofloxacin 250 mg 09/10/17 20:00 09/15/17 05:42 Cipro 250 Mg PO 250 mg BID/E [facility] Administration Cyclobenzaprine HCl 5 mg 09/10/17 10:07 09/11/17 14:15 Flexeril PO 5 mg TID PRN Administration Muscle spasm Dextrose 20 ml 09/04/17 10:21 D50%W IVP PRN PRN Hypoglycemia Fluticasone Propionate 2 spray 09/13/17 11:30 09/14/17 09:19 Flonase EA NOSTRIL 2 spray DAILY [facility] Administration Gabapentin 100 mg 09/09/17 21:00 09/14/17 20:52 Neurontin PO 100 mg BID [facility] Administration Heparin Sodium (Porcine) 5,000 units 09/13/17 11:30 09/15/17 00:11 Heparin Sq SQ 5,000 units Q8HR [facility] Administration Sodium Bicarbonate 50 meq/ 1,050 mls @ 75 mls/hr 09/09/17 09:00 09/14/17 23: 13 Sodium Chloride IV 75 mls/hr .Q14H [facility] Administration Vancomycin HCl 1,250 mg/ 250 mls @ 200 mls/hr 09/14/17 18:00 09/14/17 19:05 Sodium Chloride IV Infused Q24H [facility] Infusion Insulin Aspart 1 - 5 unit 09/09/17 13:43 09/14/17 05:58 Novolog SQ 1 unit SS PRN Administration Hyperglycemia Protocol Insulin Aspart 3 unit 09/14/17 11:30 09/14/17 12:16 Novolog SQ Not Given ACL [facility] Insulin Aspart 2 unit 09/15/17 06:30 Novolog SQ ACB [facility] Insulin Aspart 3 unit 09/14/17 17:00 09/14/17 19:06 Novolog SQ 3 unit ACS [facility] Administration Labetalol HCl 100 mg 09/04/17 09:00 09/14/17 20:51 Normodyne PO 100 mg BID [facility] Administration Levothyroxine Sodium 200 mcg 09/04/17 06:30 09/15/17 05:42 Synthroid PO 200 mcg ACB [facility] Administration Levothyroxine Sodium 50 mcg 09/06/17 06:30 09/15/17 05:43 Synthroid PO 50 mcg ACB [facility] Administration Nystatin 1 applic 09/04/17 09:00 09/14/17 23:13 Mycostatin TP 1 applic TID [facility] Administration Ondansetron HCl 4 mg 09/07/17 16:20 Zofran IVP Q6H PRN Nausea &/or vomiting Pantoprazole Sodium 40 mg 09/04/17 06:30 09/15/17 05:43 Protonix Tab PO 40 mg ACB [facility] Administration Polyethylene Glycol 17 gm 09/06/17 16:00 09/14/17 08:46 Miralax PO Not Given DAILY [facility] Potassium Chloride 20 meq 09/14/17 12:00 09/14/17 19:17 K-Dur 20 Meq Tablet PO 09/15/17 08:01 20 meq TIDWM [facility] Administration Quetiapine Fumarate 25 mg 09/08/17 15:42 Seroquel PO HS PRN Insomnia Senna/Docusate Sodium 2 tab 09/06/17 21:00 09/14/17 20:51 Senna Plus Tablet PO Not Given BID [facility] Sertraline HCl 100 mg 09/11/17 09:00 09/14/17 08:51 Zoloft PO Not Given DAILY [facility] Sodium Chloride 10 - 80 ml 09/03/17 18:18 09/14/17 16:39 Iv Flush IVF 40 ml PRN PRN Administration Flushing Sodium Chloride 500 ml 09/04/17 00:27 09/07/17 12:23 Normal Saline IV 500 ml PRN PRN Administration Tramadol HCl 50 mg 09/06/17 14:49 09/10/17 02:14 Ultram PO 50 mg TID PRN Administration Pain Discontinued Medications Generic Name Dose Route Start Last Admin Trade Name Freq PRN Reason Stop Dose Admin Albuterol/Ipratropium 3 ml 09/12/17 12:15 Duoneb IPPB RTQID PRN Albuterol/Ipratropium 3 ml 09/14/17 15:00 Duoneb IPPB RTQID [facility] Bupivacaine HCl/Epinephrine Bitart 30 ml 09/07/17 14:54 09/07/17 14:55 Marcaine/Epi 0.25%/1:200,000 ID 09/07/17 14:55 4 ml O ONE Administration Calcitonin [place] 500 unit 09/03/17 19:51 09/03/17 20:18 Miacalcin SQ 09/03/17 19:52 500 unit O ONE Administration Calcitriol 0.5 mcg 09/13/17 09:00 09/14/17 19:05 Rocaltrol PO 0.5 mcg DAILY [facility] Administration Calcium Citrate 950 mg 09/14/17 09:00 09/14/17 20:51 Calcitrate PO 950 mg BID [facility] Administration Ciprofloxacin 500 mg 09/04/17 21:00 09/10/17 06:11 Cipro 500 Mg PO 500 mg BID/E [facility] Administration Clindamycin HCl 300 mg 09/04/17 21:00 09/13/17 10:32 Cleocin PO Not Given BID [facility] Cyclobenzaprine HCl 10 mg 09/06/17 14:48 09/10/17 06:11 Flexeril PO 10 mg TID PRN Administration Muscle spasm Fentanyl 50 mcg 09/14/17 16:34 09/14/17 16:38 Sublimaze IVP 09/14/17 16:35 Not Given O ONE Fentanyl 50 mcg 09/14/17 16:18 09/14/17 16:18 Fentanyl IVP 09/14/17 16:19 50 mcg O ONE Administration Furosemide 40 mg 09/03/17 20:33 09/04/17 00:35 Lasix 40 Mg/4 Ml IVP 09/03/17 20:34 40 mg O ONE Administration Sodium Chloride 1,000 mls @ 1,000 mls/hr 09/03/17 18:18 09/03/17 19:30 Normal Saline IV 09/03/17 19:17 Infused .Q1H ONE Infusion Sodium Chloride 1,000 mls @ 100 mls/hr 09/03/17 20:33 09/04/17 19:50 Normal Saline IV Infused .Q10H [facility] Infusion 150 mls/hr Ceftriaxone Sodium 1 g/ Sodium 100 mls @ 200 mls/hr 09/03/17 21:54 09/04/17 01:20 Chloride IV 09/03/17 22:23 Infused O ONE Infusion Pamidronate Disodium 30 mg/ 260 mls @ 62.5 mls/hr 09/04/17 12:37 09/04/17 18: 00 Sodium Chloride IV 09/04/17 16:46 Infused O ONE Infusion Sodium Chloride 1,000 mls @ 200 mls/hr 09/04/17 19:45 09/07/17 11:18 1/2 Normal Saline IV Infused .Q5H [facility] Infusion Sodium Chloride 1,000 mls @ 50 mls/hr 09/07/17 11:30 09/07/17 16:26 Normal Saline IV Infused .Q20H [facility] Infusion Potassium Chloride 20 meq/ 1,010 mls @ 150 mls/hr 09/07/17 11:05 09/07/17 16: 40 Sodium Chloride IV Not Given .Q6H44M [facility] Potassium Chloride/Sodium Chloride 1,000 mls @ 150 mls/hr 09/07/17 16:45 09:58 1/2 Ns With Kcl 20meq Premix IV Not Given .Q6H40M [facility] Cefepime HCl 1 gm/ Sodium 100 mls @ 200 mls/hr 09/11/17 19:30 09/13/17 07:08 Chloride IV Infused Q12H [facility] Infusion Vancomycin HCl 2,000 mg/ 500 mls @ 250 mls/hr 09/11/17 19:35 09/11/17 22:47 Sodium Chloride IV 09/11/17 19:36 Infused O ONE Infusion Vancomycin HCl 2,000 mg/ 500 mls @ 250 mls/hr 09/12/17 08:00 09/14/17 12:16 Sodium Chloride IV Not Given 0800 [facility] Magnesium Sulfate/Dextrose 1 gm in 100 mls @ 100 mls/hr 09/13/17 11:30 14:37 Mag Sulf 1gm Premix IV 09/13/17 13:29 Infused Q1H [facility] Infusion Insulin Aspart 2 - 8 unit 09/04/17 10:21 09/09/17 12:12 Novolog SQ 2 unit SS PRN Administration Hyperglycemia Protocol Levothyroxine Sodium 50 mcg 09/10/17 06:30 Synthroid PO ACB [facility] Lorazepam 1 mg 09/11/17 17:39 09/11/17 18:06 Ativan Inj IVP 09/11/17 17:40 1 mg ONCE ONE Administration Magnesium Oxide 800 mg 09/12/17 12:08 09/12/17 13:56 Magox PO 09/12/17 12:09 800 mg DAILY ONE Administration Metoclopramide HCl 5 mg 09/03/17 20:33 Reglan IVP Q6H PRN Midazolam HCl 2 mg 09/14/17 16:35 09/14/17 16:19 Versed IVP 09/14/17 16:36 2 mg O ONE Administration Miscellaneous Medication 1 each 09/04/17 09:14 09/04/17 19:53 Pharmacy Consult - Renal Dosing 09/04/17 09:15 1 each O ONE Administration Miscellaneous Medication 1 each 09/10/17 10:03 09/11/17 09:01 Pharmacy Consult - Renal Dosing 09/10/17 10:04 Not Given O ONE Morphine Sulfate 1 - 2 mg 09/03/17 20:33 Morphine Sulfate Inj IVP Q2H PRN Pain Morphine Sulfate 0 mg 09/07/17 15:35 09/07/17 16:08 Morphine Sulfate Vial IVP 2 mg Q10M PRN Administration Naloxone HCl 0.4 mg 09/03/17 18:24 09/03/17 18:31 Narcan IVP 09/03/17 18:25 0.4 mg O ONE Administration Ondansetron HCl 4 mg 09/03/17 20:33 Zofran IVP Q6H PRN Nausea &/or vomiting Pharmacy Consult 1 each 09/03/17 21:43 Pharmacy Consult - Fall Risk 09/03/17 21:44 ONE TIME ONE Pharmacy Consult each 09/12/17 21:22 Pharmacy Consult - Fall Risk 09/12/17 21:23 ONE TIME ONE Potassium Phosphate 1,000 mg 09/11/17 12:00 09/11/17 21:13 K-Phos Original (Urinary Acidifier) PO Not Given [facility] Quetiapine Fumarate 25 mg 09/06/17 21:00 09/07/17 20:38 Seroquel PO 25 mg HS [facility] Administration Sertraline HCl 100 mg 09/04/17 09:00 09/10/17 09:18 Zoloft PO 100 mg BID [facility] Administration Sodium Phosphate 1,000 mg 09/12/17 08:00 09/12/17 16:37 K-Phos *Neutral* Tablet PO Not Given [facility] Sodium Phosphate 500 mg 09/12/17 17:30 09/13/17 09:57 K-Phos *Neutral* Tablet PO 500 mg [facility] Administration Thrombin 5,000 unit 09/07/17 14:56 09/07/17 14:56 Thrombin-Jmi OPSITE 09/07/17 14:57 5,000 unit O ONE Administration Vancomycin HCl 1 each 09/11/17 19:25 09/11/17 19:51 Pharmacy Consult - Vancomycin 09/11/17 19:26 1 each O ONE Administration - Constitutional no acute distress - Routine HEENT Exam Head: Present: normocephalic, atraumatic Eye: Present: EOMI, PERRL ENT: Present: mucous membranes moist - Routine Neck Exam Absent: thyromegaly - Routine Respiratory Exam Absent: dyspnea - Routine Cardiovascular Exam Present: RRR - Routine Abdominal Exam Present: soft, normoactive bowel sounds. Absent: tenderness - Routine Extremities Exam Present: amputation (left BKA). Absent: cyanosis - Routine Skin Exam Present: dry, warm - Routine Neurological Exam Present: alert, oriented X3, moving all extremities - Routine Psychiatric Exam Present: normal affect, normal thought process, good insight, good judgment - Additional findings Additional findings: Laboratory Tests 09/14/17 09/14/17 09/15/17 10:16 14:28 00:10 BUN Creatinine GFR Calculation Glucose Glucometer 141 164 177 Calcium 09/15/17 04:32 BUN 25.0 H Creatinine 1.6 H GFR Calculation 44 Glucose 141 H Glucometer Calcium 6.5 L - Urinary Catheter Management Urethral Cath placed during this visit: yes Insertion date: 09/03/17 Insertion time: 19:00 2-way Urethral Cath placed during this visit: no Assessment and Plan (1) Hypercalcemia Problem details: Hyperparathyroidism/solitary parathyroid adenoma; s/p parathyoidectomy 09/07/17 Current visit: Yes Status: Resolved (2) Metabolic encephalopathy Current visit: Yes Status: Acute Fully back to baseline mental status now. (3) Primary hyperparathyroidism Current visit: Yes Status: Resolved (4) Diabetes mellitus type 2, uncontrolled, without complications Problem details: Controlled. Current visit: Yes Status: Chronic Sugars averaging in mid-100's now with addition of premeal Novolog. Continue same. (5) Hypertension Problem details: Controlled. 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 (7) Postablative hypothyroidism Problem details: Clinically euthyroid. Current visit: Yes Status: Chronic Continue on 250 mcg daily of Synthroid. Recheck TSH next month. (8) Hypocalcemia Current visit: Yes Status: Acute Little worse and becoming symptomatic. Will increase both calcitriol and calcium today. May need IV calcium if it worsens any further.
--- NOTE | 2017-09-15 08:48 | ID Progress Note ---
Subjective Date: 09/15/17 Subjective: Mr. Gonzales is awake and alert this morning. He is a lot more alert than he was when I saw him on Monday. He denies any significant pain. He denies any shortness of breath any nausea vomiting or diarrhea. His ISHMAEL yesterday was reportedly negative. Exam Vital Signs: Temperature 97.2 F 09/15/17 05:40 Pulse Rate 69 09/15/17 05:40 Respiratory Rate 18 09/15/17 07:17 Blood Pressure 112/57 09/15/17 05:40 Pulse Oximetry 100 09/15/17 07:17 Height/Weight/BMI: Height 1.91 m Weight 133.1 kg Body Mass Index 34.3 - Constitutional Present: no acute distress, well nourished, well developed, obese Comments: chronically ill-appearing - Routine HEENT Exam Head: Present: normocephalic, atraumatic Eye: Present: EOMI, PERRL ENT: Present: mucous membranes dry, oropharynx clear - Routine Neck Exam Present: supple - Routine Respiratory Exam Present: CTA bilaterally - Routine Cardiovascular Exam Present: RRR - Routine Abdominal Exam Present: soft, normoactive bowel sounds, non distended, non tender. Absent: rebound, guarding - Routine Exam Comments: magallanes catheter in place, no bladder distention - Routine Extremities Exam Present: edema (1-2+ edema RLE). Absent: cyanosis, clubbing Comments: s/p L BKA - Routine Skin Exam Present: ecchymosis (UEs). Absent: rash - Routine Neurological Exam Present: alert, oriented X3, CN II-XII intact, normal speech. Absent: motor deficit - Routine Psychiatric Exam Present: normal affect Results - Labs CBC & Chem 7: 09/15/17 04:32 09/15/17 04:32 Microbiology Results: Microbiology 09/11/17 18:29 Peripheral/Iv Start Gram Stain - Final 09/11/17 18:29 Peripheral/Iv Start Blood Culture - Preliminary Staphylococcus aureus, MRSA Enterococcus species 09/11/17 19:25 Peripheral/Iv Start Gram Stain - Final 09/11/17 19:25 Peripheral/Iv Start Blood Culture - Preliminary Staphylococcus aureus 09/13/17 10:59 Peripheral/Iv Start Blood Culture - Preliminary No Growth After 1 Day 09/13/17 10:45 Peripheral/Iv Start Blood Culture - Preliminary No Growth After 1 Day - Impressions Patient: Gurdeep Gonzales MR#: [id number] : 1950 Age/Sex: 67 / M ADM Date: 09/03/17 Loc: [facility] 112-P DIS Date: = = = = = = = = = = = = = = = = = = = = = = = = = = = = = = = = = = = = = = = = = = = = = = = = = = = = = = = = = = = Date of Exam: 09/13/17 Ordering Provider: Carole Apple MD Type of Exam(s): XR knee RT 2V Reason for Exam(s): osteomyelitis Indication: osteomyelitis PROCEDURE: XR knee RT 2V: Encounter: Initial Comparison: None Findings: No acute fracture identified. Evidence of old trauma and infection with methyl methacrylate filling the knee joint space and arthrodesis of the knee joint with a fixation on. No evidence of hardware loosening or failure. No acute periosteal reaction or osteolytic process identified. Impression: Findings of prior or chronic infection. No radiographic evidence to suggest acute osteomyelitis. . Impression: Severe sepsis, MRSA and Enterococcus, 09/11/17. Blood cultures 09/13 NGTD. 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 Will order MRI of the right knee. I am suspicious that his right knee is the source of his infection and he may ultimately require an above knee amputation. Clinically, he appears to be improving. Discussed with Dr. Lerma.
[2017-09-15] MEDS: CALCITRIOL 0.25 MCG CAPSULE PO SCH ×2 (09:41→20:24)
[2017-09-15] MEDS: CALCIUM CITRATE 950 MG TABLET PO SCH ×3 (09:42→20:24)
[2017-09-15] MEDS: SENNA + DOCUSATE TABLET PO SCH ×2 (09:42→20:25)
[2017-09-15] MEDS: GABAPENTIN 100 MG CAPSULE PO SCH ×2 (09:42→20:24)
[2017-09-15] MEDS: POLYETHYL GLYCOL 3350 17gm PACKET PO SCH (09:42)
[2017-09-15] MEDS: SERTRALINE 100 MG TABLET PO SCH (09:42)
[2017-09-15] MEDS: LABETALOL 100 MG TABLET PO SCH ×2 (09:43→20:24)
[2017-09-15] MEDS: ALLOPURINOL 100 MG TABLET PO SCH (09:43)
[2017-09-15] MEDS: INSULIN ASPART 100unit/ml INJECTION SQ SCH ×3 (09:43→17:35)
[2017-09-15] MEDS: FLUTICASONE NASAL SPRAY 50mcg EA NOSTRIL SCH (09:44)
--- NOTE | 2017-09-15 10:32 | Progress Note ---
- Date 09/15/17 Subjective: The patient is a pleasant 67-year-old male who lives in a alf for almost 1 year. He has a left [id number] amputation and has history of right knee fusion after removal of an infected joint. He is nonambulatory. He has a history of uncontrolled diabetes with resultant peripheral vascular disease, chronic, and also has peripheral polyneuropathy. He was recently found to have hypercalcemia with a calcium level of 13.2 on 08/23/2017 and a PTH of 300. The Patient was transferred by EMS to [facility] on 09/03/17. His glucose was noted to be 45 and was given dextrose by EMS. The patient had been eating and drinking poorly for a couple of days and has been more confused for a couple of days. On lab work here at [facility] his glucose was 152, BUN 59, creatinine 2.5. White count 2.5. Hemoglobin 6.6. Platelets 38. Calcium was 14.3. Lactate was 1.0. The patient was admitted for acute kidney injury, dehydration, hypoglycemia and hypercalcemia. He was given IV fluids overnight and by the next morning BUN is 59 and creatinine is 2.6. He has had good urine output at 2.4 L. Calcium had improved slightly to 13.3. Glucose 225. The patient's helped with history. She is DPOA. She states the patient is still confused but not as bad as day prior. He had some tactile hallucinations . She has noticed that he's had some mild memory decline for the past 6 months but has been more confused since around August 15. The patient was found to have primary hyperparathyroidism. He underwent a nuclear scan which showed a persistent focus of asymmetric increase activity in the region of the right lower thyroid suggesting a parathyroid adenoma. Surgery was consultation as was endocrinology. On 09/03/17 the patient underwent neck exploration with excision of the right inferior parathyroid adenoma. His calcium has been trending down. Patient developed fevers and was found to have positive blood cultures which were positive for MRSA. At least for now we do not have source. There is some thought to his right knee being a possible source versus his chronic wounds. ISHMAEL negative for endocarditis. He has been afebrile since 1135 on 09/14/17. Cognition improved considerably by 09/14/17. Today, he is awake and alert. Oriented. Some muscle cramping and arthritis pain. He denies any chilling. He denies feeling short of breath, denies orthopnea. He denies chest pain, pressure or tightness. He denies any palpitations. He denies any nausea, vomiting. He reports his bowels are moving. He does report feeling like his legs are more swollen today. He has a Justin in place. Cell counts are better today. I spoke with Dr. Apple who is ordering an MRI of his right leg to evaluate as a source of his MRI say and enterococcus bacteremia. Clinically the patient is doing much better. Objective Vital signs: Temperature 98.8 F 09/15/17 09:00 Pulse Rate 69 09/15/17 09:00 Respiratory Rate 16 09/15/17 09:00 Blood Pressure 135/66 09/15/17 09:00 Pulse Oximetry 100 09/15/17 09:00 Rhythm: Normal Sinus Rhythm Height/Weight/BMI: Height 1.91 m Weight 134.5 kg Body Mass Index 34.3 Comments: Gen: alert and oriented times 3 today. Skin: warm and dry, Neck incision healing well. No evidence of infection. Some ecchymosis. Venous stasis discoloration of bilateral lower ext. (stump of right LE) HEENT: NC/AT PERRL, EOMI, Sclera, lids and conjunctiva wnl. DryMM. OP clear. Neck: Short and thick. No JVD, Carotids 2+ without bruits Lungs: clear. diminished. No rales, rhonchi or wheezes CV: regular. 2/6 murmur. Abd: soft. +BS. NT/ND MS: 1+ edema of right LE. Left AKA. Right pedal pulse palp but weak. Neuro: No focal deficits Psy: Cooperative, pleasant Results - Labs CBC & Chem 7: 09/15/17 04:32 09/15/17 04:32 Microbiology Results: Microbiology 09/11/17 18:29 Peripheral/Iv Start Gram Stain - Final 09/11/17 18:29 Peripheral/Iv Start Blood Culture - Preliminary Staphylococcus aureus, MRSA Enterococcus species 09/11/17 19:25 Peripheral/Iv Start Gram Stain - Final 09/11/17 19:25 Peripheral/Iv Start Blood Culture - Preliminary Staphylococcus aureus 09/13/17 10:59 Peripheral/Iv Start Blood Culture - Preliminary No Growth After 1 Day 09/13/17 10:45 Peripheral/Iv Start Blood Culture - Preliminary No Growth After 1 Day Assessment and Plan Assessment and Plan: Severe sepsis with MRSA and enterococcus bacteremia Source unknown - possible joint vs chronic wounds. Neck incision healing well. Dr. Apple consulted. appreciate her assistance. Cefepime and clinda dc'd. Continue Vanco (started 09/11) and chronic cipro (for suppression of pseudomonas) Lactate decreased from 2.2 to 0.9 and continues to be normal. Procalcitonin elevated peaked at 3.09-today down to 2.26, and normalized today at 1.48 Afebrile since 1135 on 09/13/17 Pt with watery stools yesterday, C diff negative. Repeat UA-unremarkable Repeat Blood cultures NGTD (2 days) XRAY of right knee done this am. MRI ordered TTE/ISHMAEL show no endocarditis. Neutropenic WBC 2.0, neutropenic precautions Hypoxia with 83% on room air on admission CXR 09/11/17 negative for pneumonia or CHF. O2 PRN, on RA since 09/14/47 at 8am CPAP HS DuoNeb PRN Metabolic acidosis/HERNAN CO2 stable at 21. Renal function elevated but slight improvement today with BUN of 25 and creatinine of 1.6. Continue sodium bicarb/IVF Continue Justin; good UO Electrolyte abnormalities Phos lower again today at 1.7, Mg up to 1.8. Follow, may need Dr. Le's input on Phos replacement Ca decreased to 6.5, Dr. Le increased calcium citrate today in addition to the Calcitriol Encephalopathy-Improving. Multifactorial - no recent Sanford; last Tramadol was on 09/10 Ammonia level was 20 on 09/10, repeat ok at 18 CT done 09/03/17 unremarkable except maxillary sinusitis Maxillary sinusitis Flonase DM2; hypocalcemia Per Dr. Le On calcium citrate and calcitriol. S/P parathyroidectomy Per Dr. Gregory Prophylaxis PPI and SCDs, start SQ heparin - Physician Narrative Narrative: Date: 09/15/17 Time: 1026 Hospital Course Summary Disclaimer: The visit summary below is not to be considered part of the above Progress Note. Hospital Course: 09/04/17 Admit to CCU for close monitoring as an inpatient. Continue normal saline. Dr. Le was consulted regarding hypercalcemia. He will see the patient a little later today. He does recommend surgical consultation for possible parathyroidectomy. Regarding acute kidney injury will continue IV fluids, check renal sonogram, check urine sodium and creatinine and hold losartan Re: Pancytopenia, will recheck CBC. Regarding chronic wound infections, will continue clindamycin and Cipro. Will ask pharmacy to adjust Cipro for renal function. Continue on telemetry for possible arrhythmias Recheck CBC and basic metabolic profile today and again tomorrow. The patient is full code per his who his DPOA. 09/05/17 Calcium improving following pamidronate yesterday, continue IV fluids. Scan consistent with single parathyroid adenoma. Surgery tentatively scheduled for later in the week. reports minor improvement in mental status continue to monitor. Blood sugars stable overnight-no recurrent hypoglycemia. Renal function minimally improved, continue hydration; medications adjusted for renal function earlier today by Pharm.D. No reported hypotension. Fractional excretion suggests intrinsic renal dysfunction. Hemoglobin/platelet count stable today; white count 2.9. Pancytopenia chronic. 09/06/17 Calcium improved/stable following pamidronate 09/04, continue IV fluids. Scan consistent with single parathyroid adenoma. Surgery tentatively scheduled for tomorrow-discussed with Dr. Gregory. Also discussed plans with Dr. Le, if GFR permits will receive a single dose of Zoledronic acid later today to further improve calcium preoperatively. reports minor improvement in mental status continue to monitor. Blood sugars stable today ranging from 147-155. Renal function slowly improving with creatinine 2.0 today-well above baseline of 1.2-1.4 and baseline GFR of about 60, continue hydration. Chronic pancytopenia (due to cirrhosis/chronic inflammation); anticipate platelet packs with surgery to minimize risk of neck hematoma. Home pain medications resumed. Low-dose Seroquel added for sleep. Supplemental history provided by nursing and patient's . Stable to transfer out of ICU today. 09/07/17 Patient moved to medical floor on 09/06/17. Calcium improved/stable (decreased from 14.3 on 09/03/17 to 11.6 today, 09/07/17). Parathyroidectomy scheduled for today with Dr. Gregory. Maintain NPO status due to anticipated surgery. Will continue IVF and add KCl 20 mEQ to IVF given hypokalemia. Weight trending up. Decrease rate to 150cc/hr and continue to monitor closely for signs of fluid overload. Dr. Le continues to follow patient. Appreciate his time and expertise. Discussed giving Zoledronic acid on 09/06/17, but decided against it. Anticipates improvement in calcium following surgery. Increased somnolence today - suspect secondary to receiving Seroquel 25mg at bedtime last night to assist with insomnia. Continue to monitor mental status closely. Blood sugars stable and trending up since admission (range 147-233). Continue to monitor closely. Renal function slowly improving with creatinine 1.9 today-well above baseline of 1.2-1.4 and baseline GFR of about 60. Continue hydration and continue to monitor. Pancytopenia chronic - anticipate platelet packs with surgery to minimize risk of neck hematoma. WBC 1.8, Hgb 8.7, Plt 48. Supplemental history provided by nursing and patient's . Telemetry reviewed-sinus rhythm. Will recheck labs in AM to monitor blood counts, electrolytes and renal function. Monitor serial calcium levels post operatively. 09/08/17 Calcium continues to improve progressively; PTH down immediately after surgery. Limited oral intake, continue IV fluids pending improvement. Weight trending up. He was dehydrated on admission, minor edema present right lower extremity; not hypoxic. Continue to monitor Dr. Le continues to follow patient for diabetes and hyperparathyroidism. Blood glucose is stable. Sleep improved with Seroquel the past 2 nights, speech mumbled but was prior to initiation of medication. We'll readdress with when available anticipate discontinuing medication in the next day or 2. Renal function slowly improving with creatinine 1.9 remains above baseline of 1.2-1.4 and baseline GFR of about 60. Chronic pancytopenia, count stable- 1 unit of platelets and packed cells with surgery yesterday. 09/09/17 Calcium has stabilized at 9.4 yesterday and today. Continue to monitor. Fluids switched from NS to 1/2NS with sodium bicarb. Dr. Le continues to follow patient for diabetes and hyperparathyroidism. Blood glucose is stable. 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 No changes. Renal function plateaued with creatinine 1.9 yesterday and today. Remains above baseline of 1.2-1.4 and baseline GFR of about 60. Resume home levothyroxine and gabapentin. BP's stable - amlodipine and Cozaar remain on hold. 09/10/17 Patient remains very confused. Medications reviewed- Hold Tramadol. DC Reglan. Decrease Zoloft to 100mg Q Day for now. Decrease flexeril to 5mg dosing. Check venous ammonia. Serum calcium is trending down. Remains acidotic- continue NaHCO2 in IVF for now. Renal function remains elevated. Baseline 1.2-1.4. Chronic joint infection with suppressive therapy- Cipro/Clinda. Will request pharmacy consult for renal dosing. Pancytopenia appears stable, continue neutropenic precautions. 09/11/17 Continue sodium bicarb; CO2 improving. Creatinine increased slightly from 1.9 to 2.0. Cipro dose adjusted yesterday based on renal function. Phosphorus low at 2.0 -- start replacement PO. Ca 8.4. ANC 1440 - continue neutropenic precautions. Spiked fever of 102.5 in the evening. Sepsis workup ensued. Lactate 2.2. Started Vanco and cefepime. 09/12/17 Severe sepsis with MRSA and enterococcus bacteremia ? Source - possible joint vs chronic wounds. Neck incision healing well. Continue Vanco and cefepime for positive blood cultures - started 09/11. suppressive Cipro and clindamycin for chronic joint infections (Dr. Gomez) Consulted Dr. Apple - she will evaluate tomorrow. Lactate decreased from 2.2 to 0.9 WBC 3.1. T max 104.1 last evening. He is not hypotensive. Hypoxia with 83% on room air CXR yesterday was negative for pneumonia or CHF. O2 PRN CPAP HS DuoNeb PRN Metabolic acidosis/HERNAN CO2 improved to 20. Renal function elevated but about the same with BUN of 29 and creatinine of 2.1. Continue sodium bicarb. Continue Justin; good UO (1650/2210 on 09/12) Electrolyte abnormalities Phos still low at 2.3; mg low-normal at 1.6. Continue KPhos and give one- time dose of MagOx 800 mg. Ca decreased to 8.1 - Dr. Le recommends to start Ca if it decreases further. Encephalopathy Multifactorial - no recent Sanford; last Tramadol was on 09/10 Ammonia level was 20 on 09/1009/13/[address] consultation by Dr Apple. She is concerned about possible right knee source infection. Right knee Xray ordered Cefepime discontinued. Continue with Vancomycin for positive blood cultures - started 09/11. Added PO Cipro for chronic suppression Will repeat Blood cultures today ANC count is 928- reveling Neutropenia. Placed on precautions All wounds evaluated this morning by Wound team Nurse- No evidence of acute infection or worsening wounds. Will likely require a ISHMAEL to evaluate for vegetations- discuss with attending. Case discussed with attending, Dr Lerma
[2017-09-15] MEDS ORDERED: FUROSEMIDE 20 MG/2 ML INJECTION IVP ONE (10:54)
--- NOTE | 2017-09-15 11:12 | Transesophageal Echocardiogram ---
DATE OF PROCEDURE September 14, [address] Caty Lerma The patient is a 67-year-old gentleman with bacteremia of unknown origin and was referred for further evaluation by transesophageal echocardiogram to rule out vegetations. Informed consent was obtained after explaining the procedure and the potential risks to the patient who agreed to proceed with the procedure. PROCEDURE 1. Transesophageal echocardiogram. Conscious sedation was performed using Versed and fentanyl. Cetacaine spray was used for pharyngeal anesthesia. Probe was advanced into the esophagus and stomach and images were obtained in multiple planes. Left atrium is dilated. Left ventricular end-diastolic dimension is normal. Left ventricle wall thickness is normal. LV systolic function is normal with ejection fraction of about 65%. Right atrium is dilated. Right ventricle is normal. Aortic root dimension is normal. Mitral valve is morphologically normal with trace of mitral regurgitation. Aortic valve is a trileaflet structure with no stenosis or insufficiency. Tricuspid valve shows trace of tricuspid regurgitation. Pulmonary valve appears to be normal. There is no pericardial effusion. There is no thrombus in left atrium, left atrial appendage or left ventricle. Agitated saline was injected which showed no evidence of [id number] shunt. There is no evidence of vegetations. Descending thoracic aorta appears to be free of significant atherosclerosis. IMPRESSION 1. No evidence of vegetations. 2. Normal LV systolic function with ejection fraction of about 65%. 3. Biatrial dilation. 4. Trace of mitral regurgitation. 5. Trace of tricuspid regurgitation. MTDD
[2017-09-15] MEDS: INSULIN ASPART 100unit/ml INJECTION SQ PRN ×3 (12:39→20:24)
--- NOTE | 2017-09-15 13:32 | Magnetic Resonance Report ---
Indication: sepsis, R knee osteo PROCEDURE: MR knee RT wo con: Encounter: Initial Comparison: Radiographs dated September 13, 2017 Technique: Multiplanar multisequence MR imaging of the right knee was performed without contrast. Findings: Postsurgical changes with an intramedullary nail arthrodesis of the knee joint and methylmethacrylate filling the joint space. There is cortical irregularity of the patella and distal femur along with the proximal tibia probably related to old infection. The bone marrow does not show acute edema or abnormal regions of T1 hypointensity to suggest active osteomyelitis. There is no drainable abscess or sinus tract identified. There is diffuse fatty atrophy of the thigh musculature. There is subcutaneous edema circumferentially around the knee joint. Impression: No MR evidence of active osteomyelitis. Diffuse subcutaneous edema could represent a cellulitis. .
[2017-09-15] MEDS: SODIUM BICARBONATE 50 MEQ in 1/2 NS 1,000 ML IV SCH ×2 (15:56→16:12)
[2017-09-15] MEDS: HYDROCODONE/APAP 7.5 MG/325 MG TABLET PO PRN (20:24)
[2017-09-15] MEDS: CYCLOBENZAPRINE 10 MG TABLET PO PRN (23:36)
[2017-09-16] MEDS: QUETIAPINE 25 MG TABLET PO PRN (02:37)
[2017-09-16] MEDS: HEPARIN SUB-Q 5,000units/0.5ml INJECTION SQ SCH ×3 (02:38→16:44)
[2017-09-16] MEDS: SODIUM BICARBONATE 50 MEQ in 1/2 NS 1,000 ML IV SCH ×3 (02:39→15:05)
[2017-09-16] MEDS: LEVOTHYROXINE 200 MCG TABLET PO SCH (07:10)
[2017-09-16] MEDS: CIPROFLOXACIN 250 MG TABLET PO SCH ×2 (07:10→19:57)
[2017-09-16] MEDS: PANTOPRAZOLE 40 MG TABLET PO SCH (07:21)
[2017-09-16] MEDS: LEVOTHYROXINE 50 MCG TABLET PO SCH (07:21)
[2017-09-16] MEDS: ALBUTEROL/IPRATROPIUM 2.5mg-0.5mg/3ml NEB AEROSOL SCH ×4 (08:20→20:25)
[2017-09-16] MEDS: INSULIN ASPART 100unit/ml INJECTION SQ SCH ×3 (08:53→18:04)
[2017-09-16] MEDS: ALLOPURINOL 100 MG TABLET PO SCH (08:56)
[2017-09-16] MEDS: SERTRALINE 100 MG TABLET PO SCH (08:56)
[2017-09-16] MEDS: CALCITRIOL 0.25 MCG CAPSULE PO SCH ×3 (08:56→20:02)
[2017-09-16] MEDS: LABETALOL 100 MG TABLET PO SCH ×3 (08:57→20:02)
[2017-09-16] MEDS: CALCIUM CITRATE 950 MG TABLET PO SCH ×2 (08:57→15:04)
[2017-09-16] MEDS: GABAPENTIN 100 MG CAPSULE PO SCH ×3 (08:57→20:02)
[2017-09-16] MEDS: FLUTICASONE NASAL SPRAY 50mcg EA NOSTRIL SCH (09:00)
--- NOTE | 2017-09-16 09:05 | Progress Note ---
- Date 09/16/17 Subjective: F/U: Septicemia, acute kidney injury. Gurdeep is resting in bed, receiving a breathing treatment on initial exam. He is seen again following breathing treatment, preparing for breakfast. He reports that he is feeling much better today as compared to yesterday. He complains of chronic pain in his shoulders, back and knee but denies any new complaints or concerns. No fevers, chills, chest pain, shortness of breath, cough, abdominal pain, nausea, vomiting or dysuria. His appetite is stable and bowels are moving. He was seen and evaluated by Dr. Apple (ID) who recommended continuation of the IV vancomycin with oral ciprofloxacin for the septicemia and chronic suppression of pseudomonas. MRI of the right knee was obtained and did not show any evidence of active osteomyelitis though diffuse subcutaneous edema could represent cellulitis. He was also seen by Dr. Le ( endocrinology) who increased his calcitriol from daily to 0.5mcg BID and calcium from BID to 950mg TID. Repeat blood cultures from 09/13 remain negative after 2 days. Gram stain results pending with no growth noted after 2 days. Prior cultures on 09/11 revealed MRSA and enteroccus faecalis. He remains pancytopenic and neutropenic. WBC trending up (WBC 2.3, up from 2.0), hemoglobin stable at 8.4 and slight increase in thrombocytopenia (Plt 52, up from 46). Renal function stable with SCr 1.6 and BUN 23, still up from baseline of 1.2 from 05/2017. Objective Vital signs: Temperature 97.5 F 09/16/17 07:38 Pulse Rate 68 09/16/17 07:38 Respiratory Rate 12 09/16/17 08:20 Blood Pressure 137/56 09/16/17 07:38 Pulse Oximetry 100 09/16/17 08:20 Rhythm: Normal Sinus Rhythm Height/Weight/BMI: Height 6 ft 3 in Weight 294 lb 12.128 oz Body Mass Index 34.3 Comments: Resting in bed, initially taking a breathing treatment and later preparing for breakfast. - Constitutional Present: no acute distress, well nourished, well developed, morbidly obese, cooperative - Routine HEENT Exam Head: Present: normocephalic, atraumatic Eye: Present: PERRL. Absent: conjunctival icterus ENT: Present: mucous membranes moist - Routine Respiratory Exam Present: CTA bilaterally. Absent: respiratory distress, rhonchi, wheezes - Routine Cardiovascular Exam Present: RRR, S1, S2 - Routine Abdominal Exam Present: soft, normoactive bowel sounds, non distended, non tender - Routine Extremities Exam Present: pulses intact Comments: Chronic skin changes with darkening to skin noted to right lower extremity; bandage clean, dry and intact noted to right lower extremity with nursing preparing to change following bath; left below the knee amputation. - Routine Back/Spine/Pelvis Exam Back/Spine: Present: full ROM. Absent: vertebral tenderness - Routine Musculoskeletal Exam Musculoskeletal: Present: moving extremities well - Routine Skin Exam Present: dry, warm Comments: Afebrile. - Routine Neurological Exam Present: alert, oriented X3, moving all extremities, hearing grossly intact, normal speech - Routine Lymphatic Exam Lymphatic: Absent: lymphedema - Routine Psychiatric Exam Present: cooperative Results - Labs CBC & Chem 7: 09/16/17 04:08 09/16/17 04:08 Microbiology Results: Microbiology 09/11/17 19:25 Peripheral/Iv Start Gram Stain - Final 09/11/17 19:25 Peripheral/Iv Start Blood Culture - Final Staphylococcus aureus, MRSA 09/11/17 18:29 Peripheral/Iv Start Gram Stain - Final 09/11/17 18:29 Peripheral/Iv Start Blood Culture - Final Staphylococcus aureus, MRSA Enterococcus faecalis 09/13/17 10:45 Peripheral/Iv Start Blood Culture - Preliminary No Growth After 2 Days 09/13/17 10:59 Peripheral/Iv Start Blood Culture - Preliminary No Growth After 2 Days - Impressions Date of Exam: 09/15/17 Type of Exam(s): MR knee RT wo con Reason for Exam(s): sepsis, R knee osteo Findings: Postsurgical changes with an intramedullary nail arthrodesis of the knee joint and methylmethacrylate filling the joint space. There is cortical irregularity of the patella and distal femur along with the proximal tibia probably related to old infection. The bone marrow does not show acute edema or abnormal regions of T1 hypointensity to suggest active osteomyelitis. There is no drainable abscess or sinus tract identified. There is diffuse fatty atrophy of the thigh musculature. There is subcutaneous edema circumferentially around the knee joint. Impression: No MR evidence of active osteomyelitis. Diffuse subcutaneous edema could represent a cellulitis. Assessment and Plan Assessment and Plan: Assessment/Plan - 09/16/17: Severe sepsis with MRSA and enterococcus bacteremia - improving. Source unknown - possible joint vs chronic wounds. Neck incision healing well. Dr. Apple consulted. Recommends continuation of Vanco (started 09/11) and chronic cipro (for suppression of pseudomonas). He remains afebrile. Repeat Blood cultures NGTD (2 days) MRI - No evidence of active osteomyelitis. Diffuse subcutaneous edema could represent a cellulitis. Neutropenic/pancytopenia WBC slowly trending up (2.3). Continue neutropenic precautions. Platelets slowly trending up (52). Hgb stable (8.4) without signs of bleeding. Hypoxia with 83% on room air on admission - resolved. Breathing stable on room air. Continue respiratory cares. Encourage incentive spirometry. CXR 09/11/17 negative for pneumonia or CHF. Oxygen as needed to maintain SG >92% - weaning as able. CPAP HS Metabolic acidosis/HERNAN - improving. CO2 stable at 23. Consider discontinuation of 1/2NS with sodium bicarb at 75cc/hr. Weight stable. Renal function elevated but stable - BUN of 23 and creatinine of 1.6 ( baseline SCr 1.2 as of 05/2017). Continue Justin; good UO. Consider starting bladder retaining. Electrolyte abnormalities, DM2 and Hypocalcemia Being followed by Dr. Le (endo). Phos continues to be low at 1.3; Mg stable at 1.7. Will discuss with Dr. Gilliam. May need Dr. Le's input on Phos replacement. Dr. Le increased calcium to 950mg TID and increased calcitriol to 0.5mcg BID. Calcium increased to 7.0 with improvement in symptoms. Encephalopathy-Improving. Multifactorial - no recent [place]; last Tramadol was on 09/10. Ammonia level was 20 on 09/10, repeat ok at 18 CT done 09/03/17 unremarkable except maxillary sinusitis. S/P parathyroidectomy - 09/07/[address] Gregory Prophylaxis Protonix and SCDs, SQ heparin Mane Will give IV Kphos due to persistent decrease phos levels. Assessment Hypercalcemia secondary to hyperparathyroidism Parathyroid adenoma-s/p parathyroidectomy 09/07/17 Severe sepsis with MRSA and enterococcus bacteremia - improving. Source unknown - possible joint vs chronic wounds. Neck incision healing well. Encephalopathy with hallucinations Hypoglycemia - resolved Acute kidney injury-FeNa 6.7% (POA) Stage III CKD Metabolic acidosis Type 2 diabetes mellitus on insulin Chronic Pancytopenia Anemia - Transfusion of 1 unit pRBC 09/03 and 09/04 Thrombocytopenia - transfusion of platelet pack 09/07 Chronic joint infection - suppressive Cipro and clindamycin Chronic buttock wounds Hypothyroidism, post-ablative Possible supraventricular bradycardia, in sinus rhythm Obstructive sleep apnea - CPAP Obesity Hypertension - on home labetalol, amlodipine and losartan not restarted Peripheral polyneuropathy Cirrhosis Generalized pain Insomnia DVT Prophylaxis: SCD's, SQ Heparin GI Prophylaxis: Protonix Resuscitation Status: Full Code - Time spent with patient Time with patient PN: 30 minutes - Physician Narrative Physician: Aron Gilliam MD Narrative: Date: 09/16/17 Time: 1420 Have independently interviewed and examined pt. Chart reviewed. Case discussed with nursing, Dr Guan, and my PA. Care plan developed with my supervision; agree with above. Somnolent and groggy this afternoon. Did receive lorazepam prior to IV placement. Will answer questions with very brief answers. Hard to keep eyes open. Lungs: decreased, no crackles or distress CV: regular AB: soft obese nt MSE: somnolent Plan: IV site replaced due to malfunction of prior IV. Discussed case with Dr Whiting in regards to his low phos and calcium. See recommends IV KPhos infusion today and increasing Rocaltrol to 1mg BID. Hold on lorazepam due to sedation. Monitor lab. Slow clinical progression. Hospital Course Summary Disclaimer: The visit summary below is not to be considered part of the above Progress Note. Hospital Course: 09/04/17 Admit to CCU for close monitoring as an inpatient. Continue normal saline. Dr. Le was consulted regarding hypercalcemia. He will see the patient a little later today. He does recommend surgical consultation for possible parathyroidectomy. Regarding acute kidney injury will continue IV fluids, check renal sonogram, check urine sodium and creatinine and hold losartan. Re: Pancytopenia, will recheck CBC. Regarding chronic wound infections, will continue clindamycin and Cipro. Will ask pharmacy to adjust Cipro for renal function. Continue on telemetry for possible arrhythmias. Recheck CBC and basic metabolic profile today and again tomorrow. The patient is full code per his who his DPOA. 09/05/17 Calcium improving following pamidronate yesterday, continue IV fluids. Scan consistent with single parathyroid adenoma. Surgery tentatively scheduled for later in the week. reports minor improvement in mental status continue to monitor. Blood sugars stable overnight-no recurrent hypoglycemia. Renal function minimally improved, continue hydration; medications adjusted for renal function earlier today by Pharm.D. No reported hypotension. Fractional excretion suggests intrinsic renal dysfunction. Hemoglobin/platelet count stable today; white count 2.9. Pancytopenia chronic. 09/06/17 Calcium improved/stable following pamidronate 09/04, continue IV fluids. Scan consistent with single parathyroid adenoma. Surgery tentatively scheduled for tomorrow-discussed with Dr. Gregory. Also discussed plans with Dr. Le, if GFR permits will receive a single dose of Zoledronic acid later today to further improve calcium preoperatively. reports minor improvement in mental status continue to monitor. Blood sugars stable today ranging from 147-155. Renal function slowly improving with creatinine 2.0 today-well above baseline of 1.2-1.4 and baseline GFR of about 60, continue hydration. Chronic pancytopenia (due to cirrhosis/chronic inflammation); anticipate platelet packs with surgery to minimize risk of neck hematoma. Home pain medications resumed. Low-dose Seroquel added for sleep. Supplemental history provided by nursing and patient's . Stable to transfer out of ICU today. 09/07/17 OP DAY: Neck exploration with excision of right inferior parathyroid adenoma - Dr Gregory Patient moved to medical floor on 09/06/17. Calcium improved/stable (decreased from 14.3 on 09/03/17 to 11.6 today, 09/07/17). Parathyroidectomy scheduled for today with Dr. Gregory. Maintain NPO status due to anticipated surgery. Will continue IVF and add KCl 20 mEQ to IVF given hypokalemia. Weight trending up. Decrease rate to 150cc/hr and continue to monitor closely for signs of fluid overload. Dr. Le continues to follow patient. Appreciate his time and expertise. Discussed giving Zoledronic acid on 09/06/17, but decided against it. Anticipates improvement in calcium following surgery. Increased somnolence today - suspect secondary to receiving Seroquel 25mg at bedtime last night to assist with insomnia. Continue to monitor mental status closely. Blood sugars stable and trending up since admission (range 147-233). Continue to monitor closely. Renal function slowly improving with creatinine 1.9 today-well above baseline of 1.2-1.4 and baseline GFR of about 60. Continue hydration and continue to monitor. Pancytopenia chronic - anticipate platelet packs with surgery to minimize risk of neck hematoma. WBC 1.8, Hgb 8.7, Plt 48. Supplemental history provided by nursing and patient's . Telemetry reviewed-sinus rhythm. Will recheck labs in AM to monitor blood counts, electrolytes and renal function. Monitor serial calcium levels post operatively. 09/08/17 Calcium continues to improve progressively; PTH down immediately after surgery. Limited oral intake, continue IV fluids pending improvement. Weight trending up. He was dehydrated on admission, minor edema present right lower extremity; not hypoxic. Continue to monitor. Dr. Le continues to follow patient for diabetes and hyperparathyroidism. Blood glucose is stable. Sleep improved with Seroquel the past 2 nights, speech mumbled but was prior to initiation of medication. We'll readdress with when available anticipate discontinuing medication in the next day or 2. Renal function slowly improving with creatinine 1.9 remains above baseline of 1.2-1.4 and baseline GFR of about 60. Chronic pancytopenia, count stable- 1 unit of platelets and packed cells with surgery yesterday. 09/09/17 Calcium has stabilized at 9.4 yesterday and today. Continue to monitor. Fluids switched from NS to 1/2NS with sodium bicarb. Dr. Le continues to follow patient for diabetes and hyperparathyroidism. Blood glucose is stable. 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 Gregory) evaluated pt today. No changes. Renal function plateaued with creatinine 1.9 yesterday and today. Remains above baseline of 1.2-1.4 and baseline GFR of about 60. Resume home levothyroxine and gabapentin. BP's stable - amlodipine and Cozaar remain on hold. 09/10/17 Patient remains very confused. Medications reviewed- Hold Tramadol. DC Reglan. Decrease Zoloft to 100mg Q Day for now. Decrease Flexeril to 5mg dosing. Check venous ammonia. Serum calcium is trending down. Remains acidotic- continue NaHCO2 in IVF for now. Renal function remains elevated. Baseline 1.2-1.4. Chronic joint infection with suppressive therapy- Cipro/Clinda. Will request pharmacy consult for renal dosing. Pancytopenia appears stable, continue neutropenic precautions. 09/11/17 Continue sodium bicarb; CO2 improving. Creatinine increased slightly from 1.9 to 2.0. Cipro dose adjusted yesterday based on renal function. Phosphorus low at 2.0 -- start replacement PO. Ca 8.4. ANC 1440 - continue neutropenic precautions. Spiked fever of 102.5 in the evening. Sepsis workup ensued. Lactate 2.2. Started Vanco and cefepime. 09/12/17 Severe sepsis with MRSA and enterococcus bacteremia ? Source - possible joint vs chronic wounds. Neck incision healing well. Continue Vanco and cefepime for positive blood cultures - started 09/11. suppressive Cipro and clindamycin for chronic joint infections (Dr. Gomez) Consulted Dr. Apple - she will evaluate tomorrow. Lactate decreased from 2.2 to 0.9 WBC 3.1. T max 104.1 last evening. He is not hypotensive. Hypoxia with 83% on room air CXR yesterday was negative for pneumonia or CHF. O2 PRN CPAP HS DuoNeb PRN Metabolic acidosis/HERNAN CO2 improved to 20. Renal function elevated but about the same with BUN of 29 and creatinine of 2.1. Continue sodium bicarb. Continue Justin; good UO (1650/2210 on 09/12) Electrolyte abnormalities Phos still low at 2.3; mg low-normal at 1.6. Continue KPhos and give one- time dose of MagOx 800 mg. Ca decreased to 8.1 - Dr. Le recommends to start Ca if it decreases further. Encephalopathy Multifactorial - no recent [place]; last Tramadol was on 09/10 Ammonia level was 20 on 09/1009/13/[address] consultation by Dr Apple. She is concerned about possible right knee source infection. Right knee Xray ordered. Cefepime discontinued. Continue with Vancomycin for positive blood cultures - started 09/11. Added PO Cipro for chronic suppression. Will repeat Blood cultures today. ANC count is 928- reveling Neutropenia. Placed on precautions. All wounds evaluated this morning by Wound team Nurse- No evidence of acute infection or worsening wounds. Will likely require a ISHMAEL to evaluate for vegetations- discuss with attending. 09/14/17 ISHMAEL: No evidence of vegetations. 09/15/17 MRI of knee: No MR evidence of active osteomyelitis. Diffuse subcutaneous edema could represent a cellulitis. 09/16/17: Severe sepsis with MRSA and enterococcus bacteremia - improving. Source unknown - possible joint vs chronic wounds. Neck incision healing well. Dr. Apple consulted. Recommends continuation of Vanco (started 09/11) and chronic cipro (for suppression of pseudomonas). He remains afebrile. Repeat Blood cultures NGTD (2 days) MRI - No evidence of active osteomyelitis. Diffuse subcutaneous edema could represent a cellulitis. Neutropenic/pancytopenia WBC slowly trending up (2.3). Continue neutropenic precautions. Platelets slowly trending up (52). Hgb stable (8.4) without signs of bleeding. Hypoxia with 83% on room air on admission - resolved. Breathing stable on room air. Continue respiratory cares. Encourage incentive spirometry. CXR 09/11/17 negative for pneumonia or CHF. Oxygen as needed to maintain SG >92% - weaning as able. CPAP HS Metabolic acidosis/HERNAN - improving. CO2 stable at 23. Consider discontinuation of 1/2NS with sodium bicarb at 75cc/hr. Weight stable. Renal function elevated but stable - BUN of 23 and creatinine of 1.6 ( baseline SCr 1.2 as of 05/2017). Continue Justin; good UO. Consider starting bladder retaining. Electrolyte abnormalities, DM2 and Hypocalcemia Being followed by Dr. Le (endo). Phos continues to be low at 1.3; Mg stable at 1.7. Will discuss with Dr. Gilliam. May need Dr. Le's input on Phos replacement. Dr. Le increased calcium to 950mg TID and increased calcitriol to 0.5mcg BID. Calcium increased to 7.0 with improvement in symptoms. Will give IV Kphos due to persistent decrease phos levels. Encephalopathy-Improving. Continue to monitor. S/P parathyroidectomy - 09/07/[address] Gregory Addendum entered and electronically signed by VINAY Harris 09/16/17 12: 14: Nursing notified hospitalist that patient's midline infiltrated. Infusion therapy evaluated for possible placement and was unable to locate adequate site. Stevie Pimentel CRNA, responded for anesthesia on-call and was able to successfully place a 20-g IV in the right chest with ultrasound guidance. Will continue with IV fluids and IV vancomycin. May consider surgical consult for central line placement if long-term access is needed.
[2017-09-16] MEDS ORDERED: SENNA + DOCUSATE TABLET PO PRN (09:20)
[2017-09-16] MEDS: POLYETHYL GLYCOL 3350 17gm PACKET PO SCH (09:45)
[2017-09-16] MEDS: SENNA + DOCUSATE TABLET PO SCH (09:46)
--- NOTE | 2017-09-16 10:14 | Pharmacy Consult-Antibiotics ---
Pharmacy Consult-Vancomycin - Laboratory Information WBC 2.3 T/MM3 (4.5-11.0) L 09/16/17 04:08 BUN 23.0 MG/DL (9-20) H 09/16/17 04:08 Creatinine 1.6 mg/dL (0.8-1.5) H 09/16/17 04:08 Procalcitonin 1.48 NG/ML 09/15/17 04:32 Vancomycin Trough 28.00 ug/mL (15-20) H* 09/14/17 07:18 VANCOMYCIN THERAPY: DAY 6 Procalcitonin improved to 1.48 ng/ml, from 2.26 two days ago. Renal fx impaired (Today's SCr 1.6mg/dl), but is stable at this level. Will continue the current Vancomycin regimen of 1250mg IV q24hrs for now. Thank you.
[2017-09-16] MEDS: TRAMADOL 50 MG TABLET PO PRN (11:11)
[2017-09-16] MEDS ORDERED: LORazepam 0.5 MG TABLET PO ONE (11:53)
[2017-09-16] MEDS: INSULIN ASPART 100unit/ml INJECTION SQ PRN (13:08)
[2017-09-16] MEDS: NS FLUSH BAG 500ml IV PRN (16:45)
[2017-09-16] MEDS: LACTOBACILLUS (15B cfu) CAPSULE PO SCH (16:45)
[2017-09-16] MEDS ORDERED: POTASSIUM PHOSPHATE IV SCH (17:00)
[2017-09-16] MEDS ORDERED: NS IV SCH (17:00)
[2017-09-17] MEDS: CALCIUM CITRATE 950 MG TABLET PO SCH ×4 (00:17→20:26)
[2017-09-17] MEDS: HEPARIN SUB-Q 5,000units/0.5ml INJECTION SQ SCH ×3 (00:18→16:09)
[2017-09-17] MEDS: SODIUM BICARBONATE 50 MEQ in 1/2 NS 1,000 ML IV SCH (03:02)
[2017-09-17] MEDS: LEVOTHYROXINE 200 MCG TABLET PO SCH (06:24)
[2017-09-17] MEDS: LEVOTHYROXINE 50 MCG TABLET PO SCH (06:24)
[2017-09-17] MEDS: CIPROFLOXACIN 250 MG TABLET PO SCH ×2 (06:24→20:26)
[2017-09-17] MEDS: PANTOPRAZOLE 40 MG TABLET PO SCH (06:24)
[2017-09-17] MEDS: ALBUTEROL/IPRATROPIUM 2.5mg-0.5mg/3ml NEB AEROSOL SCH ×4 (07:34→19:40)
[2017-09-17] MEDS: GABAPENTIN 100 MG CAPSULE PO SCH ×2 (08:36→20:26)
[2017-09-17] MEDS: LACTOBACILLUS (15B cfu) CAPSULE PO SCH ×2 (08:36→17:56)
[2017-09-17] MEDS: ALLOPURINOL 100 MG TABLET PO SCH (08:36)
[2017-09-17] MEDS: SERTRALINE 100 MG TABLET PO SCH (08:37)
[2017-09-17] MEDS: LABETALOL 100 MG TABLET PO SCH ×2 (08:37→20:26)
[2017-09-17] MEDS: FLUTICASONE NASAL SPRAY 50mcg EA NOSTRIL SCH (08:38)
[2017-09-17] MEDS: CALCITRIOL 0.25 MCG CAPSULE PO SCH ×2 (08:38→20:27)
[2017-09-17] MEDS: INSULIN ASPART 100unit/ml INJECTION SQ SCH ×3 (08:39→17:27)
[2017-09-17] MEDS: POLYETHYL GLYCOL 3350 17gm PACKET PO SCH (08:40)
[2017-09-17] MEDS: INSULIN ASPART 100unit/ml INJECTION SQ PRN ×2 (10:53→16:16)
--- NOTE | 2017-09-17 16:26 | Progress Note ---
- Date 09/17/17 Subjective: Gurdeep is seen today with his at bedside. He is verbalizes he feels frustrated and feels short with nursing staff at times. He reports feeling frustrated with the extended hospital stay. He reports that he is feeling good today without chest pain or GI complaints. Denies feeling short of breath. Reports mild right knee pain. Objective Vital signs: Temperature 97.7 F 09/17/17 12:00 Pulse Rate 73 09/17/17 15:54 Respiratory Rate 18 09/17/17 15:14 Blood Pressure 116/72 09/17/17 12:00 Pulse Oximetry 100 09/17/17 12:00 Height/Weight/BMI: Height 1.91 m Weight 133.4 kg Body Mass Index 34.3 - Constitutional Present: no acute distress, well nourished, well developed - Routine HEENT Exam Eye: Present: EOMI ENT: Present: mucous membranes moist, dentition normal - Routine Respiratory Exam Present: CTA bilaterally. Absent: wheezes - Routine Cardiovascular Exam Present: RRR, S1, S2. Absent: murmur - Routine Abdominal Exam Present: soft, normoactive bowel sounds, non distended. Absent: tenderness - Routine Extremities Exam Present: edema (trace RLE) - Routine Skin Exam Present: intact, dry, warm - Routine Neurological Exam Present: alert, oriented X3, CN II-XII intact - Routine Lymphatic Exam Lymphatic: Absent: adenopathy - Routine Psychiatric Exam Present: normal affect Results - Labs CBC & Chem 7: 09/17/17 04:32 09/17/17 04:32 Microbiology Results: Microbiology 09/13/17 10:59 Peripheral/Iv Start Blood Culture - Preliminary No Growth After 4 Days 09/13/17 10:45 Peripheral/Iv Start Blood Culture - Preliminary No Growth After 4 Days 09/11/17 19:25 Peripheral/Iv Start Gram Stain - Final 09/11/17 19:25 Peripheral/Iv Start Blood Culture - Final Staphylococcus aureus, MRSA 09/11/17 18:29 Peripheral/Iv Start Gram Stain - Final 09/11/17 18:29 Peripheral/Iv Start Blood Culture - Final Staphylococcus aureus, MRSA Enterococcus faecalis Assessment and Plan Assessment and Plan: Assessment Hypercalcemia secondary to hyperparathyroidism Parathyroid adenoma-s/p parathyroidectomy 09/07/17 Severe sepsis with MRSA and enterococcus bacteremia - improving. Source unknown - possible joint vs chronic wounds. Neck incision healing well. Encephalopathy with hallucinations Hypoglycemia - resolved Acute kidney injury-FeNa 6.7% (POA) Stage III CKD Metabolic acidosis Type 2 diabetes mellitus on insulin Chronic Pancytopenia Anemia - Transfusion of 1 unit pRBC 09/03 and 09/04 Thrombocytopenia - transfusion of platelet pack 09/07 Chronic joint infection - suppressive Cipro and clindamycin Chronic buttock wounds Hypothyroidism, post-ablative Possible supraventricular bradycardia, in sinus rhythm Obstructive sleep apnea - CPAP Obesity Hypertension - on home labetalol, amlodipine and losartan not restarted Peripheral polyneuropathy Cirrhosis Generalized pain Insomnia Plan Awaiting for recommendations tomorrow 09/[address] Apple regarding IV Abx course and treatment length He would like to return to [facility] for continued SNU. Concerned this may not be an option with ongoing IV ABx. Could also consider IRU. Continue on IV Vanco and PO Cipro Continued Neutropenia- in precautions Phosphorus normalized. Increased Calcitriol to BID Recheck CBC and BMP tomorrow DVT Prophylaxis: SQ Heparin Resuscitation Status: Full Code - Time spent with patient Time with patient PN: 35 minutes - Physician Narrative Physician: Aron Gilliam MD Narrative: Date: 09/17/17 Time: 1722 Have independently interviewed and examined pt. Chart reviewed. Case discussed with my [employer]. Care plan developed with my supervision; agree with above. Much more awake and alert this afternoon than yesterday post lorazepam. Tired of being in the hospital. Muscles weak and crampy in general. Little appetite. No nausea. Bowels stable. Breathing well. Lungs: decreased bilaterally CV: regular AB: soft nt MSE: awake alert Plan: Can discontinue IVF. Will start bladder retraining. Continue with antibiotic therapy. Monitor lab. Hope for discharge in near future. Hospital Course Summary Disclaimer: The visit summary below is not to be considered part of the above Progress Note. Hospital Course: 09/04/17 Admit to CCU for close monitoring as an inpatient. Continue normal saline. Dr. Le was consulted regarding hypercalcemia. He will see the patient a little later today. He does recommend surgical consultation for possible parathyroidectomy. Regarding acute kidney injury will continue IV fluids, check renal sonogram, check urine sodium and creatinine and hold losartan. Re: Pancytopenia, will recheck CBC. Regarding chronic wound infections, will continue clindamycin and Cipro. Will ask pharmacy to adjust Cipro for renal function. Continue on telemetry for possible arrhythmias. Recheck CBC and basic metabolic profile today and again tomorrow. The patient is full code per his who his DPOA. 09/05/17 Calcium improving following pamidronate yesterday, continue IV fluids. Scan consistent with single parathyroid adenoma. Surgery tentatively scheduled for later in the week. reports minor improvement in mental status continue to monitor. Blood sugars stable overnight-no recurrent hypoglycemia. Renal function minimally improved, continue hydration; medications adjusted for renal function earlier today by Pharm.D. No reported hypotension. Fractional excretion suggests intrinsic renal dysfunction. Hemoglobin/platelet count stable today; white count 2.9. Pancytopenia chronic. 09/06/17 Calcium improved/stable following pamidronate 09/04, continue IV fluids. Scan consistent with single parathyroid adenoma. Surgery tentatively scheduled for tomorrow-discussed with Dr. Gregory. Also discussed plans with Dr. Le, if GFR permits will receive a single dose of Zoledronic acid later today to further improve calcium preoperatively. reports minor improvement in mental status continue to monitor. Blood sugars stable today ranging from 147-155. Renal function slowly improving with creatinine 2.0 today-well above baseline of 1.2-1.4 and baseline GFR of about 60, continue hydration. Chronic pancytopenia (due to cirrhosis/chronic inflammation); anticipate platelet packs with surgery to minimize risk of neck hematoma. Home pain medications resumed. Low-dose Seroquel added for sleep. Supplemental history provided by nursing and patient's . Stable to transfer out of ICU today. 09/07/17 OP DAY: Neck exploration with excision of right inferior parathyroid adenoma - Dr Gregory Calcium improved/stable (decreased from 14.3 on 09/03/17 to 11.6 today, 09/07/17). Parathyroidectomy scheduled for today with Dr. Gregory. Maintain NPO status due to anticipated surgery. Will continue IVF and add KCl 20 mEQ to IVF given hypokalemia. Weight trending up. Decrease rate to 150cc/hr and continue to monitor closely for signs of fluid overload. Dr. Le continues to follow patient. Appreciate his time and expertise. Discussed giving Zoledronic acid on 09/06/17, but decided against it. Anticipates improvement in calcium following surgery. Increased somnolence today - suspect secondary to receiving Seroquel 25mg at bedtime last night to assist with insomnia. Continue to monitor mental status closely. Blood sugars stable and trending up since admission (range 147-233). Continue to monitor closely. Renal function slowly improving with creatinine 1.9 today-well above baseline of 1.2-1.4 and baseline GFR of about 60. Continue hydration and continue to monitor. Pancytopenia chronic - anticipate platelet packs with surgery to minimize risk of neck hematoma. WBC 1.8, Hgb 8.7, Plt 48. Supplemental history provided by nursing and patient's . Telemetry reviewed-sinus rhythm. Will recheck labs in AM to monitor blood counts, electrolytes and renal function. Monitor serial calcium levels post operatively. 09/08/17 Calcium continues to improve progressively; PTH down immediately after surgery. Limited oral intake, continue IV fluids pending improvement. Weight trending up. He was dehydrated on admission, minor edema present right lower extremity; not hypoxic. Continue to monitor. Dr. Le continues to follow patient for diabetes and hyperparathyroidism. Blood glucose is stable. Sleep improved with Seroquel the past 2 nights, speech mumbled but was prior to initiation of medication. We'll readdress with when available anticipate discontinuing medication in the next day or 2. Renal function slowly improving with creatinine 1.9 remains above baseline of 1.2-1.4 and baseline GFR of about 60. Chronic pancytopenia, count stable- 1 unit of platelets and packed cells with surgery yesterday. 09/09/17 Calcium has stabilized at 9.4 yesterday and today. Continue to monitor. Fluids switched from NS to 1/2NS with sodium bicarb. Dr. Le continues to follow patient for diabetes and hyperparathyroidism. Blood glucose is stable. (curator of collections for Dr. Gregory) evaluated pt today. No changes. Renal function plateaued with creatinine 1.9 yesterday and today. Remains above baseline of 1.2-1.4 and baseline GFR of about 60. Resume home levothyroxine and gabapentin. BP's stable - amlodipine and Cozaar remain on hold. 09/10/17 Patient remains very confused. Medications reviewed- Hold Tramadol. DC Reglan. Decrease Zoloft to 100mg Q Day for now. Decrease Flexeril to 5mg dosing. Check venous ammonia. Serum calcium is trending down. Remains acidotic- continue NaHCO2 in IVF for now. Renal function remains elevated. Baseline 1.2-1.4. Chronic joint infection with suppressive therapy- Cipro/Clinda. Will request pharmacy consult for renal dosing. Pancytopenia appears stable, continue neutropenic precautions. 09/11/17 Continue sodium bicarb; CO2 improving. Creatinine increased slightly from 1.9 to 2.0. Cipro dose adjusted yesterday based on renal function. Phosphorus low at 2.0 -- start replacement PO. Ca 8.4. ANC 1440 - continue neutropenic precautions. Spiked fever of 102.5 in the evening. Sepsis workup ensued. Lactate 2.2. Started Vancomycin and cefepime. 09/12/17 Severe sepsis with MRSA and enterococcus bacteremia ? Source - possible joint vs chronic wounds. Neck incision healing well. Continue Vanco and cefepime for positive blood cultures - started 09/11. suppressive Cipro and clindamycin for chronic joint infections (Dr. Gomez) Consulted Dr. Apple - she will evaluate tomorrow. Lactate decreased from 2.2 to 0.9 WBC 3.1. T max 104.1 last evening. He is not hypotensive. Hypoxia with 83% on room air CXR yesterday was negative for pneumonia or CHF. O2 PRN CPAP HS DuoNeb PRN Metabolic acidosis/HERNAN CO2 improved to 20. Renal function elevated but about the same with BUN of 29 and creatinine of 2.1. Continue sodium bicarb. Continue Justin; good UO (1650/2210 on 09/12) Electrolyte abnormalities Phos still low at 2.3; mg low-normal at 1.6. Continue KPhos and give one- time dose of MagOx 800 mg. Ca decreased to 8.1 - Dr. Le recommends to start Ca if it decreases further. Encephalopathy Multifactorial - no recent [place]; last Tramadol was on 09/10 Ammonia level was 20 on 09/1009/13/[address] consultation by Dr Apple. She is concerned about possible right knee source infection. Right knee Xray ordered. Cefepime discontinued. Continue with Vancomycin for positive blood cultures - started 09/11. Added PO Cipro for chronic suppression. Will repeat Blood cultures today. ANC count is 928- reveling Neutropenia. Placed on precautions. All wounds evaluated this morning by Wound team Nurse- No evidence of acute infection or worsening wounds. Will likely require a ISHMAEL to evaluate for vegetations- discuss with attending. 09/14/17 ISHMAEL: No evidence of vegetations. 09/15/17 MRI of knee: No MR evidence of active osteomyelitis. Diffuse subcutaneous edema could represent a cellulitis. Dr. Le increased calcium to 950mg TID and increased calcitriol to 0.5mcg BID. 09/16/17 Continue Vanco (started 09/11) and chronic cipro (for suppression of pseudomonas ). He remains afebrile. Repeat Blood cultures NGTD (3 days) MRI - No evidence of active osteomyelitis. Diffuse subcutaneous edema could represent a cellulitis. Phos continues to be low at 1.3; Mg stable at 1.7. Calcium increased to 7.0 with improvement in symptoms. Will give IV Kphos due to persistent decrease phos levels. Can increase calcitriol to 1mcg BID. 09/17/17 Awaiting for recommendations tomorrow 09/[address] Apple regarding IV Abx course and treatment length. Continue on IV Vanco and PO Cipro. Repeat BC with no growth (day 4). He would like to return to [facility] for continued SNU. Concerned this may not be an option with ongoing IV ABx. Could also consider IRU. Continued Neutropenia- in precautions. Phosphorus normalized.
[2017-09-17] MEDS: SALINE FLUSH 10ml SYRINGE IVF PRN (19:30)
[2017-09-17] MEDS: CYCLOBENZAPRINE 10 MG TABLET PO PRN (20:33)
[2017-09-17] MEDS: HYDROCODONE/APAP 7.5 MG/325 MG TABLET PO PRN (20:33)
[2017-09-18] MEDS: HEPARIN SUB-Q 5,000units/0.5ml INJECTION SQ SCH ×3 (00:30→18:19)
[2017-09-18] MEDS: QUETIAPINE 25 MG TABLET PO PRN (00:31)
[2017-09-18] MEDS: LEVOTHYROXINE 50 MCG TABLET PO SCH (06:11)
[2017-09-18] MEDS: LEVOTHYROXINE 200 MCG TABLET PO SCH (06:11)
[2017-09-18] MEDS: CIPROFLOXACIN 250 MG TABLET PO SCH ×2 (06:11→21:28)
[2017-09-18] MEDS: PANTOPRAZOLE 40 MG TABLET PO SCH (06:12)
[2017-09-18] MEDS: CYCLOBENZAPRINE 10 MG TABLET PO PRN (06:12)
[2017-09-18] MEDS: HYDROCODONE/APAP 7.5 MG/325 MG TABLET PO PRN (06:13)
[2017-09-18] MEDS: SALINE FLUSH 10ml SYRINGE IVF PRN (06:14)
[2017-09-18] MEDS: ALBUTEROL/IPRATROPIUM 2.5mg-0.5mg/3ml NEB AEROSOL SCH ×4 (06:58→20:21)
--- NOTE | 2017-09-18 07:44 | Endocrinology Progress Note ---
Subjective Principal diagnosis: Hypocalcemia Interval history: Alert and oriented this morning. Feels well. No muscle cramps. No problems with calcium or diabetes over the weekend. Exam Vital signs: Temperature 97 F 09/18/17 07:30 Pulse Rate 64 09/18/17 07:30 Respiratory Rate 14 09/18/17 07:30 Blood Pressure 126/60 09/18/17 07:30 Pulse Oximetry 100 09/18/17 07:30 Inpatient Medications: Generic Name Dose Route Start Last Admin Trade Name Freq PRN Reason Stop Dose Admin Acetaminophen 650 mg 09/10/17 14:31 09/12/17 17:07 Tylenol PO 650 mg QID PRN Administration Discomfort Acetaminophen 650 mg 09/11/17 20:01 09/12/17 00:35 Tylenol Supp RI 650 mg Q5H PRN Administration Pain Hydrocodone Bitart/Acetaminophen 1 tab 09/06/17 14:48 09/18/17 06:13 Bath 7.5/325 PO 1 tab Q6H PRN Administration Pain Albuterol/Ipratropium 3 ml 09/14/17 15:00 09/18/17 06:58 Duoneb AEROSOL 3 ml RTQID DIDIER Administration Allopurinol 100 mg 09/05/17 09:00 09/17/17 08:36 Zyloprim PO 100 mg DAILY DIDIER Administration Calcitriol 1 mcg 09/16/17 21:00 09/17/17 20:27 Rocaltrol PO 1 mcg BID DIDIER Administration Calcium Citrate 950 mg 09/15/17 09:00 09/17/17 20:26 Calcitrate PO 950 mg TID DIDIER Administration Ciprofloxacin 250 mg 09/15/17 20:00 09/18/17 06:11 Cipro 250 Mg PO 250 mg BID/E DIDIER Administration Cyclobenzaprine HCl 5 mg 09/10/17 10:07 09/18/17 06:12 Flexeril PO 5 mg TID PRN Administration Muscle spasm Dextrose 20 ml 09/04/17 10:21 D50%W IVP PRN PRN Hypoglycemia Fluticasone Propionate 2 spray 09/13/17 11:30 09/17/17 08:38 Flonase EA NOSTRIL 2 spray DAILY DIDIER Administration Gabapentin 100 mg 09/09/17 21:00 09/17/17 20:26 Neurontin PO 100 mg BID DIDIER Administration Heparin Sodium (Porcine) 5,000 units 09/13/17 11:30 09/18/17 00:30 Heparin Sq SQ 5,000 units Q8HR DIDIER Administration Vancomycin HCl 1,250 mg/ 250 mls @ 200 mls/hr 09/14/17 18:00 09/17/17 19:30 Sodium Chloride IV Infused Q24H DIDIER Infusion Insulin Aspart 1 - 5 unit 09/09/17 13:43 09/17/17 16:16 Novolog SQ 1 unit SS PRN Administration Hyperglycemia Protocol Insulin Aspart 3 unit 09/14/17 11:30 09/17/17 12:49 Novolog SQ 3 unit ACL DIDIER Administration Insulin Aspart 2 unit 09/15/17 06:30 09/17/17 08:39 Novolog SQ 2 unit ACB DIDIER Administration Insulin Aspart 3 unit 09/14/17 17:00 09/17/17 17:27 Novolog SQ Not Given ACS DIDIER Labetalol HCl 100 mg 09/04/17 09:00 09/17/17 20:26 Normodyne PO 100 mg BID DIDIER Administration Lactobacillus Acidophilus 2 cap 09/16/17 17:30 09/17/17 17:56 Culturelle PO 2 cap BIDWM DIDIER Administration Levothyroxine Sodium 200 mcg 09/04/17 06:30 09/18/17 06:11 Synthroid PO 200 mcg ACB DIDIER Administration Levothyroxine Sodium 50 mcg 09/06/17 06:30 09/18/17 06:11 Synthroid PO 50 mcg ACB DIDIER Administration Nystatin 1 applic 09/04/17 09:00 09/17/17 20:26 Mycostatin TP 1 applic TID DIDIER Administration Ondansetron HCl 4 mg 09/07/17 16:20 Zofran IVP Q6H PRN Nausea &/or vomiting Pantoprazole Sodium 40 mg 09/04/17 06:30 09/18/17 06:12 Protonix Tab PO 40 mg ACB DIDIER Administration Polyethylene Glycol 17 gm 09/06/17 16:00 09/17/17 08:40 Miralax PO Not Given DAILY DIDIER Quetiapine Fumarate 25 mg 09/08/17 15:42 09/18/17 00:31 Seroquel PO 25 mg HS PRN Administration Insomnia Senna/Docusate Sodium 2 tab 09/16/17 09:20 Senna Plus Tablet PO BID PRN Constipation Sertraline HCl 100 mg 09/11/17 09:00 09/17/17 08:37 Zoloft PO 100 mg DAILY DIDIER Administration Sodium Chloride 10 - 80 ml 09/03/17 18:18 09/18/17 06:14 Iv Flush IVF 10 ml PRN PRN Administration Flushing Sodium Chloride 500 ml 09/04/17 00:27 09/16/17 16:45 Normal Saline IV 500 ml PRN PRN Administration Tramadol HCl 50 mg 09/06/17 14:49 09/16/17 11:11 Ultram PO 50 mg TID PRN Administration Pain Discontinued Medications Generic Name Dose Route Start Last Admin Trade Name Freq PRN Reason Stop Dose Admin Albuterol/Ipratropium 3 ml 09/12/17 12:15 Duoneb IPPB RTQID PRN Albuterol/Ipratropium 3 ml 09/14/17 15:00 09/15/17 16:23 Duoneb IPPB Not Given RTQID DIDIER Bupivacaine HCl/Epinephrine Bitart 30 ml 09/07/17 14:54 09/07/17 14:55 Marcaine/Epi 0.25%/1:200,000 ID 09/07/17 14:55 4 ml O ONE Administration Calcitonin Debord 500 unit 09/03/17 19:51 09/03/17 20:18 Miacalcin SQ 09/03/17 19:52 500 unit O ONE Administration Calcitriol 0.5 mcg 09/13/17 09:00 09/14/17 19:05 Rocaltrol PO 0.5 mcg DAILY DIDIER Administration Calcitriol 0.5 mcg 09/15/17 09:00 09/16/17 08:56 Rocaltrol PO 0.5 mcg BID DIDIER Administration Calcium Citrate 950 mg 09/14/17 09:00 09/14/17 20:51 Calcitrate PO 950 mg BID DIDIER Administration Ciprofloxacin 500 mg 09/04/17 21:00 09/10/17 06:11 Cipro 500 Mg PO 500 mg BID/E DIDIER Administration Ciprofloxacin 250 mg 09/10/17 20:00 09/15/17 05:42 Cipro 250 Mg PO 250 mg BID/E DIDIER Administration Clindamycin HCl 300 mg 09/04/17 21:00 09/13/17 10:32 Cleocin PO Not Given BID DIDIER Cyclobenzaprine HCl 10 mg 09/06/17 14:48 09/10/17 06:11 Flexeril PO 10 mg TID PRN Administration Muscle spasm Fentanyl 50 mcg 09/14/17 16:34 09/14/17 16:38 Sublimaze IVP 09/14/17 16:35 Not Given O ONE Fentanyl 50 mcg 09/14/17 16:18 09/14/17 16:18 Fentanyl IVP 09/14/17 16:19 50 mcg O ONE Administration Furosemide 40 mg 09/03/17 20:33 09/04/17 00:35 Lasix 40 Mg/4 Ml IVP 09/03/17 20:34 40 mg O ONE Administration Furosemide 40 mg 09/15/17 10:54 09/15/17 12:29 Lasix 20 Mg/2 Ml IVP 09/15/17 10:55 40 mg ONCE ONE Administration Sodium Chloride 1,000 mls @ 1,000 mls/hr 09/03/17 18:18 09/03/17 19:30 Normal Saline IV 09/03/17 19:17 Infused .Q1H ONE Infusion Sodium Chloride 1,000 mls @ 100 mls/hr 09/03/17 20:33 09/04/17 19:50 Normal Saline IV Infused .Q10H DIDIER Infusion 150 mls/hr Ceftriaxone Sodium 1 g/ Sodium 100 mls @ 200 mls/hr 09/03/17 21:54 09/04/17 01:20 Chloride IV 09/03/17 22:23 Infused O ONE Infusion Pamidronate Disodium 30 mg/ 260 mls @ 62.5 mls/hr 09/04/17 12:37 09/04/17 18: 00 Sodium Chloride IV 09/04/17 16:46 Infused O ONE Infusion Sodium Chloride 1,000 mls @ 200 mls/hr 09/04/17 19:45 09/07/17 11:18 1/2 Normal Saline IV Infused .Q5H DIDIER Infusion Sodium Chloride 1,000 mls @ 50 mls/hr 09/07/17 11:30 09/07/17 16:26 Normal Saline IV Infused .Q20H DIDIER Infusion Potassium Chloride 20 meq/ 1,010 mls @ 150 mls/hr 09/07/17 11:05 09/07/17 16: 40 Sodium Chloride IV Not Given .Q6H44M DIDIER Potassium Chloride/Sodium Chloride 1,000 mls @ 150 mls/hr 09/07/17 16:45 09:58 1/2 Ns With Kcl 20meq Premix IV Not Given .Q6H40M DIDIER Sodium Bicarbonate 50 meq/ 1,050 mls @ 75 mls/hr 09/09/17 09:00 09/17/17 16: 44 Sodium Chloride IV Infused .Q14H DIDIER Infusion Cefepime HCl 1 gm/ Sodium 100 mls @ 200 mls/hr 09/11/17 19:30 09/13/17 07:08 Chloride IV Infused Q12H DIDIER Infusion Vancomycin HCl 2,000 mg/ 500 mls @ 250 mls/hr 09/11/17 19:35 09/11/17 22:47 Sodium Chloride IV 09/11/17 19:36 Infused O ONE Infusion Vancomycin HCl 2,000 mg/ 500 mls @ 250 mls/hr 09/12/17 08:00 09/14/17 12:16 Sodium Chloride IV Not Given 0800 DIDIER Magnesium Sulfate/Dextrose 1 gm in 100 mls @ 100 mls/hr 09/13/17 11:30 14:37 Mag Sulf 1gm Premix IV 09/13/17 13:29 Infused Q1H DIDIER Infusion Potassium Phosphate 44 meq/ 510 mls @ 100 mls/hr 09/16/17 17:00 09/16/17 21: 51 Sodium Chloride IV 09/16/17 22:05 Infused .Q5H6M DIDIER Infusion Insulin Aspart 2 - 8 unit 09/04/17 10:21 09/09/17 12:12 Novolog SQ 2 unit SS PRN Administration Hyperglycemia Protocol Levothyroxine Sodium 50 mcg 09/10/17 06:30 Synthroid PO ACB DIDIER Lorazepam 1 mg 09/11/17 17:39 09/11/17 18:06 Ativan Inj IVP 09/11/17 17:40 1 mg ONCE ONE Administration Lorazepam 0.5 mg 09/16/17 11:53 09/16/17 11:53 Ativan PO 09/16/17 11:54 0.5 mg ONE TIME ONE Administration Magnesium Oxide 800 mg 09/12/17 12:08 09/12/17 13:56 Magox PO 09/12/17 12:09 800 mg DAILY ONE Administration Metoclopramide HCl 5 mg 09/03/17 20:33 Reglan IVP Q6H PRN Midazolam HCl 2 mg 09/14/17 16:35 09/14/17 16:19 Versed IVP 09/14/17 16:36 2 mg O ONE Administration Miscellaneous Medication 1 each 09/04/17 09:14 09/04/17 19:53 Pharmacy Consult - Renal Dosing 09/04/17 09:15 1 each O ONE Administration Miscellaneous Medication 1 each 09/10/17 10:03 09/11/17 09:01 Pharmacy Consult - Renal Dosing 09/10/17 10:04 Not Given O ONE Morphine Sulfate 1 - 2 mg 09/03/17 20:33 Morphine Sulfate Inj IVP Q2H PRN Pain Morphine Sulfate 0 mg 09/07/17 15:35 09/07/17 16:08 Morphine Sulfate Vial IVP 2 mg Q10M PRN Administration Naloxone HCl 0.4 mg 09/03/17 18:24 09/03/17 18:31 Narcan IVP 09/03/17 18:25 0.4 mg O ONE Administration Ondansetron HCl 4 mg 09/03/17 20:33 Zofran IVP Q6H PRN Nausea &/or vomiting Pharmacy Consult 1 each 09/03/17 21:43 Pharmacy Consult - Fall Risk 09/03/17 21:44 ONE TIME ONE Pharmacy Consult each 09/12/17 21:22 Pharmacy Consult - Fall Risk 09/12/17 21:23 ONE TIME ONE Potassium Chloride 20 meq 09/14/17 12:00 09/15/17 09:43 K-Dur 20 Meq Tablet PO 09/15/17 08:01 20 meq TIDWM DIDIER Administration Potassium Chloride 40 meq 09/15/17 12:00 09/16/17 08:56 K-Dur 20 Meq Tablet PO 09/16/17 08:01 40 meq TIDWM DIDIER Administration Potassium Phosphate 1,000 mg 09/11/17 12:00 09/11/17 21:13 K-Phos Original (Urinary Acidifier) PO Not Given [facility] DIDIER Quetiapine Fumarate 25 mg 09/06/17 21:00 09/07/17 20:38 Seroquel PO 25 mg HS DIDIER Administration Senna/Docusate Sodium 2 tab 09/06/17 21:00 09/16/17 09:46 Senna Plus Tablet PO Not Given BID DIDIER Sertraline HCl 100 mg 09/04/17 09:00 09/10/17 09:18 Zoloft PO 100 mg BID DIDIER Administration Sodium Phosphate 1,000 mg 09/12/17 08:00 09/12/17 16:37 K-Phos *Neutral* Tablet PO Not Given [facility] DIDIER Sodium Phosphate 500 mg 09/12/17 17:30 09/13/17 09:57 K-Phos *Neutral* Tablet PO 500 mg [facility] DIDIER Administration Thrombin 5,000 unit 09/07/17 14:56 09/07/17 14:56 Thrombin-Jmi OPSITE 09/07/17 14:57 5,000 unit O ONE Administration Vancomycin HCl 1 each 09/11/17 19:25 09/11/17 19:51 Pharmacy Consult - Vancomycin 09/11/17 19:26 1 each O ONE Administration - Constitutional no acute distress - Routine HEENT Exam Head: Present: normocephalic, atraumatic Eye: Present: EOMI, PERRL ENT: Present: mucous membranes moist - Routine Neck Exam Absent: thyromegaly - Routine Respiratory Exam Absent: dyspnea - Routine Cardiovascular Exam Present: RRR - Routine Abdominal Exam Present: soft, normoactive bowel sounds. Absent: tenderness - Routine Extremities Exam Present: amputation (left BKA) - Routine Skin Exam Present: dry, warm - Routine Neurological Exam Present: alert, oriented X3, moving all extremities - Routine Psychiatric Exam Present: normal affect, normal thought process, good insight, good judgment - Additional findings Additional findings: Laboratory Tests 09/17/17 09/17/17 09/17/17 10:51 16:10 20:17 BUN Creatinine GFR Calculation Glucometer 203 156 121 Calcium Phosphorus 09/18/17 09/18/17 04:02 06:01 BUN 18.0 Creatinine 1.5 GFR Calculation 47 Glucometer 139 Calcium 8.0 L D Phosphorus 2.3 L - Urinary Catheter Management Urethral Cath placed during this visit: yes Insertion date: 09/03/17 Insertion time: 19:00 2-way Urethral Cath placed during this visit: no Assessment and Plan (1) Hypercalcemia Problem details: Hyperparathyroidism/solitary parathyroid adenoma; s/p parathyoidectomy 09/07/17 Current visit: Yes Status: Resolved (2) Metabolic encephalopathy Current visit: Yes Status: Acute (3) Primary hyperparathyroidism Current visit: Yes Status: Resolved (4) Diabetes mellitus type 2, uncontrolled, without complications Problem details: Controlled. Current visit: Yes Status: Chronic Doing well on small doses of Novolog. Continue same at discharge. (5) Hypertension Problem details: Controlled. Current visit: Yes Status: Chronic (6) intermediate frame tender current use of insulin Current visit: Yes Status: Chronic (7) Postablative hypothyroidism Problem details: Clinically euthyroid. Current visit: Yes Status: Chronic Clinically euthyroid. Recheck TSH, FT4 in 1 month. (8) Hypocalcemia Current visit: Yes Status: Acute Much better with additional calcitriol. Continue same and follow calcium levels weekly for probable ability to taper calcitriol in next few weeks.
[2017-09-18] MEDS: CALCITRIOL 0.25 MCG CAPSULE PO SCH ×2 (09:19→21:28)
[2017-09-18] MEDS: CALCIUM CITRATE 950 MG TABLET PO SCH ×3 (09:19→21:28)
[2017-09-18] MEDS: ALLOPURINOL 100 MG TABLET PO SCH (09:20)
[2017-09-18] MEDS: LABETALOL 100 MG TABLET PO SCH ×2 (09:20→21:28)
[2017-09-18] MEDS: GABAPENTIN 100 MG CAPSULE PO SCH ×2 (09:21→21:28)
[2017-09-18] MEDS: SERTRALINE 100 MG TABLET PO SCH (09:22)
[2017-09-18] MEDS: INSULIN ASPART 100unit/ml INJECTION SQ SCH ×3 (09:23→18:36)
[2017-09-18] MEDS: POLYETHYL GLYCOL 3350 17gm PACKET PO SCH (09:23)
[2017-09-18] MEDS: FLUTICASONE NASAL SPRAY 50mcg EA NOSTRIL SCH (09:24)
[2017-09-18] MEDS: LACTOBACILLUS (15B cfu) CAPSULE PO SCH ×2 (09:28→17:44)
--- NOTE | 2017-09-18 09:37 | ID Progress Note ---
Subjective Date: 09/18/17 Subjective: Mr. Gonzales states that his knee is feeling better than it did "at the beginning of all this." Denies fevers, chills, N/V/D. Has questions about PICC line, Vanco, etc. He had a midline in place, but lost it over the weekend. He has a small peripheral IV in place in his upper chest. Exam Vital Signs: Temperature 97 F 09/18/17 07:30 Pulse Rate 59 L 09/18/17 08:00 Respiratory Rate 14 09/18/17 07:30 Blood Pressure 126/60 09/18/17 07:30 Pulse Oximetry 100 09/18/17 07:30 Height/Weight/BMI: Height 1.91 m Weight 132.7 kg Body Mass Index 34.3 - Constitutional Present: no acute distress, well nourished, well developed, obese - Routine HEENT Exam Head: Present: normocephalic, atraumatic Eye: Present: EOMI, PERRL ENT: Present: mucous membranes dry, dentition normal - Routine Neck Exam Present: supple - Routine Respiratory Exam Present: CTA bilaterally - Routine Cardiovascular Exam Present: RRR - Routine Abdominal Exam Present: soft, normoactive bowel sounds, non distended, non tender - Routine Extremities Exam Present: edema (1+ RLE). Absent: cyanosis, clubbing Comments: S/p L BKA - Routine Skin Exam Present: ecchymosis. Absent: rash Comments: hyperpigmentation UEs bilaterally - Routine Neurological Exam Present: alert, oriented X3, CN II-XII intact, normal speech. Absent: motor deficit - Routine Psychiatric Exam Present: normal affect Results - Labs CBC & Chem 7: 09/18/17 04:02 09/18/17 04:02 Labs: Laboratory Tests 09/17/17 17:43 Vancomycin Trough 28.90 H* Microbiology Results: Microbiology 09/13/17 10:59 Peripheral/Iv Start Blood Culture - Preliminary No Growth After 4 Days 09/13/17 10:45 Peripheral/Iv Start Blood Culture - Preliminary No Growth After 4 Days 09/11/17 19:25 Peripheral/Iv Start Gram Stain - Final 09/11/17 19:25 Peripheral/Iv Start Blood Culture - Final Staphylococcus aureus, MRSA 09/11/17 18:29 Peripheral/Iv Start Gram Stain - Final 09/11/17 18:29 Peripheral/Iv Start Blood Culture - Final Staphylococcus aureus, MRSA Enterococcus faecalis Impression: Severe sepsis, MRSA and Enterococcus, 09/11/17. Blood cultures 09/13 NGTD. ISHMAEL negative 09/14/17. 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 MRI R knee without contrast 09/15/17 negative for acute osteo, showed soft tissue edema. Chronic buttock wounds S/p L BKA Hypothyroidism, post-ablative Possible supraventricular bradycardia, in sinus rhythm Obstructive sleep apnea - CPAP Obesity Cirrhosis Recommendation: Recommend placing a PICC and treating with Vancomycin for 6 weeks from 09/13/17, which would go through 10/24/17. Since his Vanco trough is high, will not give any doses today, and decrease his dose to 750mg IV daily starting tomorrow. He will need to follow up with Dr. Gomez. He will need to return to chronic suppression at the end of the IV antibiotics, but I wonder about minocycline instead of clinda since the MRSA is R to clinda.
--- NOTE | 2017-09-18 13:07 | Pharmacy Consult-Antibiotics ---
Pharmacy Consult-Vancomycin - Laboratory Information WBC 2.5 T/MM3 (4.5-11.0) L 09/18/17 04:02 BUN 18.0 MG/DL (9-20) 09/18/17 04:02 Creatinine 1.5 mg/dL (0.8-1.5) 09/18/17 04:02 Procalcitonin 1.48 NG/ML 09/15/17 04:32 Vancomycin Trough 28.90 ug/mL (15-20) H* 09/17/17 17:43 - Consult Information Vancomycin: Day 8 VANCOMYCIN CONSULT: Vancomycin Trough = 28 mcg/ml. Today's SCr = 1.5 mg/dl. I changed the Vancomycin to 875 Mg IV q24hrs @ 0400 daily. The Pharmacy will continue to monitor and make adjustments accordingly. Thanks, for the Vancomycin Protocol, Jigar Alvarado, Pharmacist.
--- NOTE | 2017-09-18 13:25 | Progress Note ---
- Date 09/18/17 Subjective: Gurdeep is seen this morning in follow up. He is alert and resting in bed. He is without complaints at time of examination. Knee pain has much improved. Denies GI concerns. Objective Vital signs: Temperature 96.8 F 09/18/17 11:00 Pulse Rate 63 09/18/17 11:00 Respiratory Rate 18 09/18/17 11:00 Blood Pressure 120/66 09/18/17 11:00 Pulse Oximetry 96 09/18/17 11:00 Rhythm: Normal Sinus Rhythm Height/Weight/BMI: Height 1.91 m Weight 132.7 kg Body Mass Index 34.3 - Constitutional Present: no acute distress, well nourished, well developed - Routine HEENT Exam Eye: Present: EOMI ENT: Present: mucous membranes moist, dentition normal - Routine Respiratory Exam Present: CTA bilaterally. Absent: wheezes - Routine Cardiovascular Exam Present: RRR, S1, S2. Absent: murmur - Routine Abdominal Exam Present: soft, normoactive bowel sounds, non distended. Absent: tenderness - Routine Skin Exam Present: intact, dry, warm - Routine Neurological Exam Present: alert, oriented X3, CN II-XII intact, moving all extremities - Routine Lymphatic Exam Lymphatic: Absent: adenopathy - Routine Psychiatric Exam Present: normal affect, cooperative Results - Labs CBC & Chem 7: 09/18/17 04:02 09/18/17 04:02 Microbiology Results: Microbiology 09/13/17 10:45 Peripheral/Iv Start Blood Culture - Final No Growth After 5 Days 09/13/17 10:59 Peripheral/Iv Start Blood Culture - Final No Growth After 5 Days 09/11/17 19:25 Peripheral/Iv Start Gram Stain - Final 09/11/17 19:25 Peripheral/Iv Start Blood Culture - Final Staphylococcus aureus, MRSA 09/11/17 18:29 Peripheral/Iv Start Gram Stain - Final 09/11/17 18:29 Peripheral/Iv Start Blood Culture - Final Staphylococcus aureus, MRSA Enterococcus faecalis Assessment and Plan Assessment and Plan: Assessment Hypercalcemia secondary to hyperparathyroidism Parathyroid adenoma-s/p parathyroidectomy 09/07/17 Severe sepsis with MRSA and enterococcus bacteremia - improving. Source unknown - possible joint vs chronic wounds. Neck incision healing well. Encephalopathy with hallucinations Hypoglycemia - resolved Acute kidney injury-FeNa 6.7% (POA) Stage III CKD Metabolic acidosis Type 2 diabetes mellitus on insulin Chronic Pancytopenia Anemia - Transfusion of 1 unit pRBC 09/03 and 09/04 Thrombocytopenia - transfusion of platelet pack 09/07 Chronic joint infection - suppressive Cipro and clindamycin Chronic buttock wounds Hypothyroidism, post-ablative Possible supraventricular bradycardia, in sinus rhythm Obstructive sleep apnea - CPAP Obesity Hypertension - on home labetalol, amlodipine and losartan not restarted Peripheral polyneuropathy Cirrhosis Generalized pain Insomnia Plan Dr Apple recommends PICC line placement with 6 weeks of Vanco through 10/24/17. Planned to hold today's Vanco dose and resume 750mg IV daily starting tomorrow. Trough elevated at 28.9 He will follow with Dr Gomez (ID) and will need chronic suppression abx once IV Vanco completed. Zechariah recommends Minocycline. Infusion team attempted PICC line placement x3. Dr Gregory in agreement for placement of central line today CM working with setting up discharge to [facility] Multiple discussions with CM, nursing, Attending, and consulting Physicians for care planning- 35 minutes. DVT Prophylaxis: SQ Heparin Resuscitation Status: Full Code - Time spent with patient Time with patient PN: 35 minutes - Physician Narrative Physician: Aron Gilliam MD Narrative: Date: 09/18/17 Time: 1800 Have independently interviewed and examined pt. Chart reviewed. Case discussed with CM and my LAB PACK CHEMIST. Care plan developed with my supervision; agree with above. Doing okay today-tired from central line placement. Breathing stable. Hoping for discharge soon. Lungs: decreased, no distress CV: regular AB: soft nt MSE: awake alert appropriate Plan: Central line placed this afternoon, arrangements being made for IV vancomycin. Anticipate discharge tomorrow. Hospital Course Summary Disclaimer: The visit summary below is not to be considered part of the above Progress Note. Hospital Course: 09/04/17 Admit to CCU for close monitoring as an inpatient. Continue normal saline. Dr. Le was consulted regarding hypercalcemia. He will see the patient a little later today. He does recommend surgical consultation for possible parathyroidectomy. Regarding acute kidney injury will continue IV fluids, check renal sonogram, check urine sodium and creatinine and hold losartan. Re: Pancytopenia, will recheck CBC. Regarding chronic wound infections, will continue clindamycin and Cipro. Will ask pharmacy to adjust Cipro for renal function. Continue on telemetry for possible arrhythmias. Recheck CBC and basic metabolic profile today and again tomorrow. The patient is full code per his who his DPOA. 09/05/17 Calcium improving following pamidronate yesterday, continue IV fluids. Scan consistent with single parathyroid adenoma. Surgery tentatively scheduled for later in the week. reports minor improvement in mental status continue to monitor. Blood sugars stable overnight-no recurrent hypoglycemia. Renal function minimally improved, continue hydration; medications adjusted for renal function earlier today by Pharm.D. No reported hypotension. Fractional excretion suggests intrinsic renal dysfunction. Hemoglobin/platelet count stable today; white count 2.9. Pancytopenia chronic. 09/06/17 Calcium improved/stable following pamidronate 09/04, continue IV fluids. Scan consistent with single parathyroid adenoma. Surgery tentatively scheduled for tomorrow-discussed with Dr. Gregory. Also discussed plans with Dr. Le, if GFR permits will receive a single dose of Zoledronic acid later today to further improve calcium preoperatively. reports minor improvement in mental status continue to monitor. Blood sugars stable today ranging from 147-155. Renal function slowly improving with creatinine 2.0 today-well above baseline of 1.2-1.4 and baseline GFR of about 60, continue hydration. Chronic pancytopenia (due to cirrhosis/chronic inflammation); anticipate platelet packs with surgery to minimize risk of neck hematoma. Home pain medications resumed. Low-dose Seroquel added for sleep. Supplemental history provided by nursing and patient's . Stable to transfer out of ICU today. 09/07/17 OP DAY: Neck exploration with excision of right inferior parathyroid adenoma - Dr Gregory Calcium improved/stable (decreased from 14.3 on 09/03/17 to 11.6 today, 09/07/17). Parathyroidectomy scheduled for today with Dr. Gregory. Maintain NPO status due to anticipated surgery. Will continue IVF and add KCl 20 mEQ to IVF given hypokalemia. Weight trending up. Decrease rate to 150cc/hr and continue to monitor closely for signs of fluid overload. Dr. Le continues to follow patient. Appreciate his time and expertise. Discussed giving Zoledronic acid on 09/06/17, but decided against it. Anticipates improvement in calcium following surgery. Increased somnolence today - suspect secondary to receiving Seroquel 25mg at bedtime last night to assist with insomnia. Continue to monitor mental status closely. Blood sugars stable and trending up since admission (range 147-233). Continue to monitor closely. Renal function slowly improving with creatinine 1.9 today-well above baseline of 1.2-1.4 and baseline GFR of about 60. Continue hydration and continue to monitor. Pancytopenia chronic - anticipate platelet packs with surgery to minimize risk of neck hematoma. WBC 1.8, Hgb 8.7, Plt 48. Supplemental history provided by nursing and patient's . Telemetry reviewed-sinus rhythm. Will recheck labs in AM to monitor blood counts, electrolytes and renal function. Monitor serial calcium levels post operatively. 09/08/17 Calcium continues to improve progressively; PTH down immediately after surgery. Limited oral intake, continue IV fluids pending improvement. Weight trending up. He was dehydrated on admission, minor edema present right lower extremity; not hypoxic. Continue to monitor. Dr. Le continues to follow patient for diabetes and hyperparathyroidism. Blood glucose is stable. Sleep improved with Seroquel the past 2 nights, speech mumbled but was prior to initiation of medication. We'll readdress with when available anticipate discontinuing medication in the next day or 2. Renal function slowly improving with creatinine 1.9 remains above baseline of 1.2-1.4 and baseline GFR of about 60. Chronic pancytopenia, count stable- 1 unit of platelets and packed cells with surgery yesterday. 09/09/17 Calcium has stabilized at 9.4 yesterday and today. Continue to monitor. Fluids switched from NS to 1/2NS with sodium bicarb. Dr. Le continues to follow patient for diabetes and hyperparathyroidism. Blood glucose is stable. (stationary engineer for Dr. Gregory) evaluated pt today. No changes. Renal function plateaued with creatinine 1.9 yesterday and today. Remains above baseline of 1.2-1.4 and baseline GFR of about 60. Resume home levothyroxine and gabapentin. BP's stable - amlodipine and Cozaar remain on hold. 09/10/17 Patient remains very confused. Medications reviewed- Hold Tramadol. DC Reglan. Decrease Zoloft to 100mg Q Day for now. Decrease Flexeril to 5mg dosing. Check venous ammonia. Serum calcium is trending down. Remains acidotic- continue NaHCO2 in IVF for now. Renal function remains elevated. Baseline 1.2-1.4. Chronic joint infection with suppressive therapy- Cipro/Clinda. Will request pharmacy consult for renal dosing. Pancytopenia appears stable, continue neutropenic precautions. 09/11/17 Continue sodium bicarb; CO2 improving. Creatinine increased slightly from 1.9 to 2.0. Cipro dose adjusted yesterday based on renal function. Phosphorus low at 2.0 -- start replacement PO. Ca 8.4. ANC 1440 - continue neutropenic precautions. Spiked fever of 102.5 in the evening. Sepsis workup ensued. Lactate 2.2. Started Vancomycin and cefepime. 09/12/17 Severe sepsis with MRSA and enterococcus bacteremia ? Source - possible joint vs chronic wounds. Neck incision healing well. Continue Vanco and cefepime for positive blood cultures - started 09/11. suppressive Cipro and clindamycin for chronic joint infections (Dr. Gomez) Consulted Dr. Apple - she will evaluate tomorrow. Lactate decreased from 2.2 to 0.9 WBC 3.1. T max 104.1 last evening. He is not hypotensive. Hypoxia with 83% on room air CXR yesterday was negative for pneumonia or CHF. O2 PRN CPAP HS DuoNeb PRN Metabolic acidosis/HERNAN CO2 improved to 20. Renal function elevated but about the same with BUN of 29 and creatinine of 2.1. Continue sodium bicarb. Continue Justin; good UO (1650/2210 on 09/12) Electrolyte abnormalities Phos still low at 2.3; mg low-normal at 1.6. Continue KPhos and give one- time dose of MagOx 800 mg. Ca decreased to 8.1 - Dr. Le recommends to start Ca if it decreases further. Encephalopathy Multifactorial - no recent [place]; last Tramadol was on 09/10 Ammonia level was 20 on 09/1009/13/[address] consultation by Dr Apple. She is concerned about possible right knee source infection. Right knee Xray ordered. Cefepime discontinued. Continue with Vancomycin for positive blood cultures - started 09/11. Added PO Cipro for chronic suppression. Will repeat Blood cultures today. ANC count is 928- reveling Neutropenia. Placed on precautions. All wounds evaluated this morning by Wound team Nurse- No evidence of acute infection or worsening wounds. Will likely require a ISHMAEL to evaluate for vegetations- discuss with attending. 4/19/18 ISHMAEL: No evidence of vegetations. 09/15/17 MRI of knee: No MR evidence of active osteomyelitis. Diffuse subcutaneous edema could represent a cellulitis. Dr. Le increased calcium to 950mg TID and increased calcitriol to 0.5mcg BID. 09/16/17 Continue Vanco (started 09/11) and chronic cipro (for suppression of pseudomonas ). He remains afebrile. Repeat Blood cultures NGTD (3 days) MRI - No evidence of active osteomyelitis. Diffuse subcutaneous edema could represent a cellulitis. Phos continues to be low at 1.3; Mg stable at 1.7. Calcium increased to 7.0 with improvement in symptoms. Will give IV Kphos due to persistent decrease phos levels. Can increase calcitriol to 1mcg BID. 09/17/17 Awaiting for recommendations tomorrow 09/[address] Apple regarding IV Abx course and treatment length. Continue on IV Vanco and PO Cipro. Repeat BC with no growth (day 4). He would like to return to [facility] for continued SNU. Concerned this may not be an option with ongoing IV ABx. Could also consider IRU. Continued Neutropenia- in precautions. Phosphorus normalized. 09/18/17 Dr Apple recommends PICC line placement with 6 weeks of Vanco through 10/24/17. Planned to hold today's Vanco dose and resume 750mg IV daily starting tomorrow. Trough elevated at 28.9 He will follow with Dr Gomez (ID) and will need chronic suppression abx once IV Vanco completed. Zechariah recommends Minocycline. Infusion team attempted PICC line placement x3. Dr Gregory in agreement for placement of central line today. CM working with setting up discharge to [facility]. Multiple discussions with CM, nursing, Attending, and consulting Physicians for care planning- 35 minutes.
[2017-09-18] MEDS ORDERED: SALINE FLUSH 10ml SYRINGE ONE (16:16)
--- NOTE | 2017-09-18 16:54 | XRay Report ---
Indication: central line placement PROCEDURE: XR chest post-procedure 1V: Encounter: Initial Comparison: 09/11/2017 Findings: There is a right IJ catheter in place with its tip overlying the mid SVC region. No pneumothorax. No pleural effusion. Lungs are clear. There is prominence of the cardiac silhouette which may be accentuated by the AP portable technique. There are moderate arthritic changes of both glenohumeral joints. The trachea is midline. No subdiaphragmatic free air. Impression: Right IJ central venous catheter in place without pneumothorax or pleural effusion. .
[2017-09-19] MEDS: SALINE FLUSH 10ml SYRINGE IVF PRN (00:49)
[2017-09-19] MEDS: HEPARIN SUB-Q 5,000units/0.5ml INJECTION SQ SCH ×2 (00:49→08:31)
[2017-09-19] MEDS: CYCLOBENZAPRINE 10 MG TABLET PO PRN (01:02)
[2017-09-19] MEDS: HYDROCODONE/APAP 7.5 MG/325 MG TABLET PO PRN (01:02)
[2017-09-19] MEDS ORDERED: NS IV SCH (04:00)
[2017-09-19] MEDS ORDERED: VANCOMYCIN IV SCH (04:00)
[2017-09-19] MEDS: NS FLUSH BAG 500ml IV PRN (05:01)
[2017-09-19] MEDS: PANTOPRAZOLE 40 MG TABLET PO SCH (06:10)
[2017-09-19] MEDS: LEVOTHYROXINE 50 MCG TABLET PO SCH (06:10)
[2017-09-19] MEDS: LEVOTHYROXINE 200 MCG TABLET PO SCH (06:10)
[2017-09-19] MEDS: CIPROFLOXACIN 250 MG TABLET PO SCH (06:11)
--- NOTE | 2017-09-19 07:50 | Endocrinology Progress Note ---
Subjective Principal diagnosis: Hypocalcemia Interval history: Alert and oriented this morning. Feels well. Triple lumen IJ line was inserted yesterday for use in administration of IV Vancomycin post-discharge. Exam Vital signs: Temperature 97.8 F 09/19/17 07:35 Pulse Rate 65 09/19/17 07:35 Respiratory Rate 16 09/19/17 07:35 Blood Pressure 143/61 H 09/19/17 07:35 Pulse Oximetry 97 09/19/17 07:35 Inpatient Medications: Generic Name Dose Route Start Last Admin Trade Name Freq PRN Reason Stop Dose Admin Acetaminophen 650 mg 09/10/17 14:31 09/12/17 17:07 Tylenol PO 650 mg QID PRN Administration Discomfort Acetaminophen 650 mg 09/11/17 20:01 09/12/17 00:35 Tylenol Supp DC 650 mg Q5H PRN Administration Pain Hydrocodone Bitart/Acetaminophen 1 tab 09/06/17 14:48 09/19/17 01:02 [place] 7.5/325 PO 1 tab Q6H PRN Administration Pain Albuterol/Ipratropium 3 ml 09/14/17 15:00 09/18/17 20:21 Duoneb AEROSOL 3 ml RTQID DIDIER Administration Allopurinol 100 mg 09/05/17 09:00 09/18/17 09:20 Zyloprim PO 100 mg DAILY DIDIER Administration Calcitriol 1 mcg 09/16/17 21:00 09/18/17 21:28 Rocaltrol PO 1 mcg BID DIDIER Administration Calcium Citrate 950 mg 09/15/17 09:00 09/18/17 21:28 Calcitrate PO 950 mg TID DIDIER Administration Ciprofloxacin 250 mg 09/15/17 20:00 09/19/17 06:11 Cipro 250 Mg PO 250 mg BID/E DIDIER Administration Cyclobenzaprine HCl 5 mg 09/10/17 10:07 09/19/17 01:02 Flexeril PO 5 mg TID PRN Administration Muscle spasm Dextrose 20 ml 09/04/17 10:21 D50%W IVP PRN PRN Hypoglycemia Fluticasone Propionate 2 spray 09/13/17 11:30 09/18/17 09:24 Flonase EA NOSTRIL 2 spray DAILY DIDIER Administration Gabapentin 100 mg 09/09/17 21:00 09/18/17 21:28 Neurontin PO 100 mg BID DIDIER Administration Heparin Sodium (Porcine) 5,000 units 09/13/17 11:30 09/19/17 00:49 Heparin Sq SQ 5,000 units Q8HR DIDIER Administration Vancomycin HCl 875 mg/ Sodium 250 mls @ 250 mls/hr 09/19/17 04:00 09/19/17 06 :10 Chloride IV Infused Q24H DIDIER Infusion Insulin Aspart 1 - 5 unit 09/09/17 13:43 09/17/17 16:16 Novolog SQ 1 unit SS PRN Administration Hyperglycemia Protocol Insulin Aspart 3 unit 09/14/17 11:30 09/18/17 13:10 Novolog SQ Not Given ACL DIDIER Insulin Aspart 2 unit 09/15/17 06:30 09/18/17 09:23 Novolog SQ 2 unit ACB DIDIER Administration Insulin Aspart 3 unit 09/14/17 17:00 09/18/17 18:36 Novolog SQ Not Given ACS DIDIER Labetalol HCl 100 mg 09/04/17 09:00 09/18/17 21:28 Normodyne PO 100 mg BID DIDIER Administration Lactobacillus Acidophilus 2 cap 09/16/17 17:30 09/18/17 17:44 Culturelle PO 2 cap BIDWM DIDIER Administration Levothyroxine Sodium 200 mcg 09/04/17 06:30 09/19/17 06:10 Synthroid PO 200 mcg ACB DIDIER Administration Levothyroxine Sodium 50 mcg 09/06/17 06:30 09/19/17 06:10 Synthroid PO 50 mcg ACB DIDIER Administration Nystatin 1 applic 09/04/17 09:00 09/18/17 21:28 Mycostatin TP 1 applic TID DIDIER Administration Ondansetron HCl 4 mg 09/07/17 16:20 Zofran IVP Q6H PRN Nausea &/or vomiting Pantoprazole Sodium 40 mg 09/04/17 06:30 09/19/17 06:10 Protonix Tab PO 40 mg ACB DIDIER Administration Polyethylene Glycol 17 gm 09/06/17 16:00 09/18/17 09:23 Miralax PO 17 gm DAILY DIDIER Administration Quetiapine Fumarate 25 mg 09/08/17 15:42 09/18/17 00:31 Seroquel PO 25 mg HS PRN Administration Insomnia Senna/Docusate Sodium 2 tab 09/16/17 09:20 Senna Plus Tablet PO BID PRN Constipation Sertraline HCl 100 mg 09/11/17 09:00 09/18/17 09:22 Zoloft PO 100 mg DAILY DIDIER Administration Sodium Chloride 10 - 80 ml 09/03/17 18:18 09/19/17 00:49 Iv Flush IVF 30 ml PRN PRN Administration [place]ushing Sodium Chloride 500 ml 09/04/17 00:27 09/19/17 05:01 Normal Saline IV 500 ml PRN PRN Administration Tramadol HCl 50 mg 09/06/17 14:49 09/16/17 11:11 Ultram PO 50 mg TID PRN Administration Pain Discontinued Medications Generic Name Dose Route Start Last Admin Trade Name Freq PRN Reason Stop Dose Admin Albuterol/Ipratropium 3 ml 09/12/17 12:15 Duoneb IPPB RTQID PRN Albuterol/Ipratropium 3 ml 09/14/17 15:00 09/15/17 16:23 Duoneb IPPB Not Given RTQID DIDIER Bupivacaine HCl/Epinephrine Bitart 30 ml 09/07/17 14:54 09/07/17 14:55 Marcaine/Epi 0.25%/1:200,000 ID 09/07/17 14:55 4 ml O ONE Administration Calcitonin [place] 500 unit 09/03/17 19:51 09/03/17 20:18 Miacalcin SQ 09/03/17 19:52 500 unit O ONE Administration Calcitriol 0.5 mcg 09/13/17 09:00 09/14/17 19:05 Rocaltrol PO 0.5 mcg DAILY DIDIER Administration Calcitriol 0.5 mcg 09/15/17 09:00 09/16/17 08:56 Rocaltrol PO 0.5 mcg BID DIDIER Administration Calcium Citrate 950 mg 09/14/17 09:00 09/14/17 20:51 Calcitrate PO 950 mg BID DIDIER Administration Ciprofloxacin 500 mg 09/04/17 21:00 09/10/17 06:11 Cipro 500 Mg PO 500 mg BID/E DIDIER Administration Ciprofloxacin 250 mg 09/10/17 20:00 09/15/17 05:42 Cipro 250 Mg PO 250 mg BID/E DIDIER Administration Clindamycin HCl 300 mg 09/04/17 21:00 09/13/17 10:32 Cleocin PO Not Given BID DIDIER Cyclobenzaprine HCl 10 mg 09/06/17 14:48 09/10/17 06:11 Flexeril PO 10 mg TID PRN Administration Muscle spasm Fentanyl 50 mcg 09/14/17 16:34 09/14/17 16:38 Sublimaze IVP 09/14/17 16:35 Not Given O ONE Fentanyl 50 mcg 09/14/17 16:18 09/14/17 16:18 Fentanyl IVP 09/14/17 16:19 50 mcg O ONE Administration Furosemide 40 mg 09/03/17 20:33 09/04/17 00:35 Lasix 40 Mg/4 Ml IVP 09/03/17 20:34 40 mg O ONE Administration Furosemide 40 mg 09/15/17 10:54 09/15/17 12:29 Lasix 20 Mg/2 Ml IVP 09/15/17 10:55 40 mg ONCE ONE Administration Heparin Sodium (Beef Lung) 450 unit 09/18/17 16:30 09/18/17 16:30 Heparin Flush IV 09/18/17 16:31 450 unit O ONE Administration Sodium Chloride 1,000 mls @ 1,000 mls/hr 09/03/17 18:18 09/03/17 19:30 Normal Saline IV 09/03/17 19:17 Infused .Q1H ONE Infusion Sodium Chloride 1,000 mls @ 100 mls/hr 09/03/17 20:33 09/04/17 19:50 Normal Saline IV Infused .Q10H DIDIER Infusion 150 mls/hr Ceftriaxone Sodium 1 g/ Sodium 100 mls @ 200 mls/hr 09/03/17 21:54 09/04/17 01:20 Chloride IV 09/03/17 22:23 Infused O ONE Infusion Pamidronate Disodium 30 mg/ 260 mls @ 62.5 mls/hr 09/04/17 12:37 09/04/17 18: 00 Sodium Chloride IV 09/04/17 16:46 Infused O ONE Infusion Sodium Chloride 1,000 mls @ 200 mls/hr 09/04/17 19:45 09/07/17 11:18 1/2 Normal Saline IV Infused .Q5H DIDIER Infusion Sodium Chloride 1,000 mls @ 50 mls/hr 09/07/17 11:30 09/07/17 16:26 Normal Saline IV Infused .Q20H DIDIER Infusion Potassium Chloride 20 meq/ 1,010 mls @ 150 mls/hr 09/07/17 11:05 09/07/17 16: 40 Sodium Chloride IV Not Given .Q6H44M DIDIER Potassium Chloride/Sodium Chloride 1,000 mls @ 150 mls/hr 09/07/17 16:45 09:58 1/2 Ns With Kcl 20meq Premix IV Not Given .Q6H40M DIDIER Sodium Bicarbonate 50 meq/ 1,050 mls @ 75 mls/hr 09/09/17 09:00 09/17/17 16: 44 Sodium Chloride IV Infused .Q14H DIDIER Infusion Cefepime HCl 1 gm/ Sodium 100 mls @ 200 mls/hr 09/11/17 19:30 09/13/17 07:08 Chloride IV Infused Q12H DIDIER Infusion Vancomycin HCl 2,000 mg/ 500 mls @ 250 mls/hr 09/11/17 19:35 09/11/17 22:47 Sodium Chloride IV 09/11/17 19:36 Infused O ONE Infusion Vancomycin HCl 2,000 mg/ 500 mls @ 250 mls/hr 09/12/17 08:00 09/14/17 12:16 Sodium Chloride IV Not Given 0800 DIDIER Magnesium Sulfate/Dextrose 1 gm in 100 mls @ 100 mls/hr 09/13/17 11:30 14:37 Mag Sulf 1gm Premix IV 09/13/17 13:29 Infused Q1H DIDIER Infusion Vancomycin HCl 1,250 mg/ 250 mls @ 200 mls/hr 09/14/17 18:00 09/17/17 19:30 Sodium Chloride IV Infused Q24H DIDIER Infusion Potassium Phosphate 44 meq/ 510 mls @ 100 mls/hr 09/16/17 17:00 09/16/17 21: 51 Sodium Chloride IV 09/16/17 22:05 Infused .Q5H6M DIDIER Infusion Insulin Aspart 2 - 8 unit 09/04/17 10:21 09/09/17 12:12 Novolog SQ 2 unit SS PRN Administration Hyperglycemia Protocol Levothyroxine Sodium 50 mcg 09/10/17 06:30 Synthroid PO ACB DIDIER Lorazepam 1 mg 09/11/17 17:39 09/11/17 18:06 Ativan Inj IVP 09/11/17 17:40 1 mg ONCE ONE Administration Lorazepam 0.5 mg 09/16/17 11:53 09/16/17 11:53 Ativan PO 09/16/17 11:54 0.5 mg ONE TIME ONE Administration Magnesium Oxide 800 mg 09/12/17 12:08 09/12/17 13:56 Magox PO 09/12/17 12:09 800 mg DAILY ONE Administration Metoclopramide HCl 5 mg 09/03/17 20:33 Reglan IVP Q6H PRN Midazolam HCl 2 mg 09/14/17 16:35 09/14/17 16:19 Versed IVP 09/14/17 16:36 2 mg O ONE Administration Miscellaneous Medication 1 each 09/04/17 09:14 09/04/17 19:53 Pharmacy Consult - Renal Dosing 09/04/17 09:15 1 each O ONE Administration Miscellaneous Medication 1 each 09/10/17 10:03 09/11/17 09:01 Pharmacy Consult - Renal Dosing 09/10/17 10:04 Not Given O ONE Morphine Sulfate 1 - 2 mg 09/03/17 20:33 Morphine Sulfate Inj IVP Q2H PRN Pain Morphine Sulfate 0 mg 09/07/17 15:35 09/07/17 16:08 Morphine Sulfate Vial IVP 2 mg Q10M PRN Administration Naloxone HCl 0.4 mg 09/03/17 18:24 09/03/17 18:31 Narcan IVP 09/03/17 18:25 0.4 mg O ONE Administration Ondansetron HCl 4 mg 09/03/17 20:33 Zofran IVP Q6H PRN Nausea &/or vomiting Pharmacy Consult 1 each 09/03/17 21:43 Pharmacy Consult - Fall Risk 09/03/17 21:44 ONE TIME ONE Pharmacy Consult each 09/12/17 21:22 Pharmacy Consult - Fall Risk 09/12/17 21:23 ONE TIME ONE Potassium Chloride 20 meq 09/14/17 12:00 09/15/17 09:43 K-Dur 20 Meq Tablet PO 09/15/17 08:01 20 meq TIDWM DIDIER Administration Potassium Chloride 40 meq 09/15/17 12:00 09/16/17 08:56 K-Dur 20 Meq Tablet PO 09/16/17 08:01 40 meq TIDWM DIDIER Administration Potassium Phosphate 1,000 mg 09/11/17 12:00 09/11/17 21:13 K-Phos Original (Urinary Acidifier) PO Not Given [facility] Quetiapine Fumarate 25 mg 09/06/17 21:00 09/07/17 20:38 Seroquel PO 25 mg HS DIDIER Administration Senna/Docusate Sodium 2 tab 09/06/17 21:00 09/16/17 09:46 Senna Plus Tablet PO Not Given BID DIDIER Sertraline HCl 100 mg 09/04/17 09:00 09/10/17 09:18 Zoloft PO 100 mg BID DIDIER Administration Sodium Phosphate 1,000 mg 09/12/17 08:00 09/12/17 16:37 K-Phos *Neutral* Tablet PO Not Given [facility] Sodium Phosphate 500 mg 09/12/17 17:30 09/13/17 09:57 K-Phos *Neutral* Tablet PO 500 mg [facility] DIDIER Administration Thrombin 5,000 unit 09/07/17 14:56 09/07/17 14:56 Thrombin-Jmi OPSITE 09/07/17 14:57 5,000 unit O ONE Administration Vancomycin HCl 1 each 09/11/17 19:25 09/11/17 19:51 Pharmacy Consult - Vancomycin 09/11/17 19:26 1 each O ONE Administration - Constitutional no acute distress - Routine HEENT Exam Head: Present: normocephalic, atraumatic Eye: Present: EOMI, PERRL ENT: Present: mucous membranes moist - Routine Neck Exam Absent: thyromegaly - Routine Respiratory Exam Absent: dyspnea - Routine Cardiovascular Exam Present: RRR - Routine Abdominal Exam Present: soft, normoactive bowel sounds - Routine Extremities Exam Present: amputation (left BKA) - Routine Skin Exam Present: dry, warm - Routine Neurological Exam Present: alert, oriented X3, moving all extremities - Routine Psychiatric Exam Present: normal affect, normal thought process, good insight, good judgment - Additional findings Additional findings: Laboratory Tests 09/18/17 09/18/17 09/19/17 11:57 17:40 04:02 BUN 17.0 Creatinine 1.5 GFR Calculation 47 Glucometer 168 146 Calcium 8.4 Phosphorus 2.9 09/19/17 06:09 BUN Creatinine GFR Calculation Glucometer 113 Calcium Phosphorus - Urinary Catheter Management Urethral Cath placed during this visit: yes Insertion date: 09/03/17 Insertion time: 19:00 2-way Urethral Cath placed during this visit: no Assessment and Plan (1) Hypercalcemia Problem details: Hyperparathyroidism/solitary parathyroid adenoma; s/p parathyoidectomy 09/07/17 Current visit: Yes Status: Resolved (2) Metabolic encephalopathy Current visit: Yes Status: Resolved (3) Primary hyperparathyroidism Current visit: Yes Status: Resolved (4) Diabetes mellitus type 2, uncontrolled, without complications Problem details: Controlled. Current visit: Yes Status: Chronic Sugars have averaged in low 100's. With ongoing mild renal insufficiency it will be best to continue the small doses of Novolog (2, 3, 3 units TID AC) for now. If renal function improves, he could probably be controlled with oral agents in place of such a low total daily insulin requirement. (5) Hypertension Problem details: Controlled. Current visit: Yes Status: Chronic Fair control. No changes needed. (6) correction current use of insulin Current visit: Yes Status: Chronic (7) Postablative hypothyroidism Problem details: Clinically euthyroid. Current visit: Yes Status: Chronic Clinically euthyroid. Continue Synthroid 250 mcg q AM and recheck TSH, FT4 in 1 month. (8) Hypocalcemia Current visit: Yes Status: Acute Calcium has risen into normal range. Will taper calcitriol to 0.5 mcg bid. Should follow calcium weekly and continue to taper calcitriol as able.
[2017-09-19] MEDS: GABAPENTIN 100 MG CAPSULE PO SCH (08:29)
[2017-09-19] MEDS: CALCIUM CITRATE 950 MG TABLET PO SCH (08:30)
[2017-09-19] MEDS: LABETALOL 100 MG TABLET PO SCH (08:30)
[2017-09-19] MEDS: LACTOBACILLUS (15B cfu) CAPSULE PO SCH (08:30)
[2017-09-19] MEDS: ALLOPURINOL 100 MG TABLET PO SCH (08:31)
[2017-09-19] MEDS: SERTRALINE 100 MG TABLET PO SCH (08:31)
[2017-09-19] MEDS: INSULIN ASPART 100unit/ml INJECTION SQ SCH ×2 (08:32→13:04)
[2017-09-19] MEDS: FLUTICASONE NASAL SPRAY 50mcg EA NOSTRIL SCH (08:33)
[2017-09-19] MEDS ORDERED: CALCITRIOL 0.25 MCG CAPSULE PO SCH (09:00)
--- NOTE | 2017-09-19 09:18 | Operative Note ---
DATE OF SERVICE 09/18/2017 SURGEON Alphonso Gregory MD PREOPERATIVE DIAGNOSIS Poor venous access, need for long-term central venous access to facilitate vancomycin infusions. POSTOPERATIVE DIAGNOSIS Poor venous access, need for long-term central venous access to facilitate vancomycin infusions. PROCEDURE Insertion of right internal jugular triple-lumen catheter under sonographic guidance. ANESTHESIA Local BRIEF HISTORY/INDICATION Mr. Gonzales is a 67-year-old gentleman who is known to my surgical practice. I recently had performed a neck exploration and excision of a parathyroid adenoma. The patient is very complicated and I was requested to see the patient again today for placement of a central line. Verbal report was that the patient did not have peripheral IV access and was going to require IV vancomycin over the course of the next several weeks. For completeness please refer to notes included in the patient's chart. DESCRIPTION OF PROCEDURE After informed consent was obtained, patient was brought to the procedure room and placed on the table in a supine fashion. Right lateral neck was then prepped and draped in sterile fashion. Formal time-out was then completed. Ultrasonography was then performed and one could see the anatomic location of the internal jugular vein. 1% lidocaine was then injected overlying the anatomic location of the internal jugular vein. A Cook needle was then introduced through the area of analgesia and into the internal jugular vein under sonographic guidance. Venous flush was obtained. Guidewire was advanced over the Cook needle and the Cook needle was removed. A 5 mm incision site was then made adjacent to the exit site of the guide wire. A dilator was then advanced over the guidewire and removed. Next a flush triple-lumen catheter was advanced over the guidewire. The guidewire was then removed. Catheter was then fixated to the right lateral neck with 2-0 silk. Sterile dressing was then applied. Patient tolerated the procedure without difficulty. Postprocedure chest x-ray has been ordered and is pending at the time of dictation. [facility]
[2017-09-19] MEDS: POLYETHYL GLYCOL 3350 17gm PACKET PO SCH (09:27)
--- NOTE | 2017-09-19 09:41 | Discharge Summary ---
Discharge Information Date of admission: 09/03/17 20:13 Anticipated date of discharge: 09/19/17 Attending Physician: Aron Gilliam MD Primary care physician: Vonda Carias MD Consults: Kevin Le (endocrinology) Recommendations: Continue Synthroid 250 mcg q AM and recheck TSH, FT4 in 1 month. Tapered calcitriol to 0.5 mcg bid. Should follow calcium weekly and continue to taper calcitriol as able. Sugars have averaged in low 100's. With ongoing mild renal insufficiency it will be best to continue the small doses of Novolog (2, 3, 3 units TID AC) for now. If renal function improves, he could probably be controlled with oral agents in place of such a low total daily insulin requirement. Alphonso Gregory (surgeon) Carole Apple (ID) Recommendations: Treat with Vancomycin for 6 weeks from 09/13/17, which would go through 10/24/17. He will need to follow up with Dr. Gomez. He will need to return to chronic suppression at the end of the IV antibiotics, but I wonder about minocycline instead of clinda since the MRSA is R to clinda. - Discharge Diagnosis (1) Hyperparathyroidism, primary Status: Acute Discharge diagnosis Hypercalcemia secondary to hyperparathyroidism Parathyroid adenoma-s/p parathyroidectomy 09/07/17 Associated conditions and complications Severe sepsis with MRSA and enterococcus bacteremia - improving. Source unknown - possible joint vs chronic wounds. Neck incision healing well. Encephalopathy with hallucinations - resolved Hypoglycemia - resolved Acute kidney injury-FeNa 6.7% (POA) Stage III CKD Metabolic acidosis -resolved Type 2 diabetes mellitus on insulin Chronic Pancytopenia Anemia - Transfusion of 1 unit pRBC 09/03 and 09/04 Thrombocytopenia - transfusion of platelet pack 09/07 Chronic joint infection - previously on suppressive Cipro and clindamycin. Continues on Cipro. Clinda DC'd. Chronic buttock wounds Hypothyroidism, post-ablative Possible supraventricular bradycardia, in sinus rhythm Obstructive sleep apnea - CPAP Obesity Hypertension - on home labetalol. Amlodipine and losartan DC'd during hospitalization. Peripheral polyneuropathy Cirrhosis Generalized pain Insomnia - Procedures Procedures: 09/18/2017 Insertion of right internal jugular triple-lumen catheter under sonographic guidance for poor venous access, need for long-term central venous access to facilitate vancomycin infusions. Date of Exam: 09/14/17 Type of Exam(s): US ishmael w/ doppler Left atrium is dilated. Left ventricular end-diastolic dimension is normal. Left ventricle wall thickness is normal. LV systolic function is normal with ejection fraction of about 65%. Right atrium is dilated. Right ventricle is normal. Aortic root dimension is normal. Mitral valve is morphologically normal with trace of mitral regurgitation. Aortic valve is a trileaflet structure with no stenosis or insufficiency. Tricuspid valve shows trace of tricuspid regurgitation. Pulmonary valve appears to be normal. There is no pericardial effusion. There is no thrombus in left atrium, left atrial appendage or left ventricle. Agitated saline was injected which showed no evidence of [id number] shunt. There is no evidence of vegetations. Descending thoracic aorta appears to be free of significant atherosclerosis. IMPRESSION 1. No evidence of vegetations. 2. Normal LV systolic function with ejection fraction of about 65%. 3. Biatrial dilation. 4. Trace of mitral regurgitation. 5. Trace of tricuspid regurgitation. ----- - Laboratory Labs: Dismissal Labs 09/19/17 09/19/17 09/19/17 04:02 04:02 06:09 WBC 2.1 L RBC 2.49 L Hgb 8.2 L Hct 24.3 L Plt Count 64 L Sodium 142 Potassium 4.5 Chloride 111 H Carbon Dioxide 23 Anion Gap 8 BUN 17.0 Creatinine 1.5 GFR Calculation 47 Glucose 111 H Calcium 8.4 Phosphorus 2.9 Admission Labs 09/03/17 09/03/17 18:41 18:41 WBC 2.5 L RBC 1.92 L Hgb 6.6 L Hct 19.6 L MCV 102.1 H MCH 34.4 H Plt Count 38 L Sodium 140 Potassium 4.2 Chloride 111 H Carbon Dioxide 20 L Anion Gap 9 BUN 59.0 H* Creatinine 2.5 H GFR Calculation 26 BUN/Creatinine Ratio 24 Glucose 152 H Calcium 14.3 H* Total Bilirubin 0.60 AST 39 ALT 18 Alkaline Phosphatase 107 Ammonia 18 PTH 09/05/17 09/07/17 04:53 14:40 PTH Intact 386.0 H 37.9 L Calcium trend 09/03/17 09/08/17 09/12/17 18:41 21:39 06:33 Calcium 14.3 H* 9.4 8.1 L 09/14/17 09/16/17 09/18/17 04:47 04:08 04:02 Calcium 6.7 L 7.0 L 8.0 L D 09/19/17 04:02 Calcium 8.4 - Microbiology Microbiology 09/13/17 Blood Culture: NEG 09/11/17 Blood Culture: Staphylococcus aureus, MRSA Enterococcus faecalis 09/03/17 Blood Culture: NEG - Radiology Radiology: Date of Exam: 09/11/17 Indication: fever PROCEDURE: XR chest 1V: Findings: Diffuse interstitial prominence has improved from the prior study. No new areas of consolidation. No pneumothorax or significant pleural effusion. Cardiac silhouette remains enlarged. Mediastinal contours are stable with prominence of the central pulmonary arteries. Impression: No focal pneumonia or overt congestive failure. - Date of Exam: 09/03/17 Indication: AMS PROCEDURE: CT head/brain wo con: FINDINGS: The ventricles are of normal size, shape, and contour for the patient' s age. There are scattered areas of low attenuation in the white matter which most likely represent changes from chronic microvascular ischemia. The brainstem , cerebellum, and cerebral hemispheres otherwise have a normal morphology and CT attenuation. There is no evidence of midline displacement. No hemorrhage, signs of acute territorial stroke, mass effect, mass lesions, or edema is evident. The visualized portions of the skull base, midface, and calvarium demonstrate no abnormality. Opacification of the left maxillary sinus with bubbly secretions. The tympanic and mastoid cavities appear normal. IMPRESSION: No acute intracranial abnormality or hemorrhage. Acute left maxillary sinusitis. -- Date of Exam: 09/04/17 Indication: acute kidney injury PROCEDURE: US renal BI: FINDINGS: Exam was technically challenging due to patient body habitus and poor acoustic windows. Both kidneys are present with normal cortical thickness and echogenicity. No gross renal masses or hydronephrosis. Possible left renal stones. The right kidney measures 12.1 cm in length, and the left kidney measures 10 cm in length. Benign-appearing 2.7 cm inferior pole right renal cyst. Incidental note is made of splenomegaly with the spleen measuring 18.9 cm in length. IMPRESSION: 1. No hydronephrosis. 2. Possible left nephrolithiasis. 3. Splenomegaly. - Date of Exam: 09/04/17 Indication: primary hyperparathyroidism PROCEDURE: NM parathyroid: FINDINGS: There is no definite detectable activity in the thyroid gland with normal salivary glands on the initial examination. The thyroid activity washes out is typically expected by 2 and 4 hours without a definite residual focal area of increased uptake to suggest a parathyroid adenoma. However, there is a focal area of retained contrast in the right lower thyroid region which suggests parathyroid adenoma. IMPRESSION: Persistent focus of asymmetric and increased activity in the region of the right lower thyroid suggesting parathyroid adenoma. Minimal if any thyroid activity. --- Date of Exam: 09/04/17 EXAM: US thyroid HISTORY: hypercalcemia, probable parathyroid adenoma FINDINGS: The right thyroid lobe measures 1.0 x 1.4 x 3.6 cm and the left thyroid lobe measures 1.0 x 0.8 x 2.2 cm. The isthmus measures 0.2 cm. A 1.5 x 1.8 x 2.1 cm exophytic hypoechoic nodule is present adjacent to the lower pole of the right thyroid lobe with no significant internal flow. The nodule is solid, hypoechoic, taller than wide, and demonstrates smooth margins. TI-RADS 4 IMPRESSION: Exophytic hypoechoic solid nodule adjacent to the lower pole of the right thyroid lobe which made on the basis of a exophytic thyroid nodule or parathyroid adenoma. A nuclear medicine parathyroid scan may be obtained for further evaluation. ----Date of Exam: 09/13/17 Indication: osteomyelitis PROCEDURE: XR knee RT 2V: Findings: No acute fracture identified. Evidence of old trauma and infection with methyl methacrylate filling the knee joint space and arthrodesis of the knee joint with a fixation on. No evidence of hardware loosening or failure. No acute periosteal reaction or osteolytic process identified. Impression: Findings of prior or chronic infection. No radiographic evidence to suggest acute osteomyelitis. -----Date of Exam: 09/15/17 Indication: sepsis, R knee osteo PROCEDURE: MR knee RT wo con: Findings: Postsurgical changes with an intramedullary nail arthrodesis of the knee joint and methylmethacrylate filling the joint space. There is cortical irregularity of the patella and distal femur along with the proximal tibia probably related to old infection. The bone marrow does not show acute edema or abnormal regions of T1 hypointensity to suggest active osteomyelitis. There is no drainable abscess or sinus tract identified. There is diffuse fatty atrophy of the thigh musculature. There is subcutaneous edema circumferentially around the knee joint. Impression: No MR evidence of active osteomyelitis. Diffuse subcutaneous edema could represent a cellulitis. ---- - Pathology Parathyroid adenoma History of Present Illness HPI: Mr. Gonzales is a 67yo man with h/o T2D, essential HTN, KIZZY, class 2 obesity, PAD s/p L BKA, and CKD3 presenting from [place] with altered mentation. Patient's is at the bedside and confirms more confused for a couple of days but obtunded at SNF with glucose 45 given dextrose and then additional by EMS with 1 L NS in route. Per ED staff GCS13 on arrival with patient still slow to answer questions, but more oriented. Patient denies pain, nausea, sob. Patient not on O2 per with SpO2 86% on ED arrival as well. Med change B12 started 1.5 weeks ago by endo with heme/onc also seeing the patient for progressive anemia and started on ?epo. No recent need for blood transfusion. No Abd pain or stool changes. Objective Vital signs: Temperature 97.8 F 09/19/17 07:35 Pulse Rate 62 09/19/17 08:00 Respiratory Rate 16 09/19/17 07:35 Blood Pressure 143/61 H 09/19/17 07:35 Pulse Oximetry 97 09/19/17 07:35 Rhythm: Normal Sinus Rhythm Height/Weight/BMI: Height 1.91 m Weight 132.4 kg Body Mass Index 34.3 - Constitutional Present: no acute distress - Routine HEENT Exam Head: Present: normocephalic, atraumatic Comments: Surgical incision well healed. Central line intact R neck. - Routine Respiratory Exam Present: CTA bilaterally. Absent: dyspnea - Routine Cardiovascular Exam Present: RRR, no murmur - Routine Abdominal Exam Present: soft, normoactive bowel sounds. Absent: tenderness - Routine Extremities Exam Present: edema (2+ edema RLE. Left above knee amputation) - Routine Musculoskeletal Exam Musculoskeletal: Present: other (contracture L hand) - Routine Skin Exam Present: ecchymosis (b/l arms) - Routine Neurological Exam Present: alert, normal speech - Routine Psychiatric Exam Present: normal affect Hospital Course This is a general summary of the patient's hospital course. For more details refer to the complete medical record. Hospital course: 09/04/17 Admit to CCU for close monitoring as an inpatient. Continue normal saline. Dr. Le was consulted regarding hypercalcemia. He will see the patient a little later today. He does recommend surgical consultation for possible parathyroidectomy. Regarding acute kidney injury will continue IV fluids, check renal sonogram, check urine sodium and creatinine and hold losartan. Re: Pancytopenia, will recheck CBC. Regarding chronic wound infections, will continue clindamycin and Cipro. Will ask pharmacy to adjust Cipro for renal function. Continue on telemetry for possible arrhythmias. Recheck CBC and basic metabolic profile today and again tomorrow. The patient is full code per his who his DPOA. 09/05/17 Calcium improving following pamidronate yesterday, continue IV fluids. Scan consistent with single parathyroid adenoma. Surgery tentatively scheduled for later in the week. reports minor improvement in mental status continue to monitor. Blood sugars stable overnight-no recurrent hypoglycemia. Renal function minimally improved, continue hydration; medications adjusted for renal function earlier today by Pharm.D. No reported hypotension. Fractional excretion suggests intrinsic renal dysfunction. Hemoglobin/platelet count stable today; white count 2.9. Pancytopenia chronic. 09/06/17 Calcium improved/stable following pamidronate 09/04, continue IV fluids. Scan consistent with single parathyroid adenoma. Surgery tentatively scheduled for tomorrow-discussed with Dr. Gregory. Also discussed plans with Dr. Le, if GFR permits will receive a single dose of Zoledronic acid later today to further improve calcium preoperatively. reports minor improvement in mental status continue to monitor. Blood sugars stable today ranging from 147-155. Renal function slowly improving with creatinine 2.0 today-well above baseline of 1.2-1.4 and baseline GFR of about 60, continue hydration. Chronic pancytopenia (due to cirrhosis/chronic inflammation); anticipate platelet packs with surgery to minimize risk of neck hematoma. Home pain medications resumed. Low-dose Seroquel added for sleep. Supplemental history provided by nursing and patient's . Stable to transfer out of ICU today. 09/07/17 OP DAY: Neck exploration with excision of right inferior parathyroid adenoma - Dr Gregory Calcium improved/stable (decreased from 14.3 on 09/03/17 to 11.6 today, 09/07/17). Parathyroidectomy scheduled for today with Dr. Gregory. Maintain NPO status due to anticipated surgery. Will continue IVF and add KCl 20 mEQ to IVF given hypokalemia. Weight trending up. Decrease rate to 150cc/hr and continue to monitor closely for signs of fluid overload. Dr. Le continues to follow patient. Appreciate his time and expertise. Discussed giving Zoledronic acid on 09/06/17, but decided against it. Anticipates improvement in calcium following surgery. Increased somnolence today - suspect secondary to receiving Seroquel 25mg at bedtime last night to assist with insomnia. Continue to monitor mental status closely. Blood sugars stable and trending up since admission (range 147-233). Continue to monitor closely. Renal function slowly improving with creatinine 1.9 today-well above baseline of 1.2-1.4 and baseline GFR of about 60. Continue hydration and continue to monitor. Pancytopenia chronic - anticipate platelet packs with surgery to minimize risk of neck hematoma. WBC 1.8, Hgb 8.7, Plt 48. Supplemental history provided by nursing and patient's . Telemetry reviewed-sinus rhythm. Will recheck labs in AM to monitor blood counts, electrolytes and renal function. Monitor serial calcium levels post operatively. 09/08/17 Calcium continues to improve progressively; PTH down immediately after surgery. Limited oral intake, continue IV fluids pending improvement. Weight trending up. He was dehydrated on admission, minor edema present right lower extremity; not hypoxic. Continue to monitor. Dr. Le continues to follow patient for diabetes and hyperparathyroidism. Blood glucose is stable. Sleep improved with Seroquel the past 2 nights, speech mumbled but was prior to initiation of medication. We'll readdress with when available anticipate discontinuing medication in the next day or 2. Renal function slowly improving with creatinine 1.9 remains above baseline of 1.2-1.4 and baseline GFR of about 60. Chronic pancytopenia, count stable- 1 unit of platelets and packed cells with surgery yesterday. 09/09/17 Calcium has stabilized at 9.4 yesterday and today. Continue to monitor. Fluids switched from NS to 1/2NS with sodium bicarb. Dr. Le continues to follow patient for diabetes and hyperparathyroidism. Blood glucose is stable. (simonizer for Dr. Gregory) evaluated pt today. No changes. Renal function plateaued with creatinine 1.9 yesterday and today. Remains above baseline of 1.2-1.4 and baseline GFR of about 60. Resume home levothyroxine and gabapentin. BP's stable - amlodipine and Cozaar remain on hold. 09/10/17 Patient remains very confused. Medications reviewed- Hold Tramadol. DC Reglan. Decrease Zoloft to 100mg Q Day for now. Decrease Flexeril to 5mg dosing. Check venous ammonia. Serum calcium is trending down. Remains acidotic- continue NaHCO2 in IVF for now. Renal function remains elevated. Baseline 1.2-1.4. Chronic joint infection with suppressive therapy- Cipro/Clinda. Will request pharmacy consult for renal dosing. Pancytopenia appears stable, continue neutropenic precautions. 09/11/17 Continue sodium bicarb; CO2 improving. Creatinine increased slightly from 1.9 to 2.0. Cipro dose adjusted yesterday based on renal function. Phosphorus low at 2.0 -- start replacement PO. Ca 8.4. ANC 1440 - continue neutropenic precautions. Spiked fever of 102.5 in the evening. Sepsis workup ensued. Lactate 2.2. Started Vancomycin and cefepime. 09/12/17 Severe sepsis with MRSA and enterococcus bacteremia ? Source - possible joint vs chronic wounds. Neck incision healing well. Continue Vanco and cefepime for positive blood cultures - started 09/11. suppressive Cipro and clindamycin for chronic joint infections (Dr. Gomez) Consulted Dr. Apple - she will evaluate tomorrow. Lactate decreased from 2.2 to 0.9 WBC 3.1. T max 104.1 last evening. He is not hypotensive. Hypoxia with 83% on room air CXR yesterday was negative for pneumonia or CHF. O2 PRN CPAP HS DuoNeb PRN Metabolic acidosis/HERNAN CO2 improved to 20. Renal function elevated but about the same with BUN of 29 and creatinine of 2.1. Continue sodium bicarb. Continue Justin; good UO (1650/2210 on 09/12) Electrolyte abnormalities Phos still low at 2.3; mg low-normal at 1.6. Continue KPhos and give one- time dose of MagOx 800 mg. Ca decreased to 8.1 - Dr. Le recommends to start Ca if it decreases further. Encephalopathy Multifactorial - no recent Lima; last Tramadol was on 09/10 Ammonia level was 20 on 09/1009/13/[address] consultation by Dr Apple. She is concerned about possible right knee source infection. Right knee Xray ordered. Cefepime discontinued. Continue with Vancomycin for positive blood cultures - started 09/11. Added PO Cipro for chronic suppression. Will repeat Blood cultures today. ANC count is 928- reveling Neutropenia. Placed on precautions. All wounds evaluated this morning by Wound team Nurse- No evidence of acute infection or worsening wounds. Will likely require a ISHMAEL to evaluate for vegetations- discuss with attending. 09/14/17 ISHMAEL: No evidence of vegetations. 09/15/17 MRI of knee: No MR evidence of active osteomyelitis. Diffuse subcutaneous edema could represent a cellulitis. Dr. Le increased calcium to 950mg TID and increased calcitriol to 0.5mcg BID. 09/16/17 Continue Vanco (started 09/11) and chronic cipro (for suppression of pseudomonas ). He remains afebrile. Repeat Blood cultures NGTD (3 days) MRI - No evidence of active osteomyelitis. Diffuse subcutaneous edema could represent a cellulitis. Phos continues to be low at 1.3; Mg stable at 1.7. Calcium increased to 7.0 with improvement in symptoms. Will give IV Kphos due to persistent decrease phos levels. Can increase calcitriol to 1mcg BID. 09/17/17 Awaiting for recommendations tomorrow 09/[address] Apple regarding IV Abx course and treatment length. Continue on IV Vanco and PO Cipro. Repeat BC with no growth (day 4). He would like to return to [facility] for continued SNU. Concerned this may not be an option with ongoing IV ABx. Could also consider IRU. Continued Neutropenia- in precautions. Phosphorus normalized. 09/18/17 Dr Apple recommends PICC line placement with 6 weeks of Vanco through 10/24/17. Planned to hold today's Vanco dose and resume 750mg IV daily starting tomorrow. Trough elevated at 28.9 He will follow with Dr Gomez (ID) and will need chronic suppression abx once IV Vanco completed. Zechariah recommends Minocycline. Infusion team attempted PICC line placement x3. Dr Gregory in agreement for placement of central line today. CM working with setting up discharge to [facility]. Multiple discussions with CM, nursing, Attending, and consulting Physicians for care planning- 35 minutes. 09/19/17 Continue Calcitriol and taper as able. Follow weekly calcium. Continue the small doses of Novolog (2, 3, 3 units TID AC) for now. If renal function improves, he could probably be controlled with oral agents in place of such a low total daily insulin requirement. Continue Synthroid 250 mcg q AM and recheck TSH, FT4 in 1 month. Treat with Vancomycin for 6 weeks from 09/13/17, which would go through 10/24/17. He will need to follow up with Dr. Gomez. Will need to return to chronic suppression at the end of the IV antibiotics, consider minocycline instead of clinda since the MRSA is R to clinda. Continue Nystatin to yeast areas. F-u with Dr. Gomez, Aretha, Zechariah and Rey. No f-u with Dr. Gregory necessary. Time spent with patient: discharge greater than 30 minutes Resuscitation Status: Full Code Discharge Plan - Discharge Disposition Disposition: 03 To U Not [facility] (SNF) *Condition: Improved Reason For Visit (Visit label in EMR): Metabolic encephalopathy/hypercalcemia - Discharge Medications *Discharge Medications: New Calcitriol [Rocaltrol] 0.5 mcg PO BID cap Calcium Citrate [Calcitrate] 950 mg PO TID tab Fluticasone Nasal [place] [Flonase] 2 spray EA NOSTRIL DAILY bottle Insulin Aspart [NovoLOG] 2 unit SQ ACB vial Insulin Aspart [NovoLOG] 3 unit SQ ACS vial Insulin Aspart [NovoLOG] 3 unit SQ ACL vial Nystatin Powder [Mycostatin] 1 applicatio TP TID bottle PEG 3350 17gm PACKET [Miralax] 17 gm PO DAILY packet Sertraline [Zoloft] 100 mg PO DAILY tab Quetiapine [Seroquel] 25 mg PO HS PRN tab PRN Reason: Insomnia Acidoph/L.bulg/Bif.b/S.thermop [Bacid Caplet] 2 cap PO BIDWM tab Acetaminophen [Tylenol] 650 mg PO QID PRN tab PRN Reason: Discomfort Senna + Docusate [Senna Plus Tablet] 2 tab PO BID PRN tab PRN Reason: Constipation Vancomycin [Vancocin] 875 mg IV Q24H vial Continue Docusate Sodium 100 mg PO BID PRN PRN Reason: Constipation Loperamide HCl [Imodium A-D] 2 mg PO Q4H PRN PRN Reason: Diarrhea Labetalol [Normodyne] 100 mg PO BID Allopurinol [Zyloprim] 300 mg PO DAILY Dextrose [Glucose Gel] 4 oz BC PRN Cyclobenzaprine [Flexeril] 10 mg PO TID PRN #45 tab PRN Reason: Muscle Spasm Hydrocodone/APAP 7.5/325 [Lima 7.5/325] 1 tab PO Q6H PRN #30 tab PRN Reason: Pain Tramadol [Ultram] 50 mg PO TID PRN #45 tab PRN Reason: Pain Ondansetron HCl 4 mg PO Q6H PRN PRN Reason: Nausea Fexofenadine [Yuridia] 180 mg PO DAILY PRN PRN Reason: Allergy Symptoms Neurontin (gabapentin) 100 mg capsule 100 mg PO BID aspirin 81 mg tablet,delayed release 81 mg PO DAILY tab Cipro (ciprofloxacin) 500 mg tablet 500 mg PO BID tab levothyroxine 50 mcg tablet 50 mcg PO DAILY Protonix (Pantoprazole)40 mg tablet,delayed release 40 mg PO DAILY levothyroxine 200 mcg tablet 200 mcg PO DAILY tab Discontinued Clindamycin [Cleocin] 300 mg PO BID Cholecalciferol (Vitamin D3) [Vitamin D3] 2,000 unit PO DAILY Amlodipine [Norvasc] 10 mg PO DAILY Losartan [Cozaar] 100 mg PO DAILY Sertraline [Zoloft] 100 mg PO BID Lantus Solostar (insulin glargine) 100 unit/mL (3 mL) PEN 38 unit SQ HS ml Novolog FlexPen (insulin aspart) 100 unit/mL PEN 17 unit SQ TIDWM ml - Discharge Packet/Instructions *Diet: No added salt, no concentrated sweets *Activity: As tolerated *Pain Management/Treatment: Tylenol, Lima, Tramadol as needed. *Wound Care: Moisture associated contact dermatitis in this gluteal clave, under his pannus and under scrotum. Nystatin powder applied to scrotum area, and to bottom Barrier cream. Discussed with RN that Advanced 3 M protectant can be applied Q 3 days. Off load buttocks. *Expected Signs/Symptoms: Improvement of infection. Improvement of functional status. *Notify Physician if: Temp >100.4. Blood sugar difficulty. *During Business Hours Contact: Nursing staff at [facility] *After Business Hours Contact: Nursing staff at [facility] *Pending Lab/Results: No Pending Lab - Referrals/Follow Up *Referrals/Follow Up: Bren Gomez MD [Physician] - (Will need follow up after Vancomycin completed to continue suppressive antibiotics. ) Vonda Carias MD [Primary Care Provider] - 1 Week (Medical follow up) Carole Apple MD [Physician] - 2 Weeks (Hospital follow up. ) Kevin Le MD [Physician] - 1 Month (F/U DM, Hyper/hypo calemia, hypothyroidism) - Patient Handouts Patient Handouts: Hyperparathyroidism (GEN) - Dismissal Complete Discharge Instructions are:: Complete Physician Narrative - Narrative Physician: Aron Gilliam MD Attestation Narrative: Date: 09/19/17 Time: 1120 Have independently interviewed and examined patient prior to discharge. Chart reviewed. Case discussed with CM and my PA. Care plan developed with my supervision; agree with above. Doing okay this morning. Breathing stable. No f/c. Lungs: decreased, no distress CV: regular AB: soft nt/nd MSE: awake alert appropriate Plan: Medically stable for discharge to skilled care. See orders for details.
[2017-09-19] MEDS: ALBUTEROL/IPRATROPIUM 2.5mg-0.5mg/3ml NEB AEROSOL SCH ×2 (09:42→11:36)
--- NOTE | 2017-09-19 09:42 | Extended Care Facility Orders ---
Admission Orders Admit to:: Half-Way Allergies/Adverse Reactions: Allergies Iodinated Contrast- Oral and IV Dye Allergy (Unknown, Verified 09/03/17 18:31) Sulfa (Sulfonamide Antibiotics) Allergy (Unknown, Verified 09/03/17 18:31) Admitting Diagnosis: Hypercalcemia secondary to parathyroid adenoma - resolved, MRSA and enterococcus bacteremia - stabilized with IV Vancomycin Admitting Physician: Aron Gilliam MD Attending Physician: Dr Carias Code Status: Full Code Anticiapted Length of Stay: 30 days or less Rehab Potential: fair Rehab Prognosis: fair Diet: Cardiac Consistent Carbohydrate Diet - No added salt, no concentrated sugars Wound/Incision Care: Moisture associated contact dermitises in this gluteal clave, under his pannis and under scrotum. Nystatin powder applied to scrotum area, and to bottom Barrier cream. Discussed with RN that Advanced 3 M protectant can be applied Q 3 days. Off load buttocks. May use Facility Protocol or Standing Orders: Yes May have flu vaccine: Yes Evaluations/Treatment: PT, OT, RT Half-Way Certification: I certify that SNF services are required to be given on an Inpatient basis because of the patients need for assisted care on a continuing basis for the condition(s) for which he/she received inpatient hospital services prior to his/her transfer to the SNF. SNF inpatient care is necessary for the following reasons Indication for Half-Way: Diabetic Assessment, Med Admininistration, Central Line Care, Diabetic Education, Teach Diabetes Mellitus Management - Additional Information In Event of Arrest: Start CPR,call 911,send patient to the ER Resident is Aware of Diagnosis: Yes Referrals: Bren Gomez MD [Physician] - (Will need follow up after Vancomycin completed to continue suppressive antibiotics. ) Vonda Carias MD [Primary Care Provider] - 1 Week (Medical follow up) Carole Apple MD [Physician] - 2 Weeks (Hospital follow up. ) Kevin Le MD [Physician] - 1 Month (F/U DM, Hyper/hypo calemia, hypothyroidism) Additional Orders: F/U with Dr Carias in 1 week for medical evaluation. F/U with Dr Apple in 2-4 weeks. F/U with Dr Le in 4 weeks. F/U with Dr Gomez after IV Vancomycin completed to continue suppressive antiboitics. Vancomycin IV for 6 weeks from 09/13/17, which would go through 10/24/17. Weekly CMP, CBC, Vancomycin level, CRP on Mondays - Dx: MRSA and enterococcus bacteremia, Medication use. Please send copy of lab to Dr Apple, Dr Gomez, and Dr Le. Routine central line care. Accuchecks fasting in am, 2 hours after eating, and as needed. Dr Le to help manage insulin doses.
[2017-09-19 11:35] VITALS: BP 139/66; PULSE 66; TEMP 98.3
[2017-09-19 11:39] VITALS: RESP 14; O2SAT 97
--- NOTE | 2017-09-19 12:03 | Wound Care Progress Note ---
Wound Center Progress Note: Pt being discharged today so all wounds assessed. At this time pt's groin wounds are closed. Again put 3M advanced protectant on bottom from tailbone to scrotum, redness is decreased and the same area that pt has had open for several months remains open however not any larger or smaller in size. On his left bottom he has a 2x1.5x0.1 Stage II that is covered at this time with a Mepliex. Gluteal Clave is healed closed. 3M Advance protectant has been applied every 3 days.
== END 2017-09-19 14:23 | DRG 625 ==
LOC: ED 18:07 → CCU 20:13 → SUATTDRO 20:13 → CCU 20:15 → SRG 09-06 17:34
PROVIDERS: ADMIT Hospitalist; ATTEND Hospitalist

== ENCOUNTER 2017-10-14 13:15 | Inpatient (IN) ==
--- NOTE | 2017-10-14 13:41 | Emergency Department Report ---
Fever HPI - General Chief Complaint: Fever Stated Complaint: fever,redness to leg Source: patient, RN notes reviewed Mode of arrival: EMS Limitations: no limitations - History of Present Illness HPI Narrative: PT presents from [place] with a complaint of right leg swelling, fever, and redness which has noted this am. . Pt has a history of MRSA and continues to be treated for osteomyelitis. He is currently receiving Vancomycin Q48. Pt complains of pain "all over" . He is a poor historian. MD complaint: fever Onset (ago): hour(s) Associated symptoms: chills - Related Data Home Medications Medication Instructions Recorded Confirmed Allopurinol [Zyloprim] 300 mg PO DAILY 06/04/17 10/14/17 Docusate Sodium 100 mg PO BID PRN 06/04/17 10/14/17 Fexofenadine [Yuridia] 180 mg PO DAILY PRN 06/04/17 10/14/17 Loperamide HCl [Imodium A-D] 2 mg PO Q4H PRN 06/04/17 10/14/17 Ondansetron HCl 4 mg PO Q6H PRN 06/04/17 10/14/17 Aspirin 81 mg PO DAILY 10/14/17 10/14/17 Calcitriol [Rocaltrol] 0.5 mcg PO BID 10/14/17 10/14/17 Calcium Citrate 200 mg PO TID 10/14/17 10/14/17 Ciprofloxacin HCl [Ciprofloxacin 500 mg PO BID 10/14/17 10/14/17 HCl] Gabapentin [Neurontin] 100 mg PO BID 10/14/17 10/14/17 Heparin Sodium,Porcine/Pf [Heparin 1 ml IV TID 10/14/17 10/14/17 1,000 Unit/10 (100/ml)] Insulin Aspart [NovoLOG] 4 unit SQ AC 10/14/17 10/14/17 Insulin Glargine,Hum.rec.anlog 38 unit SQ HS 10/14/17 10/14/17 [Lantus Solostar] Levothyroxine Sodium 300 mcg PO ACB 10/14/17 10/14/17 Pantoprazole Sodium [Protonix] 40 mg PO ACB 10/14/17 10/14/17 Peg 3350 238 G Bottle [Miralax] 17 gm PO DAILY 10/14/17 10/14/17 Tramadol [Ultram] 50 mg PO Q4H PRN 10/14/17 10/14/17 Vancomycin [Vancocin] 500 mg IV Q2D 10/14/17 10/14/17 Previous Rx's Medication Instructions Recorded Acetaminophen [Tylenol] 650 mg PO QID PRN tab 09/19/17 Acidoph/L.bulg/Bif.b/S.thermop 2 cap PO BIDWM tab 09/19/17 [Bacid Caplet] Cyclobenzaprine [Flexeril] 10 mg PO TID PRN #45 tab 09/19/17 Senna + Docusate [Senna Plus 2 tab PO BID PRN tab 09/19/17 Tablet] Sertraline [Zoloft] 100 mg PO DAILY tab 09/19/17 Allergies Allergy/AdvReac Type Severity Reaction Status Date / Time Iodinated Contrast- Oral and Allergy Unknown Verified 10/14/17 13:34 IV Dye Sulfa (Sulfonamide Allergy Unknown Verified 10/14/17 13:34 Antibiotics) Review of Systems All systems: reviewed and negative except as stated Constitutional: Reports: as per HPI Musculoskeletal: Reports: as per HPI Integumentary: Reports: as per HPI [facility] Patient Stated Medical History Hypertension Yes Other Cardiology Yes: venous insufficency Bronchitis Yes Sleep Apnea Yes Other Respiratory Yes: allergies Diabetes Mellitus Type 2 Yes Hx Kidney Stones Yes Hx Renal Disease Yes Blood Disorders Yes: blood counts off for 8 years Other Hematologic Yes: bruise easily Other Musculoskeletal Yes: confusion Cellulitis Yes MRSA Yes Sepsis Yes Anesthesia Reactions No Depression Yes Clinic Medical History (Last Updated 08/24/17 @ 08:05 by Kevin Le MD) Hyperparathyroidism, primary (Acute Medical ~08/24/17) Diabetes mellitus type 2, uncontrolled, without complications (Chronic Medical ~ 1994) Controlled. Diabetic peripheral neuropathy associated with type 2 diabetes mellitus ( Chronic Medical) Unable to fully assess today. Postablative hypothyroidism (Chronic Medical ~2003) Clinically euthyroid. Hypertension (Chronic Medical) Controlled. Kidney stone (Acute Medical) Medical History Updates: Gout. HTN. CAD. PVD. Diabetic neuropathy. Gastroparesis. Allergic rhinitis. IDDM. Hypothyroid (s/p JET). GERD. Depression. KIZZY. Morbid obesity Surgical History: -Normal colonoscopy age 52. -Left total knee replacement 2004. -Left BKA 2010. -Right total knee replacement 2006. -Right knee revisions x2. -Right knee explantation of joint in insertion of krzysztof (right knee is permantly straight). -Bilateral Hip replacements. -Radio-ablation of thyroid 2003. - Open removal of large kidney stone 1994 (he was not a candidate for lithotripsy) Family History: Family History (Last Reviewed 08/23/17 @ 09:53 by Kevin Le MD) Brother Diabetes Sister Diabetes Mother Thyroid disease Family History Updates: as prior with no early cad, much T2D - Social History Smoking status: Never smoker second hand exposure: No Substance use type: does not use Alcohol intake frequency: does not drink Housing: [facility] ([facility] for about 1 year) Household members: spouse Current occupational status: disabled Does patient use chewing tobacco?: No Current residence: Jail Physical Exam - Limitations Limitations: other (PT is unsure about specific question offering "I'm not sure " to multiple questions) - General General appearance: alert - Normal Exams: Head:: Normocephalic without trauma Eyes:: Pupils are PERRLA w/ EOMI Neck:: Full range of motion Chest/Respirations:: Clear all wick, with good airflow, and symmetry bilaterally Abdomen:: Bowel sounds positive, soft, non-tender Neurological:: Patient is alert, and oriented, cranial nerves, motor/sensory/ cerebellar, exams w/o gross deficits, to observation Psychiatric:: Patient exhibits, appropriate attention, emotion and affect - Extremities Exam Extremities exam: Present: tenderness, other (L AKA) - Expanded Skin Exam Distribution: generalized (bruising), RLE Description: Present: tenderness, erythematous, swelling Course Vital Signs Temperature 102.7 F H 10/14/17 13:05 Pulse Rate 107 H 10/14/17 13:05 Respiratory Rate 20 10/14/17 13:05 Blood Pressure 136/88 10/14/17 13:05 Pulse Oximetry 100 10/14/17 13:05 Temperature 102.7 F H 10/14/17 13:23 Pulse Rate 107 H 10/14/17 13:23 Respiratory Rate 20 10/14/17 13:23 Blood Pressure 136/88 10/14/17 13:23 Pulse Oximetry 100 10/14/17 13:23 Fever - [facility] Narrative Medical decision making narrative: Findings discussed with Dr Collazo who will admit as inpatient. Will hold antibiotic therapy for the moment as pt is currently on Vanco and Cipro. Pt and family voice understanding of need for admit. - Differential Diagnosis Likely: cellulitis, fever of unknown origin, viral infection, sepsis - Lab Data Attestation: I reviewed the patient's lab results. Result diagrams: 10/14/17 13:49 10/14/17 13:49 Lab Results 10/14/17 10/14/17 10/14/17 Range/Units 13:49 13:49 13:49 WBC 5.7 (4.5-11.0) T/MM3 RBC 2.57 L (4.50-5.90) M/MM3 Hgb 8.7 L (13.5-17.5) GM/DL Hct 25.7 L (41-53) % MCV 100.0 (80-100) UM3 MCH 33.9 (26-34) UUG MCHC 33.9 (31-37) GM/DL RDW Std Deviation 57.0 H (36.9-50.2) FL Plt Count 79 L (130-400) T/MM3 MPV 9.4 (9.4-12.4) UM3 Immature Gran % (Auto) Not performed Neut % (Auto) Not performed Lymph % (Auto) Not performed Young % (Auto) Not performed Eos % (Auto) Not performed Baso % (Auto) Not performed Neut # (Auto) Not performed Lymph # (Auto) Not performed Young # (Auto) Not performed Eos # (Auto) Not performed Baso # (Auto) Not performed Abs Immat Gran (auto) Not performed Neutrophils % (Manual) 65.0 (33-66) % Band Neutrophils % 22.0 H D (0-6) % Lymphocytes % (Manual) 8.0 L (23-45) % Monocytes % (Manual) 2.0 (0-9.0) % Eosinophils % (Manual) 2.0 (0-4) % Basophils % (Manual) 1.0 (0-2) % Neutrophils # (Manual) 3.7 (1.8-7.7) T/MM3 Band Neutrophils # 1.3 T/MM3 Lymphocytes # (Manual) 0.5 L (1-4.8) T/MM3 Monocytes # (Manual) 0.1 (0-0.8) T/MM3 Eosinophils # (Manual) 0.1 (0-0.5) T/MM3 Basophils # (Manual) 0.1 (0-0.2) T/MM3 Poikilocytosis 1+ Anisocytosis 1+ RBC Morph Comment Abnormal Turbidity < 20 (0-20) Sodium 140 (134-144) MEQ/L Potassium 4.3 (3.6-5) MEQ/L Chloride 109 H (98-107) MEQ/L Carbon Dioxide 22 (22-30) MEQ/L Anion Gap 9 (5-15) meq/L BUN 30.0 H (9-20) MG/DL Creatinine 1.9 H (0.8-1.5) mg/dL GFR Calculation 36 BUN/Creatinine Ratio 16 (6-26) RATIO Glucose 181 H (75-110) MG/DL Calculated Osmolality 280 (261-280) MOSM/KG Calcium 9.6 (8.4-10.2) MG/DL Total Bilirubin 1.00 (0.20-1.30) MG/DL Icterus Index < 2 (0-7) AST 51 (17-59) U/L ALT 21 (1-50) U/L Alkaline Phosphatase 147 H (38-126) U/L Total Protein 7.4 (6.3-8.2) g/dL Albumin 3.1 L (3.5-5.0) g/dL Globulin 4.3 H (2.4-3.6) G/DL Albumin/Globulin Ratio 0.7 L (1.1-2.2) RATIO Plasma Lactate 1.8 (0.6-2.2) MMOL/L Procalcitonin 2.17 H* NG/ML Specimen Hemolysis < 15 (0-25) Ur Collection Type Urine Color (YELLOW) Urine Clarity Urine pH (5.0-8.0) Ur Specific [place] (1.015-1.025) Urine Protein (NEGATIVE) Urine Glucose (UA) (NEGATIVE) Urine Ketones (NEGATIVE) Urine Occult Blood (NEGATIVE) Urine Nitrate (NEGATIVE) Urine Bilirubin (NEGATIVE) Urine Urobilinogen (NORMAL) EU/DL Ur Leukocyte Esterase (NEGATIVE) Urine RBC (0-3) /HPF Urine WBC (0-5) /HPF Urine Bacteria (NEGATIVE) Ur Culture Indicated? 10/14/17 Range/Units 14:52 WBC (4.5-11.0) T/MM3 RBC (4.50-5.90) M/MM3 Hgb (13.5-17.5) GM/DL Hct (41-53) % MCV (80-100) UM3 MCH (26-34) UUG MCHC (31-37) GM/DL RDW Std Deviation (36.9-50.2) FL Plt Count (130-400) T/MM3 MPV (9.4-12.4) UM3 Immature Gran % (Auto) Neut % (Auto) Lymph % (Auto) Young % (Auto) Eos % (Auto) Baso % (Auto) Neut # (Auto) Lymph # (Auto) Young # (Auto) Eos # (Auto) Baso # (Auto) Abs Immat Gran (auto) Neutrophils % (Manual) (33-66) % Band Neutrophils % (0-6) % Lymphocytes % (Manual) (23-45) % Monocytes % (Manual) (0-9.0) % Eosinophils % (Manual) (0-4) % Basophils % (Manual) (0-2) % Neutrophils # (Manual) (1.8-7.7) T/MM3 Band Neutrophils # T/MM3 Lymphocytes # (Manual) (1-4.8) T/MM3 Monocytes # (Manual) (0-0.8) T/MM3 Eosinophils # (Manual) (0-0.5) T/MM3 Basophils # (Manual) (0-0.2) T/MM3 Poikilocytosis Anisocytosis RBC Morph Comment Turbidity (0-20) Sodium (134-144) MEQ/L Potassium (3.6-5) MEQ/L Chloride (98-107) MEQ/L Carbon Dioxide (22-30) MEQ/L Anion Gap (5-15) meq/L BUN (9-20) MG/DL Creatinine (0.8-1.5) mg/dL GFR Calculation BUN/Creatinine Ratio (6-26) RATIO Glucose (75-110) MG/DL Calculated Osmolality (261-280) MOSM/KG Calcium (8.4-10.2) MG/DL Total Bilirubin (0.20-1.30) MG/DL Icterus Index (0-7) AST (17-59) U/L ALT (1-50) U/L Alkaline Phosphatase (38-126) U/L Total Protein (6.3-8.2) g/dL Albumin (3.5-5.0) g/dL Globulin (2.4-3.6) G/DL Albumin/Globulin Ratio (1.1-2.2) RATIO Plasma Lactate (0.6-2.2) MMOL/L Procalcitonin NG/ML Specimen Hemolysis (0-25) Ur Collection Type Urine, cath straight Urine Color Yellow (YELLOW) Urine Clarity Clear Urine pH 5.5 (5.0-8.0) Ur Specific [place] 1.015 (1.015-1.025) Urine Protein Trace A (NEGATIVE) Urine Glucose (UA) Negative (NEGATIVE) Urine Ketones Negative (NEGATIVE) Urine Occult Blood 3+ A (NEGATIVE) Urine Nitrate Negative (NEGATIVE) Urine Bilirubin Negative (NEGATIVE) Urine Urobilinogen 0.2 (NORMAL) EU/DL Ur Leukocyte Esterase Negative (NEGATIVE) Urine RBC 10-20 H (0-3) /HPF Urine WBC 0-1 (0-5) /HPF Urine Bacteria Trace H (NEGATIVE) Ur Culture Indicated? Cult not indicated Disposition Clinical Impression: Cellulitis Qualifiers: Site of cellulitis: extremity Site of cellulitis of extremity: lower extremity Laterality: right Qualified Code(s): L03.115 - Cellulitis of right lower limb Disposition: 02 To [facility] Acute Care Condition: Stable Prescriptions: No Action Docusate Sodium 100 mg PO BID PRN PRN Reason: Constipation Loperamide HCl [Imodium A-D] 2 mg PO Q4H PRN PRN Reason: Diarrhea Allopurinol [Zyloprim] 300 mg PO DAILY Cyclobenzaprine [Flexeril] 10 mg PO TID PRN #45 tab PRN Reason: Muscle Spasm Sertraline [Zoloft] 100 mg PO DAILY tab Acidoph/L.bulg/Bif.b/S.thermop [Bacid Caplet] 2 cap PO BIDWM tab Acetaminophen [Tylenol] 650 mg PO QID PRN tab PRN Reason: Discomfort Ciprofloxacin HCl [Ciprofloxacin HCl] 500 mg PO BID Aspirin 81 mg PO DAILY Calcitriol [Rocaltrol] 0.5 mcg PO BID Heparin Sodium,Porcine/Pf [Heparin 1,000 Unit/10 (100/ml)] 1 ml IV TID Gabapentin [Neurontin] 100 mg PO BID Peg 3350 238 G Bottle [Miralax] 17 gm PO DAILY Calcium Citrate 200 mg PO TID Insulin Glargine,Hum.rec.anlog [Lantus Solostar] 38 unit SQ HS Insulin Aspart [NovoLOG] 4 unit SQ AC Tramadol [Ultram] 50 mg PO Q4H PRN PRN Reason: Pain Ondansetron HCl 4 mg PO Q6H PRN PRN Reason: Nausea Fexofenadine [Yuridia] 180 mg PO DAILY PRN PRN Reason: Allergy Symptoms Senna + Docusate [Senna Plus Tablet] 2 tab PO BID PRN tab PRN Reason: Constipation Pantoprazole Sodium [Protonix] 40 mg PO ACB Levothyroxine Sodium 300 mcg PO ACB Vancomycin [Vancocin] 500 mg IV Q2D Referrals: Vonda Carias MD [Primary Care Provider] - Time of Disposition: 15:31 - Seen By: [email or web address]
[2017-10-14] MEDS ORDERED: ACETAMINOPHEN 500 MG TABLET PO PRN (14:22)
[2017-10-14] MEDS ORDERED: NS 1,000 ML IV ONE (14:23)
[2017-10-14] MEDS ORDERED: NS 1,000 ML IV SCH (15:45)
[2017-10-14] MEDS ORDERED: ACETAMINOPHEN 325 MG TABLET PO PRN (16:01)
[2017-10-14] MEDS ORDERED: SENNA + DOCUSATE TABLET PO PRN (16:01)
[2017-10-14] MEDS ORDERED: ONDANSETRON 4 MG TABLET PO PRN (16:01)
[2017-10-14] MEDS ORDERED: FEXOFENADINE 180 MG TABLET PO PRN (16:01)
[2017-10-14] MEDS ORDERED: DOCUSATE SODIUM 100 MG CAPSULE PO PRN (16:01)
[2017-10-14] MEDS ORDERED: BISACODYL 10 MG SUPPOSITORY RECTALLY PRN (16:01)
[2017-10-14] MEDS ORDERED: VANCOMYCIN - PHARMACY CONSULT MC ONE (16:01)
--- NOTE | 2017-10-14 16:06 | History & Physical Report ---
History of Present Illness Date: 10/14/17 Chief complaint: SIRS with unknown source, encephalopathy HPI: Gurdeep Gonzales is a pleasant 67-year-old male who lives in a custodial for almost 1 year. He has a left ejoct-hem-[id number] amputation and has history of right knee fusion after removal of an infected joint. He is nonambulatory. He has a history of uncontrolled diabetes with resultant peripheral vascular disease as well as peripheral polyneuropathy. Around 12:30 today, he was found to have a fever of 100.7 with increased swelling, redness and pain to his right thigh and lower extremity. He was brought to [facility] ED today, 10/14/17, for further evaluation. Upon arrival, he was noted to be febrile with a temperature of 102.7, tachycardic (HR 107) and tachypneic (RR 20). He was given 1L NS and tylenol with minimal improvement. Labs were obtained and revealed WBC 5.7 with 22% bandemia and stable, chronic anemia (Hgb 8.7) as well as stable, chronic thrombocytopenia (Plt 79). Electrolytes were unremarkable. Creatine is slightly elevated at 1.9 (baseline 1.4-1.5) and BUN 30. Lactate was 1.8 with elevated procalcitonin at 2.17. He appears to be delirious and is a poor historian. His is present and contributes to the history stating that he has been doing well and was at his baseline last night. He was recently admitted to [facility] from 09/03/17-09/19/17 initially for hypercalcemia secondary to hyperparathyroidism and subsequently was found to have a parathyroid adenoma. He was seen by Dr. Le ([facility]) who recommended surgical treatment. he underwent parathyroidectomy on 09/07/[address] Gregory. At the time of admission, he was also noted to have an acute kidney injury with a max SCr of 2.6 which improved with IV fluids. Due to his pancytopenia, he required packed platelets with surgery. Following the surgery, his hypercalcemia improved. Post-operatively he became very confused and encephalopathic with persistent hyperglycemia and metabolic acidosis. Prior to his admission on 09/03/17 he had been on suppressive therapy for chronic joint injections with cipro and clindamycin. He was found to have severe sepsis with MRSA and enterococcus bacteremia on 09/12/17, though source is unclear with possible joint vs. chronic wounds. He was treated with vancomycin and cefepime which were later weaned down to just vancomycin per Dr. Apple (infectious disease). He remained on cipro for suppressive with discontinuation of the clindamycin. Wound team was consulted and participated in the care of all of his chronic wounds and did not find evidence of any acte infections or worsening wounds. ISHMAEL was obtained on 09/14/17 which did not reveal any vegetation. MRI of the knee on 09/15 showed no evidence of active osteomyelitis though possible cellulitis was noted. He was discharged back to the custodial on 09/19 to complete a 6 week course of antibiotics including vancomycin through 10/24/17. It was recommended that following the completion of the vancomycin, that he continue with chronic suppressive therapy with minocycline. Prior to discharge, a central line was placed given the duration of his treatment course. Since his discharge, his reports that he has been doing well. He was seen by infectious disease on 10/10/17 in the clinic and appeared to be doing well. Due to his febrile illness concerning for severe sepsis with recent history of bacteremia secondary to MRSA and enterococcus as well as his encephalopathy, Dr. Gilliam was consulted and he was admitted into inpatient status for further evaluation, close monitoring, additional IV antibiotics and IV hydration. His length of stay is expected to exceed more than 2 over nights. Review of Systems ROS unobtainable: due to mental status - Constitutional Constitutional: Present: fever(s), weakness. Absent: chills - EENMT Eyes: Absent: loss of vision Ears: Absent: ear discharge Balance: Absent: vertigo Nose: Absent: nosebleeds Mouth/Throat: Absent: sore throat, changes in swallowing, dry mouth - Cardiovascular Cardiovascular: Present: edema. Absent: chest pain, palpitations, syncope Vascular: Present: unilateral swelling, varicosities - Respiratory Respiratory: Absent: cough, dyspnea, wheezing - Gastrointestinal Gastrointestinal: Present: constipation. Absent: abdominal pain, nausea, vomiting - Genitourinary Genitourinary: Absent: dysuria, flank pain, hematuria - Musculoskeletal Musculoskeletal: Present: muscle weakness, myalgias. Absent: deformity - Integumentary/Breasts Integumentary: Present: erythema (right thigh), wounds (coccyx), other ( erythema and petechiae to right thigh). Absent: jaundice Integumentary Comments: Extensive bruising noted to abdomen in various stages; darkening of right lower extremity consistent of PVD. - Neurological Neurological: Present: abnormal speech, confusion, weakness. Absent: focal weakness - Psychiatric Psychiatric: Present: hallucinations, other (dilerium) - Endocrine Endocrine: Absent: flushing, palpitations - Hematologic/Lymphatic Hematologic/Lymphatic: Present: easy bruising - Allergic/Immunologic Allergic/Immunologic: Absent: seasonal rhinorrhea Past Medical History Medical History: Medical History (Last Updated 08/24/17 @ 08:05 by Kevin Le MD) Hyperparathyroidism, primary (Acute) Onset Date: ~08/24/17 Diabetes mellitus type 2, uncontrolled, without complications (Chronic) Onset Date: ~1994 Controlled. Diabetic peripheral neuropathy associated with type 2 diabetes mellitus (Chronic ) Unable to fully assess today. Postablative hypothyroidism (Chronic) Onset Date: ~2003 Clinically euthyroid. Hypertension (Chronic) Controlled. Kidney stone (Acute) Medical History Updates: Gout. HTN. CAD. PVD. Diabetic polyneuropathy. Gastroparesis. Allergic rhinitis. IDDM. Hypothyroid (s/p JET). GERD. Depression. KIZZY. Morbid obesity Surgical History: -Normal colonoscopy age 52. -Left total knee replacement 2004. -Left BKA 2010. -Right total knee replacement 2005. -Right knee revisions x2. -Right knee explantation of joint in insertion of krzysztof (right knee is permantly straight). -Bilateral Hip replacements. -Radio-ablation of thyroid 2003. - Open removal of large kidney stone 1994 (he was not a candidate for lithotripsy) Family History: Family History Brother Diabetes Sister Diabetes Mother Thyroid disease Family History: As Above - Social History Smoking status: Never smoker Substance use type: does not use Alcohol intake frequency: does not drink Housing: custodial Household members: none Current occupational status: retired Does patient use chewing tobacco?: No Current residence: Shelter Social history: PCP - Dr. Carias. Endo - Dr. Le. Surg - Dr. Gregory. ID - Dr. Apple and Dr. Gomez Wound care team. Medications Home Medications Medication Instructions Recorded Confirmed Type Allopurinol [Zyloprim] 300 mg PO DAILY 06/04/17 10/14/17 History Docusate Sodium 100 mg PO BID PRN 06/04/17 10/14/17 History Fexofenadine [Yuridia] 180 mg PO DAILY PRN 06/04/17 10/14/17 History Loperamide HCl [Imodium A-D] 2 mg PO Q4H PRN 06/04/17 10/14/17 History Ondansetron HCl 4 mg PO Q6H PRN 06/04/17 10/14/17 History Acetaminophen [Tylenol] 650 mg PO QID PRN tab 09/19/17 10/14/17 Rx Acidoph/L.bulg/Bif.b/S.thermop 2 cap PO BIDWM tab 09/19/17 10/14/17 Rx [Bacid Caplet] Cyclobenzaprine [Flexeril] 10 mg PO TID PRN #45 tab 09/19/17 10/14/17 Rx Senna + Docusate [Senna Plus 2 tab PO BID PRN tab 09/19/17 10/14/17 Rx Tablet] Sertraline [Zoloft] 100 mg PO DAILY tab 09/19/17 10/14/17 Rx Aspirin 81 mg PO DAILY 10/14/17 10/14/17 History Calcitriol [Rocaltrol] 0.5 mcg PO BID 10/14/17 10/14/17 History Calcium Citrate 200 mg PO TID 10/14/17 10/14/17 History Ciprofloxacin HCl [Ciprofloxacin 500 mg PO BID 10/14/17 10/14/17 History HCl] Gabapentin [Neurontin] 100 mg PO BID 10/14/17 10/14/17 History Heparin Sodium,Porcine/Pf [Heparin 1 ml IV TID 10/14/17 10/14/17 History 1,000 Unit/10 (100/ml)] Insulin Aspart [NovoLOG] 4 unit SQ AC 10/14/17 10/14/17 History Insulin Glargine,Hum.rec.anlog 38 unit SQ HS 10/14/17 10/14/17 History [Lantus Solostar] Levothyroxine Sodium 300 mcg PO ACB 10/14/17 10/14/17 History Pantoprazole Sodium [Protonix] 40 mg PO ACB 10/14/17 10/14/17 History Peg 3350 238 G Bottle [Miralax] 17 gm PO DAILY 10/14/17 10/14/17 History Tramadol [Ultram] 50 mg PO Q4H PRN 10/14/17 10/14/17 History Vancomycin [Vancocin] 500 mg IV Q2D 10/14/17 10/14/17 History Allergies Allergy/AdvReac Type Severity Reaction Status Date / Time Iodinated Contrast- Oral and Allergy Unknown Verified 10/14/17 13:34 IV Dye Sulfa (Sulfonamide Allergy Unknown Verified 10/14/17 13:34 Antibiotics) Exam Vital Signs: Temperature 102.7 F H 10/14/17 13:23 Pulse Rate 105 H 10/14/17 15:30 Respiratory Rate 20 10/14/17 13:23 Blood Pressure 155/70 H 10/14/17 15:30 Pulse Oximetry 98 10/14/17 15:30 Comments: Seen immediately upon arrival to his room with at the bedside. Limited exam due to altered mental status and delirium. - Constitutional Present: no acute distress, well nourished, well developed, obese, cooperative Comments: Speech is incoherent at times. Complains of pain all over. - Routine HEENT Exam Head: Present: normocephalic, atraumatic Eye: Present: PERRL ENT: Present: mucous membranes dry, dentition normal - Routine Neck Exam Present: supple, trachea midline - Routine Chest/Breast/Axilla Exam Chest wall: Absent: pacemaker - Routine Respiratory Exam Present: CTA bilaterally. Absent: respiratory distress, wheezes - Routine Cardiovascular Exam Present: S1, S2, tachycardia - Routine Abdominal Exam Present: soft, normoactive bowel sounds, non tender, distended Comments: Ascites. - Routine Extremities Exam Present: tenderness (right upper leg) Comments: Left below the knee amputation. Right upper leg swelling with erythema and petechiae. Right lower leg with darkening consistent with PVD. - Routine Back/Spine/Pelvis Exam Comments: Unable to assess. - Routine Skin Exam Present: erythema (right upper thigh), dry, petechiae (right upper thigh), warm , wounds (coccyx and buttocks), ecchymosis (abdomen) Comments: Febrile on exam. - Routine Neurological Exam Present: alert, altered mental status, moving all extremities, hearing grossly intact - Routine Psychiatric Exam Present: cooperative Comments: Delirious Results - Labs CBC & Chem 7: 10/14/17 13:49 10/14/17 13:49 Assessment and Plan Assessment and Plan: Assessment: Sepsis as indicated by fever, tachycardia, tachypnea, bandemia and elevated procalcitonin - source unknown - possible joint vs chronic wounds. Recent severe sepsis secondary to MRSA and enterococcus bacteremia - on Vancomycin outpatient. Encephalopathy Stage III chronic kidney disease - baseline SCr 1.4-1.5. Type 2 diabetes mellitus on insulin Chronic pancytopenia. Chronic joint infection Chronic buttock wounds Hypothyroidism, post-ablative Obstructive sleep apnea - CPAP Morbid obesity, BMI >35 Hypertension Peripheral polyneuropathy Cirrhosis Generalized pain Insomnia Plan Admit to inpatient status under the care of Dr. Gilliam. Patient was given 1L NS and Tylenol in ED. Continue IV hydration with NS 100cc/hr. Monitor closely for signs of fluid overload. Monitor urinary output and daily weight. Continue Vancomycin with pharmacy to manage. Initiate doxycycline 100mg daily for additional antimicrobial coverage. Will consult wound care for continued care of coccyx and buttock wounds as well as lower extremity wounds. Will obtain ultrasound of right leg as well as CXR for further evaluation. Given petechiae and history of cirrhosis with ascites, will obtain PT, INR and PTT now. Monitor serial lactates - initial 1.8. Blood cultures pending. Procalcitonin elevated on admission - 2.17. Will recheck in AM. Continue home medications. Monitor blood sugars and blood pressure closely. Recheck labs in AM to monitor blood counts, electrolytes and renal function. Upon discharge, patient's care will be returned to his PCP, Dr. Carias. Patient is a FULL CODE. DVT Prophylaxis: SCD's GI Prophylaxis: Protonix Resuscitation Status: Full Code - Time spent with patient Time with patient PN: 70 minutes - Physician Narrative Physician: Aron Gilliam MD Narrative: Date: 10/14/17 Time: 1844 Have independently interviewed and examined pt. Chart reviewed. Case discussed with ED provider and my PA. Care plan developed with my supervision; agree with above. Presents to ED secondary to increase temp elevation and confusion onset acutely this am. Right leg with erythema and swelling. No ab pain/fullness. No nausea or vomiting. Breathing well without cough or congestion. Not having chest pressure or pain. Pt notes he feels rough and miserable. Harder to think and focus. No CARDENAS. Evaluated in ED. WBC with increase from baseline and seeing significant shift. Creatinine with mild elevation. Temp elevated and patient tachycardic. Lungs: decreased, no wheezes/distress CV: tachy, regular AB: soft Obese, ascites NT. No rebound. EXT: Erythema noted to RLE. Plan: Inpatient admission for further evaluation and treatment of sepsis - uncertain etiology. Concerning in that source of sepsis during prior admission not fully delineated. Continue with Vanco per pharm protocol - random level checked and therapeutic. Add Doxycycline based on prior BC. IVF cautiously - did order pt to start 150cc/hr in ER, but not started until he arrived at floor. Will decrease rate to 100cc/hr secondary to cirrhosis to minimize volume overload. Continue home medications. SCD for DVT prevention - would hold on Lovenox due to thrombocytopenia. Monitor lab. Sepsis Assessment - Evaluation SIRS Criteria: temperature > 100.9, pulse > 90 beats/minute, Bands > 10%, RR > 20 Severe Sepsis: platelet count < 100,000 Hospital Course Summary Disclaimer: The visit summary below is not to be considered part of the above Progress Note. Hospital Course: 10/14/17 Admit to inpatient status under the care of Dr. Gilliam. Patient was given 1L NS and Tylenol in ED. Continue IV hydration with NS 10cc/hr. Monitor closely for signs of fluid overload. Monitor urinary output and daily weight. Continue Vancomycin with pharmacy to manage. Initiate doxycycline 100mg daily for additional antimicrobial coverage. Vancomycin level therapeutic at presentation. Will consult wound care for continued care of coccyx and buttock wounds as well as lower extremity wounds. Will obtain ultrasound of right leg as well as CXR for further evaluation. Given petechiae and history of cirrhosis with ascites, will obtain PT, INR and PTT now. Monitor serial lactates - initial 1.8. Blood cultures pending. Procalcitonin elevated on admission - 2.17. Will recheck in AM. Continue home medications. Monitor blood sugars and blood pressure closely. Recheck labs in AM to monitor blood counts, electrolytes and renal function. Upon discharge, patient's care will be returned to his PCP, Dr. Carias. Patient is a FULL CODE.
[2017-10-14] MEDS ORDERED: FALL RISK - PHARMACY CONSULT MC ONE (16:25)
[2017-10-14] MEDS: DOXYCYCLINE 100 MG in NS 250ml 250 ML IV SCH (16:32)
[2017-10-14] MEDS ORDERED: GLUCOSE ORAL GEL 40% 37.5gm PO PRN (17:05)
[2017-10-14] MEDS: TRAMADOL 50 MG TABLET PO PRN (17:07)
[2017-10-14] MEDS: CYCLOBENZAPRINE 10 MG TABLET PO PRN (17:07)
[2017-10-14] MEDS: LACTOBACILLUS (15B cfu) CAPSULE PO SCH (17:48)
[2017-10-14] MEDS: NS 1,000 ML IV SCH (18:38)
[2017-10-14] MEDS ORDERED: CALCIUM CITRATE 950 MG TABLET PO SCH (21:00)
[2017-10-14] MEDS: GABAPENTIN 100 MG CAPSULE PO SCH (21:53)
[2017-10-14] MEDS: INSULIN ASPART 100unit/ml INJECTION SQ PRN (21:57)
[2017-10-15] MEDS: TRAMADOL 50 MG TABLET PO PRN ×2 (03:21→20:30)
[2017-10-15] MEDS: CYCLOBENZAPRINE 10 MG TABLET PO PRN ×2 (03:21→17:10)
[2017-10-15] MEDS: NS 1,000 ML IV SCH ×3 (03:23→13:00)
[2017-10-15] MEDS: CALCITRIOL 0.25 MCG CAPSULE PO SCH ×3 (06:25→20:30)
[2017-10-15] MEDS ORDERED: LEVOTHYROXINE SODIUM 300 MCG PO SCH (06:30)
[2017-10-15] MEDS: PANTOPRAZOLE 40 MG TABLET PO SCH (06:37)
[2017-10-15] MEDS: SALINE FLUSH 10ml SYRINGE IVF PRN (06:38)
[2017-10-15] MEDS: LEVOTHYROXINE 150 MCG TABLET PO SCH (06:38)
[2017-10-15] MEDS: INSULIN ASPART 100unit/ml INJECTION SQ PRN ×3 (06:49→20:32)
[2017-10-15] MEDS: ASPIRIN 81 MG CHEWABLE TABLET PO SCH (08:48)
[2017-10-15] MEDS: GABAPENTIN 100 MG CAPSULE PO SCH ×2 (08:48→20:31)
[2017-10-15] MEDS: LACTOBACILLUS (15B cfu) CAPSULE PO SCH ×2 (08:49→16:56)
[2017-10-15] MEDS: ALLOPURINOL 300 MG TABLET PO SCH (08:49)
[2017-10-15] MEDS: SERTRALINE 100 MG TABLET PO SCH (08:49)
[2017-10-15] MEDS: CALCIUM CITRATE 950 MG TABLET PO SCH ×3 (08:49→20:30)
[2017-10-15] MEDS: POLYETHYL GLYCOL 3350 17gm PACKET PO SCH (08:50)
[2017-10-15] MEDS ORDERED: DOXYCYCLINE 100 MG in NS 250ml 250 ML IV SCH (10:15)
--- NOTE | 2017-10-15 11:55 | Progress Note ---
- Date 10/15/17 Subjective: F/U: Sepsis, Bacteremia with E coli Resting in bed. Very somnolent. Will arouse to verbal stimuli, but communication limited-answers questions with 1-2 words, encephalopathic. WBC with increase from 5.7 to 7.1 (which is quite high for him as he is chronically neutropenic). Venous ammonia normal. Creatinine stable, weight trending up. Nursing charts 75% breakfast intake. Objective Vital signs: Temperature 100.0 F 10/15/17 08:00 Pulse Rate 92 10/15/17 08:00 Respiratory Rate 20 10/15/17 08:00 Blood Pressure 148/65 H 10/15/17 08:00 Pulse Oximetry 96 10/15/17 08:00 Height/Weight/BMI: Height 1.91 m Weight 139.6 kg Body Mass Index 37.0 - Constitutional Present: moderate distress, well developed, severe distress, obese, somnolent - Routine HEENT Exam Head: Present: normocephalic, atraumatic Eye: Present: EOMI, PERRL ENT: Present: mucous membranes dry - Routine Respiratory Exam Present: decreased breath sounds, distant breath sounds, diminished air movement. Absent: respiratory distress, wheezes, crackles - Routine Cardiovascular Exam Present: RRR, no murmur - Routine Abdominal Exam Present: soft, normoactive bowel sounds, non distended, non tender. Absent: guarding - Routine Extremities Exam Present: edema (+2 RLE), pulses intact. Absent: cyanosis, clubbing - Routine Musculoskeletal Exam Musculoskeletal: Present: no clubbing or cyanosis - Routine Skin Exam Present: dry, warm - Routine Neurological Exam Somnolent, encephalopathic - Routine Psychiatric Exam Comments: Somnolent, encephalopathic Results - Labs CBC & Chem 7: 10/15/17 03:49 10/15/17 03:49 Assessment and Plan Assessment and Plan: Assessment: Sepsis as indicated by fever, tachycardia, tachypnea, bandemia and elevated procalcitonin - source unknown - possible joint vs chronic wounds. Recent severe sepsis secondary to MRSA and enterococcus bacteremia - on Vancomycin outpatient. Bacteremia with E coli Encephalopathy Stage III chronic kidney disease - baseline SCr 1.4-1.5. Type 2 diabetes mellitus on insulin Chronic pancytopenia. Chronic joint infection Chronic buttock wounds Hypothyroidism, post-ablative Obstructive sleep apnea - CPAP Morbid obesity, BMI >35 Hypertension Peripheral polyneuropathy Cirrhosis Generalized pain Insomnia Plan With Blood cultures showing E coli, will start cefepime for coverage. Can stop doxycycline. Will avoid levofloxacin: on Cipro in outpatient setting so likely resistant, and patient encephalopathic. Consult Dr Apple for ID recommendations. Repeat Blood cultures. Continue with Vancomycin as need continued treatment for prior episode of MRSA/enterococcus bacteremia. Decrease IVF to 50cc/hr to minimize volume. Weight trending up. Hemoglobin with decrease - suspect dilutional effect from IVF. Type and screen and continue to monitor. Consult with Dr Gregory and wound team for chronic wound care. Recheck CBC in am due to sepsis. Repeat BMP in am secondary to IVF and medication use. Time spent with patient care 25 minutes, DVT Prophylaxis: SCD's Resuscitation Status: Full Code - Time spent with patient Time with patient PN: 25 minutes - Physician Narrative Physician: Aron Gilliam MD Narrative: Date: 10/15/17 Time: 1152 Hospital Course Summary Disclaimer: The visit summary below is not to be considered part of the above Progress Note. Hospital Course: 10/14/17 Admit to inpatient status under the care of Dr. Gilliam. Patient was given 1L NS and Tylenol in ED. Continue IV hydration with NS 100cc/hr. Monitor closely for signs of fluid overload. Monitor urinary output and daily weight. Continue Vancomycin with pharmacy to manage. Initiate doxycycline 100mg daily for additional antimicrobial coverage. Vancomycin level therapeutic at presentation. Will consult wound care for continued care of coccyx and buttock wounds as well as lower extremity wounds. Will obtain ultrasound of right leg as well as CXR for further evaluation. Given petechiae and history of cirrhosis with ascites, will obtain PT, INR and PTT now. Monitor serial lactates - initial 1.8. Blood cultures pending. Procalcitonin elevated on admission - 2.17. Will recheck in AM. Continue home medications. Monitor blood sugars and blood pressure closely. Recheck labs in AM to monitor blood counts, electrolytes and renal function. Upon discharge, patient's care will be returned to his PCP, Dr. Carias. Patient is a FULL CODE. 10/15/17 With Blood cultures showing E coli, will start cefepime for coverage. Can stop doxycycline. Will avoid levofloxacin: on Cipro in outpatient setting so likely resistant, and patient encephalopathic. Consult Dr Apple for ID recommendations. Repeat Blood cultures. Continue with Vancomycin as need continued treatment for prior episode of MRSA/enterococcus bacteremia. Decrease IVF to 50cc/hr to minimize volume. Weight trending up. Hemoglobin with decrease - suspect dilutional effect from IVF. Type and screen and continue to monitor. Consult with Dr Gregory and wound team for chronic wound care.
--- NOTE | 2017-10-15 12:31 | Pharmacy Consult-Antibiotics ---
Pharmacy Consult-Vancomycin - Laboratory Information WBC 7.1 T/MM3 (4.5-11.0) 10/15/17 03:49 BUN 32.0 MG/DL (9-20) H 10/15/17 03:49 Creatinine 1.8 mg/dL (0.8-1.5) H 10/15/17 03:49 Procalcitonin 14.60 NG/ML H* 10/15/17 03:49 - Consult Information VANCOMYCIN CONSULT: Dx: Sepsis NEYDA is a 67 yo male who lives in a senior living for almost 1 year. He has a left hhduk-hoa-xuai amputation and has history of right knee fusion after removal of an infected joint. He is nonambulatory. He has a history of uncontrolled diabetes with resultant peripheral vascular disease as well as peripheral polyneuropathy. Around 12:30 today, he was found to have a fever of 100.7 with increased swelling, redness and pain to his right thigh and lower extremity. He was brought to [facility] ED today, 10/14/17, for further evaluation. Upon arrival, he was noted to be febrile with a temperature of 102.7, tachycardic (HR 107) and tachypneic (RR 20). He was given 1L NS and tylenol with minimal improvement. Labs were obtained and revealed WBC 5.7 with 22% bandemia and stable, chronic anemia (Hgb 8.7) as well as stable, chronic thrombocytopenia (Plt 79). Electrolytes were unremarkable. Creatine is slightly elevated at 1.9 (baseline 1.4-1.5) and BUN 30. Lactate was 1.8 with elevated procalcitonin at 2.17. He appears to be delirious and is a poor historian. His is present and contributes to the history stating that he has been doing well and was at his baseline last night. Sepsis is indicated by fever, tachycardia, tachypnea, bandemia and elevated procalcitonin - source unknown - possible joint vs chronic wounds. Recent severe sepsis secondary to MRSA and enterococcus bacteremia - on Vancomycin outpatient. Current Renal Function: S Cr = 1.8 mg/dl. Estimated Cr Cl = 61 mL/min PCT = 14.60 ng/mL (reference range: 0.15 ng/mL or less) 24-T Max = 100 degrees F today (10/15) - 10/14 102.7 degrees F I will give Vancomycin 500 mg IV q48hrs, starting @ 2000 tonight. Will continue to monitor and adjust regimen to maintain therapeutic levels. Thank you.
--- NOTE | 2017-10-15 12:44 | Ultrasound Report ---
Indication: swelling, pain, erythema PROCEDURE: US venous doppler LE RT: Encounter: Initial Comparison: None Technique: Color Doppler duplex and grayscale sonographic imaging of the right lower extremity was performed. Findings: There is no evidence for acute deep venous thrombosis in the right thigh. Specifically, serial graded compression was performed from the inguinal ligament to the popliteal bifurcation, on the right thigh, demonstrating appropriate compressibility of the deep venous system. In addition, color and pulsed Doppler demonstrate appropriate spontaneous flow, variation with respiration, and augmentation with calf compression. At the ankle, normal flow is identified in the posterior tibial veins; these vessels are also normal in caliber. Impression: No evidence of acute DVT in the right lower limb. .
[2017-10-15] MEDS: CEFEPIME 1 GM in NS 100 ML IV SCH ×2 (13:17→17:40)
--- NOTE | 2017-10-15 13:42 | XRay Report ---
Indication: fever of unknown origin PROCEDURE: XR chest 1V: Encounter: Initial Comparison: September 18, 2017 Findings: Right IJ central venous catheter again noted in stable position. Interstitial prominence in both lungs. No pneumonia, pleural effusion or pneumothorax. Cardiac silhouette remains enlarged. Mediastinal contours and pulmonary vascularity are stable. Impression: Stable chest without focal pneumonia. .
[2017-10-15] MEDS: VANCOMYCIN 500 MG in NS 100 ML IV SCH (20:29)
[2017-10-16] MEDS: CEFEPIME 1 GM in NS 100 ML IV SCH ×5 (00:45→23:44)
[2017-10-16] MEDS: TRAMADOL 50 MG TABLET PO PRN ×4 (03:31→19:18)
[2017-10-16] MEDS: CYCLOBENZAPRINE 10 MG TABLET PO PRN ×3 (03:31→19:18)
[2017-10-16] MEDS: SALINE FLUSH 10ml SYRINGE IVF PRN ×2 (04:23→21:20)
[2017-10-16] MEDS: DOXYCYCLINE 100 MG in NS 250ml 250 ML IV SCH (06:44)
[2017-10-16] MEDS: PANTOPRAZOLE 40 MG TABLET PO SCH (06:47)
[2017-10-16] MEDS: LEVOTHYROXINE 150 MCG TABLET PO SCH (06:47)
[2017-10-16] MEDS: INSULIN ASPART 100unit/ml INJECTION SQ PRN ×3 (06:48→21:12)
--- NOTE | 2017-10-16 08:56 | General Surgery Consult Note ---
Consult date: 10/16/17 Attending Physician: Aron Gilliam MD [facility] Patient Stated Medical History Hypertension Yes Other Cardiology Yes: venous insufficency Sleep Apnea Yes Diabetes Mellitus Type 2 Yes Cirrhosis Yes Hx Kidney Stones Yes Blood Disorders Yes: blood counts off for 8 years Other Hematologic Yes: bruise easily Osteoarthritis Yes: bilateral shoulders Other Musculoskeletal Yes: confusion Cellulitis Yes MRSA Yes Sepsis Yes Anesthesia Reactions No Depression Yes Clinic Medical History (Last Updated 08/24/17 @ 08:05 by Kevin Le MD) Hyperparathyroidism, primary (Acute Medical ~08/24/17) Diabetes mellitus type 2, uncontrolled, without complications (Chronic Medical ~ 1994) Controlled. Diabetic peripheral neuropathy associated with type 2 diabetes mellitus ( Chronic Medical) Unable to fully assess today. Postablative hypothyroidism (Chronic Medical ~2003) Clinically euthyroid. Hypertension (Chronic Medical) Controlled. Kidney stone (Acute Medical) Medical History Updates: Gout. HTN. CAD. PVD. Diabetic polyneuropathy. Gastroparesis. Allergic rhinitis. IDDM. Hypothyroid (s/p JET). GERD. Depression. KIZZY. Morbid obesity. Primary hyperparathyroidism 08/2017 Surgical History: -right lower parathyroidectomy 09/07/2017 Bri. -Normal colonoscopy age 52. -Left total knee replacement 2004. -Left BKA 2010. - Right total knee replacement 2006. -Right knee revisions x2. -Right knee explantation of joint in insertion of krzysztof (right knee is permantly straight). - Bilateral Hip replacements. -Radio-ablation of thyroid 2003. - Open removal of large kidney stone 1994 (he was not a candidate for lithotripsy) Family History: Family History (Last Reviewed 08/23/17 @ 09:53 by Kevin Le MD) Brother Diabetes Sister Diabetes Mother Thyroid disease Family History Updates: as prior with no early cad, much T2D - Social History Smoking status: Never smoker second hand exposure: No Substance use type: does not use Alcohol intake frequency: does not drink Housing: [facility] Household members: spouse (lives independently), none Current occupational status: retired Does patient use chewing tobacco?: No Current residence: [place] Social history: PCP - Dr. Carias. Endo - Dr. Le. Surg - Dr. Gregory. ID - Dr. Apple and Dr. Gomez Wound care team. Medications Home Medications Medication Instructions Recorded Confirmed Type Allopurinol [Zyloprim] 300 mg PO DAILY 06/04/17 10/14/17 History Docusate Sodium 100 mg PO BID PRN 06/04/17 10/14/17 History Fexofenadine [Yuridia] 180 mg PO DAILY PRN 06/04/17 10/14/17 History Loperamide HCl [Imodium A-D] 2 mg PO Q4H PRN 06/04/17 10/14/17 History Ondansetron HCl 4 mg PO Q6H PRN 06/04/17 10/14/17 History Acetaminophen [Tylenol] 650 mg PO QID PRN tab 09/19/17 10/14/17 Rx Acidoph/L.bulg/Bif.b/S.thermop 2 cap PO BIDWM tab 09/19/17 10/14/17 Rx [Bacid Caplet] Cyclobenzaprine [Flexeril] 10 mg PO TID PRN #45 tab 09/19/17 10/14/17 Rx Senna + Docusate [Senna Plus 2 tab PO BID PRN tab 09/19/17 10/14/17 Rx Tablet] Sertraline [Zoloft] 100 mg PO DAILY tab 09/19/17 10/14/17 Rx Aspirin 81 mg PO DAILY 10/14/17 10/14/17 History Calcitriol [Rocaltrol] 0.5 mcg PO BID 10/14/17 10/14/17 History Calcium Citrate 200 mg PO TID 10/14/17 10/14/17 History Ciprofloxacin HCl [Ciprofloxacin 500 mg PO BID 10/14/17 10/14/17 History HCl] Gabapentin [Neurontin] 100 mg PO BID 10/14/17 10/14/17 History Heparin Sodium,Porcine/Pf [Heparin 1 ml IV TID 10/14/17 10/14/17 History 1,000 Unit/10 (100/ml)] Insulin Aspart [NovoLOG] 4 unit SQ AC 10/14/17 10/14/17 History Insulin Glargine,Hum.rec.anlog 38 unit SQ HS 10/14/17 10/14/17 History [Lantus Solostar] Levothyroxine Sodium 300 mcg PO ACB 10/14/17 10/14/17 History Pantoprazole Sodium [Protonix] 40 mg PO ACB 10/14/17 10/14/17 History Peg 3350 238 G Bottle [Miralax] 17 gm PO DAILY 10/14/17 10/14/17 History Tramadol [Ultram] 50 mg PO Q4H PRN 10/14/17 10/14/17 History Vancomycin [Vancocin] 500 mg IV Q2D 10/14/17 10/14/17 History Allergies Allergy/AdvReac Type Severity Reaction Status Date / Time Iodinated Contrast- Oral and Allergy Unknown Verified 10/14/17 13:34 IV Dye Sulfa (Sulfonamide Allergy Unknown Verified 10/14/17 13:34 Antibiotics) Review of Systems 10-point ROS: not fully reviewed ROS unobtainable: due to mental status (delerium, review partly obtained from EMR) - General General: Present: fever, chills - Cardiovascular Cardiovascular: Present: edema/swelling (right leg) - Gastrointestinal Gastrointestinal: Present: constipation - Musculoskeletal Musculoskeletal: Present: joint pain, other (history of left BKA) - Neurological Neurological: Present: muscle weakness, numbness, other (delerium) - Psychiatric Psychiatric: Present: depression - Endocrine Endocrine: Present: diabetes, thyroid problems - Hematologic/Lymphatic Hematologic/Lymphatic: Present: easy bruising, use of blood thinners (heparin IV TID) - Vital Signs Last Vital Signs Temp 97.1 F 10/16/17 07:00 Pulse 91 10/16/17 07:00 Resp 18 10/16/17 07:00 BP 131/61 10/16/17 07:00 Pulse Ox 100 10/16/17 07:00 - Laboratory Result Diagrams: 10/16/17 04:29 10/16/17 04:29 - Microbiogy Microbiology 10/16/17 04:29 Port/Picc Blood Culture - Preliminary Culture Initiated - Results Pending 10/16/17 04:29 Port/Picc Blood Culture - Preliminary Culture Initiated - Results Pending General Surgery Results - Results Labs: 10/16/17 04:29 10/16/17 04:29 Microbiology: Microbiology 10/16/17 04:29 Port/Picc Blood Culture - Preliminary Culture Initiated - Results Pending 10/16/17 04:29 Port/Picc Blood Culture - Preliminary Culture Initiated - Results Pending
[2017-10-16] MEDS: CALCIUM CITRATE 950 MG TABLET PO SCH ×3 (09:35→21:13)
[2017-10-16] MEDS: CALCITRIOL 0.25 MCG CAPSULE PO SCH ×2 (09:35→21:13)
[2017-10-16] MEDS: LACTOBACILLUS (15B cfu) CAPSULE PO SCH ×2 (09:35→18:12)
[2017-10-16] MEDS: ALLOPURINOL 300 MG TABLET PO SCH (09:35)
[2017-10-16] MEDS: ASPIRIN 81 MG CHEWABLE TABLET PO SCH (09:35)
[2017-10-16] MEDS: GABAPENTIN 100 MG CAPSULE PO SCH ×2 (09:35→21:13)
[2017-10-16] MEDS: SERTRALINE 100 MG TABLET PO SCH (09:35)
[2017-10-16] MEDS: POLYETHYL GLYCOL 3350 17gm PACKET PO SCH (09:36)
--- NOTE | 2017-10-16 11:21 | Progress Note ---
- Date 10/16/17 Subjective: F/U: Sepsis, Bacteremia with E coli Having twinges/spasms/waves of pain to right knee--will really make him grimace when they occur. Knee pain worse with movements. Denies ab pain, fullness, or discomfort. Not reporting nausea. Appetite feels fair-is trying to eat, but not overly hungry. Feel breathing well-not having SOA, congestion, cough, or pain with breathing. More clear and conversive this morning than yesterday. Objective Vital signs: Temperature 97.1 F 10/16/17 07:00 Pulse Rate 91 10/16/17 07:00 Respiratory Rate 18 10/16/17 07:00 Blood Pressure 131/61 10/16/17 07:00 Pulse Oximetry 100 10/16/17 07:00 Height/Weight/BMI: Height 1.91 m Weight 137 kg Body Mass Index 37.0 - Constitutional Present: well nourished, obese, cooperative - Routine HEENT Exam Head: Present: normocephalic, atraumatic Eye: Present: EOMI, PERRL ENT: Present: mucous membranes moist - Routine Respiratory Exam Present: decreased breath sounds. Absent: respiratory distress, wheezes, crackles - Routine Cardiovascular Exam Present: RRR, no murmur - Routine Abdominal Exam Present: soft, normoactive bowel sounds, non distended, non tender - Routine Extremities Exam Present: edema (Right LE). Absent: cyanosis, clubbing - Routine Skin Exam Present: dry, warm - Routine Neurological Exam Present: alert, CN II-XII intact, moving all extremities (Limited movement of upper ext), vision grossly intact, hearing grossly intact - Routine Psychiatric Exam Present: normal affect, cooperative. Absent: agitated Comments: Psychomotor slowing, but thoughts linear. Converses slowly. Results - Labs CBC & Chem 7: 10/16/17 04:29 10/16/17 04:29 Microbiology Results: Microbiology 10/16/17 04:29 Port/Picc Blood Culture - Preliminary Culture Initiated - Results Pending 10/16/17 04:29 Port/Picc Blood Culture - Preliminary Culture Initiated - Results Pending Assessment and Plan Assessment and Plan: Assessment: Sepsis as indicated by fever, tachycardia, tachypnea, bandemia and elevated procalcitonin - source unknown - possible joint vs chronic wounds. Recent severe sepsis secondary to MRSA and enterococcus bacteremia - on Vancomycin outpatient. Bacteremia with E coli Encephalopathy Stage III chronic kidney disease - baseline SCr 1.4-1.5. Type 2 diabetes mellitus on insulin Chronic pancytopenia. Chronic joint infection Chronic buttock wounds Hypothyroidism, post-ablative Obstructive sleep apnea - CPAP Morbid obesity, BMI >35 Hypertension Peripheral polyneuropathy Cirrhosis Generalized pain Insomnia Plan Continue cefepime as Ecoli in BC showing sensitivity. Will check CT ab/pelvis to due to Ecoli to exclude abdominal source. Continue with Vancomycin as need continued treatment for prior episode of MRSA/ enterococcus bacteremia. Consult with Dr Gregory and wound team for chronic wound care. Recheck CBC in am due to sepsis. Repeat CMP in am secondary to IVF and medication use. Time spent with patient care 25 minutes. DVT Prophylaxis: SCD's Resuscitation Status: Full Code - Time spent with patient Time with patient PN: 25 minutes - Physician Narrative Physician: Aron Gililam MD Narrative: Date: 10/16/17 Time: 1114 Hospital Course Summary Disclaimer: The visit summary below is not to be considered part of the above Progress Note. Hospital Course: 10/14/17 Admit to inpatient status under the care of Dr. Gilliam. Patient was given 1L NS and Tylenol in ED. Continue IV hydration with NS 100cc/hr. Monitor closely for signs of fluid overload. Monitor urinary output and daily weight. Continue Vancomycin with pharmacy to manage. Initiate doxycycline 100mg daily for additional antimicrobial coverage. Vancomycin level therapeutic at presentation. Will consult wound care for continued care of coccyx and buttock wounds as well as lower extremity wounds. Will obtain ultrasound of right leg as well as CXR for further evaluation. Given petechiae and history of cirrhosis with ascites, will obtain PT, INR and PTT now. Monitor serial lactates - initial 1.8. Blood cultures pending. Procalcitonin elevated on admission - 2.17. Will recheck in AM. Continue home medications. Monitor blood sugars and blood pressure closely. Recheck labs in AM to monitor blood counts, electrolytes and renal function. Upon discharge, patient's care will be returned to his PCP, Dr. Carias. Patient is a FULL CODE. 10/15/17 With Blood cultures showing E coli, will start cefepime for coverage. Can stop doxycycline. Will avoid levofloxacin: on Cipro in outpatient setting so likely resistant, and patient encephalopathic. Consult Dr Apple for ID recommendations. Repeat Blood cultures. Continue with Vancomycin as need continued treatment for prior episode of MRSA/enterococcus bacteremia. Decrease IVF to 50cc/hr to minimize volume. Weight trending up. Hemoglobin with decrease - suspect dilutional effect from IVF. Type and screen and continue to monitor. Consult with Dr Gregory and wound team for chronic wound care. 10/16/17 Continue cefepime as Ecoli in BC showing sensitivity. Will check CT ab/pelvis to due to Ecoli to exclude abdominal source. Continue with Vancomycin as need continued treatment for prior episode of MRSA/ enterococcus bacteremia. Consult with Dr Gregory and wound team for chronic wound care.
[2017-10-16] MEDS: NS 1,000 ML IV SCH (12:23)
--- NOTE | 2017-10-16 12:40 | CT Scan Report ---
Indication: Cirrhosis, Ecoli bacteremia PROCEDURE: CT abdomen pelvis wo con: Encounter: Initial Comparison: None. Findings: There are small bilateral pleural effusions, left greater than right. There is a small calcified granuloma in the posterior inferior right lung base. Heart size is normal. No pericardial effusion. There is moderate abdominal ascites. The liver has a somewhat nodular cirrhotic appearance and there is moderate splenomegaly. Gallbladder is small and contracted with some probable hyperdense gallstones. Pancreas is uniform in contour. Adrenal glands are normal. Kidneys are normal in contour. Abdominal aorta is nonaneurysmal. There is scattered calcific atherosclerotic plaques. No retroperitoneal or mesenteric adenopathy. No bowel distention or bowel wall thickening. Pelvis: There is a small amount of ascites in the lower pelvis. The urinary bladder is not distended. There is extensive streak artifact from bilateral metallic hip prosthesis. No definite pelvic sidewall adenopathy. Impression: Cirrhosis with moderate splenomegaly and moderate ascites. Bilateral pleural effusions, left greater than right. Cholelithiasis without evidence for cholecystitis. .
--- NOTE | 2017-10-16 14:47 | Pharmacy Note - Antibiotics ---
Pharmacy - Antibiotic Therapy - Laboratory Information - Antibiotic Information CULTURE AND SENSITIVITY REVIEW: Organism: E. Coli Site: Port/PICC Antibiotic: Cefepime 1 g iv everuy 6 hours Sensitivity: NATALEE <= 1 S Recommendation/Action: No change recommended. Thank you, Jigar Alvarado, Pharmacist.
[2017-10-16] MEDS ORDERED: CALAMINE TOP PRN (15:19)
--- NOTE | 2017-10-16 16:00 | Consultation ---
DATE OF CONSULTATION 10/16/2017 FINDINGS Mr. Gonzales is a 67-year-old gentleman whom I was asked to see today as a result of his chronic wounds, history for bacteremia, history for sepsis. Mr. Gonzales is known to my surgical practice. I recently had performed a parathyroidectomy upon the patient as a result of symptomatic primary hyperparathyroidism. He does have significant associated medical comorbidities and resides [place] [facility]. Patient has had a prior left [id number]-[id number] amputation as a result of an infected joint. Apparently also had joint infection involving the right knee and had underwent fusion. Patient apparently at the [facility] was recently found to have elevated temperature. He was brought into the emergency room and subsequently admitted for further care. Mr. Gonzales himself is not the best historian. It is difficult to get much information from the patient. The patient stated that he has had wounds involving his remaining right lower extremity and his buttocks that have been being managed at the [facility]. He denies any pain associated with these wounds. PAST MEDICAL HISTORY Performed by my nurse practitioner, Kevin Mayes. PAST SURGICAL HISTORY Performed by my nurse practitioner, Kevin Mayes. MEDICATIONS Performed by my nurse practitionerKevin. ALLERGIES Performed by my nurse practitioner, Kevin Mayes. SOCIAL HISTORY Performed by my nurse practitioner, Kevin Mayes. FAMILY HISTORY Performed by my nurse practitioner, Kevin Mayes. REVIEW OF SYSTEMS Performed by my nurse practitionerKevin. PHYSICAL EXAMINATION GENERAL: Mr. Gonzales is a 67-year-old gentleman who was seen earlier today. He was in no acute distress. He did however complain of pain during the exam process. Pain seemed to be more located within his right lower extremity during the process of "logrolling" the patient. VITALS: Temperature 97.1, pulse 91, respirations 18, blood pressure 131/61, SaO2 100% on room air. HEENT: Normocephalic. Pupils are equally round and react to light and accommodation. NECK: There was a central line present with along the right lateral neck. There was an OpSite covering the insertion site. CHEST: Clear to auscultation bilaterally. HEART: Regular rate and rhythm. Normal S1, S2, without gallops, murmurs or clicks. ABDOMEN: Palpation of the abdomen reveals it to be soft and nontender. I do not appreciate any evidence for hepatosplenomegaly nor abnormal masses. EXTREMITIES: Attention was focused to the left lower extremity. As stated above , he had left [id number] amputation. There was no open wound present upon the stump. Attention was then focused to the right lower extremity. Knee was fused and his foot was rotated out laterally. There was a [place] overlying the calf which was removed. There was no open wound present involving the right lower extremity. Skin was hemosiderin laden. Next, with nursing staff help, I was able to logroll the patient to his right. The buttocks and back were carefully inspected. There was no evidence for skin breakdown on his back. He did appear to have chronic wounds involving his buttocks. There was a component of skin breakdown upon the cleft of the buttocks with the skin being somewhat denuded. There was however no evidence for marked erythema. No evidence of necrotic tissue. The patient was also found to have a few small abrasions upon the buttocks but again no evidence for kyra pressure ulceration or necrotic tissue. No surrounding erythema. The patient did have a fair amount of stool overlying his buttocks and it did appear that some of the superficial skin breakdown may be a result of incontinence-associated dermatitis. LABORATORY/RADIOGRAPHIC EVALUATION I do see the patient had a venous duplex to his right lower extremity upon admission. No evidence for clot was noted. I do see that he had a blood culture positive for E. coli. The patient did undergo a CT scan of his abdomen and pelvis for further evaluation to rule out a potential intraabdominal source/ etiology for his bacteremia and sepsis. CT scan did not reveal any acute changes within the abdomen or pelvis. He did have evidence for cirrhosis and some minimal ascites. I reviewed lab work and patient's white count was not elevated at 5000 upon admission. It did however, have a marked left shift with 22% bands. He did have elevated procalcitonin level of 2.17. Procalcitonin level then increased to 14.6. Today it was overall stable at 13.9. He does have a component of renal insufficiency and his BUN and creatinine are elevated at 33.0 and 1.6, respectively. ASSESSMENT 67-year-old gentleman with multiple medical comorbidities who is found to be bacteremic with associated sepsis. Exact cause of sepsis unclear. Does not appear to be related to his chronic wounds at this time. PLAN In regards to his incontinence-associated dermatitis, I recommend that we simply place Calmoseptine overlying the areas of skin breakdown upon the buttocks. I would apply Calmoseptine on a b.i.d./p.r.n. basis. Will continue to follow along with patient's care. The patient may require removal of his triple lumen catheter which could be the source of his infection. This however is his only IV access. MICHELLE
[2017-10-17] MEDS: TRAMADOL 50 MG TABLET PO PRN ×3 (02:29→20:15)
[2017-10-17] MEDS: NS 1,000 ML IV SCH (04:52)
[2017-10-17] MEDS: SALINE FLUSH 10ml SYRINGE IVF PRN ×2 (04:59→20:15)
[2017-10-17] MEDS: CYCLOBENZAPRINE 10 MG TABLET PO PRN ×3 (04:59→20:15)
[2017-10-17] MEDS: CEFEPIME 1 GM in NS 100 ML IV SCH ×3 (05:44→17:50)
[2017-10-17] MEDS: LEVOTHYROXINE 150 MCG TABLET PO SCH (05:44)
[2017-10-17] MEDS: PANTOPRAZOLE 40 MG TABLET PO SCH (05:44)
[2017-10-17] MEDS: INSULIN ASPART 100unit/ml INJECTION SQ PRN ×4 (06:18→20:15)
[2017-10-17] MEDS: CALCIUM CITRATE 950 MG TABLET PO SCH ×3 (09:42→20:30)
[2017-10-17] MEDS: ALLOPURINOL 300 MG TABLET PO SCH (09:42)
[2017-10-17] MEDS: LACTOBACILLUS (15B cfu) CAPSULE PO SCH ×2 (09:42→17:50)
[2017-10-17] MEDS: CALCITRIOL 0.25 MCG CAPSULE PO SCH ×2 (09:42→20:30)
[2017-10-17] MEDS: SERTRALINE 100 MG TABLET PO SCH (09:43)
[2017-10-17] MEDS: POLYETHYL GLYCOL 3350 17gm PACKET PO SCH (09:43)
[2017-10-17] MEDS: GABAPENTIN 100 MG CAPSULE PO SCH ×2 (09:46→20:30)
[2017-10-17] MEDS: ASPIRIN 81 MG CHEWABLE TABLET PO SCH (09:46)
[2017-10-17 10:44] VITALS: BMI 38.7
--- NOTE | 2017-10-17 11:08 | Progress Note ---
- Date 10/17/17 Subjective: Gurdeep c/o leg pain. He denies any SOA, dizziness, or weakness. He has occasional spasms to his neck. He denies any n/v or abdominal pain. No SOA or chest pain. He has been afebrile. Objective Vital signs: Temperature 98.1 F 10/17/17 07:54 Pulse Rate 82 10/17/17 08:00 Respiratory Rate 20 10/17/17 07:54 Blood Pressure 131/61 10/17/17 07:54 Pulse Oximetry 100 10/17/17 07:54 Height/Weight/BMI: Height 1.91 m Weight 140.5 kg Body Mass Index 38.7 - Constitutional Present: no acute distress, well nourished, well developed - Routine HEENT Exam Eye: Present: PERRL. Absent: conjunctival icterus, scleral injection - Routine Respiratory Exam Present: decreased breath sounds - Routine Cardiovascular Exam Present: RRR, S1, S2 - Routine Abdominal Exam Present: soft, normoactive bowel sounds, non distended, non tender - Routine Extremities Exam Present: edema (3+ RLE) - Routine Skin Exam Present: dry, warm - Routine Neurological Exam Present: alert, oriented X3, normal speech - Routine Psychiatric Exam Present: normal affect, cooperative Results - Labs CBC & Chem 7: 10/17/17 04:56 10/17/17 04:56 Microbiology Results: Microbiology 10/16/17 04:29 Port/Picc Blood Culture - Preliminary No Growth After 1 Day 10/16/17 04:29 Port/Picc Blood Culture - Preliminary No Growth After 1 Day Assessment and Plan Assessment and Plan: Assessment: Sepsis as indicated by fever, tachycardia, tachypnea, bandemia and elevated procalcitonin - source unknown - possible joint vs chronic wounds. Recent severe sepsis secondary to MRSA and enterococcus bacteremia - on Vancomycin outpatient. Bacteremia with E coli Encephalopathy Hypokalemia (not POA) Stage III chronic kidney disease - baseline SCr 1.4-1.5. Type 2 diabetes mellitus on insulin Chronic pancytopenia. Chronic joint infection Chronic buttock wounds Hypothyroidism, post-ablative Obstructive sleep apnea - CPAP Morbid obesity, BMI >35 Hypertension Peripheral polyneuropathy Cirrhosis Generalized pain Insomnia Plan Continue cefepime day #[address] ab/pelvis - cirrhosis, moderate splenomegaly, moderate ascites; b/l pleural effusions, cholelithiasis without cholecystitis. No identifiable source for E. coli bacteremia. Continue with Vancomycin as need continued treatment for prior episode of MRSA/ enterococcus bacteremia. Dr Gregory recommends Calmoseptine to skin breakdown over buttocks BID/PRN. Also need to consider line infection. WBC decreased to 3.9 - pt with chronic leukopenia. Hgb decreased to 7.3, baseline in the 8's. No report of black/dark stools - check for occult blood. Asymptomatic. ? Dilutional. Follow; may need transfusion. K slightly decreased at 3.4 - will replace orally. Creatinine overall trending down; 1.6 today - approaching baseline. Good oral intake; hemodynamically stable. Weight trending up. DC IVF. GI Prophylaxis: Protonix Resuscitation Status: Full Code - Time spent with patient Time with patient PN: 25 minutes - Physician Narrative Physician: Aron Gilliam MD Narrative: Date: 10/17/17 Time: 1104 Have independently interviewed and examined pt. Chart reviewed. Case discussed with CM and my PARALEGAL LEGAL SECRETARY. Care plan developed with my supervision; agree with above. Doing about the same. Mentation normal. Breathing well. Not having ab pain or discomfort. No f/c. Still pain/spasm to leg. Lungs: decreased, no distress CV: regular AB: soft obese NT, +BS MSE: awake alert appropriate Plan: Continue with Cefepime and vancomycin for antimicrobial coverage-possible able to transition to cephalexin in outpatient setting. Continue with would care. IVF stopped. Oral drive stable. WBC trending toward his baseline. Repeat BC without growth. Hospital Course Summary Disclaimer: The visit summary below is not to be considered part of the above Progress Note. Hospital Course: 10/14/17 Admit to inpatient status under the care of Dr. Gilliam. Patient was given 1L NS and Tylenol in ED. Continue IV hydration with NS 100cc/hr. Monitor closely for signs of fluid overload. Monitor urinary output and daily weight. Continue Vancomycin with pharmacy to manage. Initiate doxycycline 100mg daily for additional antimicrobial coverage. Vancomycin level therapeutic at presentation. Will consult wound care for continued care of coccyx and buttock wounds as well as lower extremity wounds. Will obtain ultrasound of right leg as well as CXR for further evaluation. Given petechiae and history of cirrhosis with ascites, will obtain PT, INR and PTT now. Monitor serial lactates - initial 1.8. Blood cultures pending. Procalcitonin elevated on admission - 2.17. Will recheck in AM. Continue home medications. Monitor blood sugars and blood pressure closely. Recheck labs in AM to monitor blood counts, electrolytes and renal function. Upon discharge, patient's care will be returned to his PCP, Dr. Carias. Patient is a FULL CODE. 10/15/17 With Blood cultures showing E coli, will start cefepime for coverage. Can stop doxycycline. Will avoid levofloxacin: on Cipro in outpatient setting so likely resistant, and patient encephalopathic. Consult Dr Apple for ID recommendations. Repeat Blood cultures. Continue with Vancomycin as need continued treatment for prior episode of MRSA/enterococcus bacteremia. Decrease IVF to 50cc/hr to minimize volume. Weight trending up. Hemoglobin with decrease - suspect dilutional effect from IVF. Type and screen and continue to monitor. Consult with Dr Gregory and wound team for chronic wound care. 10/16/17 Continue cefepime as Ecoli in BC showing sensitivity. Will check CT ab/pelvis to due to Ecoli to exclude abdominal source. Continue with Vancomycin as need continued treatment for prior episode of MRSA/ enterococcus bacteremia. Consult with Dr Gregory and wound team for chronic wound care. 10/17/17 Continue cefepime day #[address] ab/pelvis - cirrhosis, moderate splenomegaly, moderate ascites; b/l pleural effusions, cholelithiasis without cholecystitis. No identifiable source for E. coli bacteremia. Continue with Vancomycin as need continued treatment for prior episode of MRSA/ enterococcus bacteremia. Dr Gregory recommends Calmoseptine to skin breakdown over buttocks BID/PRN. Also need to consider line infection. WBC decreased to 3.9 - pt with chronic leukopenia. Hgb decreased to 7.3, baseline in the 8's. No report of black/dark stools - check for occult blood. Asymptomatic. ? Dilutional. Follow; may need transfusion. K slightly decreased at 3.4 - will replace orally. Creatinine overall trending down; 1.6 today - approaching baseline. Good oral intake; hemodynamically stable. Weight trending up. DC IVF.
[2017-10-17] MEDS ORDERED: POLYETHYL GLYCOL 3350 17gm PACKET PO PRN (11:20)
[2017-10-17] MEDS ORDERED: NS FLUSH BAG 500ml IV PRN (12:19)
[2017-10-17] MEDS: VANCOMYCIN 500 MG in NS 100 ML IV SCH (20:03)
[2017-10-17] MEDS: CALMOSEPTINE OINTMENT 113gm TUBE TP SCH (20:32)
[2017-10-18] MEDS: CEFEPIME 1 GM in NS 100 ML IV SCH ×3 (00:11→13:03)
[2017-10-18] MEDS: SALINE FLUSH 10ml SYRINGE IVF PRN ×3 (00:12→05:30)
[2017-10-18] MEDS ORDERED: NS FLUSH BAG 500ml IV PRN (06:07)
[2017-10-18] MEDS: TRAMADOL 50 MG TABLET PO PRN ×3 (06:18→23:27)
[2017-10-18] MEDS: CYCLOBENZAPRINE 10 MG TABLET PO PRN ×2 (06:18→23:30)
[2017-10-18] MEDS: PANTOPRAZOLE 40 MG TABLET PO SCH (06:18)
[2017-10-18] MEDS: LEVOTHYROXINE 150 MCG TABLET PO SCH (06:18)
[2017-10-18] MEDS: INSULIN ASPART 100unit/ml INJECTION SQ PRN ×3 (06:19→22:26)
[2017-10-18] MEDS: LACTOBACILLUS (15B cfu) CAPSULE PO SCH ×2 (10:39→18:14)
[2017-10-18] MEDS: ASPIRIN 81 MG CHEWABLE TABLET PO SCH (10:40)
[2017-10-18] MEDS: CALCITRIOL 0.25 MCG CAPSULE PO SCH ×2 (10:40→22:15)
[2017-10-18] MEDS: CALCIUM CITRATE 950 MG TABLET PO SCH ×3 (10:40→22:15)
[2017-10-18] MEDS: ALLOPURINOL 300 MG TABLET PO SCH (10:40)
[2017-10-18] MEDS: CALMOSEPTINE OINTMENT 113gm TUBE TP SCH ×2 (10:41→22:15)
[2017-10-18] MEDS: SERTRALINE 100 MG TABLET PO SCH (10:42)
[2017-10-18] MEDS: GABAPENTIN 100 MG CAPSULE PO SCH ×2 (10:42→22:15)
--- NOTE | 2017-10-18 15:23 | XRay Report ---
Indication: PICC placement PROCEDURE: XR chest post-procedure 1V: Encounter: Initial Comparison: October 14, 2017 Findings: Overlying monitoring leads. Right IJ line is stable in position. There is a new right-sided PICC line in place. This takes an abnormal inferior turn in the mid subclavian region, coiling in the inferior axilla. No pneumothorax. Visualized lung wick are grossly stable. Cardiomediastinal contours are unchanged. Impression: New right PICC line takes an abnormal course coiling in the inferior axillary region. Recommend repositioning or replacement prior to usage. Results were relayed to the clinical service by the chief medical technologist at the time of the exam. .
--- NOTE | 2017-10-18 15:52 | XRay Report ---
Indication: PICC PLACEMENT PROCEDURE: XR chest post-procedure 1V: Encounter: Initial Comparison: October 18, 2017 at 1525 Findings: New right PICC line in place with the tip now projecting over the right atrium. This could be retracted by approximately 2.5 cm to reside at the expected cavoatrial junction. Right IJ line remains in stable position. Lungs are mildly hypoinflated with basilar atelectasis. Enlarged cardiac silhouette. Mediastinal contours and pulmonary vascularity are stable. Impression: Right PICC line tip projects over the right atrium. .
--- NOTE | 2017-10-18 16:28 | Progress Note ---
- Date 10/18/17 Subjective: F/U: Sepsis, Bacteremia with E coli Doing okay. Breathing well. No SOA or cough. Eating well. No f/c. Objective Vital signs: Temperature 98.4 F 10/18/17 15:46 Pulse Rate 85 10/18/17 15:46 Respiratory Rate 18 10/18/17 15:46 Blood Pressure 157/69 H 10/18/17 15:46 Pulse Oximetry 100 10/18/17 15:46 Height/Weight/BMI: Height 1.91 m Weight 139.6 kg Body Mass Index 38.7 - Constitutional Present: well nourished, well developed, obese, cooperative - Routine HEENT Exam Head: Present: normocephalic, atraumatic Eye: Present: EOMI, PERRL - Routine Respiratory Exam Present: decreased breath sounds. Absent: respiratory distress - Routine Cardiovascular Exam Present: RRR, no murmur - Routine Abdominal Exam Present: soft, normoactive bowel sounds, non distended, non tender - Routine Extremities Exam Present: edema. Absent: cyanosis, clubbing - Routine Musculoskeletal Exam Musculoskeletal: Present: no clubbing or cyanosis - Routine Skin Exam Present: dry, warm - Routine Neurological Exam Present: alert, oriented X3, CN II-XII intact, moving all extremities, vision grossly intact, hearing grossly intact, normal speech. Absent: motor deficit - Routine Psychiatric Exam Present: normal affect, cooperative Results - Labs CBC & Chem 7: 10/18/17 04:29 10/18/17 04:29 Microbiology Results: Microbiology 10/16/17 04:29 Port/Picc Gram Stain - Final 10/16/17 04:29 Port/Picc Blood Culture - Preliminary Staphylococcus species 10/16/17 04:29 Port/Picc Blood Culture - Preliminary No Growth After 2 Days Assessment and Plan (1) Sepsis due to Escherichia coli Current visit: Yes Status: Acute Assessment and Plan: Assessment: Sepsis as indicated by fever, tachycardia, tachypnea, bandemia and elevated procalcitonin - source unknown - possible joint vs chronic wounds. Recent severe sepsis secondary to MRSA and enterococcus bacteremia - on Vancomycin outpatient. Bacteremia with E coli Encephalopathy Hypokalemia (not POA) Stage III chronic kidney disease - baseline SCr 1.4-1.5. Type 2 diabetes mellitus on insulin Chronic pancytopenia. Chronic joint infection Chronic buttock wounds Hypothyroidism, post-ablative Obstructive sleep apnea - CPAP Morbid obesity, BMI >35 Hypertension Peripheral polyneuropathy Cirrhosis Generalized pain Insomnia Plan Discussed with Dr Apple - could change cefepime to ceftriaxone for coverage. Did recommend removing central line and placing PICC. Continue Vanco for treatment of previous bacteremia. Transfusion of 1 unit pRBC given as hemoglobin decreased to 6.8 on morning draw. Additional 20mEq KCl as potassium low at 3.5. Recheck BMP in am secondary to DM and medication use. Will repeat CBC due to resolving bacteremia and anemia. Case discussed with CM and Dr Apple. Time spent with patient care 25 minutes. DVT Prophylaxis: SCD's Resuscitation Status: Full Code - Time spent with patient Time with patient PN: 25 minutes - Physician Narrative Physician: Aron Gilliam MD Narrative: Date: 10/18/17 Time: 2150 Hospital Course Summary Disclaimer: The visit summary below is not to be considered part of the above Progress Note. Hospital Course: 10/14/17 Admit to inpatient status under the care of Dr. Gilliam. Patient was given 1L NS and Tylenol in ED. Continue IV hydration with NS 100cc/hr. Monitor closely for signs of fluid overload. Monitor urinary output and daily weight. Continue Vancomycin with pharmacy to manage. Initiate doxycycline 100mg daily for additional antimicrobial coverage. Vancomycin level therapeutic at presentation. Will consult wound care for continued care of coccyx and buttock wounds as well as lower extremity wounds. Will obtain ultrasound of right leg as well as CXR for further evaluation. Given petechiae and history of cirrhosis with ascites, will obtain PT, INR and PTT now. Monitor serial lactates - initial 1.8. Blood cultures pending. Procalcitonin elevated on admission - 2.17. Will recheck in AM. Continue home medications. Monitor blood sugars and blood pressure closely. Recheck labs in AM to monitor blood counts, electrolytes and renal function. Upon discharge, patient's care will be returned to his PCP, Dr. Carias. Patient is a FULL CODE. 10/15/17 With Blood cultures showing E coli, will start cefepime for coverage. Can stop doxycycline. Will avoid levofloxacin: on Cipro in outpatient setting so likely resistant, and patient encephalopathic. Consult Dr Apple for ID recommendations. Repeat Blood cultures. Continue with Vancomycin as need continued treatment for prior episode of MRSA/enterococcus bacteremia. Decrease IVF to 50cc/hr to minimize volume. Weight trending up. Hemoglobin with decrease - suspect dilutional effect from IVF. Type and screen and continue to monitor. Consult with Dr Gregory and wound team for chronic wound care. 10/16/17 Continue cefepime as Ecoli in BC showing sensitivity. Will check CT ab/pelvis to due to Ecoli to exclude abdominal source. Continue with Vancomycin as need continued treatment for prior episode of MRSA/ enterococcus bacteremia. Consult with Dr Gregory and wound team for chronic wound care. 10/17/17 Continue cefepime day #[address] ab/pelvis - cirrhosis, moderate splenomegaly, moderate ascites; b/l pleural effusions, cholelithiasis without cholecystitis. No identifiable source for E. coli bacteremia. Continue with Vancomycin as need continued treatment for prior episode of MRSA/ enterococcus bacteremia. Dr Gregory recommends Calmoseptine to skin breakdown over buttocks BID/PRN. Also need to consider line infection. WBC decreased to 3.9 - pt with chronic leukopenia. Hgb decreased to 7.3, baseline in the 8's. No report of black/dark stools - check for occult blood. Asymptomatic. ? Dilutional. Follow; may need transfusion. K slightly decreased at 3.4 - will replace orally. Creatinine overall trending down; 1.6 today - approaching baseline. Good oral intake; hemodynamically stable. Weight trending up. DC IVF. 10/18/[address] Apple - could change cefepime to ceftriaxone for coverage. Did recommend removing central line and placing PICC. Continue Vanco for treatment of previous bacteremia. Transfusion of 1 unit pRBC given as hemoglobin decreased to 6.8 on morning draw. Additional 20mEq KCl as potassium low at 3.5.
[2017-10-18] MEDS: CEFTRIAXONE 1 G in NS 100 ML IV SCH (16:59)
[2017-10-18] MEDS ORDERED: MAGNESIUM OXIDE 400 MG TABLET PO ONE (17:30)
[2017-10-19] MEDS: LEVOTHYROXINE 150 MCG TABLET PO SCH (06:25)
[2017-10-19] MEDS: PANTOPRAZOLE 40 MG TABLET PO SCH (06:25)
[2017-10-19] MEDS: INSULIN ASPART 100unit/ml INJECTION SQ PRN ×3 (07:28→21:26)
[2017-10-19] MEDS: GABAPENTIN 100 MG CAPSULE PO SCH ×2 (09:10→21:25)
[2017-10-19] MEDS: SERTRALINE 100 MG TABLET PO SCH (09:10)
[2017-10-19] MEDS: ASPIRIN 81 MG CHEWABLE TABLET PO SCH (09:10)
[2017-10-19] MEDS: ALLOPURINOL 300 MG TABLET PO SCH (09:10)
[2017-10-19] MEDS: CALCITRIOL 0.25 MCG CAPSULE PO SCH ×2 (09:10→21:25)
[2017-10-19] MEDS: LACTOBACILLUS (15B cfu) CAPSULE PO SCH ×2 (09:10→17:17)
[2017-10-19] MEDS: CALMOSEPTINE OINTMENT 113gm TUBE TP SCH ×2 (09:11→21:27)
[2017-10-19] MEDS: CALCIUM CITRATE 950 MG TABLET PO SCH ×3 (09:11→21:26)
--- NOTE | 2017-10-19 09:14 | Progress Note ---
- Date 10/19/17 Subjective: Gurdeep is confused this am. He states that he slept horrible last night b/c a WATER TREATMENT OPERATOR started a new project in his room just after he went to bed. He reported she was working on some furniture in his room. He mentioned something about getting the discoloration off of his arms and in the same sentence he mentioned watering the plants. He then substituted the word "classroom" for his hospital room. He reports chronic pain in the same area it always is. He denied feeling SOA, palpitations, or fast HR. He denied feeling dizzy or weak. He denied abdominal pain or nausea. Objective Vital signs: Temperature 96.4 F L 10/19/17 07:20 Pulse Rate 90 10/19/17 08:00 Respiratory Rate 18 10/19/17 07:20 Blood Pressure 142/64 H 10/19/17 07:20 Pulse Oximetry 100 10/19/17 07:20 Height/Weight/BMI: Height 1.91 m Weight 140.4 kg Body Mass Index 38.7 - Constitutional Present: well nourished, well developed, obese - Routine HEENT Exam Head: Present: normocephalic Eye: Absent: conjunctival icterus, scleral injection ENT: Present: mucous membranes dry - Routine Respiratory Exam Present: decreased breath sounds - Routine Cardiovascular Exam Present: S1, S2, irregular rhythm - Routine Abdominal Exam Present: normoactive bowel sounds, non tender, distended (ascites) - Routine Extremities Exam Present: edema (RLE) - Routine Musculoskeletal Exam Musculoskeletal: Present: other (Left leg amputation) - Routine Skin Exam Present: dry, warm - Routine Neurological Exam Present: alert, altered mental status, vision grossly intact, hearing grossly intact. Absent: oriented X3, facial asymmetry - Routine Psychiatric Exam Present: cooperative. Absent: normal thought process Results - Labs CBC & Chem 7: 10/19/17 04:26 10/19/17 04:26 Microbiology Results: Microbiology 10/16/17 04:29 Port/Picc Gram Stain - Final 10/16/17 04:29 Port/Picc Blood Culture - Preliminary Coag negative Staphylococcus 10/16/17 04:29 Port/Picc Blood Culture - Preliminary No Growth After 3 Days Assessment and Plan (1) Sepsis due to Escherichia coli Current visit: Yes Status: Acute Assessment and Plan: Assessment: Sepsis as indicated by fever, tachycardia, tachypnea, bandemia and elevated procalcitonin - source unknown - possible joint vs chronic wounds. Recent severe sepsis secondary to MRSA and enterococcus bacteremia - on Vancomycin outpatient. Bacteremia with E coli Encephalopathy Hypokalemia (not POA) Stage III chronic kidney disease - baseline SCr 1.4-1.5. Type 2 diabetes mellitus on insulin Chronic pancytopenia. Chronic joint infection Chronic buttock wounds Hypothyroidism, post-ablative Obstructive sleep apnea - CPAP Morbid obesity, BMI >35 Hypertension Peripheral polyneuropathy Cirrhosis Generalized pain Insomnia Plan E. coli bacteremia + Recent MRSA/enterococcus bacteremia + TURNING SANDER TENDER with meth resistant gene from PICC = cont Rocephin/Vanco. Tele reviewed = looks like A-fib. EKG was read by computer as sinus with 1st deg block. No clear P-waves, ?junctional with rate of 85? Not on BB or CCB. Trend trop. Echo was done 09/13, showing EF of 55%, mild TR, mild PH, mild PI. Hgb improved to 8.5 post transfusion. Encephalopathic - check LFTs; ammonia on the was normal. Renal function stable (BUN 32 and cr 1.4). D/W Dr. Gilliam & RN. DAVID Lasix 20mg IV x1 to help volume control - will start Spironolactone 50mg daily tomorrow. GI Prophylaxis: Protonix Resuscitation Status: Full Code - Time spent with patient Time with patient PN: 25 minutes - Physician Narrative Physician: Aron Gilliam MD Narrative: Date: 10/19/17 Time: 1500 Have independently interviewed & examined pt. Chart reviewed. Case discussed with CM and my SUPPORT ASSOCIATE. Care plan developed with my supervision; agree with above. Doing okay this afternoon. Spasms of pain to left leg intermittently. Does feel more swollen to left leg. Feels increased urine output since transfusion yesterday. Appetite stable. No ab pain. Reports bowel movement. Breathing stable. Not having f/c. Lungs: decreased, no distress CV: regular AB: soft nt/nd EXT: +2 RLE ( amputation on left). MSE: awake alert Plan: Will continue with ceftriaxone for coverage. Lasix 20mg IV x1 now to help with fluid - oral potassium this evening and start spironolactone 50mg daily tomorrow. At prior admission was on labetalol 100mg BID, Cozaar 100mg daily, and Norvasc 10mg daily. Recheck lab in am. Hospital Course Summary Disclaimer: The visit summary below is not to be considered part of the above Progress Note. Hospital Course: 10/14/17 Admit to inpatient status under the care of Dr. Gilliam. Patient was given 1L NS and Tylenol in ED. Continue IV hydration with NS 100cc/hr. Monitor closely for signs of fluid overload. Monitor urinary output and daily weight. Continue Vancomycin with pharmacy to manage. Initiate doxycycline 100mg daily for additional antimicrobial coverage. Vancomycin level therapeutic at presentation. Will consult wound care for continued care of coccyx and buttock wounds as well as lower extremity wounds. Will obtain ultrasound of right leg as well as CXR for further evaluation. Given petechiae and history of cirrhosis with ascites, will obtain PT, INR and PTT now. Monitor serial lactates - initial 1.8. Blood cultures pending. Procalcitonin elevated on admission - 2.17. Will recheck in AM. Continue home medications. Monitor blood sugars and blood pressure closely. Recheck labs in AM to monitor blood counts, electrolytes and renal function. Upon discharge, patient's care will be returned to his PCP, Dr. Carias. Patient is a FULL CODE. 10/15/17 With Blood cultures showing E coli, will start cefepime for coverage. Can stop doxycycline. Will avoid levofloxacin: on Cipro in outpatient setting so likely resistant, and patient encephalopathic. Consult Dr Apple for ID recommendations. Repeat Blood cultures. Continue with Vancomycin as need continued treatment for prior episode of MRSA/enterococcus bacteremia. Decrease IVF to 50cc/hr to minimize volume. Weight trending up. Hemoglobin with decrease - suspect dilutional effect from IVF. Type and screen and continue to monitor. Consult with Dr Gregory and wound team for chronic wound care. 10/16/17 Continue cefepime as Ecoli in showing sensitivity. Will check CT ab/pelvis to due to Ecoli to exclude abdominal source. Continue with Vancomycin as need continued treatment for prior episode of MRSA/ enterococcus bacteremia. Consult with Dr Gregory and wound team for chronic wound care. 10/17/17 Continue cefepime day #[address] ab/pelvis - cirrhosis, moderate splenomegaly, moderate ascites; b/l pleural effusions, cholelithiasis without cholecystitis. No identifiable source for E. coli bacteremia. Continue with Vancomycin as need continued treatment for prior episode of MRSA/ enterococcus bacteremia. Dr Gregory recommends Calmoseptine to skin breakdown over buttocks BID/PRN. Also need to consider line infection. WBC decreased to 3.9 - pt with chronic leukopenia. Hgb decreased to 7.3, baseline in the 8's. No report of black/dark stools - check for occult blood. Asymptomatic. ? Dilutional. Follow; may need transfusion. K slightly decreased at 3.4 - will replace orally. Creatinine overall trending down; 1.6 today - approaching baseline. Good oral intake; hemodynamically stable. Weight trending up. DC IVF. 10/18/[address] Apple - could change cefepime to ceftriaxone for coverage. Did recommend removing central line and placing PICC. Continue Vancomycin for treatment of previous bacteremia. Transfusion of 1 unit pRBC given as hemoglobin decreased to 6.8 on morning draw. Additional 20mEq KCl as potassium low at 3.5. 10/19/17 E. coli bacteremia + Recent MRSA/enterococcus bacteremia + TURNING SANDER TENDER with meth resistant gene from PICC = cont Rocephin/Vanco. Tele reviewed = looks like A-fib. EKG was read by computer as sinus with 1st deg block. No clear P-waves, ?junctional with rate of 85? Not on BB or CCB. Trend trop. Echo was done 09/13, showing EF of 55%, mild TR, mild PH, mild PI. Hgb improved to 8.5 post transfusion. Encephalopathic - check LFTs; ammonia on the was normal. Renal function stable (BUN 32 and cr 1.4). Lasix 20mg IV x1 to help volume control - will start Spironolactone 50mg daily tomorrow.
--- NOTE | 2017-10-19 13:11 | Wound Care Progress Note ---
Wound Center Progress Note: Pt seen for wound consultation r/t wound to intergluteal cleft. Saniya RUBIO reports pt was confused this AM. Pt sleeping in bed. Wound tx plan per Dr. Gregory: apply Calmoseptine BID and PRN. Will visit with pt at a later date when appropriate.
[2017-10-19] MEDS: CEFTRIAXONE 1 G in NS 100 ML IV SCH (13:42)
[2017-10-19] MEDS ORDERED: FUROSEMIDE 20 MG/2 ML INJECTION IVP ONE (14:30)
[2017-10-19] MEDS: TRAMADOL 50 MG TABLET PO PRN ×2 (14:54→21:25)
[2017-10-19] MEDS: VANCOMYCIN 500 MG in NS 100 ML IV SCH (19:56)
[2017-10-19] MEDS: CYCLOBENZAPRINE 10 MG TABLET PO PRN (20:01)
[2017-10-20] MEDS: TRAMADOL 50 MG TABLET PO PRN ×3 (02:56→13:19)
[2017-10-20] MEDS: CYCLOBENZAPRINE 10 MG TABLET PO PRN ×2 (02:56→13:19)
[2017-10-20] MEDS: LEVOTHYROXINE 150 MCG TABLET PO SCH (06:08)
[2017-10-20] MEDS: PANTOPRAZOLE 40 MG TABLET PO SCH (06:08)
[2017-10-20] MEDS: INSULIN ASPART 100unit/ml INJECTION SQ PRN ×3 (06:43→16:33)
[2017-10-20] MEDS: LACTOBACILLUS (15B cfu) CAPSULE PO SCH ×2 (08:49→16:33)
[2017-10-20] MEDS: ALLOPURINOL 300 MG TABLET PO SCH (08:49)
[2017-10-20] MEDS: SERTRALINE 100 MG TABLET PO SCH (08:49)
[2017-10-20] MEDS: CALMOSEPTINE OINTMENT 113gm TUBE TP SCH (08:50)
[2017-10-20] MEDS: ASPIRIN 81 MG CHEWABLE TABLET PO SCH (08:50)
[2017-10-20] MEDS: GABAPENTIN 100 MG CAPSULE PO SCH (08:50)
[2017-10-20] MEDS: CALCIUM CITRATE 950 MG TABLET PO SCH ×2 (08:50→14:58)
[2017-10-20] MEDS: CALCITRIOL 0.25 MCG CAPSULE PO SCH (08:50)
[2017-10-20] MEDS ORDERED: SPIRONOLACTONE 50 MG TABLET PO SCH (09:00)
--- NOTE | 2017-10-20 13:04 | Progress Note ---
- Date 10/20/17 Subjective: Gurdeep was seen after breakfast. He reports that he rested well last night. He complains of pain where his buttock wound is, and the position he's lying in makes the pressure worse. He denies any new complaints i.e. chest pain, difficulty breathing, abdominal pain, or nausea. He has some confusion at baseline but is able to converse fairly well today. Objective Vital signs: Temperature 98.4 F 10/20/17 08:00 Pulse Rate 95 10/20/17 08:00 Respiratory Rate 14 10/20/17 08:00 Blood Pressure 129/67 10/20/17 08:00 Pulse Oximetry 99 10/20/17 08:00 Height/Weight/BMI: Height 1.91 m Weight 138.1 kg Body Mass Index 38.7 - Constitutional Present: no acute distress, well nourished, well developed, obese - Routine HEENT Exam Head: Present: normocephalic Eye: Present: PERRL. Absent: conjunctival icterus, scleral injection ENT: Absent: oropharynx clear (thrush) - Routine Respiratory Exam Present: decreased breath sounds - Routine Cardiovascular Exam Present: RRR, S1, S2 - Routine Abdominal Exam Present: normoactive bowel sounds, non tender, distended (ascites) - Routine Extremities Exam Present: edema (RLE) - Routine Skin Exam Present: dry, warm - Routine Neurological Exam Present: alert, normal speech - Routine Psychiatric Exam Present: cooperative Results - Labs CBC & Chem 7: 10/20/17 04:28 10/20/17 04:28 Microbiology Results: Microbiology 10/16/17 04:29 Port/Picc Gram Stain - Final 10/16/17 04:29 Port/Picc Blood Culture - Final Coag negative Staphylococcus 10/16/17 04:29 Port/Picc Blood Culture - Preliminary No Growth After 4 Days Assessment and Plan (1) Sepsis due to Escherichia coli Current visit: Yes Status: Acute Assessment and Plan: Assessment: Sepsis as indicated by fever, tachycardia, tachypnea, bandemia and elevated procalcitonin - source unknown - possible joint vs chronic wounds. Recent severe sepsis secondary to MRSA and enterococcus bacteremia - on Vancomycin outpatient. Bacteremia with E. coli Encephalopathy Hypokalemia (not POA) Stage III chronic kidney disease - baseline SCr 1.4-1.5. Type 2 diabetes mellitus on insulin Chronic pancytopenia. Chronic joint infection Chronic buttock wounds Hypothyroidism, post-ablative Obstructive sleep apnea - CPAP Morbid obesity, BMI >35 Hypertension Peripheral polyneuropathy Cirrhosis Generalized pain Insomnia Plan E. 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 Creatinine increased to 1.6 and vanco trough was 24 yesterday - vanco dose adjusted per pharmacy. Continue diuresis - lasix given yesterday and Spironolactone started today. Weight trending down. K 3.9. Pancytopenia - counts relatively stable GI Prophylaxis: Protonix Resuscitation Status: Full Code - Physician Narrative Physician: Darlene Saldaña MD Narrative: Date: 10/20/17 Time: 1620 I have independently evaluated and examined this patient. I reviewed the chart, the patient's history, and the AGR[employer]URE INTERN/PA's documented findings as above. We discussed and formulated the assessment and plan as above with additions as below: Gurdeep is well known from prior hospitalization. He complains of muscle spasm and asked if he could get a dose of Flexeril but otherwise reported no particular concerns. NAD, tracks conversation appropriately, respirations nonlabored with decreased airflow throughout but breath sounds are clear, abdomen benign. PICC line right upper extremity, insertion site looks fine other than minor bruising. Creatinine 1.6 within patient's usual range reviewing labs over the past 3 months. Clinically doing well; blood sugars moderately elevated at times. Stable for discharge back to half-way with continuation of IV antibiotics. Follow-up with Dr. Gomez in the near future for reassessment of chronic suppressive antibiotics-previously on clindamycin but MRSA last admission was resistant to clinda. Thyroid function to be reassessed and results forwarded to Dr. Le- discharged on 250 g levothyroxine last admission with plans to reassess TSH/ free T4 at 1 month; dose increased to 300 g daily several days after return to skilled nursing. Patient unsure why dose modification made. Continue 300 g daily and check TSH/free T4 with next labs. Please refer to discharge summary. Hospital Course Summary Disclaimer: The visit summary below is not to be considered part of the above Progress Note. Hospital Course: 10/14/17 Admit to inpatient status under the care of Dr. Gilliam. Patient was given 1L NS and Tylenol in ED. Continue IV hydration with NS 100cc/hr. Monitor closely for signs of fluid overload. Monitor urinary output and daily weight. Continue Vancomycin with pharmacy to manage. Initiate doxycycline 100mg daily for additional antimicrobial coverage. Vancomycin level therapeutic at presentation. Will consult wound care for continued care of coccyx and buttock wounds as well as lower extremity wounds. Will obtain ultrasound of right leg as well as CXR for further evaluation. Given petechiae and history of cirrhosis with ascites, will obtain PT, INR and PTT now. Monitor serial lactates - initial 1.8. Blood cultures pending. Procalcitonin elevated on admission - 2.17. Will recheck in AM. Continue home medications. Monitor blood sugars and blood pressure closely. Recheck labs in AM to monitor blood counts, electrolytes and renal function. Upon discharge, patient's care will be returned to his PCP, Dr. Carias. Patient is a FULL CODE. 10/15/17 With Blood cultures showing E coli, will start cefepime for coverage. Can stop doxycycline. Will avoid levofloxacin: on Cipro in outpatient setting so likely resistant, and patient encephalopathic. Consult Dr Apple for ID recommendations. Repeat Blood cultures. Continue with Vancomycin as need continued treatment for prior episode of MRSA/enterococcus bacteremia. Decrease IVF to 50cc/hr to minimize volume. Weight trending up. Hemoglobin with decrease - suspect dilutional effect from IVF. Type and screen and continue to monitor. Consult with Dr Gregory and wound team for chronic wound care. 10/16/17 Continue cefepime as Ecoli in BC showing sensitivity. Will check CT ab/pelvis to due to Ecoli to exclude abdominal source. Continue with Vancomycin as need continued treatment for prior episode of MRSA/ enterococcus bacteremia. Consult with Dr Gregory and wound team for chronic wound care. 10/17/17 Continue cefepime day #[address] ab/pelvis - cirrhosis, moderate splenomegaly, moderate ascites; b/l pleural effusions, cholelithiasis without cholecystitis. No identifiable source for E. coli bacteremia. Continue with Vancomycin as need continued treatment for prior episode of MRSA/ enterococcus bacteremia. Dr Gregory recommends Calmoseptine to skin breakdown over buttocks BID/PRN. Also need to consider line infection. WBC decreased to 3.9 - pt with chronic leukopenia. Hgb decreased to 7.3, baseline in the 8's. No report of black/dark stools - check for occult blood. Asymptomatic. ? Dilutional. Follow; may need transfusion. K slightly decreased at 3.4 - will replace orally. Creatinine overall trending down; 1.6 today - approaching baseline. Good oral intake; hemodynamically stable. Weight trending up. DC IVF. 10/18/[address] Apple - could change cefepime to ceftriaxone for coverage. Did recommend removing central line and placing PICC. Continue Vancomycin for treatment of previous bacteremia. Transfusion of 1 unit pRBC given as hemoglobin decreased to 6.8 on morning draw. Additional 20mEq KCl as potassium low at 3.5. 10/19/17 E. 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 Tele reviewed = looks like A-fib. EKG was read by computer as sinus with 1st deg block. No clear P-waves, ?junctional with rate of 85? Not on BB or CCB. Trend trop. Echo was done 09/13, showing EF of 55%, mild TR, mild PH, mild PI. Hgb improved to 8.5 post transfusion. Encephalopathic - check LFTs; ammonia on the was normal. Renal function stable (BUN 32 and cr 1.4). Lasix 20mg IV x1 to help volume control - will start Spironolactone 50mg daily tomorrow. 10/20/17 E. 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 Creatinine increased to 1.6 and vanco trough was 24 yesterday - vanco dose adjusted per pharmacy. Continue diuresis - lasix given yesterday and Spironolactone started today. Weight trending down. K 3.9. Pancytopenia - counts relatively stable Addendum entered and electronically signed by Diana Powell APRN 10/20/17 13: 38: Pt also with thrush - start Nystatin suspension.
[2017-10-20] MEDS: CEFTRIAXONE 1 G in NS 100 ML IV SCH (13:15)
--- NOTE | 2017-10-20 15:20 | Discharge Summary ---
Discharge Information Date of admission: 10/14/17 15:36 Anticipated date of discharge: 10/20/17 Attending Physician: Darlene Saldaña MD Primary care physician: Vonda Carias MD Consults: [facility] Consult [CONS] Routine Reason for consultation: coccyx and buttock wounds Consulting Provider: Alphonso Gregory Reason For Exam: Chronic wounds Consulting Provider: Carole Apple Reason For Exam: Worsening sepsis syndrome despite outpt treatment - Discharge Diagnosis (1) Sepsis due to Escherichia coli Status: Acute Sepsis as indicated by fever, tachycardia, tachypnea, bandemia and elevated procalcitonin - source unknown - possible joint vs chronic wounds. Recent severe sepsis secondary to MRSA and enterococcus bacteremia - on Vancomycin outpatient. Bacteremia with E. coli Encephalopathy - improved Hypokalemia (not POA) - resolved Stage III chronic kidney disease - baseline SCr 1.4-1.5. Type 2 diabetes mellitus on insulin Chronic pancytopenia. Chronic joint infection Chronic buttock wounds Hypothyroidism, post-ablative Obstructive sleep apnea - CPAP Morbid obesity, BMI >35 Hypertension Peripheral polyneuropathy Cirrhosis Generalized pain Insomnia - Procedures Procedures: Central line - subsequently removed PICC line Blood transfusion x1 unit on 10/18/17 - Laboratory Labs: 10/20/17 04:28 10/20/17 04:28 - Microbiology Microbiology 10/16/17 04:29 Port/Picc Gram Stain - Final 10/16/17 04:29 Port/Picc Blood Culture - Final Coag negative Staphylococcus 10/16/17 04:29 Port/Picc Blood Culture - Preliminary No Growth After 4 Days - Radiology Radiology: Date of Exam: 10/14/17 PROCEDURE: XR chest 1V: Findings: Right IJ central venous catheter again noted in stable position. Interstitial prominence in both lungs. No pneumonia, pleural effusion or pneumothorax. Cardiac silhouette remains enlarged. Mediastinal contours and pulmonary vascularity are stable. Impression: Stable chest without focal pneumonia. = = = = = = = = = = = = = = = = = = = = = = = = = = = = = = = = = = = = = = = = = = = = = = = = = = = = = = = = = = = Date of Exam: 10/18/17 PROCEDURE: XR chest post-procedure 1V: Findings: Overlying monitoring leads. Right IJ line is stable in position. There is a new right-sided PICC line in place. This takes an abnormal inferior turn in the mid subclavian region, coiling in the inferior axilla. No pneumothorax. Visualized lung wick are grossly stable. Cardiomediastinal contours are unchanged. Impression: New right PICC line takes an abnormal course coiling in the inferior axillary region. Recommend repositioning or replacement prior to usage. = = = = = = = = = = = = = = = = = = = = = = = = = = = = = = = = = = = = = = = = = = = = = = = = = = = = = = = = = = = Date of Exam: 10/18/17 PROCEDURE: XR chest post-procedure 1V: Findings: New right PICC line in place with the tip now projecting over the right atrium. This could be retracted by approximately 2.5 cm to reside at the expected cavoatrial junction. Right IJ line remains in stable position. Lungs are mildly hypoinflated with basilar atelectasis. Enlarged cardiac silhouette. Mediastinal contours and pulmonary vascularity are stable. Impression: Right PICC line tip projects over the right atrium. = = = = = = = = = = = = = = = = = = = = = = = = = = = = = = = = = = = = = = = = = = = = = = = = = = = = = = = = = = = Date of Exam: 10/14/17 PROCEDURE: US venous doppler LE RT: Findings: There is no evidence for acute deep venous thrombosis in the right thigh. Specifically, serial graded compression was performed from the inguinal ligament to the popliteal bifurcation, on the right thigh, demonstrating appropriate compressibility of the deep venous system. In addition, color and pulsed Doppler demonstrate appropriate spontaneous flow, variation with respiration, and augmentation with calf compression. At the ankle, normal flow is identified in the posterior tibial veins; these vessels are also normal in caliber. Impression: No evidence of acute DVT in the right lower limb. = = = = = = = = = = = = = = = = = = = = = = = = = = = = = = = = = = = = = = = = = = = = = = = = = = = = = = = = = = = Date of Exam: 10/16/17 PROCEDURE: CT abdomen pelvis wo con: Findings: There are small bilateral pleural effusions, left greater than right. There is a small calcified granuloma in the posterior inferior right lung base. Heart size is normal. No pericardial effusion. There is moderate abdominal ascites. The liver has a somewhat nodular cirrhotic appearance and there is moderate splenomegaly. Gallbladder is small and contracted with some probable hyperdense gallstones. Pancreas is uniform in contour. Adrenal glands are normal. Kidneys are normal in contour. Abdominal aorta is nonaneurysmal. There is scattered calcific atherosclerotic plaques. No retroperitoneal or mesenteric adenopathy. No bowel distention or bowel wall thickening. Pelvis: There is a small amount of ascites in the lower pelvis. The urinary bladder is not distended. There is extensive streak artifact from bilateral metallic hip prosthesis. No definite pelvic sidewall adenopathy. Impression: Cirrhosis with moderate splenomegaly and moderate ascites. Bilateral pleural effusions, left greater than right. Cholelithiasis without evidence for cholecystitis. History of Present Illness HPI: Gurdeep Gonzales is a pleasant 67-year-old male who lives in a group home for almost 1 year. He has a left avlrc-rkl-baln amputation and has history of right knee fusion after removal of an infected joint. He is nonambulatory. He has a history of uncontrolled diabetes with resultant peripheral vascular disease as well as peripheral polyneuropathy. Around 12:30 today, he was found to have a fever of 100.7 with increased swelling, redness and pain to his right thigh and lower extremity. He was brought to [facility] ED today, 10/14/17, for further evaluation. Upon arrival, he was noted to be febrile with a temperature of 102.7, tachycardic (HR 107) and tachypneic (RR 20). He was given 1L NS and tylenol with minimal improvement. Labs were obtained and revealed WBC 5.7 with 22% bandemia and stable, chronic anemia (Hgb 8.7) as well as stable, chronic thrombocytopenia (Plt 79). Electrolytes were unremarkable. Creatine is slightly elevated at 1.9 (baseline 1.4-1.5) and BUN 30. Lactate was 1.8 with elevated procalcitonin at 2.17. He appears to be delirious and is a poor historian. His is present and contributes to the history stating that he has been doing well and was at his baseline last night. 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 He was seen by Dr. Le (endo) who recommended surgical treatment. he underwent parathyroidectomy on 09/07/[address] Gregory. At the time of admission, he was also noted to have an acute kidney injury with a max SCr of 2.6 which improved with IV fluids. Due to his pancytopenia, he required packed platelets with surgery. Following the surgery, his hypercalcemia improved. Post-operatively he became very confused and encephalopathic with persistent hyperglycemia and metabolic acidosis. Prior to his admission on 09/03/17 he had been on suppressive therapy for chronic joint injections with cipro and clindamycin. He was found to have severe sepsis with MRSA and enterococcus bacteremia on 09/12/17, though source is unclear with possible joint vs. chronic wounds. He was treated with vancomycin and cefepime which were later weaned down to just vancomycin per Dr. Apple (infectious disease). He remained on cipro for suppressive with discontinuation of the clindamycin. Wound team was consulted and participated in the care of all of his chronic wounds and did not find evidence of any acte infections or worsening wounds. ISHMAEL was obtained on 09/14/17 which did not reveal any vegetation. MRI of the knee on 09/15 showed no evidence of active osteomyelitis though possible cellulitis was noted. He was discharged back to the group home on 09/19 to complete a 6 week course of antibiotics including vancomycin through 10/24/17. It was recommended that following the completion of the vancomycin, that he continue with chronic suppressive therapy with minocycline. Prior to discharge, a central line was placed given the duration of his treatment course. Since his discharge, his reports that he has been doing well. He was seen by infectious disease on 10/10/17 in the clinic and appeared to be doing well. Due to his febrile illness concerning for severe sepsis with recent history of bacteremia secondary to MRSA and enterococcus as well as his encephalopathy, Dr. Gilliam was consulted and he was admitted into inpatient status for further evaluation, close monitoring, additional IV antibiotics and IV hydration. His length of stay is expected to exceed more than 2 over nights. Objective Vital signs: Temperature 98.4 F 10/20/17 08:00 Pulse Rate 95 10/20/17 08:00 Respiratory Rate 14 10/20/17 08:00 Blood Pressure 129/67 10/20/17 08:00 Pulse Oximetry 99 10/20/17 08:00 Height/Weight/BMI: Height 1.91 m Weight 138.1 kg Body Mass Index 38.7 Hospital Course This is a general summary of the patient's hospital course. For more details refer to the complete medical record. Hospital course: 10/14/17: ADMITTED TO INPATIENT STATUS Started on cautious IVF and antibiotics: Vancomycin was continued as per prior instructions for recent MRSA/enterococcus bacteremia, to continue through . Doxycycline was also initiated. Lactate was normal but procalcitonin was elevated at 2.17. Dr. Gregory and wound care were consulted for continued care of coccyx and buttock wounds as well as lower extremity wounds. Sono of right leg was neg for DVT. 10/15/17 Blood cultures showing E coli, started cefepime & stopped doxycycline. Procalcitonin peaked at 14.6. Dr. Apple was consulted. BC were repeated. Weight trending up and IVF were reduced. Hgb decreased to 7.9 & he was typed and screened. Creatinine improved to 1.8. 10/16/17 E. coli sensitive to cefepime. CT scan abd/pelvis done to exclude abdominal source of E. coli (findings: cirrhosis, moderate splenomegaly, moderate ascites ; b/l pleural effusions, cholelithiasis without cholecystitis). Dr. Gregory evaluated and recommended placing Calmoseptine BID/PRN to areas of incontinence- associated dermatitis. Renal function continued to improve. Procalcitonin trending down. 10/17/17 Abx continued. WBC decreased to 3.9 - pt with chronic leukopenia. Hgb decreased to 7.3, baseline in the 8's. K slightly decreased at 3.4 - replaced orally. Creatinine overall trending down; 1.6 today - approaching baseline. Good oral intake; hemodynamically stable. Weight trending up. DC'd IVF. 10/18/[address] Apple - changed cefepime to ceftriaxone for coverage. Central line was removed and PICC inserted. Transfused 1 unit pRBC given as hemoglobin decreased to 6.8 on morning draw. Additional 20mEq KCl as potassium low at 3.5. 10/19/17 E. coli bacteremia + Recent MRSA/enterococcus bacteremia + repeat BC with [employer] with meth resistant gene from PICC = cont Rocephin/Vanco. Hgb improved to 8.5 post transfusion. Renal function stable (BUN 32 and cr 1.4). Lasix 20mg IV x1 to help volume control - start Spironolactone 50mg daily tomorrow. More confused today. Ammonia level was normal. 10/20/17: DISCHARGE Mental status improved. Creatinine increased to 1.6 and vanco trough was 24 yesterday - vanco dose adjusted per pharmacy. Weight trending down. K 3.9. Pancytopenia - counts relatively stable with WBC 3.3, hgb 7.8, plt 70. Medically stable for discharge. Will continue vanco for prior MRSA/enterococcus bacteremia - through 10/24/17. Discussed dose with pharmacy - would recommend 500 mg Q3d. He would require 1 final dose of vanco 500 mg as close to 2000 on , then that course would be completed. In addition, continue ceftriaxone daily through 10/28/[address]. Apple previously recommended to f/u with Dr. Gomez to consider ongoing suppressive antibiotics - may benefit from minocycline rather than cipro or clindamycin. Further, he will need to have TSH/free T4 rechecked to adjust levothyroxine dose, which had been increased since last hospital admission. Recommend checking TSH, free T4, CBC, and BMP on 10/22/17. Will continue with spironolactone. F/U with Dr. Carias in a week and contact Dr. Gomez's office to arrange f/u regarding suppressive abx/ further abx treatment as indicated. He was diagnosed with thrush on the day of DC and a 7-day course of nystatin was prescribed. Time spent with patient: discharge greater than 30 minutes Resuscitation Status: Full Code Discharge Plan - Discharge Disposition Discharge Date: 10/20/17 Disposition: 03 To U Not [facility] ([facility]) *Condition: Stable Reason For Visit (Visit label in EMR): Sepsis - Discharge Medications *Discharge Medications: New Ceftriaxone [Rocephin 1 GM VIAL] 1 g IV Q24H #8 vial Nystatin Oral Liq. [Mycostatin] 5 ml PO QID 7 Days udc Spironolactone [Aldactone 50 mg] 50 mg PO DAILY tab Calmoseptine [Risamine Oint] 1 applicatio TP BID tube Nystatin Powder [Mycostatin] 1 applicatio TP BID bottle Continue Docusate Sodium 100 mg PO BID PRN PRN Reason: Constipation Allopurinol [Zyloprim] 300 mg PO DAILY Cyclobenzaprine [Flexeril] 10 mg PO TID PRN #45 tab PRN Reason: Muscle Spasm Sertraline [Zoloft] 100 mg PO DAILY tab Acidoph/L.bulg/Bif.b/S.thermop [Bacid Caplet] 2 cap PO BIDWM tab Acetaminophen [Tylenol] 650 mg PO QID PRN tab PRN Reason: Discomfort Aspirin 81 mg PO DAILY Calcitriol [Rocaltrol] 0.5 mcg PO BID Gabapentin [Neurontin] 100 mg PO BID Peg 3350 238 G Bottle [Miralax] 17 gm PO DAILY Calcium Citrate 200 mg PO TID Insulin Glargine,Hum.rec.anlog [Lantus Solostar] 38 unit SQ HS Insulin Aspart [NovoLOG] 4 unit SQ AC Tramadol [Ultram] 50 mg PO Q4H PRN PRN Reason: Pain Ondansetron HCl 4 mg PO Q6H PRN PRN Reason: Nausea Fexofenadine [Yuridia] 180 mg PO DAILY PRN PRN Reason: Allergy Symptoms Senna + Docusate [Senna Plus Tablet] 2 tab PO BID PRN tab PRN Reason: Constipation Pantoprazole Sodium [Protonix] 40 mg PO ACB Levothyroxine Sodium 300 mcg PO ACB Changed Vancomycin [Vancocin] 500 mg IV O #0 Discontinued Loperamide HCl [Imodium A-D] 2 mg PO Q4H PRN PRN Reason: Diarrhea Ciprofloxacin HCl [Ciprofloxacin HCl] 500 mg PO BID Heparin Sodium,Porcine/Pf [Heparin 1,000 Unit/10 (100/ml)] 1 ml IV TID - Discharge Packet/Instructions *Diet: Recommend cardiac consistent carb diet, 2000 kcal/day, 2 gm low sodium, and low-fat. *Activity: Turn in bed frequently. Monitor blood sugars fasting, 2 hours AC, PRN. *Pain Management/Treatment: Tramadol, flexeril, gabapentin as prescribed. *Wound Care: Calmoseptine BID/PRN to areas of incontinence-associated dermatitis. Additional Instructions: Check CBC with manual diff, CMP, TSH, and free T4 on . Fax results to Dr. Carias and Dr. Gomez. *Expected Signs/Symptoms: Chronic pain. Discomfort in area of skin breakdown. Fatigue from illness and hospital course. *Notify Physician if: Fever, altered mental status, difficulty breathing, chest pain, stroke-like symptoms, or any new concerns. *During Business Hours Contact: The on-call provider for Dr. Carias. *After Business Hours Contact: The on-call provider for Dr. Carias. If symptoms are dire, activate 911. *Pending Lab/Results: Follow up w/Provider Outpatient Orders: CBC w Manual Diff-AMS Time Frame: 2 Days, Location: None Selected CMP - Comprehensive Metab-AMS Time Frame: 2 Days, Location: None Selected Free T4 - AMS Time Frame: 2 Days, Location: None Selected TSH - AMS Time Frame: 2 Days, Location: None Selected - Referrals/Follow Up *Referrals/Follow Up: Bren Gomez MD [Physician] - 1 Week (Needs to restart suppressive antibiotics on 10/29/17) Vonda Carias MD [Primary Care Provider] - 1 Week - Patient Handouts - Dismissal Complete Discharge Instructions are:: Complete Physician Narrative - Narrative Attestation Narrative: Date: 10/20/17 Time: 1624 I have independently evaluated and examined this patient. I reviewed the chart, the patient's history, and the [employer] HEARING SCREENER/PA's documented findings as above. We discussed and formulated the assessment and plan as above with additions as below: Gurdeep is well known from prior hospitalization. He complains of muscle spasm and asked if he could get a dose of Flexeril but otherwise reported no particular concerns. NAD, tracks conversation appropriately, respirations nonlabored with decreased airflow throughout but breath sounds are clear, abdomen benign. PICC line right upper extremity, insertion site looks fine other than minor bruising. Creatinine 1.6 within patient's usual range reviewing labs over the past 3 months. Clinically doing well; blood sugars moderately elevated at times. Stable for discharge back to group home with continuation of IV antibiotics. Follow-up with Dr. Gomez in the near future for reassessment of chronic suppressive antibiotics for PJI-previously on clindamycin but MRSA last admission was resistant to clinda. Will receive final dose of vancomycin on since being dosed every 48 hours. Previously scheduled stop date was 10/22 to complete 6 weeks vancomycin for MRSA/enterococcus bacteremia. Thyroid function to be reassessed and results forwarded to Dr. Le- discharged last month on 250 g levothyroxine last admission with plans to reassess TSH/free T4 at 1 month; dose increased to 300 g daily several days after return to group home. Patient unsure why dose modification made. Continue 300 g daily and check TSH/free T4 with next labs. Calcium level stable on current regimen.
[2017-10-20 15:51] VITALS: BP 137/65; RESP 22; TEMP 98.9; O2SAT 100
--- NOTE | 2017-10-20 16:06 | Extended Care Facility Orders ---
Admission Orders Admit to:: Alf Allergies/Adverse Reactions: Allergies Iodinated Contrast- Oral and IV Dye Allergy (Unknown, Verified 10/14/17 13:34) Sulfa (Sulfonamide Antibiotics) Allergy (Unknown, Verified 10/14/17 13:34) Admitting Diagnosis: Sepsis Admitting Physician: Darlene Saldaña MD Attending Physician: Darlene Saldaña MD Code Status: Full Code Anticiapted Length of Stay: 30 days or less Rehab Potential: fair Rehab Prognosis: fair Diet: Recommend cardiac consistent carb diet, 2000 kcal/day, 2 gm low sodium, and low- fat. Wound/Incision Care: Calmoseptine BID/PRN to areas of incontinence-associated dermatitis. Routine PICC line cares. May use Facility Protocol or Standing Orders: Yes Evaluations/Treatment: PT, OT, as needed Alf Certification: I certify that SNF services are required to be given on an Inpatient basis because of the patient's need for penitentiary care on a continuing basis for the condition(s) for which he received inpatient hospital services prior to his transfer to the SNF. SNF inpatient care is necessary for the following reasons Indication for Alf: Med Admininistration - Additional Information In Event of Arrest: Start CPR,call 911,send patient to the ER Resident is Aware of Diagnosis: Yes Referrals: Bren Gomez MD [Physician] - 1 Week (Needs to restart suppressive antibiotics on 10/29/17) Vonda Carias MD [Primary Care Provider] - 1 Week Additional Orders: Check CBC with manual diff, CMP, TSH, and free T4 on . Fax results to Dr. Carias, Dr. Gomez, and Dr. Le. Check blood sugars fasting and 2 hours after meals.
[2017-10-20] MEDS ORDERED: NYSTATIN 500,000 units/5 ml ORAL LIQUID PO SCH (17:00)
[2017-10-20 19:17] VITALS: PULSE 85
== END 2017-10-20 17:50 | DRG 871 ==
LOC: ED 13:15 → EDHOLD 15:36 → SUATTDRO 15:36 → MED 15:49
PROVIDERS: ADMIT Hospitalist; ATTEND Internal Medicine